=== PATIENT | male | born 1985 | race African-American/Black ===

== ENCOUNTER 2025-02-10 03:06 | Inpatient (IN) | payer MEDICAID, OTHER ==
[~2025-02-10] VITALS: Ht 180.3 cm; Wt 75.6 kg
[2025-02-10] VITALS (7 sets, daily range): BP systolic 142–156; BP diastolic 78–104; PULSE 111–129; RESP 16–30; TEMP 97.9–98.4; O2SAT 91–98
--- NOTE | 2025-02-10 03:36 | ED.PDOC ---
History of Present Illness HPI Comments 39-year-old male came to ER for shortness of breath. Patient states he has been feeling short of breath for the past week, which progressively worsened tonight. Denies any cough, fever, chest pains, nausea or vomiting. Denies smoking or use of any prohibited drugs, Upon arrival, patient tachycardic at 130's. Chief Complaint: Shortness of Breath Time Seen by MD: 03:35 Reviewed Notes: Nurses Notes Allergies: Coded Allergies: NO KNOWN ALLERGIES (Unverified , 02/10/25) Information Source: Patient Mode of Arrival: Ambulatory Severity: Moderate Timing: Days Duration: Since onset Past Medical History PAST MEDICAL HISTORY: HTN Surgical History: Denies all surgeries Family History Family History: Reviewed,noncontributory to illness Social History Smoker: Non-Smoker Alcohol: Denies ETOH Use Drugs: Denies Drug Use Lives In: Home Constitutional: denies: chills, diaphoresis, fatigue, fever, malaise, sweats, weakness, others EENTM: denies: blurred vision, double vision, ear bleeding, ear discharge, ear drainage, ear pain, ear ringing, eye pain, eye redness, hearing loss, mouth pain, mouth swelling, nasal discharge, nose bleeding, nose congestion, nose pain, photophobia, tearing, throat pain, throat swelling, voice changes, others Respiratory: reports: SOB at rest, shortness of breath; denies: cough, hemoptysis, orthopnea, SOB with excertion, stridor, wheezing, others Cardiovascular: denies: chest pain, dizzy spells, diaphoresis, Dyspnea on exertion, edema, irregular heart beat, left arm pain, lightheadedness, palpitations, PND, syncope, others Gastrointestinal: denies: abdomen distended, abdominal pain, blood streaked bowels, constipated, diarrhea, dysphagia, difficulty swallowing, hematemesis, melena, nausea, poor appetite, poor fluid intake, rectal bleeding, rectal pain, vomiting, others Genitourinary: denies: burning, dysuria, flank pain, frequency, hematuria, incontinence, penile discharge, penile sore, pain, testicle pain, testicle swelling, urgency, others Neurological: denies: dizziness, fainting, headache, left sided numbness, left sided weakness, numbness, paresthesia, pre-existing deficit, right sided numbness, right sided weakness, seizure, speech problems, tingling, tremors, weakness, others Musculoskeletal: denies: back pain, gout, joint pain, joint swelling, muscle pain, muscle stiffness, neck pain, others Integumetry: denies: bruises, change in color, change in hair/nails, dryness, laceration, lesions, lumps, rash, wounds, others Allergic/Immunocompromised: denies: Difficulty Healing, Frequent Infections, Hives, Itching, others Hematologic/Lymphatic: denies: anemia, blood clots, easy bleeding, easy bruising, swollen glands, others Endocrine: denies: excessive hunger, excessive sweating, excessive thirst, excessive urination, flushing, intolerance to cold, intolerance to heat, unexplained weight gain, unexplained weight loss, others Psychiatric: denies: anxiety, bipolar disorder, depression, hopeless, panic disorder, schizophrenia, sleepless, suicidal, others Physical Exam General Appearance: No Apparent Distress, Normal HEENT: Normal ENT Inspection, Pharynx Normal, TMs Normal Neck: Full Range of Motion, Non-Tender, Normal, Normal Inspection Respiratory: Chest Non-Tender, Lungs Clear, No Accessory Muscle Use, No Respiratory Distress, Normal Breath Sounds Cardiovascular: No Edema, No JVD, No Murmur, No Gallop, Normal Peripheral Pulses, Regular Rate/Rhythm Breast Exam: Deferred Gastrointestinal: No Organomegaly, Non Tender, No Pulsatile Mass, Normal Bowel Sounds, Soft Genitalia: Deferred Pelvic: Deferred Rectal: Deferred Extremities: No calf tenderness, Normal capillary refill, Normal inspection, Normal range of motion, Non-tender, No pedal edema Musculoskeletal : Apperance: Normal Neurologic: Alert, outside cutter II-XII nml as Tested, No Motor Deficits, Normal Affect, Normal Mood, No Sensory Deficits Cerebellar Function: Normal Reflexes: Normal Skin: Dry, Normal Color, Warm Lymphatic: No Adenopathy Was a procedure done? Was a procedure done?: No EKG EKG : Pulse Rate (adult): 132 Cardiac Rhythm: ST Differential Dx Considerations may include: Anemia, electrolyte imbalance, shortness of breath, tachycardic X-Ray, Labs, Meds, VS Vital Signs Date Time Temp Pulse Resp B/P (MAP) Pulse Ox O2 Delivery O2 Flow Rate FiO2 02/10/25 04:00 128 30 98 Room Air* 0 21 02/10/25 03:50 98.9 128 30 150/111 (124) 98 98.9 02/10/25 03:36 132 02/10/25 03:15 132 02/10/25 03:15 98.1 138 18 171/96 (121) 99 98.1 Lab Test 02/10/25 05:30 02/10/25 04:56 02/10/25 03:50 Range/Units Urine Color Pending Urine Clarity Pending Urine pH Pending Urine Specific [place] Pending Urine Protein Pending Urine Ketones Pending Urine Blood Pending Urine Nitrite Pending Urine Bilirubin Pending Urine Urobilinogen Pending Urine Leukocyte Esterase Pending Urine RBC Pending Urine Microscopic WBC Pending Urine Squamous Epithelial Cells Pending Urine Bacteria Pending Urine Glucose Pending Troponin I High Sensitivity 5 5 </=54 ng/L White Blood Count 10.7 4.4-10.8 10^3/uL Red Blood Count 4.84 4.5-5.90 10^6/uL Hemoglobin 13.2 L 13.5-17.5 g/dL Hematocrit 37.7 L 41.0-53.0 % Mean Corpuscular Volume 78.0 L 80.0-100.0 fL Mean Corpuscular Hemoglobin 27.2 L 28.0-32.0 pg Mean Corpuscular Hemoglobin Concent 34.9 32.0-36.0 g/dL Red Cell Distribution Width 12.3 11.8-14.3 % Platelet Count 306 140-450 10^3/uL Mean Platelet Volume 9.2 6.9-10.8 fL Neutrophils (%) (Auto) 65.0 37.0-80.0 % Lymphocytes (%) (Auto) 22.1 10.0-50.0 % Monocytes (%) (Auto) 9.2 0.0-12.0 % Eosinophils (%) (Auto) 3.0 0.0-7.0 % Basophils (%) (Auto) 0.7 0.0-2.0 % Neutrophils # (Auto) 7.0 1.6-8.6 10 ^3/uL Lymphocytes # (Auto) 2.4 0.4-5.4 10 ^3/uL Monocytes # (Auto) 1.0 0-1.3 10 ^3/uL Eosinophils # (Auto) 0.3 0-0.8 10 ^3/uL Basophils # (Auto) 0.1 0-0.2 10 ^3/uL Nucleated Red Blood Cells 0.1 % Prothrombin Time 11.7 9.3-11.8 sec Prothrombin Time INR 1.12 0.9-1.15 Activated Partial Thromboplast Time 28.6 24.5-34.5 SEC D-Dimer, Quantitative 4.13 H 0.0-0.49 mg/L FEU Sodium Level 134 L 136-145 mmol/L Potassium Level 5.0 3.5-5.1 mmol/L Chloride Level 101 98-107 mmol/L Carbon Dioxide Level 24 20-31 mmol/L Anion Gap 9 5-15 Blood Urea Nitrogen 14 9-23 mg/dL Creatinine 1.36 H 0.700-1.30 mg/dL Glomerular Filtration Rate Calc 69 >90 mL/min BUN/Creatinine Ratio 10.3 10.0-20.0 Serum Glucose 112 H 74-106 mg/dL Calcium Level 9.7 8.7-10.4 mg/dL Total Bilirubin 0.6 0.2-1.0 mg/dL Aspartate Amino Transferase (AST) 13 13-40 U/L Alanine Aminotransferase (ALT) 10 7-40 U/L Alkaline Phosphatase 67 46-116 U/L B-Type Natriuretic Peptide 28.19 0-100 pg/mL Total Protein 7.3 5.7-8.2 g/dL Albumin 4.2 3.2-4.8 g/dL Current Medications Medications (Trade) Dose Ordered Sig/Moises Route Start Time Stop Time Status Last Admin Acetaminophen/ Hydrocodone Bitart ([place] 10/325MG Tab) 1 tab ONCE ONCE PO 02/10/25 05:00 02/10/25 05:01 DC 02/10/25 05:02 Sodium Chloride 1,000 ml @ 1,000 mls/hr Q1H ONCE IV 02/10/25 05:15 02/10/25 06:14 02/10/25 05:39 Time of 1ST Reevaluation: 03:24 Reevaluation 1ST: Unchanged Time of 2ND Reevaluation: 05:47 Reevaluation 2ND: Unchanged Patient Education/Counseling: Diagnosis, Treatment Family Education/Counseling: No Family Present Sepsis focused exam: focus exam completed (In the initial resuscitation at least 30 mL/kg of IV crystalloid fluid was NOT given within the first 3 hr due to concerns of fluid overload), time: (0500) Sepsis Sepsis Reasesment Focused Exam Sepsis focused exam: focus exam completed, time: (0500) Departure 1 Departure Time of Disposition: 05:48 Impression: Primary Impression: Pleural effusion, left Additional Impressions: Pneumonia involving left lung Acute renal injury Disposition: ADMITTED INPATIENT Condition: Guarded Discharged With: Self, Spouse Comments Shortness of Breath with Left Pleural Effusion/Pneumonia Chief Complaint: Shortness of breath History of Present Illness: 39-year-old male with a history of hypertension presents to the emergency department with a one-day history of shortness of breath. The patient was noted to be tachycardic on presentation. Initial workup revealed borderline elevated inflammatory markers and renal insufficiency, with an elevated D-dimer prompting further imaging evaluation. Review of Systems: Respiratory: Positive for shortness of breath Constitutional: Tachycardia noted Otherwise limited by acute presentation Vital Signs: Tachycardia noted, specific vital signs not provided in hose sprayer Lab Results: WBC: 10.7 (borderline elevated) Hemoglobin: 13 Hematocrit: 38 Platelets: 306 BUN: 14 Creatinine: 1.36 (elevated) Troponin: 5 BNP: 28 D-dimer: 4.13 (elevated) Other chemistries: unremarkable Imaging and Other Relevant Results: Chest X-ray: Large left pleural effusion versus infiltrate CT Chest: Confirms large left pleural effusion versus infiltrate, negative for pulmonary embolism Medical Decision Making: Summary Statement: 39-year-old male with hypertension presenting with acute onset shortness of breath, found to have left-sided pleural effusion/infiltrate and respiratory failure with hypoxia. Problem List: 1. Respiratory failure with hypoxia 2. Left pleural effusion vs. pneumonia 3. Acute kidney injury Differential Diagnosis: Community-acquired pneumonia, parapneumonic effusion, pulmonary embolism (ruled out), heart failure (less likely given normal BNP) ED Course: Patient received IV antibiotics (Rocephin and azithromycin) and 1L IV fluid bolus. Admission planned for further management. Assessment and Plan: 1. Respiratory Failure with Hypoxia: - Admit to hospital for close monitoring and respiratory support - Continue oxygen supplementation as needed 2. Left Pleural Effusion vs. Pneumonia: - Continue IV antibiotics (Ceftriaxone and Azithromycin) - May require thoracentesis if primarily effusion - Daily chest x-rays to monitor progression 3. Acute Kidney Injury: - Continue IV hydration - Monitor renal function - Avoid nephrotoxic medications Billing Information: ICD-10: J18.9 - Pneumonia, unspecified organism ICD-10: J90 - Pleural effusion, not elsewhere classified ICD-10: J96.01 - Acute respiratory failure with hypoxia ICD-10: N17.9 - Acute kidney injury, unspecified Critical Care Note Critical Care Time?: Yes (35 min-critical care time only) Critical care comment: Total critical care time: Approximately 36 minutes Due to a high probability of clinically significant, life threatening deterioration, the patient required my highest level of preparedness to intervene emergently and I personally spent this critical care time directly and personally managing the patient. This critical care time included obtaining a history; examining the patient; pulse oximetry; ordering and review of studies; arranging urgent treatment with development of a management plan; evaluation of patient's response to treatment; frequent reassessment; and, discussions with other providers. This critical care time was performed to assess and manage the high probability of imminent, life-threatening deterioration that could result in multi-organ failure. It was exclusive of separately billable procedures and treating other patients. Stability Stability form required: No Heart Score Heart Score: Heart Score Response (Comments) Value History N/A 0 EKG N/A 0 Age N/A 0 Risk Factors N/A 0 Troponin N/A 0 Total 0 I personally scribed for ZORAIDA HENNING MD ([email or web address]) on 02/10/25 at 03:36. Electronically submitted by Devan Santiago ([facility] [place]). ZORAIDA HENNING MD Feb 10, 2025 03:36
[2025-02-10 04:32] LABS: Basophils # (auto) 0.1 10 ^3/uL (0-0.2); Basophils % (auto) 0.7 % (0.0-2.0); Eosinophils # (auto) 0.3 10 ^3/uL (0-0.8); Hematocrit 37.7 % (41.0-53.0); Hemoglobin 13.2 g/dL (13.5-17.5); Lymphocytes # (auto) 2.4 10 ^3/uL (0.4-5.4); Lymphocytes % (auto) 22.1 % (10.0-50.0); Mean Corpuscular Hemoglobin 27.2 pg (28.0-32.0); Mean Corpuscular Hgb Conc. 34.9 g/dL (32.0-36.0); Monocytes % (auto) 9.2 % (0.0-12.0); Nucleated Red Blood Cells % 0.1 %; Platelet Count (auto) 306 10^3/uL (140-450); Red Blood Cells 4.84 10^6/uL (4.5-5.90); Red Cell Distribution Width 12.3 % (11.8-14.3); White Blood Cell 10.7 10^3/uL (4.4-10.8)
[2025-02-10 04:41] LABS: Alanine Aminotransferase 10 U/L (7-40); Albumin 4.2 g/dL (3.2-4.8); Alkaline Phosphatase 67 U/L (46-116); Anion Gap 9 (5-15); BUN/Creatinine Ratio 10.3 (10.0-20.0); Blood Urea Nitrogen 14 mg/dL (9-23); Calcium 9.7 mg/dL (8.7-10.4); Carbon Dioxide 24 mmol/L (20-31); Chloride 101 mmol/L (98-107); Total Protein 7.3 g/dL (5.7-8.2)
[2025-02-10 04:42] LABS: Bilirubin, Total 0.6 mg/dL (0.2-1.0); INR 1.12 (0.9-1.15); Partial Thromboplastin Time 28.6 SEC (24.5-34.5); Prothrombin Time 11.7 sec (9.3-11.8)
[2025-02-10 04:46] LABS: Aspartate Aminotransferase 13 U/L (13-40); Glucose 112 mg/dL (74-106); Sodium 134 mmol/L (136-145)
[2025-02-10] MEDS: HYDROcodone-ACET 10/325MG TAB PO ONE (05:02)
[2025-02-10] MEDS: IOHEXOL 350 MG/ML 100ML IJ ONE (05:24)
[2025-02-10] MEDS: SODIUM CHLORIDE 0.9% 1,000 ML IV ONE ×2 (05:39→15:15)
--- NOTE | 2025-02-10 05:47 | DVH ---
EXAM: XR Chest, 1 View CLINICAL INDICATION: chest pain TECHNIQUE: Frontal view of the chest. COMPARISON: None FINDINGS: LUNGS AND PLEURAL SPACES: Pulmonary venous congestion. Large left pleural effusion. No consolidat ion. No pneumothorax. HEART: Unremarkable. No cardiomegaly. MEDIASTINUM: Unremarkable. Normal mediastinal contour. BONES/JOINTS: Unremarkable. No acute fracture. OTHER FINDINGS: . . IMPRESSION: 1. Pulmonary venous congestion. 2. Large left pleural effusion.
--- NOTE | 2025-02-10 06:02 | DVH ---
EXAM: CT Angiography Chest With Intravenous Contrast CLINICAL INDICATION: SOB, tachy, elevated d-dimer r/o PE TECHNIQUE: Axial computed tomographic angiography images of the chest with intravenous contrast. Th is CT exam was performed using one or more of the following dose reduction techniques: automated exp osure control, adjustment of the mA and/or kV according to patient size, and/or use of iterative zuri nstruction technique. MIP reconstructed images were created and reviewed. CONTRAST: COMPARISON: None FINDINGS: LIMITATIONS: Suboptimal opacification of the pulmonary arteries. PULMONARY ARTERIES: No pulmonary embolism is identified. Some of the distal pulmonary arteries can not be evaluated due to suboptimal opacification. AORTA: No acute findings. No thoracic aortic aneurysm. LUNGS AND PLEURAL SPACES: Large left pleural effusion with compressive atelectasis and mass effect the mediastinum shift to the right. No pneumothorax. HEART: Unremarkable. No cardiomegaly. No significant pericardial effusion. No evidence of RV dys function. BONES/JOINTS: No acute fracture. No dislocation. SOFT TISSUES: Unremarkable. LYMPH NODES: Unremarkable. No enlarged lymph nodes. INTRAPERITONEAL SPACE: Partially visualized heterogeneous lesion in the right upper abdomen measuri ng up to 7.8 cm. This could be further evaluated with CT abdomen and pelvis with and without contrast after 24 hours. However, patient just received contrast. OTHER FINDINGS: . IMPRESSION: 1. No pulmonary embolism is identified. Some of the distal pulmonary arteries cannot be evaluated d ue to suboptimal opacification. 2. Partially visualized heterogeneous lesion in the right upper abdomen measuring up to 7.8 cm. This could be further evaluated with CT abdomen and pelvis with and without contrast after 24 hours. How ever, patient just received contrast.
[2025-02-10] MEDS: cefTRIAXone 1GM/50ML D5W 50 ML IV ONE (06:10)
[2025-02-10 06:13] LABS: Urine Bacteria FEW /hpf (None Seen); Urine Blood 3+ /uL (Negative); Urine Clarity Clear (Clear); Urine Color Light-Orange (Yellow); Urine Mucus FEW (None Seen); Urine Protein, UAD 1+ (Negative); Urine Specific Gravity 1.034 (1.001-1.035); Urine Squamous Epithelial Cell None Seen /hpf (<5); Urine Urobilinogen Normal (Negative); Urine WBC 4 /HPF (0-3); Urine pH 5.5 (5.0-9.0)
[2025-02-10] MEDS: AZITHROMYCIN 500MG/ 250ML 250 ML IV ONE (06:39)
[2025-02-10 07:00] LABS: Lactic Acid w/Reflex 2.6 mmol/L (0.4-2.0)
--- NOTE | 2025-02-10 11:18 | DVH ---
EXAM: XY CHEST XRAY 1 VIEW Indication: SOB Technique: Single frontal view of the chest was obtained Comparison: XY CHEST PORTABLE on DOS: 02/10/25 FINDINGS: Lines and Tubes: None Lungs: Complete opacification of the left hemithorax. No pneumothorax. Cardiomediastinal contours: Obscured. Bones: No acute osseous abnormality. IMPRESSION: Complete opacification of the left hemithorax again visualized.
[2025-02-10] MEDS: LORazepam 2MG/ML-1ML VIAL IV ONE (15:00)
--- NOTE | 2025-02-10 15:10 | DVHHP2 ---
Assessment/Plan Assessment/Plan H&P 39 yo M with hypertension presented to ED with 1 week of worsening SOB. Denies weight loss, night sweats, recent travels. 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 Denies other symptoms. Not taking any medication. Denies smoking, alcohol, marijuana, drugs. In ED found to have L side whiteout o n CXR, CT chest with L PLEF, incidentally found RUQ mass. Thoracenthesis done bedside, drained 1.9L serosanguineous fluid. EKG reviewed, sinus tach. Physical exam Alert oriented x3 Speaking in full sentences Not in resp distress No breath sounds on L side S1 S2 tachycardic Abdomen soft nontender No LE edema No significant lymphadenopathy Labs EKG imaging reviewed Assessment and plan R PLEF, parapneumonic vs malignancy Cannot r/o PNA RUQ mass Hypertension Admit to telemetry Thoracentesis send cytology MRI w/ con Diet regular DVT ppx ambulatory Code status full code Plan discussed with: Patient My Orders Orders - NICOLAS MATHEWS MD Procedure Category Date Status Time Admit ADMIT 02/10/25 Transmitted 11:42 Notify Of Changes SNEHAL 02/10/25 In Process From Base 11:42 Vinyl Top Installer For SNEHAL 02/10/25 In Process 24 Hours 11:42 Emergency Dysrhythmia SNEHAL 02/10/25 In Process Protocol 11:42 Rhythm Strips Once SNEHAL 02/10/25 In Process Every Shift 11:42 Ceftriaxone 1gm/50ml PHA 02/11/25 In Process D5w (Rocephin) 09:00 Azithromycin 500mg/ PHA 02/11/25 In Process 250ml (Zithromax 50 10:00 Mrsa Screen MARU 02/10/25 Logged 11:42 Regular Diet DIET 02/10/25 Transmitted Dinner Chest Xray 1 View XY 02/10/25 Logged 14:52 Mri Abd & Plevis W/Wo MRI 02/10/25 Logged Cont 14:56 Comprehensive LAB 02/11/25 Verified Metabolic Panel 04:00 Lactate Dehydrogenase LAB 02/11/25 Verified 04:00 Complete Blood Count LAB 02/11/25 Verified 04:00 Lorazepam 2mg/Ml Inj PHA 02/10/25 Logged (Ativan Inj) 15:00 Date of Service: Feb 10, 2025 Billing Provider: NICOLAS MATHEWS MD Common Visit Codes: [id number] INP/OBS CARE (HIGH) NICOLAS MATHEWS MD Feb 10, 2025 15:10
--- NOTE | 2025-02-10 15:16 | DVH ---
EXAM: XY CHEST XRAY 1 VIEW HISTORY: post thoracentesis COMPARISON: XY CHEST XRAY 1 VIEW on DOS: 02/10/25, XY CHEST PORTABLE on DOS: 02/10/25 TECHNIQUE: Portable upright AP view of the chest was performed. FINDINGS/IMPRESSION: 1. Status post left thoracentesis with decreased pleural effusion as there is now some aerated left u pper lobe. No visible pneumothorax. The majority of the left hemithorax remains opacified. 2. Mild peribronchial thickening identified about the right hilum. The right lung is otherwise clear.
[2025-02-10 16:30] LABS: Body Fluid Red Blood Cells 148907 CUMM (0-2000); Body Fluid White Blood Cells 995 CUMM (0-200)
[2025-02-10] MEDS: ACETAMINOPHEN 325 MG TAB PO PRN (21:26)
--- NOTE | 2025-02-10 21:49 | DVHNC2 ---
AARON SIMMONS [birth year]: Procedure - Ultrasound-guided LEFT thoracentesis procedure note: Physician: Dr Yovany Mathews Asst: Dr Shahab Motta Time out time: 1420 pm Patient medications and allergies reviewed. The risks and benefits of the procedure and the sedation options and risk were discussed with the patient. All questions were answered and informed consent was obtained. Patient identification and proposed procedure were verified prior to the procedure by the physician, and a nurse in the patient's room. The heart rate, respiratory rate, oxygen saturations, blood pressure, adequacy of pulmonary ventilation, and response to care were monitored throughout the procedure. The physical status of the patient was reassessed after the procedure. Date: 02/10/2025 Consent: Consent was obtained from the patient. Indication, risks, and benefits were explained at length. Procedure summary: A time-out was performed and a chest x-ray was reviewed prior to procedure. The appropriate site was confirmed and marked. My hands were washed immediately prior to the procedure, I wore a surgical cap, mask with protective eyewear, sterile gown and sterile gloves throughout the procedure. The patient was prepped and draped in a sterile manner using chlorhexidine scrub after the appropriate level was percussed and confirmed by ultrasound. 1% lidocaine was used to anesthetize the skin, subcutaneous tissue, superior aspect of the rib periosteum and parietal pleura. A finder needle was then introduced over the superior aspect of the rib to locate the pleural fluid. Red serosanguineous fluid was aspirated. Thoracentesis needle was then introduced through the skin incision into the pleural space using negative aspiration pressure. The thoracentesis catheter was then threaded without difficulty. 2050 mL's of Red serosanguineous fluid were removed without difficulty. The catheter was then removed. No immediate complications were noted during the procedure. A postprocedure chest x-ray is pending at the time of this note. No pleural fluid was sent for cultures and cytology. Estimated blood loss is less than 5 mL's. NICOLAS MATHEWS MD 02/11/25 0902: Date of Service: Feb 10, 2025 Billing Provider: NICOLAS MATHEWS MD Common Visit Codes: PROCEDURE ONLY Procedure Codes: [id number] W/PUNCT AARON SIMMONS RESIDENT Feb 10, 2025 21:49 NICOLAS MATHEWS MD Feb 11, 2025 09:02
[2025-02-11] VITALS (8 sets, daily range): BP systolic 132–159; BP diastolic 80–106; PULSE 102–130; RESP 16–18; TEMP 97.6–98.8; O2SAT 90–97
[2025-02-11 06:41] LABS: Eosinophils # (auto) 0.6 10 ^3/uL (0-0.8); Lymphocytes # (auto) 1.2 10 ^3/uL (0.4-5.4)
[2025-02-11 06:44] LABS: Basophils # (auto) 0 10 ^3/uL (0-0.2); Basophils % (auto) 0.6 % (0.0-2.0); Eosinophils % (auto) 6.5 % (0.0-7.0); Hematocrit 40.1 % (41.0-53.0); Hemoglobin 13.1 g/dL (13.5-17.5); Lymphocytes % (auto) 13.4 % (10.0-50.0); Mean Corpuscular Hemoglobin 25.4 pg (28.0-32.0); Mean Corpuscular Hgb Conc. 32.7 g/dL (32.0-36.0); Mean Corpuscular Volume 77.8 fL (80.0-100.0); Monocytes % (auto) 11.7 % (0.0-12.0); Neutrophils % (auto) 67.8 % (37.0-80.0); Nucleated Red Blood Cells % 0.1 %; Platelet Count (auto) 258 10^3/uL (140-450); Red Blood Cells 5.15 10^6/uL (4.5-5.90); Red Cell Distribution Width 12.4 % (11.8-14.3); White Blood Cell 8.8 10^3/uL (4.4-10.8)
[2025-02-11 06:50] LABS: Alanine Aminotransferase 13 U/L (7-40); Albumin 3.7 g/dL (3.2-4.8); Alkaline Phosphatase 64 U/L (46-116); Anion Gap 9 (5-15); Aspartate Aminotransferase 19 U/L (13-40); BUN/Creatinine Ratio 11.8 (10.0-20.0); Blood Urea Nitrogen 14 mg/dL (9-23); Calcium 9.1 mg/dL (8.7-10.4); Carbon Dioxide 26 mmol/L (20-31); Chloride 101 mmol/L (98-107); Glucose 99 mg/dL (74-106); Potassium 4.2 mmol/L (3.5-5.1); Sodium 136 mmol/L (136-145); Total Protein 6.3 g/dL (5.7-8.2)
[2025-02-11 06:51] LABS: Bilirubin, Total 0.5 mg/dL (0.2-1.0)
--- NOTE | 2025-02-11 08:57 | DVHPN2 ---
Assessment/Plan Assessment/Plan Progress note 39 yo M with hypertension presented to ED with 1 week of worsening SOB. Denies weight loss, night sweats, recent travels. 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 Denies other symptoms. Not taking any medication. Denies smoking, alcohol, marijuana, drugs. In ED found to have L side whiteout on CXR, CT chest with L PLEF, incidentally found RUQ mass. Thoracenthesis done bedside, drained 1.9L serosanguineous fluid. EKG reviewed, sinus tach. seen by me today during rounds, repeat xray with still significant plef. high susp of malignancy. patient received iv contrast yesterday however risk and benefit discussed, plan for ct abd contrast today. Physical exam Alert oriented x3 Speaking in full sentences Not in resp distress No breath sounds on L side S1 S2 tachycardic Abdomen soft nontender No LE edema No significant lymphadenopathy Labs EKG imaging reviewed Assessment and plan R PLEF, high susp of malignancy Cannot r/o PNA and parapneumonic PLEF RUQ mass Hypertension Admit to telemetry Thoracentesis done pulm consult for pigtail send cytology ct with cont today Diet regular DVT ppx ambulatory Code status full code Plan discussed with: Patient My Orders Orders - NICOLAS MATHEWS MD Procedure Category Date Status Time Admit ADMIT 02/10/25 Transmitted 11:42 Notify Of Changes SNEHAL 02/10/25 In Process From Base 11:42 Knowledge Management Advisor For SNEHAL 02/10/25 In Process 24 Hours 11:42 Emergency Dysrhythmia SNEHAL 02/10/25 In Process Protocol 11:42 Rhythm Strips Once SNEHAL 02/10/25 In Process Every Shift 11:42 Ceftriaxone 1gm/50ml PHA 02/11/25 In Process D5w (Rocephin) 09:00 Azithromycin 500mg/ PHA 02/11/25 In Process 250ml (Zithromax 50 10:00 Mrsa Screen MARU 02/10/25 In Process 11:42 Regular Diet DIET 02/10/25 Transmitted Dinner Chest Xray 1 View XY 02/10/25 Resulted 14:52 Mri Abd & Plevis W/Wo MRI 02/12/25 Logged Cont 14:56 Echo 2d Mode Cardiac US 02/11/25 Transmitted DOP 08:51 Basic Metabolic Panel LAB 02/12/25 Verified 04:00 Complete Blood Count LAB 02/12/25 Verified 04:00 Magnesium LAB 02/12/25 Verified 04:00 Phosphorus LAB 02/12/25 Verified 04:00 Lactic Acid W/ Reflex LAB 02/12/25 Verified Order 04:00 Iron Panel LAB 02/11/25 Transmitted 08:51 Ferritin LAB 02/11/25 Transmitted 08:[address] 02/11/25 Transmitted 08:51 Date of Service: Feb 11, 2025 Billing Provider: NICOLAS MATHEWS MD Common Visit Codes: [id number] INP/OBS CARE(HIGH) NICOLAS MATHEWS MD Feb 11, 2025 08:57
[2025-02-11] MEDS: IOHEXOL 300 MG/ML 100ML BOTTLE IJ ONE (09:16)
[2025-02-11] MEDS: clonazePAM 0.5 MG TAB PO SCH (10:00)
[2025-02-11] MEDS: cefTRIAXone 1GM/50ML D5W 50 ML IV SCH (10:02)
--- NOTE | 2025-02-11 10:03 | DVH ---
Exam: CT CT AB PEL WITH IV CON ONLY History: ABDMINAL MASS/ OKAY TO GIVE CONTRAST TECHNIQUE: Multiple contiguous axial CT images of the abdomen and pelvis were obtained with intraveno us contrast. The images were reformatted to generate coronal and sagittal reconstructions. 100 cc of Omnipaque 300 contrast was injected intravenously. All CT scans at this medical facility are performed using dose modulation techniques as appropriate t o a performed exam including the following:Automated exposure control was utilized; adjustment of the MA and/or KV according to patient size; and use of iterative reconstruction technique. Radiation Dose Information: CT Dose: CTDI volume is 6 mGy. Dose-length product is 54 mGy*cm Comparison: None FINDINGS: There is an 8.3 x 7.5 cm irregular heterogeneous enhancing mass in the upper pole of the right kidney suspicious for primary renal malignancy. There is no evidence of left renal lesion. There is no evid ence of nephrolithiasis or hydronephrosis. The liver, gallbladder, pancreas, adrenal glands, and spleen appear within normal limits. There is no evidence of retroperitoneal lymphadenopathy. There is no free fluid or free air. The stomach grossly appears unremarkable. The small and large bowel loops demonstrate normal caliber and distribution. The appendix is not seen in the right lower quadrant abdomen. There are no seconda ry signs of acute appendicitis. The abdominal aorta and IVC appear within normal limits. The bladder appears within normal limits the degree of distention. Pelvic organs is unremarkable. The re is no evidence of a pelvic mass or lymphadenopathy. There is no free fluid collection. There is a large left pleural effusion with atelectasis in the visualized left lower lung. The righ t lung base is clear. There is no suspicious appearing osseous lesion. IMPRESSION: 1. 8.3 x 7.5 cm irregular heterogeneous enhancing mass in the upper pole of the right kidney suspicio us for primary renal malignancy. Urology consultation is recommended. 2. Large left pleural effusion with atelectasis in the visualized left lower lung. HS:Y
[2025-02-11 10:52] LABS: % Iron Saturation 9.8 % (20-55)
--- NOTE | 2025-02-11 10:52 | ECG ---
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
[2025-02-11] MEDS: AZITHROMYCIN 500MG/ 250ML 250 ML IV SCH (11:52)
[2025-02-11] MEDS: SODIUM CHLORIDE 0.9% 1,000 ML IV ONE (11:52)
--- NOTE | 2025-02-11 16:25 | DVHINCON2 ---
Date of service: Feb 12, [address] Castaneda Reason for Consultation renal mass History of Present Illness History Source: RN Notes, MD Notes Exam Limitations: No limitations HPI 39 yo male with dyspnea found to have incidental large renal mass. Patient off unit at time of rounds for chest tube placement. Past Medical History Patient Family History: Hypertension G8 MOTHER Review of Systems Pulmonary/Respiratory: Dyspnea H&P Exam Vital Signs Vital Signs Date Time Temp Pulse Resp B/P (MAP) Pulse Ox O2 Delivery O2 Flow Rate FiO2 02/11/25 13:30 97.9 112 16 141/99 (113) 90 97.9 02/11/25 08:00 Room Air* 0 21 Labs/Xrays [place] [address] Ph: [phone] DIAGNOSTIC IMAGING Diagnostic Imaging Report : [id number] Signed PATIENT: DAYAMI BARNES ACCT: [id number] UNIT: [id number] : 1985 LOC: [facility] ROOM / BED: [facility] / AGE / SEX: 39 / M ADM STATUS: ADM IN SERVICE 0914 ORDERING PHYSICIAN: NICOLAS MATHEWS MD PROCEDURE(s): ABPLIV - CT AB PEL WITH IV CON ONLY REASON: ABDMINAL MASS/ OKAY TO GIVE CONTRAST ORDER NUMBER(s): [id number], ACCESSION NUMBER(s): [id number] Exam: CT CT AB PEL WITH IV CON ONLY History: ABDMINAL MASS/ OKAY TO GIVE CONTRAST TECHNIQUE: Multiple contiguous axial CT images of the abdomen and pelvis were obtained with intravenous contrast. The images were reformatted to generate coronal and sagittal reconstructions. 100 cc of Omnipaque 300 contrast was injected intravenously. All CT scans at this medical facility are performed using dose modulation techniques as appropriate to a performed exam including the following:Automated exposure control was utilized; adjustment of the MA and/or KV according to patient size; and use of iterative reconstruction technique. Radiation Dose Information: CT Dose: CTDI volume is 6 mGy. Dose-length product is 54 mGy*cm Comparison: None FINDINGS: There is an 8.3 x 7.5 cm irregular heterogeneous enhancing mass in the upper pole of the right kidney suspicious for primary renal malignancy. There is no evidence of left renal lesion. There is no evidence of nephrolithiasis or hydronephrosis. The liver, gallbladder, pancreas, adrenal glands, and spleen appear within normal limits. There is no evidence of retroperitoneal lymphadenopathy. There is no free fluid or free air. The stomach grossly appears unremarkable. The small and large bowel loops demonstrate normal caliber and distribution. The appendix is not seen in the right lower quadrant abdomen. There are no secondary signs of acute appendicitis . The abdominal aorta and IVC appear within normal limits. The bladder appears within normal limits the degree of distention. Pelvic organs is unremarkable. There is no evidence of a pelvic mass or lymphadenopathy. There is no free fluid collection. There is a large left pleural effusion with atelectasis in the visualized left lower lung. The right lung base is clear. There is no suspicious appearing osseous lesion. IMPRESSION: 1. 8.3 x 7.5 cm irregular heterogeneous enhancing mass in the upper pole of the right kidney suspicious for primary renal malignancy. Urology consultation is recommended. 2. Large left pleural effusion with atelectasis in the visualized left lower lung. HS:Y ATED BY: CUCO RODRIGUES MD DICTATED DATE/TIME: 02/11/25 1001 SIGNED BY: CUCO RODRIGUES MD SIGNED DATE/TIME: 02/11/25 1001 CC: Labs Test 02/11/25 05:42 02/10/25 15:01 02/10/25 08:21 02/10/25 05:30 Range/Units White Blood Count 8.8 4.4-10.8 10^3/uL Red Blood Count 5.15 4.5-5.90 10^6/uL Hemoglobin 13.1 L 13.5-17.5 g/dL Hematocrit 40.1 L 41.0-53.0 % Mean Corpuscular Volume 77.8 L 80.0-100.0 fL Mean Corpuscular Hemoglobin 25.4 L 28.0-32.0 pg Mean Corpuscular Hemoglobin Concent 32.7 32.0-36.0 g/dL Red Cell Distribution Width 12.4 11.8-14.3 % Platelet Count 258 140-450 10^3/uL Mean Platelet Volume 9.0 6.9-10.8 fL Neutrophils (%) (Auto) 67.8 37.0-80.0 % Lymphocytes (%) (Auto) 13.4 10.0-50.0 % Monocytes (%) (Auto) 11.7 0.0-12.0 % Eosinophils (%) (Auto) 6.5 0.0-7.0 % Basophils (%) (Auto) 0.6 0.0-2.0 % Neutrophils # (Auto) 6.0 1.6-8.6 10 ^3/uL Lymphocytes # (Auto) 1.2 0.4-5.4 10 ^3/uL Monocytes # (Auto) 1.0 0-1.3 10 ^3/uL Eosinophils # (Auto) 0.6 0-0.8 10 ^3/uL Basophils # (Auto) 0 0-0.2 10 ^3/uL Nucleated Red Blood Cells 0.1 % Sodium Level 136 136-145 mmol/L Potassium Level 4.2 3.5-5.1 mmol/L Chloride Level 101 98-107 mmol/L Carbon Dioxide Level 26 20-31 mmol/L Anion Gap 9 5-15 Blood Urea Nitrogen 14 9-23 mg/dL Creatinine 1.19 0.700-1.30 mg/dL Glomerular Filtration Rate Calc 81 >90 mL/min BUN/Creatinine Ratio 11.8 10.0-20.0 Serum Glucose 99 74-106 mg/dL Calcium Level 9.1 8.7-10.4 mg/dL Iron Level 21 L 65-175 ug/dL Total Iron Binding Capacity 215 L 250-425 ug/dL Percent Iron Saturation 9.8 L 20-55 % Ferritin 407.4 H 22-322 ng/mL Total Bilirubin 0.5 0.2-1.0 mg/dL Aspartate Amino Transferase (AST) 19 13-40 U/L Alanine Aminotransferase (ALT) 13 7-40 U/L Alkaline Phosphatase 64 46-116 U/L Lactate Dehydrogenase 357 H 120-246 U/L Total Protein 6.3 5.7-8.2 g/dL Albumin 3.7 3.2-4.8 g/dL Body Fluid Source Pleural fluid Body Fluid pH 8.0 Body Fluid WBC (Manual) 995 H 0-200 CUMM Body Fluid RBC (Manual) 820434 H 0-2000 CUMM Body Fluid Mononuclear Cells 70 % Body Fluid Polymorphonuclear Cells 30 H 0-25 % Body Fluid Glucose 78 . mg/dL Body Fluid Total Protein 5.0 . g/dL Body Fluid Lactate Dehydrogenase 563 . IU/L Lactic Acid Level 2.0 0.4-2.0 mmol/L Urine Color Light-orange Yellow Urine Clarity Clear Clear Urine pH 5.5 5.0-9.0 Urine Specific [place] 1.034 1.001-1.035 Urine Protein 1+ H Negative Urine Ketones 2+ H Negative Urine Blood 3+ H Negative /uL Urine Nitrite Negative Negative Urine Bilirubin Negative Negative Urine Urobilinogen Normal Negative mg/dL Urine Leukocyte Esterase Negative Negative /uL Urine RBC 437 0 - 3 /hpf Urine Microscopic WBC 4 H 0-3 /HPF Urine Squamous Epithelial Cells None seen <5 /hpf Urine Bacteria Few H None Seen /hpf Urine Mucus Few None Seen Urine Glucose Normal Normal mg/dL Test 02/10/25 04:56 02/10/25 03:50 Range/Units Troponin I High Sensitivity 5 </=54 ng/L Prothrombin Time 11.7 9.3-11.8 sec Prothrombin Time INR 1.12 0.9-1.15 Activated Partial Thromboplast Time 28.6 24.5-34.5 SEC D-Dimer, Quantitative 4.13 H 0.0-0.49 mg/L FEU B-Type Natriuretic Peptide 28.19 0-100 pg/mL Microbiology Date/Time Source Procedure Growth Status 02/10/25 12:35 Nose MRSA Screen - Final Complete 02/10/25 06:08 Blood Blood Culture - Preliminary NO GROWTH AFTER 24 HOURS OF INCUBATION. Resulted Assessment/Plan Problem List: (1) Renal malignant neoplasm (2) Hematuria (3) Pleural effusion, left (4) Acute renal injury (5) Pneumonia involving left lung Plan pt will ultimately need right radical nephrectomy on outpt basis this case was reviewed and discussed at length with supervising urology surgeon Dr. Zuhair Nicole and Dr. James Khan. medical management of other conditions Plan discussed with: Patient, Other SEVEN KATE NP Feb 11, 2025 16:25
--- NOTE | 2025-02-11 23:08 | DVHINCON2 ---
Date of service: Feb 11, 2025 Referring Physician Thomas Mathews MD Reason for Consultation Left pleural effusion, parapneumonic vs malignancy - cannot rule out pneumonia History of Present Illness A 39-year-old man with past medical history of hypertension who presented to ED on 02/10/25 with 1 week of worsening shortness of breath. He denied weight loss, night sweats, recent travels. 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 Denied other symptoms. Not taking any medication. Denies smoking, alcohol, marijuana, drugs. On ED workup, found to have left side whiteout on CXR; CT chest with left pleural effusion and incidentally found RUQ mass. Thoracentesis was done at bedside, drained 1.9 L serosanguineous fluid. EKG reviewed, sinus tach. Patient was admitted for further care and pulmonary consultation is requested for evaluation and management due to these findings. Review of Systems: 14-point review of systems negative unless otherwise noted above. Past Medical History: Hypertension Past Surgical History: None Medications: Reviewed. Allergies: No known drug allergies. Family History: Hypertension Social History: Nonsmoker. No alcohol or illicit drug use. Family History: Hypertension G8 MOTHER Allergies: Coded Allergies: NO KNOWN ALLERGIES (Unverified , 02/10/25) Home Meds Active Scripts Clonazepam (Clonazepam) 0.5 Mg Tab, 0.5 MG PO BIDPRN PRN for 5 Days, #10 TAB Prov:THOMAS MATHEWS MD 02/17/25 Ibuprofen Micronized (Ibuprofen) 600 Mg Tab, 600 MG PO TID PRN for 10 Days, #30 TAB Prov:THOMAS MATHEWS MD 02/17/25 Current Medications Current Medications Medications (Trade) Dose Ordered Sig/Moises Route PRN Reason Start Time Stop Time Status Last Admin Ceftriaxone Sodium 50 ml @ 100 mls/hr DAILY@09 IV 02/11/25 09:00 02/11/25 10:02 Azithromycin 250 ml @ 125 mls/hr DAILY IV 02/11/25 10:00 02/11/25 11:52 Clonazepam (KlonoPIN TABLET) 0.5 mg BID PO 02/11/25 10:00 02/11/25 21:02 Vital Signs Vital Signs Date Time Temp Pulse Resp B/P (MAP) Pulse Ox O2 Delivery O2 Flow Rate FiO2 02/11/25 20:50 98.8 125 17 132/80 (97) 96 98.8 02/11/25 20:00 Room Air* 0 21 Physical Exam Gen.: Patient lying in bed in no apparent distress. On supplemental oxygen. Head: Normocephalic, atraumatic. Eyes: EOMI/PERRLA. Ears: Normal hearing. Normal anatomy. Neck/trachea: Trachea midline, supple. Nose: Normal external anatomy. Mouth: Moist mucous membranes. Chest: Decreased air entry bilaterally. No wheezing or rhonchi. Cardiovascular: Positive S1, positive S2. Regular rate and rhythm. Abdomen: Positive bowel sounds in all 4 quadrants. Soft, non-tender, non- distended. : Deferred. Rectal: Deferred. Skin: Warm, dry. Intact. Extremities: 2+ radial pulses bilaterally. No lower extremity edema. Neuro: Awake, alert, oriented x3. No gross motor or sensory deficits. Cranial nerves II through XII intact. Gait not assessed. Labs/Diagnostic Data Labs Test 02/11/25 05:42 02/10/25 15:01 02/10/25 08:21 02/10/25 05:30 Range/Units White Blood Count 8.8 4.4-10.8 10^3/uL Red Blood Count 5.15 4.5-5.90 10^6/uL Hemoglobin 13.1 L 13.5-17.5 g/dL Hematocrit 40.1 L 41.0-53.0 % Mean Corpuscular Volume 77.8 L 80.0-100.0 fL Mean Corpuscular Hemoglobin 25.4 L 28.0-32.0 pg Mean Corpuscular Hemoglobin Concent 32.7 32.0-36.0 g/dL Red Cell Distribution Width 12.4 11.8-14.3 % Platelet Count 258 140-450 10^3/uL Mean Platelet Volume 9.0 6.9-10.8 fL Neutrophils (%) (Auto) 67.8 37.0-80.0 % Lymphocytes (%) (Auto) 13.4 10.0-50.0 % Monocytes (%) (Auto) 11.7 0.0-12.0 % Eosinophils (%) (Auto) 6.5 0.0-7.0 % Basophils (%) (Auto) 0.6 0.0-2.0 % Neutrophils # (Auto) 6.0 1.6-8.6 10 ^3/uL Lymphocytes # (Auto) 1.2 0.4-5.4 10 ^3/uL Monocytes # (Auto) 1.0 0-1.3 10 ^3/uL Eosinophils # (Auto) 0.6 0-0.8 10 ^3/uL Basophils # (Auto) 0 0-0.2 10 ^3/uL Nucleated Red Blood Cells 0.1 % Sodium Level 136 136-145 mmol/L Potassium Level 4.2 3.5-5.1 mmol/L Chloride Level 101 98-107 mmol/L Carbon Dioxide Level 26 20-31 mmol/L Anion Gap 9 5-15 Blood Urea Nitrogen 14 9-23 mg/dL Creatinine 1.19 0.700-1.30 mg/dL Glomerular Filtration Rate Calc 81 >90 mL/min BUN/Creatinine Ratio 11.8 10.0-20.0 Serum Glucose 99 74-106 mg/dL Calcium Level 9.1 8.7-10.4 mg/dL Iron Level 21 L 65-175 ug/dL Total Iron Binding Capacity 215 L 250-425 ug/dL Percent Iron Saturation 9.8 L 20-55 % Ferritin 407.4 H 22-322 ng/mL Total Bilirubin 0.5 0.2-1.0 mg/dL Aspartate Amino Transferase (AST) 19 13-40 U/L Alanine Aminotransferase (ALT) 13 7-40 U/L Alkaline Phosphatase 64 46-116 U/L Lactate Dehydrogenase 357 H 120-246 U/L Total Protein 6.3 5.7-8.2 g/dL Albumin 3.7 3.2-4.8 g/dL Body Fluid Source Pleural fluid Body Fluid pH 8.0 Body Fluid WBC (Manual) 995 H 0-200 CUMM Body Fluid RBC (Manual) 095196 H 0-2000 CUMM Body Fluid Mononuclear Cells 70 % Body Fluid Polymorphonuclear Cells 30 H 0-25 % Body Fluid Glucose 78 . mg/dL Body Fluid Total Protein 5.0 . g/dL Body Fluid Lactate Dehydrogenase 563 . IU/L Lactic Acid Level 2.0 0.4-2.0 mmol/L Urine Color Light-orange Yellow Urine Clarity Clear Clear Urine pH 5.5 5.0-9.0 Urine Specific [place] 1.034 1.001-1.035 Urine Protein 1+ H Negative Urine Ketones 2+ H Negative Urine Blood 3+ H Negative /uL Urine Nitrite Negative Negative Urine Bilirubin Negative Negative Urine Urobilinogen Normal Negative mg/dL Urine Leukocyte Esterase Negative Negative /uL Urine RBC 437 0 - 3 /hpf Urine Microscopic WBC 4 H 0-3 /HPF Urine Squamous Epithelial Cells None seen <5 /hpf Urine Bacteria Few H None Seen /hpf Urine Mucus Few None Seen Urine Glucose Normal Normal mg/dL Test 02/10/25 04:56 02/10/25 03:50 Range/Units Troponin I High Sensitivity 5 </=54 ng/L Prothrombin Time 11.7 9.3-11.8 sec Prothrombin Time INR 1.12 0.9-1.15 Activated Partial Thromboplast Time 28.6 24.5-34.5 SEC D-Dimer, Quantitative 4.13 H 0.0-0.49 mg/L FEU B-Type Natriuretic Peptide 28.19 0-100 pg/mL Microbiology Date/Time Source Procedure Growth Status 02/10/25 12:35 Nose MRSA Screen - Final Complete 02/10/25 06:08 Blood Blood Culture - Preliminary NO GROWTH AFTER 24 HOURS OF INCUBATION. Resulted Assessment Impression: Left pleural effusion, parapneumonic vs malignancy Atelectasis Rule out pneumonia Dependence on supplemental oxygen Right upper quadrant mass Hypertension Plan: Supplemental oxygen 2 LPM NC Titrate to keep O2 sats above 92%. Taper O2 as tolerated. S/p left thoracentesis - drained 1.9 L serosanguineous fluid from left pleural space. Patient deferred Kashif chest tube Consult IR for small-bore chest tube Place to -20 cmH2O Continue antibiotics Incentive spirometry Monitor renal function. Monitor electrolytes. Supplement as necessary. Monitor ins and outs. DVT prophylaxis. Prognosis: Poor given patient's multiple co-morbidities. Rest of plan per hospitalist and other consultants. Thank you, Dr. Mathews, for allowing me to participate in this patient's care. Further recommendations will depend on the patient's clinical course. Please do not hesitate to contact me if you have any questions or concerns. This medical document was created using an electronic medical record system with [employer] system. Although these documentations are being carefully reviewed, there may still be some phonetic and typographical changes. The errors are purely typographical, due to imperfection on the software program, and do not reflect any compromise in the patient's medical care. Plan discussed with: Patient, Other (DARBY Nguyen/Dr. Mathews) CHANEL CHOW MD Feb 11, 2025 23:08
[2025-02-12] VITALS (8 sets, daily range): BP systolic 126–146; BP diastolic 77–95; PULSE 111–121; RESP 14–19; TEMP 98.2–98.7; O2SAT 94–97
[2025-02-12 06:29] LABS: Basophils # (auto) 0 10 ^3/uL (0-0.2); Eosinophils # (auto) 0.5 10 ^3/uL (0-0.8); Hemoglobin 13.2 g/dL (13.5-17.5); Lymphocytes # (auto) 1.3 10 ^3/uL (0.4-5.4); Monocytes % (auto) 11.1 % (0.0-12.0)
[2025-02-12 06:31] LABS: Basophils % (auto) 0.4 % (0.0-2.0); Eosinophils % (auto) 6.8 % (0.0-7.0); Lymphocytes % (auto) 16.3 % (10.0-50.0); Mean Corpuscular Hemoglobin 25.5 pg (28.0-32.0); Mean Corpuscular Volume 77.4 fL (80.0-100.0); Monocytes # (auto) 0.9 10 ^3/uL (0-1.3); Neutrophils # (auto) 5.1 10 ^3/uL (1.6-8.6); Neutrophils % (auto) 65.4 % (37.0-80.0); Platelet Count (auto) 260 10^3/uL (140-450); Red Blood Cells 5.17 10^6/uL (4.5-5.90); Red Cell Distribution Width 12.2 % (11.8-14.3); White Blood Cell 7.9 10^3/uL (4.4-10.8)
[2025-02-12 06:33] LABS: Anion Gap 8 (5-15); Carbon Dioxide 28 mmol/L (20-31); Chloride 101 mmol/L (98-107); Potassium 3.9 mmol/L (3.5-5.1); Sodium 137 mmol/L (136-145)
[2025-02-12 06:34] LABS: Calcium 8.9 mg/dL (8.7-10.4)
[2025-02-12 06:39] LABS: BUN/Creatinine Ratio 8.7 (10.0-20.0); Blood Urea Nitrogen 11 mg/dL (9-23)
[2025-02-12 06:40] LABS: Glucose 107 mg/dL (74-106); Magnesium 2.3 mg/dL (1.6-2.6)
[2025-02-12 06:41] LABS: Phosphorus 3.5 mg/dL (2.4-5.1)
--- NOTE | 2025-02-12 08:16 | DVH ---
US CHEST ULTRASOUND, HISTORY: FLUID CHECK FOR POSSIBLE THORACENTESIS COMPARISON(S): None TECHNICAL DATA: Transverse and longitudinal images are obtained of the chest. FINDING: IMPRESSION(S): There is a moderate to large left pleural effusion. A right kidney mass is seen.
--- NOTE | 2025-02-12 14:04 | DVH ---
US US GUIDANCE FOR NEEDLE PLACEME, HISTORY: PLEURAL EFFUSION COMPARISON: None PROCEDURE: Informed consent was obtained. The patient was placed supine on the CT scanner. IV sedatio n was administered. The fluid collection was localized under US and CT scan and the overlying skin pr epped with chlorhexidine which was allowed to dry and draped in the usual sterile fashion and infiltr ated with Xylocaine. Time out was performed. A tool specialist CT scan was performed. With US guidance, an 8 F r pigtail catheter was advanced into the left pleural effusion using trocar technique. Placement was confirmed with CT scan. 1 L of pleural effusion was obtained for fluid analysis. The chest tube was t hen connected to a Pleur Evac cannister for wall suction. The drain was sutured at the skin surface. No immediate complication was noted. Post procedure CT imaging through the drain site was obtained. DLP = 990 mGy-cm. SEDATION: Dr. Kapil Tomlin was personally responsible for the administration of moderate sedation during the procedure performed, including the use of an independent trained observer who had no other duties during the procedure. The drugs utilized were IV fentanyl and versed (see nursing log for details). The total time of supervision by the attending physician was approximately 30 minutes. FINDINGS: Limited CT scan of through the chest demonstrates a large sized pleural effusion. . Post pr ocedure scan shows pigtail drain within the pleural effusion. No immediate complication was identifie d. IMPRESSION: US/ CT guided placement of 8 [place] pigtail drain into a left pleural effusion. PLAN: Low wall suction for the chest tube.
--- NOTE | 2025-02-12 14:04 | DVH ---
US US GUIDANCE FOR NEEDLE PLACEME, HISTORY: PLEURAL EFFUSION COMPARISON: None PROCEDURE: Informed consent was obtained. The patient was placed supine on the CT scanner. IV sedatio n was administered. The fluid collection was localized under US and CT scan and the overlying skin pr epped with chlorhexidine which was allowed to dry and draped in the usual sterile fashion and infiltr ated with Xylocaine. Time out was performed. A digital solutions architect CT scan was performed. With US guidance, an 8 F r pigtail catheter was advanced into the left pleural effusion using trocar technique. Placement was confirmed with CT scan. 1 L of pleural effusion was obtained for fluid analysis. The chest tube was t hen connected to a Pleur Evac cannister for wall suction. The drain was sutured at the skin surface. No immediate complication was noted. Post procedure CT imaging through the drain site was obtained. DLP = 990 mGy-cm. SEDATION: Dr. Kapil Tomlin was personally responsible for the administration of moderate sedation during the procedure performed, including the use of an independent trained observer who had no other duties during the procedure. The drugs utilized were IV fentanyl and versed (see nursing log for details). The total time of supervision by the attending physician was approximately 30 minutes. FINDINGS: Limited CT scan of through the chest demonstrates a large sized pleural effusion. . Post pr ocedure scan shows pigtail drain within the pleural effusion. No immediate complication was identifie d. IMPRESSION: US/ CT guided placement of 8 [place] pigtail drain into a left pleural effusion. PLAN: Low wall suction for the chest tube.
--- NOTE | 2025-02-12 18:02 | DVHPN2 ---
Assessment/Plan Assessment/Plan Progress note 39 yo M with hypertension presented to ED with 1 week of worsening SOB. Denies weight loss, night sweats, recent travels. 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 Denies other symptoms. Not taking any medication. Denies smoking, alcohol, marijuana, drugs. In ED found to have L side whiteout on CXR, CT chest with L PLEF, incidentally found RUQ mass. Thoracenthesis done bedside, drained 1.9L serosanguineous fluid. EKG reviewed, sinus tach. chest tube placed. CTAP with R renal mass susp for malignancy. seen by urology for outpatient radical nephrectomy seen by me today during rounds, chest tube drained 1500cc Physical exam Alert oriented x3 Speaking in full sentences Not in resp distress No breath sounds on L side S1 S2 tachycardic Abdomen soft nontender No LE edema No significant lymphadenopathy Labs EKG imaging reviewed Assessment and plan R PLEF, high susp of malignancy Cannot r/o PNA and parapneumonic PLEF R renal mass Hypertension Admit to telemetry Thoracentesis done pulm consult for chest tube mgmt send cytology chest tube in place incentive spirometry pain mgmt uro consult appreciated Diet regular DVT ppx ambulatory Code status full code Plan discussed with: Patient My Orders Orders - NICOLAS MATHEWS MD Procedure Category Date Status Time Chest Without Contrast CT 02/12/25 Resulted 08:[address] 02/12/25 Resulted Needle Placeme 08:36 Date of Service: Feb 12, 2025 Billing Provider: NICOLAS MATHEWS MD Common Visit Codes: [id number] INP/OBS CARE(HIGH) NICOLAS MATHEWS MD Feb 12, 2025 18:02
[2025-02-13] VITALS (8 sets, daily range): BP systolic 115–144; BP diastolic 50–99; PULSE 52–138; RESP 16–20; TEMP 98.3–101.2; O2SAT 96–100
[2025-02-13 05:57] LABS: Basophils # (auto) 0 10 ^3/uL (0-0.2); Basophils % (auto) 0.5 % (0.0-2.0); Eosinophils # (auto) 0.5 10 ^3/uL (0-0.8); Eosinophils % (auto) 6.7 % (0.0-7.0); Hematocrit 39.5 % (41.0-53.0); Hemoglobin 12.9 g/dL (13.5-17.5); Mean Corpuscular Hemoglobin 25.4 pg (28.0-32.0); Mean Corpuscular Hgb Conc. 32.6 g/dL (32.0-36.0); Monocytes # (auto) 0.8 10 ^3/uL (0-1.3); Monocytes % (auto) 9.5 % (0.0-12.0); Neutrophils # (auto) 5.6 10 ^3/uL (1.6-8.6); Neutrophils % (auto) 70.3 % (37.0-80.0); Platelet Count (auto) 242 10^3/uL (140-450); Red Blood Cells 5.07 10^6/uL (4.5-5.90); Red Cell Distribution Width 12.3 % (11.8-14.3)
[2025-02-13 06:01] LABS: Anion Gap 6 (5-15); Carbon Dioxide 26 mmol/L (20-31); Chloride 104 mmol/L (98-107); Potassium 3.6 mmol/L (3.5-5.1); Sodium 136 mmol/L (136-145)
[2025-02-13 06:07] LABS: BUN/Creatinine Ratio 8.6 (10.0-20.0); Blood Urea Nitrogen 10 mg/dL (9-23)
[2025-02-13 06:10] LABS: Calcium 8.6 mg/dL (8.7-10.4); Glucose 132 mg/dL (74-106)
[2025-02-13] MEDS: fentaNYL CITRATE 100 MCG/2 ML VL IV ONE (07:54)
[2025-02-13] MEDS: MIDAZOLAM HCL 2MG/2ML 2ml VIAL (1mg/ml) IV ONE (07:54)
[2025-02-13] MEDS: LIDOCAINE 2% (LOCAL ANESTH.) PF 5ml SDV ONE (07:54)
--- NOTE | 2025-02-13 09:14 | DVHPN2 ---
Progress Note - Dictate Date Seen: Feb 12, 2025 Medical Necessity Reason Pt with a Central, PICC or Fol: No Subjective Patient seen and examined at bedside. Breathing comfortably on room air. Overnight events reviewed. vital signs Vital Sign Date Time Temp Pulse Resp B/P (MAP) Pulse Ox O2 Delivery O2 Flow Rate FiO2 02/13/25 08:55 98.4 112 20 135/84 (101) 96 98.4 02/12/25 20:00 Room Air* 0 21 Total Intake and Output 02/12/25 02/12/25 02/13/25 14:59 22:59 06:59 Intake Total 1000 ml 900 ml Output Total 1520 ml 90 ml Balance -520 ml 810 ml medications Current Medications Medications Dose Ordered Sig/Moises Route Start Time Stop Time Status Last Admin Dose Admin Ceftriaxone Sodium 50 ml @ 100 mls/hr DAILY@09 IV 02/11/25 09:00 02/13/25 08:24 100 MLS/HR Azithromycin 250 ml @ 125 mls/hr DAILY IV 02/11/25 10:00 02/12/25 10:52 125 MLS/HR Acetaminophen 650 mg Q8HP PRN PO 02/10/25 20:45 02/13/25 08:17 650 MG Clonazepam 0.5 mg BID PO 02/11/25 10:00 02/13/25 08:17 0.5 MG objective Gen.: Patient lying in bed in no apparent distress. Breathing on room air. Head: Normocephalic, atraumatic. Eyes: EOMI/PERRLA. Ears: Normal hearing. Normal anatomy. Neck/trachea: Trachea midline, supple. Nose: Normal external anatomy. Mouth: Moist mucous membranes. Chest: Decreased air entry bilaterally. No wheezing or rhonchi. Cardiovascular: Positive S1, positive S2. Regular rate and rhythm. Abdomen: Positive bowel sounds in all 4 quadrants. Soft, non-tender, non- distended. : Deferred. Rectal: Deferred. Skin: Warm, dry. Intact. Extremities: 2+ radial pulses bilaterally. No lower extremity edema. Neuro: Awake, alert, oriented x3. No gross motor or sensory deficits. Cranial nerves II through XII intact. Gait not assessed. laboratory and microbiology Laboratory Tests 02/13/25 04:43 Test 02/13/25 04:43 Range/Units Serum Glucose 132 H 74-106 mg/dL Assessment/Plan Impression: Left pleural effusion, parapneumonic vs malignancy Atelectasis Rule out pneumonia Dependence on supplemental oxygen Right upper quadrant mass Hypertension Events: Breathing on room air Supplemental oxygen PRN Denies pain or discomfort. Left chest tube in place -20 cmH2O 1600 ml serosanguineous fluid drained. Chest tube clean and dry, no air leak CXR shows improvement in left pleural effusion Continue antibiotics Incentive spirometry Labs and imaging reviewed. Rest of plan as noted below. Plan: Supplemental oxygen PRN Titrate to keep O2 sats above 92%. S/p left thoracentesis on 02/11/25 - drained 1.9 L serosanguineous fluid from left pleural space. S/p chest tube Placed to -20 cmH2O Continue antibiotics Incentive spirometry Monitor renal function. Monitor electrolytes. Supplement as necessary. Monitor ins and outs. DVT prophylaxis. Prognosis: Poor given patient's multiple co-morbidities. Rest of plan per hospitalist and other consultants. Thank you, Dr. Rubin, for allowing me to participate in this patient's care. Further recommendations will depend on the patient's clinical course. Please do not hesitate to contact me if you have any questions or concerns. This medical document was created using an electronic medical record system with [employer] dictation system. Although these documentations are being carefully reviewed, there may still be some phonetic and typographical changes. The errors are purely typographical, due to imperfection on the software program, and do not reflect any compromise in the patient's medical care. Plan discussed with: Patient, Other (RN) CHANEL CHOW MD Feb 13, 2025 09:14
--- NOTE | 2025-02-13 10:39 | DVH ---
XY CHEST PORTABLE, HISTORY: plef interval COMPARISON: XY CHEST XRAY 1 VIEW on DOS: 02/10/25, XY CHEST XRAY 1 VIEW on DOS: 02/10/25, XY CHEST PORTAB LE on DOS: 02/10/25 XY CHEST XRAY 1 VIEW on DOS: 02/10/25, XY CHEST XRAY 1 VIEW on DOS: 02/10/25, XY CHEST PORTABLE on DOS: TECHNICAL DATA: 1 view of the chest was obtained. FINDINGS: Lines and tubes: Pigtail left chest tube is seen. Cardiomediastinal silhouette: normal Pulmonary vasculature: normal Lung expansion: normal Lung airspace: Patchy left opacities. Lung interstitium: normal Pleura: Decrease in the left pleural effusion. Pneumothorax: no Bones: Unremarkable Other: no IMPRESSION: Decrease in the left pleural effusion. Improvement of the prior tracheal deviation.
--- NOTE | 2025-02-13 14:27 | DVHSR ---
APPROVED REPORT EXAM: Two-dimensional and M-mode echocardiogram with Doppler and color Doppler. Blood Pressure: 159/81 mmHg INDICATION R/O structural heart disease RISK FACTORS Height: , Weight: 174 DIMENSIONS LVDd4.7 (3.8-5.7cm)LA (2D)3.5 (1.9-4.0cm)Aortic Root (2.0-3.7cm) LVDs3.3 (2.5-4.0cm)LA (MM) (1.9-4.0cm)Aortic Cusp Exc (1.5-2.0cm) EF (%) 57.0 (55-70%)Rt. Atrium3.5 (1.9-4.0cm)Asc. Aorta cm Mitral Valve MitralMitral Stenosis E wave0.93m/sMV Mean GR.mmHg A wave1.08m/sMV Peak GR.mmHg E/A ratio0.92D MVAcm2 DECEL [id number] 1/2 Timems Aortic Valve Aortic ValveAortic Stenosis V11.22m/Radha Mean GR.6mmHg V21.66m/Radha Peak GR.11mmHg Other Information Technically limited study due to body habitus. Conclusion Technically difficult study. Limited study. Off axis views. Undetermined rhythm. Underlying tachy cardia. There appears to be moderate mitral annular calcification views obtained. The aortic valve is not cl early visualized. The tricuspid appears to be structurally normal. There appears to be a small RV. There appears to be mild left atrial enlargement. Left ventricular function appears to be preserved. EF is about 50% with normal RV function. There appears to be [id number] pericardial effusion mostly noted towards the lateral wall of l eft ventricle. There appears to be dense thrombin surrounding the LV. Possibly a hemorrhagic perica rdial effusion. There appears to be some impingement upon the RV however can not delineate if there is impingement upon the right atrium and/or filling of the right atrium or ventricle. The subcostal view does not appear to delineate a clear window for pericardiocentesis. The left ventricle does not appear to be collapsing. Clinical correlation recommended.
--- NOTE | 2025-02-13 15:01 | DVHPN2 ---
Assessment/Plan Assessment/Plan Progress note 39 yo M with hypertension presented to ED with 1 week of worsening SOB. Denies weight loss, night sweats, recent travels. 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 Denies other symptoms. Not taking any medication. Denies smoking, alcohol, marijuana, drugs. In ED found to have L side whiteout on CXR, CT chest with L PLEF, incidentally found RUQ mass. Thoracenthesis done bedside, drained 1.9L serosanguineous fluid. EKG reviewed, sinus tach. chest tube placed. CTAP with R renal mass susp for malignancy. seen by urology for outpatient radical nephrectomy seen by me today during rounds, chest tube drained 1600cc, seen by pulm Physical exam Alert oriented x3 Speaking in full sentences Not in resp distress No breath sounds on L side S1 S2 tachycardic Abdomen soft nontender No LE edema No significant lymphadenopathy Labs EKG imaging reviewed Assessment and plan R PLEF, high susp of malignancy Cannot r/o PNA and parapneumonic PLEF R renal mass Hypertension Admit to telemetry Thoracentesis done fluid exudative pulm consult for chest tube mgmt send cytology chest tube in place incentive spirometry pain mgmt uro consult appreciated Diet regular DVT ppx ambulatory Code status full code Plan discussed with: Patient My Orders Orders - NICOLAS MATHEWS MD Procedure Category Date Status Time Incentive Spirometry ORDERS 02/12/25 Transmitted 17:59 Communication Order ORDERS 02/12/25 Transmitted 17:59 Chest Portable XY 02/13/25 Resulted 04:00 Date of Service: Feb 13, 2025 Billing Provider: NICOLAS MATHEWS MD Common Visit Codes: [id number] INP/OBS CARE(HIGH) NICOLAS MATEHWS MD Feb 13, 2025 15:00
[2025-02-13] MEDS: POLYETHYLENE GLYCOL 17 GM PWDR PO ONE (17:04)
--- NOTE | 2025-02-13 19:23 | DVHPN2 ---
Progress Note - Dictate Date Seen: Feb 13, 2025 Medical Necessity Reason Pt with a Central, PICC or Fol: No Subjective Patient seen and examined at bedside. Breathing comfortably on room air. Overnight events reviewed. vital signs Vital Sign Date Time Temp Pulse Resp B/P (MAP) Pulse Ox O2 Delivery O2 Flow Rate FiO2 02/13/25 17:05 99.8 131 20 144/99 (114) 99 99.8 02/13/25 08:00 Room Air* 0 21 Total Intake and Output 02/12/25 02/12/25 02/13/25 15:00 23:00 07:00 Intake Total 1000 ml 900 ml Output Total 1520 ml 90 ml Balance -520 ml 810 ml medications Current Medications Medications Dose Ordered Sig/Moises Route Start Time Stop Time Status Last Admin Dose Admin Ceftriaxone Sodium 50 ml @ 100 mls/hr DAILY@09 IV 02/11/25 09:00 02/13/25 08:24 100 MLS/HR Azithromycin 250 ml @ 125 mls/hr DAILY IV 02/11/25 10:00 02/13/25 09:24 125 MLS/HR Acetaminophen 650 mg Q8HP PRN PO 02/10/25 20:45 02/13/25 08:17 650 MG Clonazepam 0.5 mg BID PO 02/11/25 10:00 02/13/25 08:17 0.5 MG objective Gen.: Patient lying in bed in no apparent distress. Breathing on room air. Head: Normocephalic, atraumatic. Eyes: EOMI/PERRLA. Ears: Normal hearing. Normal anatomy. Neck/trachea: Trachea midline, supple. Nose: Normal external anatomy. Mouth: Moist mucous membranes. Chest: Decreased air entry bilaterally. No wheezing or rhonchi. Cardiovascular: Positive S1, positive S2. Regular rate and rhythm. Abdomen: Positive bowel sounds in all 4 quadrants. Soft, non-tender, non- distended. : Deferred. Rectal: Deferred. Skin: Warm, dry. Intact. Extremities: 2+ radial pulses bilaterally. No lower extremity edema. Neuro: Awake, alert, oriented x3. No gross motor or sensory deficits. Cranial nerves II through XII intact. Gait not assessed. laboratory and microbiology Laboratory Tests 02/13/25 04:43 Test 02/13/25 04:43 Range/Units Serum Glucose 132 H 74-106 mg/dL Assessment/Plan Impression: Left pleural effusion, parapneumonic vs malignancy Atelectasis Rule out pneumonia Dependence on supplemental oxygen Right upper quadrant mass Hypertension Events: Breathing on room air Supplemental oxygen PRN Denies pain or discomfort. Left chest tube in place -20 cmH2O 400 ml drained overnight, none for today. Chest tube clean and dry, no air leak CXR shows decrease in left pleural effusion and improvement of the prior tracheal deviation. Continue antibiotics Incentive spirometry Labs and imaging reviewed. Rest of plan as noted below. Plan: Supplemental oxygen PRN Titrate to keep O2 sats above 92%. S/p left thoracentesis on 02/11/25 - drained 1.9 L serosanguineous fluid from left pleural space. S/p chest tube Placed to -20 cmH2O Continue antibiotics Incentive spirometry Monitor renal function. Monitor electrolytes. Supplement as necessary. Monitor ins and outs. DVT prophylaxis. Prognosis: Poor given patient's multiple co-morbidities. Rest of plan per hospitalist and other consultants. Thank you, Dr. Rubin, for allowing me to participate in this patient's care. Further recommendations will depend on the patient's clinical course. Please do not hesitate to contact me if you have any questions or concerns. This medical document was created using an electronic medical record system with [employer] computerized dictation system. Although these documentations are being carefully reviewed, there may still be some phonetic and typographical changes. The errors are purely typographical, due to imperfection on the software program, and do not reflect any compromise in the patient's medical care. Dietary Evaluation Review Comments: 1) Add 2g Na restriction to diet d/t HTN 2) Encourage optimal PO intale 3) Follow-up with urology, oncology, and pulmonology 4) Continue to monitor I&O, labs, and skin integrity Expected Outcomes/Goals: 1) appetite and labs to improve 2) diet to advance 2) f/u in 2-3 days Plan discussed with: Patient, Other (RN Ty) CHANEL CHOW MD Feb 13, 2025 19:23
[2025-02-14] VITALS (7 sets, daily range): BP systolic 129–143; BP diastolic 81–93; PULSE 117–134; RESP 16–20; TEMP 97.8–100; O2SAT 95–98
[2025-02-14 06:51] LABS: Basophils # (auto) 0.1 10 ^3/uL (0-0.2); Eosinophils # (auto) 0.3 10 ^3/uL (0-0.8); Hemoglobin 14.1 g/dL (13.5-17.5); Lymphocytes # (auto) 1.2 10 ^3/uL (0.4-5.4); Monocytes # (auto) 0.9 10 ^3/uL (0-1.3); Neutrophils # (auto) 7.1 10 ^3/uL (1.6-8.6); Nucleated Red Blood Cells % 0.1 %
[2025-02-14 06:54] LABS: Basophils % (auto) 0.6 % (0.0-2.0); Eosinophils % (auto) 2.9 % (0.0-7.0); Hematocrit 42.8 % (41.0-53.0); Lymphocytes % (auto) 12.9 % (10.0-50.0); Mean Corpuscular Hemoglobin 25.7 pg (28.0-32.0); Mean Corpuscular Hgb Conc. 32.8 g/dL (32.0-36.0); Mean Corpuscular Volume 78.1 fL (80.0-100.0); Monocytes % (auto) 9.5 % (0.0-12.0); Neutrophils % (auto) 74.1 % (37.0-80.0); Platelet Count (auto) 251 10^3/uL (140-450); Red Blood Cells 5.48 10^6/uL (4.5-5.90); Red Cell Distribution Width 12.6 % (11.8-14.3); White Blood Cell 9.6 10^3/uL (4.4-10.8)
[2025-02-14 07:04] LABS: Anion Gap 7 (5-15); Carbon Dioxide 27 mmol/L (20-31); Chloride 101 mmol/L (98-107); Potassium 4.4 mmol/L (3.5-5.1)
[2025-02-14 07:06] LABS: Calcium 8.9 mg/dL (8.7-10.4); Sodium 135 mmol/L (136-145)
[2025-02-14 07:10] LABS: BUN/Creatinine Ratio 9.4 (10.0-20.0); Blood Urea Nitrogen 11 mg/dL (9-23); Glucose 99 mg/dL (74-106)
[2025-02-14] MEDS ORDERED: VANCOMYCIN PER PHARMACY 0 MG IV SCH (10:00)
--- NOTE | 2025-02-14 10:49 | DVH ---
XY CHEST PORTABLE, HISTORY: interval changes COMPARISON: XY CHEST PORTABLE on DOS: 02/13/25, XY CHEST XRAY 1 VIEW on DOS: 02/10/25, XY CHEST XRAY 1 EW on DOS: 02/10/25 XY CHEST PORTABLE on DOS: 02/13/25, XY CHEST XRAY 1 VIEW on DOS: 02/10/25, XY CHEST XRAY 1 VIEW on DOS: TECHNICAL DATA: 1 view of the chest was obtained. FINDINGS: Lines and tubes: Pigtail left chest tube is seen. Cardiomediastinal silhouette: normal Pulmonary vasculature: normal Lung expansion: normal Lung airspace: Patchy Left opacities. Lung interstitium: normal Pleura: left pleural effusion. Pneumothorax: no Bones: Unremarkable Other: no IMPRESSION: Increase in the left pleural effusion. Increase of the prior tracheal deviation.
[2025-02-14] MEDS: VANCOMYCIN 1GM/200ML PM 250 ML IV SCH (11:21)
--- NOTE | 2025-02-14 12:55 | DVH ---
CT CHEST WITHOUT CONTRAST INDICATION: chest tube EXAM DATE: 02/14/2025 12:27 PM COMPARISON: CT CHEST WITHOUT CONTRAST on DOS: 02/12/25, US CHEST ULTRASOUND on DOS: 02/12/25 RADIATION DOSE: CTDIvol: 11.39 mGy, DLP: 400.28 mGy*cm PROCEDURE: Helical CT images were obtained of the chest without intravenous contrast. Sagittal and c oronal reconstructions are provided. ADDITIONAL IMAGES / REFORMATS: None All CT scans at this medical facility are performed using dose modulation techniques as appropriate t o a performed exam including the following: Automated exposure control was utilized; adjustment of th e MA and/or KV according to patient size; and use of iterative reconstruction technique. FINDINGS: Bones: Scattered degenerative changes are noted. Visualized Abdomen: Similar right renal mass Chest Wall: Normal. Soft tissues: Normal. Mediastinum: Normal. Heart: Coronary artery calcifications are noted. Vessels: Normal. Lymph Nodes: Normal. Pleura: Moderate left effusion with left chest tube Airways: Normal. Lung: Left compressive atelecatsis. Other: None IMPRESSION: Interval improved aeration of the left lung with decreased pleural effusion and a pigtail chest tube in place. If additional fluid drainage is needed and the chest tube output is low, then may need to f lush/aspirate the tube or upsize for larger chest tube size.
[2025-02-14] MEDS: CEFEPIME 2GM/50ML NS 50 ML IV SCH (14:28)
--- NOTE | 2025-02-14 16:40 | DVHINCON2 ---
Date Seen: Feb 14, 2025 Referring Physician Scottie Reason for Consultation Pericardial Effusion History of Present Illness 39-year-old with PMH for hypertension presents to the hospital with shortness of breath worsening for the last week. Denies any chest pain, palpitations, diaphoresis. Patient states that he has not been compliant with his blood pressure medications and blood pressure seem to be elevated. Upon evaluation in the ER patient's initial blood pressure noted to be 171/96. CXR showed left- sided white out, follow up CT chest showed left pleural effusion with right upper quadrant mass. Patient ended up having thoracentesis in the ER was-1.9 L removed. Patient had a follow up CT abdomen showing 8.3 x 7.5 cm irregular heterogeneous enhancing mass in the right upper pole of the right kidney suspicious for renal malignancy. Patient ended up having a chest tube placed for recurrent pleural effusion. Patient echocardiogram done showing low normal LVEF 50% with small to moderate pericardial effusion towards the lateral wall of left ventricle no evidence of tamponade. Cardiology consulted. Past Medical History HTN Past Surgical History Denies previous cardiac surgeries Family History: Hypertension G8 MOTHER Social History Denies alcohol, tobacco, illicit drug use Allergies: Coded Allergies: NO KNOWN ALLERGIES (Unverified , 02/10/25) Home Meds No Active Prescriptions or Reported Meds Current Medications Current Medications Medications (Trade) Dose Ordered Sig/Moises Route PRN Reason Start Time Stop Time Status Last Admin Vancomycin HCl 0 ml @ 0 mls/hr UD IV 02/14/25 10:00 Cefepime HCl 50 ml @ 12.5 mls/hr Q8HR IV 02/14/25 14:00 02/14/25 14:28 Vancomycin HCl 250 ml @ 200 mls/hr Q12H IV 02/14/25 12:00 02/14/25 11:21 Acetaminophen (Tylenol Tablet) 650 mg Q8HP PRN PO PAIN SCALE 1-3 OR TEMP>100.4 02/14/25 15:45 Review of Systems Constitutional: No: Fever, Chills, Sweats, Weakness, Malaise, Other Eyes: No: Pain, Vision change, Conjunctivae inflammation, Eyelid inflammation, Other, Redness ENT: No: Ear pain, Ear discharge, Nose pain, Nose discharge, Nose congestion, Mouth pain, Mouth swelling, Throat pain, Throat swelling, Other Respiratory: No: Cough, Dry, , SOB with exertion, Wheezing, Hemoptysis, Pleuritic Pain, Sputum, Wheezing, Other positive : Shortness of breath Cardiovascular: ; No: Chest Pain Palpitations, Orthopnea, Paroxysmal Noc. Dyspnea, Edema, Lt Headedness, Other Gastrointestinal: No: Nausea, Vomiting, Abdominal Pain, Diarrhea, Constipation, Melena, Hematochezia, Other Genitourinary: No Dysuria, No Frequency, No Incontinence, No Hematuria, No Retention, No Other Musculoskeletal: neck pain; No: other, shoulder pain, arm pain, back pain, hand pain, leg pain, foot pain Skin: No: Rash, Lesions, Jaundice, Bruising, Other Neurological: Other (Dizziness, headache.); No: Weakness, Numbness, Incoordination, Change in speech, Confusion, Seizures Vital Signs Vital Signs Date Time Temp Pulse Resp B/P (MAP) Pulse Ox O2 Delivery O2 Flow Rate FiO2 02/14/25 13:04 97.8 117 17 129/81 (97) 97 97.8 02/14/25 08:00 Room Air* 0 21 Physical Exam Constitutional: No: Fever, Chills, Sweats, Weakness, Malaise, Other Eyes: No: Pain, Vision change, Conjunctivae inflammation, Eyelid inflammation, Other, Redness ENT: No: Ear pain, Ear discharge, Nose pain, Nose discharge, Nose congestion, Mouth pain, Mouth swelling, Throat pain, Throat swelling, Other Respiratory: No: Cough, Dry, Shortness of breath, SOB with exertion, Wheezing, Hemoptysis, Pleuritic Pain, Sputum, Wheezing, Other, left chest tube in place. Cardiovascular: ; No: Chest Pain Palpitations, Orthopnea, Paroxysmal Noc. Dyspnea, Edema, Lt Headedness, Other Gastrointestinal: No: Nausea, Vomiting, Abdominal Pain, Diarrhea, Constipation, Melena, Hematochezia, Other Genitourinary: No Dysuria, No Frequency, No Incontinence, No Hematuria, No Retention, No Other Musculoskeletal: neck pain; No: other, shoulder pain, arm pain, back pain, hand pain, leg pain, foot pain Skin: No: Rash, Lesions, Jaundice, Bruising, Other Neurological: Other (Dizziness, headache.); No: Weakness, Numbness, Incoordination, Change in speech, Confusion, Seizures Labs/Diagnostic Data Labs Test 02/14/25 06:03 02/12/25 04:38 02/11/25 05:42 02/10/25 15:01 Range/Units White Blood Count 9.6 4.4-10.8 10^3/uL Red Blood Count 5.48 4.5-5.90 10^6/uL Hemoglobin 14.1 13.5-17.5 g/dL Hematocrit 42.8 41.0-53.0 % Mean Corpuscular Volume 78.1 L 80.0-100.0 fL Mean Corpuscular Hemoglobin 25.7 L 28.0-32.0 pg Mean Corpuscular Hemoglobin Concent 32.8 32.0-36.0 g/dL Red Cell Distribution Width 12.6 11.8-14.3 % Platelet Count 251 140-450 10^3/uL Mean Platelet Volume 9.1 6.9-10.8 fL Neutrophils (%) (Auto) 74.1 37.0-80.0 % Lymphocytes (%) (Auto) 12.9 10.0-50.0 % Monocytes (%) (Auto) 9.5 0.0-12.0 % Eosinophils (%) (Auto) 2.9 0.0-7.0 % Basophils (%) (Auto) 0.6 0.0-2.0 % Neutrophils # (Auto) 7.1 1.6-8.6 10 ^3/uL Lymphocytes # (Auto) 1.2 0.4-5.4 10 ^3/uL Monocytes # (Auto) 0.9 0-1.3 10 ^3/uL Eosinophils # (Auto) 0.3 0-0.8 10 ^3/uL Basophils # (Auto) 0.1 0-0.2 10 ^3/uL Nucleated Red Blood Cells 0.1 % Sodium Level 135 L 136-145 mmol/L Potassium Level 4.4 3.5-5.1 mmol/L Chloride Level 101 98-107 mmol/L Carbon Dioxide Level 27 20-31 mmol/L Anion Gap 7 5-15 Blood Urea Nitrogen 11 9-23 mg/dL Creatinine 1.17 0.700-1.30 mg/dL Glomerular Filtration Rate Calc 82 >90 mL/min BUN/Creatinine Ratio 9.4 L 10.0-20.0 Serum Glucose 99 74-106 mg/dL Calcium Level 8.9 8.7-10.4 mg/dL Lactic Acid Level 1.2 0.4-2.0 mmol/L Phosphorus Level 3.5 2.4-5.1 mg/dL Magnesium Level 2.3 1.6-2.6 mg/dL Iron Level 21 L 65-175 ug/dL Total Iron Binding Capacity 215 L 250-425 ug/dL Percent Iron Saturation 9.8 L 20-55 % Ferritin 407.4 H 22-322 ng/mL Total Bilirubin 0.5 0.2-1.0 mg/dL Aspartate Amino Transferase (AST) 19 13-40 U/L Alanine Aminotransferase (ALT) 13 7-40 U/L Alkaline Phosphatase 64 46-116 U/L Lactate Dehydrogenase 357 H 120-246 U/L Total Protein 6.3 5.7-8.2 g/dL Albumin 3.7 3.2-4.8 g/dL Body Fluid Source Pleural fluid Body Fluid pH 8.0 Body Fluid WBC (Manual) 995 H 0-200 CUMM Body Fluid RBC (Manual) 728517 H 0-2000 CUMM Body Fluid Mononuclear Cells 70 % Body Fluid Polymorphonuclear Cells 30 H 0-25 % Body Fluid Glucose 78 . mg/dL Body Fluid Total Protein 5.0 . g/dL Body Fluid Lactate Dehydrogenase 563 . IU/L Test 02/10/25 05:30 02/10/25 04:56 02/10/25 03:50 Range/Units Urine Color Light-orange Yellow Urine Clarity Clear Clear Urine pH 5.5 5.0-9.0 Urine Specific Bradford 1.034 1.001-1.035 Urine Protein 1+ H Negative Urine Ketones 2+ H Negative Urine Blood 3+ H Negative /uL Urine Nitrite Negative Negative Urine Bilirubin Negative Negative Urine Urobilinogen Normal Negative mg/dL Urine Leukocyte Esterase Negative Negative /uL Urine RBC 437 0 - 3 /hpf Urine Microscopic WBC 4 H 0-3 /HPF Urine Squamous Epithelial Cells None seen <5 /hpf Urine Bacteria Few H None Seen /hpf Urine Mucus Few None Seen Urine Glucose Normal Normal mg/dL Troponin I High Sensitivity 5 </=54 ng/L Prothrombin Time 11.7 9.3-11.8 sec Prothrombin Time INR 1.12 0.9-1.15 Activated Partial Thromboplast Time 28.6 24.5-34.5 SEC D-Dimer, Quantitative 4.13 H 0.0-0.49 mg/L FEU B-Type Natriuretic Peptide 28.19 0-100 pg/mL Microbiology Date/Time Source Procedure Growth Status 02/10/25 12:35 Nose MRSA Screen - Final Complete 02/10/25 06:08 Blood Blood Culture - Preliminary NO GROWTH AFTER 72 HOURS OF INCUBATION. Resulted Assessment * Pericardial effusion - [id number] on echo. No evidence of tamponade. Recommend repeat echo 3-4 weeks. * Recurrent left pleural effusion , pneumonia?- chest tube in place. Pulmonology following. On IV antibiotics. * RUQ/Renal mass suspicious for malignancy- urology on board. Continue management per primary team. * Uncontrolled HTN - BP better controlled, continue on IV Antihypertensives as needed Case Discussed with Dr Gold. Echo with preserved LV and RV function. No significant valvular structural abnormalities. Small to moderate pericardial effusion with no evidence of tamponade. Recommend repeat echo 3-4 weeks. Troponin negative. There is no further cardiac work-up indicated at this time. Thank you for allowing us to participate in this patient's care. Will sign off. Critical care, time spent: 40 minutes This medical document was created using an electronic medical record system with voice recognition software and computerized dictation system. Although this document has been carefully reviewed, there might still be some phonetic and typographical errors. Occasional wrong-word or ``sound-alike substitutions may have occurred due to the inherent limitations of voice recognition software. These areas are purely typographical due to imperfections of the software programs and do not reflect any compromise in the patient's medical care. Plea se read the chart carefully and recognize, using context, where these substitutions have occurred. Thank you for allowing me to participate in the management of this patient. The treatment plan was discussed with and agreed upon by patient/family andrewi derik requesting consultants and ordering of imaging/procedures. Plan discussed with: Patient NYHA Physical activity limitations: Class2(Slight)fatigue,sob Date of Service: Feb 14, 2025 Billing Provider: NETO BENSON Cardiology Common Codes: [id number] INP/OBS CARE (High), [id number] CARE 30-74 MIN NETO BENSON Feb 14, 2025 16:40
--- NOTE | 2025-02-14 18:43 | DVHPN2 ---
Assessment/Plan Assessment/Plan Progress note 39 yo M with hypertension presented to ED with 1 week of worsening SOB. Denies weight loss, night sweats, recent travels. 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 Denies other symptoms. Not taking any medication. Denies smoking, alcohol, marijuana, drugs. In ED found to have L side whiteout on CXR, CT chest with L PLEF, incidentally found RUQ mass. Thoracenthesis done bedside, drained 1.9L serosanguineous fluid. EKG reviewed, sinus tach. chest tube placed. CTAP with R renal mass susp for malignancy. seen by urology for outpatient radical nephrectomy seen by me today during rounds, chest tub slowing down however xray worsens. likely loculated, discussed with pulm, possible TPA vs larger bore chest tube. pericardial eff noted on echo w/o tamponade, cardio consulted, no further eval for now. patient is in sinus tach, will not treat at this point. will eval once fluid removed. Physical exam Alert oriented x3 Speaking in full sentences Not in resp distress No breath sounds on L side S1 S2 tachycardic Abdomen soft nontender No LE edema No significant lymphadenopathy Labs EKG imaging reviewed Assessment and plan R PLEF, high susp of malignancy Cannot r/o PNA and parapneumonic PLEF pericardial effusion, no tamponade physiology R renal mass Hypertension sinus tach Admit to telemetry Thoracentesis done fluid exudative pulm consult for chest tube mgmt send cytology chest tube in place incentive spirometry pain mgmt uro consult appreciated cardio for pericardial ef no tamponade Diet regular DVT ppx ambulatory Code status full code Plan discussed with: Patient My Orders Orders - NICOLAS MATHEWS MD Procedure Category Date Status Time Body Fluid Culture W/ MARU 02/14/25 Logged GS 09:46 * Cardiology Consult CONS 02/14/25 Transmitted 09:47 Vancomycin Per PHA 02/14/25 In Process Pharmacy 10:00 Cefepime 2gm/50ml Ns PHA 02/14/25 In Process (Maxipime 2gm/50ml) 14:00 Vancomycin 1gm/250ml PHA 02/14/25 In Process Kit 12:00 Complete Blood Count LAB 02/15/25 Verified 04:00 Creatinine LAB 02/15/25 Verified 04:00 Vancomycin,Trough LAB 02/15/25 Verified 23:00 Vancomycin Per SNEHAL 02/14/25 In Process Pharmacy Protoc 10:32 Acetaminophen Tablet PHA 02/14/25 In Process (Tylenol Tablet) 15:45 Electrocardigram EKG 02/14/25 Logged 18:29 Date of Service: Feb 14, 2025 Billing Provider: NICOLAS MATHEWS MD Common Visit Codes: [id number] SAME DATE (HIGH) NICOLAS MATHEWS MD Feb 14, 2025 18:43
--- NOTE | 2025-02-14 18:59 | DVHPN2 ---
Progress Note - Dictate Date Seen: Feb 14, 2025 Medical Necessity Reason Pt with a Central, PICC or Fol: No Subjective Patient seen and examined at bedside. Breathing comfortably on room air. Overnight events reviewed. vital signs Vital Sign Date Time Temp Pulse Resp B/P (MAP) Pulse Ox O2 Delivery O2 Flow Rate FiO2 02/14/25 16:56 98.6 117 16 129/89 (102) 98 98.6 02/14/25 08:00 Room Air* 0 21 Total Intake and Output 02/13/25 02/13/25 02/14/25 15:00 23:00 07:00 Intake Total 300 ml 2200 ml 1000 ml Output Total 700 ml Balance 300 ml 2200 ml 300 ml medications Current Medications Medications Dose Ordered Sig/Moises Route Start Time Stop Time Status Last Admin Dose Admin Clonazepam 0.5 mg BID PO 02/11/25 10:00 02/14/25 08:29 0.5 MG Vancomycin HCl 0 ml @ 0 mls/hr UD IV 02/14/25 10:00 Cefepime HCl 50 ml @ 12.5 mls/hr Q8HR IV 02/14/25 14:00 02/14/25 14:28 12.5 MLS/HR Vancomycin HCl 250 ml @ 200 mls/hr Q12H IV 02/14/25 12:00 02/14/25 11:21 200 MLS/HR Acetaminophen 650 mg Q8HP PRN PO 02/14/25 15:45 objective Gen.: Patient lying in bed in no apparent distress. Breathing on room air. Head: Normocephalic, atraumatic. Eyes: EOMI/PERRLA. Ears: Normal hearing. Normal anatomy. Neck/trachea: Trachea midline, supple. Nose: Normal external anatomy. Mouth: Moist mucous membranes. Chest: Decreased air entry bilaterally. No wheezing or rhonchi. Cardiovascular: Positive S1, positive S2. Regular rate and rhythm. Abdomen: Positive bowel sounds in all 4 quadrants. Soft, non-tender, non- distended. : Deferred. Rectal: Deferred. Skin: Warm, dry. Intact. Extremities: 2+ radial pulses bilaterally. No lower extremity edema. Neuro: Awake, alert, oriented x3. No gross motor or sensory deficits. Cranial nerves II through XII intact. Gait not assessed. laboratory and microbiology Laboratory Tests 02/14/25 06:03 Test 02/14/25 06:03 Range/Units Serum Glucose 99 74-106 mg/dL Assessment/Plan Impression: Left pleural effusion, parapneumonic vs malignancy Atelectasis Rule out pneumonia Dependence on supplemental oxygen Right upper quadrant mass Hypertension Events: Breathing on room air Supplemental oxygen PRN Denies pain or discomfort. Left chest tube in place -20 cmH2O No output noted in the last 24 hours Chest tube clean and dry, no air leak CXR reviewed, demonstrates increase in left pleural effusion and increase of the prior tracheal deviation. Chest tube in place. CT chest was ordered for further evaluation. Pericardial effusion - Cardiology following. Continue antibiotics Incentive spirometry Labs and imaging reviewed. Rest of plan as noted below. Plan: Supplemental oxygen PRN Titrate to keep O2 sats above 92%. S/p left thoracentesis on 02/11/25 - drained 1.9 L serosanguineous fluid from left pleural space. S/p left chest tube Placed to -20 cmH2O Continue antibiotics Incentive spirometry Monitor renal function. Monitor electrolytes. Supplement as necessary. Monitor ins and outs. DVT prophylaxis. Prognosis: Poor given patient's multiple co-morbidities. Rest of plan per hospitalist and other consultants. Thank you, Dr. Rubin, for allowing me to participate in this patient's care. Further recommendations will depend on the patient's clinical course. Please do not hesitate to contact me if you have any questions or concerns. This medical document was created using an electronic medical record system with [employer] dictation system. Although these documentations are being carefully reviewed, there may still be some phonetic and typographical changes. The errors are purely typographical, due to imperfection on the software program, and do not reflect any compromise in the patient's medical care. Dietary Evaluation Review Comments: 1) Add 2g Na restriction to diet d/t HTN 2) Encourage optimal PO intale 3) Follow-up with urology, oncology, and pulmonology 4) Continue to monitor I&O, labs, and skin integrity Expected Outcomes/Goals: 1) appetite and labs to improve 2) diet to advance 2) f/u in 2-3 days Plan discussed with: Patient, Other (DARBY Leo) CHANEL CHOW MD Feb 14, 2025 18:59
[2025-02-14] MEDS: ACETAMINOPHEN 325 MG TAB PO PRN (20:48)
[2025-02-15] VITALS (7 sets, daily range): BP systolic 119–147; BP diastolic 80–92; PULSE 116–133; RESP 16–23; TEMP 97.9–98.7; O2SAT 96–97
[2025-02-15 06:31] LABS: Basophils % (auto) 0.5 % (0.0-2.0); Neutrophils % (auto) 70.7 % (37.0-80.0); White Blood Cell 9.8 10^3/uL (4.4-10.8)
[2025-02-15 06:39] LABS: Basophils # (auto) 0.1 10 ^3/uL (0-0.2); Eosinophils # (auto) 0.6 10 ^3/uL (0-0.8); Eosinophils % (auto) 6.3 % (0.0-7.0); Hematocrit 39.8 % (41.0-53.0); Hemoglobin 13.4 g/dL (13.5-17.5); Lymphocytes # (auto) 1.2 10 ^3/uL (0.4-5.4); Lymphocytes % (auto) 12.1 % (10.0-50.0); Mean Corpuscular Hemoglobin 26.1 pg (28.0-32.0); Mean Corpuscular Hgb Conc. 33.6 g/dL (32.0-36.0); Mean Corpuscular Volume 77.8 fL (80.0-100.0); Monocytes % (auto) 10.4 % (0.0-12.0); Nucleated Red Blood Cells % 0.1 %; Platelet Count (auto) 255 10^3/uL (140-450); Red Blood Cells 5.11 10^6/uL (4.5-5.90); Red Cell Distribution Width 12.5 % (11.8-14.3)
--- NOTE | 2025-02-15 12:30 | ECG ---
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
--- NOTE | 2025-02-15 13:42 | DVHPN2 ---
Assessment/Plan Assessment/Plan Progress note 39 yo M with hypertension presented to ED with 1 week of worsening SOB. Denies weight loss, night sweats, recent travels. 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 Denies other symptoms. Not taking any medication. Denies smoking, alcohol, marijuana, drugs. In ED found to have L side whiteout on CXR, CT chest with L PLEF, incidentally found RUQ mass. Thoracenthesis done bedside, drained 1.9L serosanguineous fluid. EKG reviewed, sinus tach. chest tube placed. CTAP with R renal mass susp for malignancy. seen by urology for outpatient radical nephrectomy seen by me today during rounds, plan for TPA in chest tube Physical exam Alert oriented x3 Speaking in full sentences Not in resp distress No breath sounds on L side S1 S2 tachycardic Abdomen soft nontender No LE edema No significant lymphadenopathy Labs EKG imaging reviewed Assessment and plan R PLEF, high susp of malignancy Cannot r/o PNA and parapneumonic PLEF pericardial effusion, no tamponade physiology R renal mass Hypertension sinus tach Admit to telemetry Thoracentesis done fluid exudative pulm consult for chest tube mgmt send cytology chest tube in place incentive spirometry pain mgmt uro consult appreciated cardio for pericardial ef no tamponade Diet regular DVT ppx ambulatory Code status full code Plan discussed with: Patient My Orders Orders - NICOLAS MATHEWS MD Procedure Category Date Status Time Acetaminophen Tablet PHA 02/14/25 In Process (Tylenol Tablet) 15:45 Date of Service: Feb 15, 2025 Billing Provider: NICOLAS MATHEWS MD Common Visit Codes: [id number] INP/OBS CARE(HIGH) NICOLAS MATHEWS MD Feb 15, 2025 13:42
--- NOTE | 2025-02-15 23:37 | DVHPN2 ---
Progress Note - Dictate Date Seen: Feb 15, 2025 Medical Necessity Reason Pt with a Central, PICC or Fol: No Subjective Patient seen and examined at bedside. Breathing comfortably on room air. Overnight events reviewed. vital signs Vital Sign Date Time Temp Pulse Resp B/P (MAP) Pulse Ox O2 Delivery O2 Flow Rate FiO2 02/15/25 21:00 98.0 122 16 131/86 (101) 96 98.0 02/15/25 08:00 Room Air* 0 21 Total Intake and Output 02/14/25 02/14/25 02/15/25 14:59 22:59 06:59 Intake Total 300 ml 1900 ml 1100 ml Output Total 20 ml 680 ml Balance 300 ml 1880 ml 420 ml medications Current Medications Medications Dose Ordered Sig/Moises Route Start Time Stop Time Status Last Admin Dose Admin Clonazepam 0.5 mg BID PO 02/11/25 10:00 02/15/25 21:49 0.5 MG Vancomycin HCl 0 ml @ 0 mls/hr UD IV 02/14/25 10:00 Cefepime HCl 50 ml @ 12.5 mls/hr Q8HR IV 02/14/25 14:00 02/15/25 21:49 12.5 MLS/HR Vancomycin HCl 250 ml @ 200 mls/hr Q12H IV 02/14/25 12:00 02/15/25 12:18 200 MLS/HR Acetaminophen 650 mg Q8HP PRN PO 02/14/25 15:45 02/15/25 21:49 650 MG objective Gen.: Patient lying in bed in no apparent distress. Breathing on room air. Head: Normocephalic, atraumatic. Eyes: EOMI/PERRLA. Ears: Normal hearing. Normal anatomy. Neck/trachea: Trachea midline, supple. Nose: Normal external anatomy. Mouth: Moist mucous membranes. Chest: Decreased air entry bilaterally. No wheezing or rhonchi. Cardiovascular: Positive S1, positive S2. Regular rate and rhythm. Abdomen: Positive bowel sounds in all 4 quadrants. Soft, non-tender, non- distended. : Deferred. Rectal: Deferred. Skin: Warm, dry. Intact. Extremities: 2+ radial pulses bilaterally. No lower extremity edema. Neuro: Awake, alert, oriented x3. No gross motor or sensory deficits. Cranial nerves II through XII intact. Gait not assessed. laboratory and microbiology Laboratory Tests 02/15/25 05:11 02/14/25 06:03 Test 02/14/25 06:03 Range/Units Serum Glucose 99 74-106 mg/dL Assessment/Plan Impression: Left pleural effusion, parapneumonic vs malignancy Atelectasis Rule out pneumonia Dependence on supplemental oxygen Right upper quadrant mass Hypertension Events: Breathing on room air Supplemental oxygen PRN Denies pain or discomfort. Left chest tube in place -20 cmH2O TPA course Monitor chest tube output Chest tube clean and dry, no air leak CXR on 02/14 demonstrated increase in left pleural effusion and increase of the prior tracheal deviation. Chest tube in place. CT chest showed interval improved aeration of the left lung with decreased pleural effusion and a pigtail chest tube in place. Pericardial effusion - Cardiology following. Continue antibiotics Incentive spirometry Pain control Avoid oversedation Labs and imaging reviewed. Rest of plan as noted below. Plan: Supplemental oxygen PRN Titrate to keep O2 sats above 92%. S/p left thoracentesis on 02/11/25 - drained 1.9 L serosanguineous fluid from left pleural space. S/p left chest tube Placed to -20 cmH2O Continue antibiotics Incentive spirometry Monitor renal function. Monitor electrolytes. Supplement as necessary. Monitor ins and outs. DVT prophylaxis. Prognosis: Poor given patient's multiple co-morbidities. Rest of plan per hospitalist and other consultants. Thank you, Dr. Rubin, for allowing me to participate in this patient's care. Further recommendations will depend on the patient's clinical course. Please do not hesitate to contact me if you have any questions or concerns. This medical document was created using an electronic medical record system with [employer] dictation system. Although these documentations are being carefully reviewed, there may still be some phonetic and typographical changes. The errors are purely typographical, due to imperfection on the software program, and do not reflect any compromise in the patient's medical care. Dietary Evaluation Review Comments: 1) Add 2g Na restriction to diet d/t HTN 2) Encourage optimal PO intale 3) Follow-up with urology, oncology, and pulmonology 4) Continue to monitor I&O, labs, and skin integrity Expected Outcomes/Goals: 1) appetite and labs to improve 2) diet to advance 2) f/u in 2-3 days Plan discussed with: Patient, Other (DARBY Leo) CHANEL CHOW MD Feb 15, 2025 23:37
[2025-02-16] VITALS (8 sets, daily range): BP systolic 113–140; BP diastolic 74–96; PULSE 68–119; RESP 16–97; TEMP 97.3–98; O2SAT 97–100
[2025-02-16 07:33] LABS: Basophils # (auto) 0.1 10 ^3/uL (0-0.2); Eosinophils # (auto) 0.7 10 ^3/uL (0-0.8); Mean Corpuscular Volume 77.6 fL (80.0-100.0); Nucleated Red Blood Cells % 0.1 %; Red Cell Distribution Width 12.5 % (11.8-14.3)
[2025-02-16 07:36] LABS: Basophils % (auto) 0.9 % (0.0-2.0); Eosinophils % (auto) 7.8 % (0.0-7.0); Hematocrit 39.2 % (41.0-53.0); Hemoglobin 13.2 g/dL (13.5-17.5); Lymphocytes # (auto) 1.4 10 ^3/uL (0.4-5.4); Lymphocytes % (auto) 14.9 % (10.0-50.0); Mean Corpuscular Hemoglobin 26.1 pg (28.0-32.0); Mean Corpuscular Hgb Conc. 33.6 g/dL (32.0-36.0); Monocytes % (auto) 10.5 % (0.0-12.0); Neutrophils # (auto) 6.1 10 ^3/uL (1.6-8.6); Neutrophils % (auto) 65.9 % (37.0-80.0); Platelet Count (auto) 296 10^3/uL (140-450); Red Blood Cells 5.05 10^6/uL (4.5-5.90); White Blood Cell 9.2 10^3/uL (4.4-10.8)
[2025-02-16] MEDS: VANCOMYCIN 1GM/200ML PM 200 ML IV SCH (11:43)
[2025-02-16] MEDS: KETOROLAC TROMETH 30 MG/ML 1ML VIAL IV ONE (15:34)
--- NOTE | 2025-02-16 21:07 | DVHPN2 ---
Progress Note - Dictate Date Seen: Feb 16, 2025 Medical Necessity Reason Pt with a Central, PICC or Fol: No Subjective Patient seen and examined at bedside. Breathing comfortably on room air. Overnight events reviewed. vital signs Vital Sign Date Time Temp Pulse Resp B/P (MAP) Pulse Ox O2 Delivery O2 Flow Rate FiO2 02/16/25 17:00 97.3 115 20 130/87 (101) 100 97.3 02/16/25 08:00 Room Air* 0 21 Total Intake and Output 02/15/25 02/15/25 02/16/25 15:00 23:00 07:00 Intake Total 250 ml 1430 ml 700 ml Output Total 700 ml 700 ml Balance 250 ml 730 ml 0 ml medications Current Medications Medications Dose Ordered Sig/Moises Route Start Time Stop Time Status Last Admin Dose Admin Clonazepam 0.5 mg BID PO 02/11/25 10:00 02/16/25 10:24 0.5 MG Vancomycin HCl 0 ml @ 0 mls/hr UD IV 02/14/25 10:00 Cefepime HCl 50 ml @ 12.5 mls/hr Q8HR IV 02/14/25 14:00 02/16/25 14:39 12.5 MLS/HR Acetaminophen 650 mg Q8HP PRN PO 02/14/25 15:45 02/16/25 10:25 650 MG Vancomycin HCl 200 ml @ 200 mls/hr Q10H IV 02/16/25 12:00 02/16/25 11:43 200 MLS/HR objective Gen.: Patient lying in bed in no apparent distress. Breathing on room air. Head: Normocephalic, atraumatic. Eyes: EOMI/PERRLA. Ears: Normal hearing. Normal anatomy. Neck/trachea: Trachea midline, supple. Nose: Normal external anatomy. Mouth: Moist mucous membranes. Chest: Decreased air entry bilaterally. No wheezing or rhonchi. Cardiovascular: Positive S1, positive S2. Regular rate and rhythm. Abdomen: Positive bowel sounds in all 4 quadrants. Soft, non-tender, non- distended. : Deferred. Rectal: Deferred. Skin: Warm, dry. Intact. Extremities: 2+ radial pulses bilaterally. No lower extremity edema. Neuro: Awake, alert, oriented x3. No gross motor or sensory deficits. Cranial nerves II through XII intact. Gait not assessed. laboratory and microbiology Laboratory Tests 02/16/25 05:41 02/14/25 06:03 Test 02/14/25 06:03 Range/Units Serum Glucose 99 74-106 mg/dL Assessment/Plan Impression: Left pleural effusion, parapneumonic vs malignancy Atelectasis Rule out pneumonia Dependence on supplemental oxygen Right upper quadrant mass Hypertension Events: Breathing on room air Supplemental oxygen PRN Denies pain or discomfort. Left chest tube in place -20 cmH2O Received TPA course x2 Monitor chest tube output Chest tube clean and dry, no air leak Obtain CXR in the AM for interval changes Recommend to repeat CT chest once TPA course is complete. Pericardial effusion - Cardiology following. Continue antibiotics Incentive spirometry Pain control Avoid oversedation Labs and imaging reviewed. Rest of plan as noted below. Plan: Supplemental oxygen PRN Titrate to keep O2 sats above 92%. S/p left thoracentesis on 02/11/25 - drained 1.9 L serosanguineous fluid from left pleural space. S/p left chest tube Placed to -20 cmH2O Continue antibiotics Incentive spirometry Monitor renal function. Monitor electrolytes. Supplement as necessary. Monitor ins and outs. DVT prophylaxis. Prognosis: Poor given patient's multiple co-morbidities. Rest of plan per hospitalist and other consultants. Thank you, Dr. Rubin, for allowing me to participate in this patient's care. Further recommendations will depend on the patient's clinical course. Please do not hesitate to contact me if you have any questions or concerns. This medical document was created using an electronic medical record system with [employer] dictation system. Although these documentations are being carefully reviewed, there may still be some phonetic and typographical changes. The errors are purely typographical, due to imperfection on the software program, and do not reflect any compromise in the patient's medical care. Dietary Evaluation Review Comments: 1) Add 2g Na restriction to diet d/t HTN 2) Encourage optimal PO intale 3) Follow-up with urology, oncology, and pulmonology 4) Continue to monitor I&O, labs, and skin integrity Expected Outcomes/Goals: 1) appetite and labs to improve 2) diet to advance 2) f/u in 2-3 days Plan discussed with: Patient, Other (DARBY Hoang) CHANEL CHOW MD Feb 16, 2025 21:07
[2025-02-16] MEDS ORDERED: KETOROLAC TROMETH 30 MG/ML 1ML VIAL IV PRN (23:00)
--- NOTE | 2025-02-16 23:02 | DVHPN2 ---
Assessment/Plan Assessment/Plan Progress note 39 yo M with hypertension presented to ED with 1 week of worsening SOB. Denies weight loss, night sweats, recent travels. 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 Denies other symptoms. Not taking any medication. Denies smoking, alcohol, marijuana, drugs. In ED found to have L side whiteout on CXR, CT chest with L PLEF, incidentally found RUQ mass. Thoracenthesis done bedside, drained 1.9L serosanguineous fluid. EKG reviewed, sinus tach. chest tube placed. CTAP with R renal mass susp for malignancy. seen by urology for outpatient radical nephrectomy seen by me today during rounds, s/p TPA, improved flow. clots found in line prior to TPA. repeat imaging Physical exam Alert oriented x3 Speaking in full sentences Not in resp distress No breath sounds on L side S1 S2 tachycardic Abdomen soft nontender No LE edema No significant lymphadenopathy Labs EKG imaging reviewed Assessment and plan R PLEF, high susp of malignancy Cannot r/o PNA and parapneumonic PLEF pericardial effusion, no tamponade physiology R renal mass Hypertension sinus tach Admit to telemetry Thoracentesis done fluid exudative pulm consult for chest tube mgmt send cytology chest tube in place incentive spirometry pain mgmt uro consult appreciated cardio for pericardial ef no tamponade Diet regular DVT ppx ambulatory Code status full code Plan discussed with: Patient My Orders Orders - NICOLAS MATHEWS MD Procedure Category Date Status Time Vancomycin 1gm/200ml PHA 02/16/25 In Process Pm 12:00 Vancomycin Per SNEHAL 02/17/25 In Process Pharmacy Protoc 08:00 Vancomycin,Trough LAB 02/17/25 Verified 07:00 Creatinine LAB 02/17/25 Verified 07:00 Ketorolac Injection PHA 02/16/25 Verified (Toradol Injection) 23:00 Complete Blood Count LAB 02/17/25 Verified 04:00 Basic Metabolic Panel LAB 02/17/25 Verified 04:00 Chest Two Views XY 02/16/25 Verified Routine 22:59 Date of Service: Feb 16, 2025 Billing Provider: NICOLAS MATHEWS MD Common Visit Codes: [id number] INP/OBS CARE(HIGH) NICOLAS MATHEWS MD Feb 16, 2025 23:02
[2025-02-17] VITALS (7 sets, daily range): BP systolic 120–136; BP diastolic 84–93; PULSE 103–130; RESP 16–18; TEMP 97.3–98.2; O2SAT 97–100
[2025-02-17 07:42] LABS: Anion Gap 9 (5-15); Carbon Dioxide 25 mmol/L (20-31); Chloride 100 mmol/L (98-107); Potassium 4.2 mmol/L (3.5-5.1)
[2025-02-17 07:43] LABS: Calcium 9.2 mg/dL (8.7-10.4)
[2025-02-17 07:44] LABS: Sodium 134 mmol/L (136-145)
[2025-02-17 07:48] LABS: BUN/Creatinine Ratio 12.2 (10.0-20.0); Blood Urea Nitrogen 14 mg/dL (9-23); Glucose 135 mg/dL (74-106)
[2025-02-17 07:53] LABS: Basophils # (auto) 0.1 10 ^3/uL (0-0.2); Basophils % (auto) 0.8 % (0.0-2.0); Eosinophils # (auto) 0.5 10 ^3/uL (0-0.8); Eosinophils % (auto) 6.7 % (0.0-7.0); Hematocrit 37.3 % (41.0-53.0); Hemoglobin 12.4 g/dL (13.5-17.5); Lymphocytes # (auto) 1.4 10 ^3/uL (0.4-5.4); Lymphocytes % (auto) 16.8 % (10.0-50.0); Mean Corpuscular Hemoglobin 25.6 pg (28.0-32.0); Mean Corpuscular Hgb Conc. 33.3 g/dL (32.0-36.0); Monocytes # (auto) 0.8 10 ^3/uL (0-1.3); Monocytes % (auto) 9.8 % (0.0-12.0); Neutrophils # (auto) 5.4 10 ^3/uL (1.6-8.6); Neutrophils % (auto) 65.9 % (37.0-80.0); Nucleated Red Blood Cells % 0.1 %; Platelet Count (auto) 294 10^3/uL (140-450); Red Blood Cells 4.84 10^6/uL (4.5-5.90); Red Cell Distribution Width 12.7 % (11.8-14.3); White Blood Cell 8.2 10^3/uL (4.4-10.8)
[2025-02-17] MEDS: CATHFLO ACTIVASE (ALTEPLASE) 2 MG VIAL IV ONE (08:00)
[2025-02-17] MEDS: CATHFLO ACTIVASE (ALTEPLASE) 2 MG VIAL XX ONE (08:01)
--- NOTE | 2025-02-17 08:47 | DVH ---
XY CHEST TWO VIEWS ROUTINE CLINICAL HISTORY: interval chest tube COMPARISON: XY CHEST PORTABLE on DOS: 02/14/25 TECHNIQUE: Frontal and lateral view of the chest was obtained FINDINGS: Lines and tubes: Pigtail left chest tube is seen. Cardiomediastinal silhouette: normal Pulmonary vasculature: normal Lung expansion: normal Lung airspace: Patchy Left opacities. Lung interstitium: normal Pleura: left pleural effusion. Pneumothorax: no Bones: Unremarkable Other: no IMPRESSION: Increase in the left pleural effusion. Increase of the prior tracheal deviation. IMPRESSION: Interval improved aeration of the left lung with decreased pleural effusion and a pigtail chest tube in place.
--- NOTE | 2025-02-17 15:22 | DVHDS2 ---
Discharge Summary Date of Admission Feb 10, 2025 at 11:42 Date of Discharge: Feb 17, 2025 Labs/Diagnostic Data: Laboratory Results Test 02/17/25 06:58 02/12/25 04:38 02/11/25 05:42 02/10/25 15:01 White Blood Count 8.2 10^3/uL (4.4-10.8) Red Blood Count 4.84 10^6/uL (4.5-5.90) Hemoglobin 12.4 g/dL (13.5-17.5) Hematocrit 37.3 % (41.0-53.0) Mean Corpuscular Volume 77.0 fL (80.0-100.0) Mean Corpuscular Hemoglobin 25.6 pg (28.0-32.0) Mean Corpuscular Hemoglobin Concent 33.3 g/dL (32.0-36.0) Red Cell Distribution Width 12.7 % (11.8-14.3) Platelet Count 294 10^3/uL (140-450) Mean Platelet Volume 8.8 fL (6.9-10.8) Neutrophils (%) (Auto) 65.9 % (37.0-80.0) Lymphocytes (%) (Auto) 16.8 % (10.0-50.0) Monocytes (%) (Auto) 9.8 % (0.0-12.0) Eosinophils (%) (Auto) 6.7 % (0.0-7.0) Basophils (%) (Auto) 0.8 % (0.0-2.0) Neutrophils # (Auto) 5.4 10 ^3/uL (1.6-8.6) Lymphocytes # (Auto) 1.4 10 ^3/uL (0.4-5.4) Monocytes # (Auto) 0.8 10 ^3/uL (0-1.3) Eosinophils # (Auto) 0.5 10 ^3/uL (0-0.8) Basophils # (Auto) 0.1 10 ^3/uL (0-0.2) Nucleated Red Blood Cells 0.1 % Sodium Level 134 mmol/L (136-145) Potassium Level 4.2 mmol/L (3.5-5.1) Chloride Level 100 mmol/L (98-107) Carbon Dioxide Level 25 mmol/L (20-31) Anion Gap 9 (5-15) Blood Urea Nitrogen 14 mg/dL (9-23) Creatinine 1.15 mg/dL (0.700-1.30) Glomerular Filtration Rate Calc 84 mL/min (>90) BUN/Creatinine Ratio 12.2 (10.0-20.0) Serum Glucose 135 mg/dL (74-106) Calcium Level 9.2 mg/dL (8.7-10.4) Vancomycin Level Trough 13.4 ug/mL (5-10) Lactic Acid Level 1.2 mmol/L (0.4-2.0) Phosphorus Level 3.5 mg/dL (2.4-5.1) Magnesium Level 2.3 mg/dL (1.6-2.6) Iron Level 21 ug/dL (65-175) Total Iron Binding Capacity 215 ug/dL (250-425) Percent Iron Saturation 9.8 % (20-55) Ferritin 407.4 ng/mL (22-322) Total Bilirubin 0.5 mg/dL (0.2-1.0) Aspartate Amino Transferase (AST) 19 U/L (13-40) Alanine Aminotransferase (ALT) 13 U/L (7-40) Alkaline Phosphatase 64 U/L (46-116) Lactate Dehydrogenase 357 U/L (120-246) Total Protein 6.3 g/dL (5.7-8.2) Albumin 3.7 g/dL (3.2-4.8) Body Fluid Source Pleural fluid Body Fluid pH 8.0 Body Fluid WBC (Manual) 995 CUMM (0-200) Body Fluid RBC (Manual) 494279 CUMM (0-2000) Body Fluid Mononuclear Cells 70 % Body Fluid Polymorphonuclear Cells 30 % (0-25) Body Fluid Glucose 78 mg/dL (.) Body Fluid Total Protein 5.0 g/dL (.) Body Fluid Lactate Dehydrogenase 563 IU/L (.) Test 02/10/25 05:30 02/10/25 04:56 02/10/25 03:50 Urine Color Light-orange (Yellow) Urine Clarity Clear (Clear) Urine pH 5.5 (5.0-9.0) Urine Specific Leslie 1.034 (1.001-1.035) Urine Protein 1+ (Negative) Urine Ketones 2+ (Negative) Urine Blood 3+ /uL (Negative) Urine Nitrite Negative (Negative) Urine Bilirubin Negative (Negative) Urine Urobilinogen Normal mg/dL (Negative) Urine Leukocyte Esterase Negative /uL (Negative) Urine RBC 437 /hpf (0 - 3) Urine Microscopic WBC 4 /HPF (0-3) Urine Squamous Epithelial Cells None seen /hpf (<5) Urine Bacteria Few /hpf (None Seen) Urine Mucus Few (None Seen) Urine Glucose Normal mg/dL (Normal) Troponin I High Sensitivity 5 ng/L (</=54) Prothrombin Time 11.7 sec (9.3-11.8) Prothrombin Time INR 1.12 (0.9-1.15) Activated Partial Thromboplast Time 28.6 SEC (24.5-34.5) D-Dimer, Quantitative 4.13 mg/L FEU (0.0-0.49) B-Type Natriuretic Peptide 28.19 pg/mL (0-100) Other Laboratory Tests 02/17/25 06:58 Brief Hx & Hospital Course: 39 yo M with hypertension presented to ED with 1 week of worsening SOB. Denies weight loss, night sweats, recent travels. 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 Denies other symptoms. Not taking any medication. Denies smoking, alcohol, marijuana, drugs. In ED found to have L side whiteout on CXR, CT chest with L PLEF, incidentally found RUQ mass. Thoracenthesis done bedside, drained 1.9L serosanguineous fluid. EKG reviewed, sinus tach. chest tube placed. CTAP with R renal mass susp for malignancy. seen by urology for outpatient radical nephrectomy.chetst tube placed, continous to drain, after flow decreased, repeat CT with still a lot of effusion, pushed TPA. today repeat improved, chest tube removed. stable to dc home with dc clinic follow up in 1 week for referral to urology Condition at Discharge: Fair Final Diagnosis/Problems List R PLEF, high susp of malignancy Cannot r/o PNA and parapneumonic PLEF pericardial effusion, no tamponade physiology R renal mass Hypertension sinus tach Discharge Disposition: Home 45 Discharge Statement: "Patient was advised to return to the ER or call 911 if any headaches, dizziness, shortness of breath, chest pain, abdominal pain, bleeding, fevers, or worsening of medical condition. Patient was counseled about treatment plan, medications, possible side effects, patientverbalized understanding. All questions were answered to the best of my ability. This discharge took greater then 30 minutes in planning, reviewing documentation, counseling the patient, and discussing with other team members." ASSESSMENT ASSESSMENT Assessment Date of Service: Feb 17, 2025 Billing Provider: NICOLAS MATHEWS MD Common Visit Codes: 01124-GER/OBS DISCH DAY >30min NICOLAS MATHEWS MD Feb 17, 2025 15:22
[2025-02-17] MEDS ORDERED: CLON0.5T4 PO (15:30)
[2025-02-17] MEDS ORDERED: IBUP1TAB5 PO (15:30)
[2025-02-17] MEDS: VANCOMYCIN 1GM/200ML PM 200 ML IV SCH (16:15)
--- NOTE | 2025-02-17 19:01 | DVHPN2 ---
Progress Note - Dictate Date Seen: Feb 17, 2025 Medical Necessity Reason Pt with a Central, PICC or Fol: No Subjective Patient seen and examined at bedside. Breathing comfortably on room air. Overnight events reviewed. vital signs Vital Sign Date Time Temp Pulse Resp B/P (MAP) Pulse Ox O2 Delivery O2 Flow Rate FiO2 02/17/25 16:46 97.3 125 17 136/92 (107) 100 97.3 02/17/25 08:00 Room Air* 0 21 Total Intake and Output 02/16/25 02/16/25 02/17/25 15:00 23:00 07:00 Intake Total 200 ml 1968 ml 350 ml Output Total 950 ml 2300 ml 1400 ml Balance -750 ml -332 ml -1050 ml objective Gen.: Patient lying in bed in no apparent distress. Breathing on room air. Head: Normocephalic, atraumatic. Eyes: EOMI/PERRLA. Ears: Normal hearing. Normal anatomy. Neck/trachea: Trachea midline, supple. Nose: Normal external anatomy. Mouth: Moist mucous membranes. Chest: Decreased air entry bilaterally. No wheezing or rhonchi. Cardiovascular: Positive S1, positive S2. Regular rate and rhythm. Abdomen: Positive bowel sounds in all 4 quadrants. Soft, non-tender, non- distended. : Deferred. Rectal: Deferred. Skin: Warm, dry. Intact. Extremities: 2+ radial pulses bilaterally. No lower extremity edema. Neuro: Awake, alert, oriented x3. No gross motor or sensory deficits. Cranial nerves II through XII intact. Gait not assessed. laboratory and microbiology Laboratory Tests 02/17/25 06:58 Test 02/17/25 06:58 Range/Units Serum Glucose 135 H 74-106 mg/dL Assessment/Plan Impression: Left pleural effusion, parapneumonic vs malignancy Atelectasis Rule out pneumonia Dependence on supplemental oxygen Right upper quadrant mass Hypertension Events: Breathing on room air Supplemental oxygen PRN Denies pain or discomfort. S/p left chest tube removal. Patient responded to TPA course Recommend to repeat CT chest once TPA course is complete. Pericardial effusion - Cardiology following. Continue antibiotics Incentive spirometry Patient is stable for discharge from the pulmonary standpoint. Labs and imaging reviewed. Rest of plan as noted below. Plan: Supplemental oxygen PRN Titrate to keep O2 sats above 92%. S/p left thoracentesis on 02/11/25 - drained 1.9 L serosanguineous fluid from left pleural space. Received TPA course, s/p removal of left chest tube Continue antibiotics Incentive spirometry Monitor renal function. Monitor electrolytes. Supplement as necessary. Monitor ins and outs. DVT prophylaxis. Prognosis: Poor given patient's multiple co-morbidities. Rest of plan per hospitalist and other consultants. Thank you, Dr. Rubin, for allowing me to participate in this patient's care. Further recommendations will depend on the patient's clinical course. Please do not hesitate to contact me if you have any questions or concerns. This medical document was created using an electronic medical record system with [employer] dictation system. Although these documentations are being carefully reviewed, there may still be some phonetic and typographical changes. The errors are purely typographical, due to imperfection on the software program, and do not reflect any compromise in the patient's medical care. Dietary Evaluation Review Comments: 1) Add 2g Na restriction to diet d/t HTN 2) Encourage optimal PO intale 3) Follow-up with urology, oncology, and pulmonology 4) Continue to monitor I&O, labs, and skin integrity Expected Outcomes/Goals: 1) appetite and labs to improve 2) diet to advance 2) f/u in 2-3 days Plan discussed with: Patient, Other (RN Ty) CHANEL CHOW MD Feb 17, 2025 19:01
== END 2025-02-17 18:30 | disposition home or self-care (01) | DRG 137 ==
LOC: ER 03:06 → OVERFLOW 11:42 → TELE-WESTW 15:27
PROVIDERS: ADMIT Student in an Organized Health Care Education/Training Program; ATTEND Student in an Organized Health Care Education/Training Program
PROC: 0W9B3ZZ Drainage of Left Pleural Cavity, Percutaneous Approach (ICD-10-PCS; principal; 2025-02-10)
PROC: 0W9B30Z Drainage of Left Pleural Cavity with Drainage Device, Percutaneous Approach (ICD-10-PCS; 2025-02-12)
DX: J15.69 Pneumonia due to other Gram-negative bacteria (principal); N17.0 Acute kidney failure with tubular necrosis; I31.39 Other pericardial effusion (noninflammatory); C64.1 Malignant neoplasm of right kidney, except renal pelvis; J90 Pleural effusion, not elsewhere classified; J15.9 Unspecified bacterial pneumonia; I10 Essential (primary) hypertension; Z82.49 Family history of ischemic heart disease and other diseases of the circulatory system; Z99.81 Dependence on supplemental oxygen; Z91.199 Patient's noncompliance with other medical treatment and regimen due to unspecified reason; Z79.899 Other long term (current) drug therapy
CPT/HCPCS: 10005; 32555; 36415; 71045; 71046; 71250; 71275; 74177; 76604; 76942; 77012; 80048; 80053; 80202; 81001; 82565; 82728; 83540; 83550; 83605; 83615; 83735; 83880; 83986; 84100; 84484; 85025; 85379; 85610; 85730; 87040; 87081; 89051; 93005; 93306; 99291; G0378; J0692; J1885; J2003; J2250

== ENCOUNTER 2025-04-11 00:29 | Inpatient (IN) | payer MEDICAID ==
[~2025-04-11] VITALS: Ht 180.3 cm; Wt 63.4 kg
[2025-04-11] VITALS (7 sets, daily range): BP systolic 128–138; BP diastolic 80–93; PULSE 121–130; RESP 18–52; TEMP 98; O2SAT 96–100
[~2025-04-11 00:29] MED LIST: CLON0.5T4 PO; IBUP1TAB5 PO
--- NOTE | 2025-04-11 01:22 | ED.PDOC ---
SOB-HPI HPI Comments 39 year old male came to ER via EMS with shortness a breath. Patient was discharged here last February 17, 2025, and was diagnosed with Left PLEF, high susp of malignancy Cannot r/o PNA and parapneumonic PLEF, 2. pericardial effusion, no tamponade physiology, 3. R renal mass, 4. Hypertension, 5.sinus tachycardia. Patient states few hours ago, started experiencing a left-sided chest pains, associated with shortness a breath, and right flank pains. Patient was given fentanyl by paramedics while EN route to the ER. Patient is saturating 96% on room air, tachycardic at the 140s Chief Complaint: Shortness of Breath Time Seen by MD: 01:21 Reviewed notes: Photographic Intelligence Officer Notes Information Source: Patient, Emergency Med Personnel Mode of Arrival: EMS Severity: Moderate Timing: Hours Duration: Since onset Context: At Rest, With Light Exertion History of: Other (Left pleural effusion) Prehospital treatment: Oxygen Associated Signs and Symptoms: Chest Pain Past Medical History PAST MEDICAL HISTORY: HTN Past Medical History (Other): Left PLEF, high susp of malignancy Cannot r/o PNA and parapneumonic PLEF pericardial effusion, no tamponade physiology R renal mass Hypertension sinus tach Surgical History: Denies all surgeries Surgical History (Other): Chest tube Family History Family History: Reviewed,noncontributory to illness Social History Smoker: Non-Smoker Alcohol: Denies ETOH Use Drugs: Denies Drug Use Lives In: Home Constitutional: reports: weakness; denies: chills, diaphoresis, fatigue, fever, malaise, sweats, others EENTM: denies: blurred vision, double vision, ear bleeding, ear discharge, ear drainage, ear pain, ear ringing, eye pain, eye redness, hearing loss, mouth pain, mouth swelling, nasal discharge, nose bleeding, nose congestion, nose pain, photophobia, tearing, throat pain, throat swelling, voice changes, others Respiratory: reports: SOB at rest, shortness of breath; denies: cough, hemoptysis, orthopnea, SOB with excertion, stridor, wheezing, others Cardiovascular: reports: chest pain; denies: dizzy spells, diaphoresis, Dyspnea on exertion, edema, irregular heart beat, left arm pain, lightheadedness, palpitations, PND, syncope, others Gastrointestinal: reports: abdominal pain; denies: abdomen distended, blood streaked bowels, constipated, diarrhea, dysphagia, difficulty swallowing, hematemesis, melena, nausea, poor appetite, poor fluid intake, rectal bleeding, rectal pain, vomiting, others Genitourinary: reports: flank pain; denies: burning, dysuria, frequency, hematuria, incontinence, penile discharge, penile sore, pain, testicle pain, testicle swelling, urgency, others Neurological: denies: dizziness, fainting, headache, left sided numbness, left sided weakness, numbness, paresthesia, pre-existing deficit, right sided numbness, right sided weakness, seizure, speech problems, tingling, tremors, weakness, others Musculoskeletal: denies: back pain, gout, joint pain, joint swelling, muscle pain, muscle stiffness, neck pain, others Integumetry: denies: bruises, change in color, change in hair/nails, dryness, laceration, lesions, lumps, rash, wounds, others Allergic/Immunocompromised: denies: Difficulty Healing, Frequent Infections, Hives, Itching, others Hematologic/Lymphatic: denies: anemia, blood clots, easy bleeding, easy bruising, swollen glands, others Endocrine: denies: excessive hunger, excessive sweating, excessive thirst, excessive urination, flushing, intolerance to cold, intolerance to heat, unexplained weight gain, unexplained weight loss, others Psychiatric: denies: anxiety, bipolar disorder, depression, hopeless, panic disorder, schizophrenia, sleepless, suicidal, others Physical Exam General Appearance: No Apparent Distress, Normal HEENT: Normal ENT Inspection, Pharynx Normal, TMs Normal Neck: Full Range of Motion, Non-Tender, Normal, Normal Inspection Respiratory: Chest Non-Tender, Lungs Clear, No Accessory Muscle Use, No Respira tory Distress, Normal Breath Sounds Cardiovascular: No Edema, No JVD, No Murmur, No Gallop, Normal Peripheral Pulses, Regular Rate/Rhythm Breast Exam: Deferred Gastrointestinal: No Organomegaly, Non Tender, No Pulsatile Mass, Normal Bowel Sounds, Soft Genitalia: Deferred Pelvic: Deferred Rectal: Deferred Extremities: No calf tenderness, Normal capillary refill, Normal inspection, Normal range of motion, Non-tender, No pedal edema Musculoskeletal : Apperance: Normal Neurologic: Alert, drill grinder II-XII nml as Tested, No Motor Deficits, Normal Affect, Normal Mood, No Sensory Deficits Cerebellar Function: Normal Reflexes: Normal Skin: Dry, Normal Color, Warm Lymphatic: No Adenopathy Was a procedure done? Was a procedure done?: Yes Sedation Sedation?: No Chest Tube Indication: Effusion Procedure: Sterile preparation Anesthetic: Lidocaine Site: L 4th intercostal space Drainage: Blood, Fluid Informed consent obtained: Yes Risks/benefits/alt described: Yes Differential Dx Differential Diagnosis: CHF, Myocardial infarction, Pneumonia, Pneumothorax, Respiratory Distress, Other (Pleural effusion) X-Ray, Labs, Meds, VS Vital Signs Date Time Temp Pulse Resp B/P (MAP) Pulse Ox O2 Delivery O2 Flow Rate FiO2 04/11/25 05:00 125 22 128/93 (105) 100 04/11/25 04:00 130 40 130/86 (101) 100 04/11/25 03:04 129 33 130/93 04/11/25 02:14 129 29 100 Nasal Cannula* 3 32 04/11/25 02:06 98.4 129 29 130/92 (105) 100 98.4 04/11/25 01:30 98.4 129 27 130/92 (105) 100 98.4 04/11/25 00:48 140 04/11/25 00:29 98.7 136 38 146/101 (116) 98 98.7 Lab Test 04/11/25 02:16 04/11/25 01:27 Range/Units Troponin I High Sensitivity < 3 L < 3 L </=54 ng/L White Blood Count 16.6 H 4.4-10.8 10^3/uL Red Blood Count 4.27 L 4.5-5.90 10^6/uL Hemoglobin 9.3 L 13.5-17.5 g/dL Hematocrit 30.0 L 41.0-53.0 % Mean Corpuscular Volume 70.2 L 80.0-100.0 fL Mean Corpuscular Hemoglobin 21.8 L 28.0-32.0 pg Mean Corpuscular Hemoglobin Concent 31.0 L 32.0-36.0 g/dL Red Cell Distribution Width 15.4 H 11.8-14.3 % Platelet Count 259 140-450 10^3/uL Mean Platelet Volume 8.5 6.9-10.8 fL Neutrophils (%) (Auto) 37.0-80.0 % Lymphocytes (%) (Auto) 10.0-50.0 % Monocytes (%) (Auto) 0.0-12.0 % Basophils (%) (Auto) 0.0-2.0 % Neutrophils # (Auto) 1.6-8.6 10 ^3/uL Lymphocytes # (Auto) 0.4-5.4 10 ^3/uL Monocytes # (Auto) 0-1.3 10 ^3/uL Differential Total Cells Counted 100.0 100 Neutrophils % (Manual) 73 37.0-80.0 Band Neutrophils % (Manual) 1 Lymphocytes % (Manual) 10 10.0-50.0 Monocytes % (Manual) 13 H 0-12 Eosinophils % (Manual) 3 0-7 Basophils % (Manual) 0 0.0-2.0 Metamyelocytes % (manual) 0 Myelocytes % (Manual) 0 Promyelocytes % (Manual) 0 Blast Cells % (Manual) 0 Reactive Lymphocytes 0 Platelet Estimate Adequate Sodium Level 136 136-145 mmol/L Potassium Level 4.5 3.5-5.1 mmol/L Chloride Level 100 98-107 mmol/L Carbon Dioxide Level 26 20-31 mmol/L Anion Gap 10 5-15 Blood Urea Nitrogen 15 9-23 mg/dL Creatinine 1.06 0.700-1.30 mg/dL Glomerular Filtration Rate Calc 93 >90 mL/min BUN/Creatinine Ratio 14.2 10.0-20.0 Serum Glucose 109 H 74-106 mg/dL Lactic Acid Level 2.0 0.4-2.0 mmol/L Calcium Level 10.8 H 8.7-10.4 mg/dL Current Medications Medications (Trade) Dose Ordered Sig/Moises Route Start Time Stop Time Status Last Admin Cefepime HCl 50 ml @ 12.5 mls/hr ONCE ONCE IV 04/11/25 02:30 04/11/25 06:29 04/11/25 02:48 Vancomycin HCl 200 ml @ 200 mls/hr ONCE ONCE IV 04/11/25 02:30 04/11/25 03:29 DC 04/11/25 02:30 Sodium Chloride 1,000 ml @ 1,000 mls/hr Q1H ONCE IV 04/11/25 02:30 04/11/25 03:29 DC 04/11/25 02:48 Morphine Sulfate 4 mg ONCE ONCE IV 04/11/25 03:15 04/11/25 03:16 DC 04/11/25 03:04 Ondansetron HCl (Zofran) 4 mg ONCE ONCE IV 04/11/25 03:15 04/11/25 03:16 DC 04/11/25 03:03 CHEST RADIOGRAPH Indication: sob Technique: Single frontal view of the chest was obtained COMPARISON: XY CHEST PORTABLE on DOS: 02/17/25 FINDINGS / IMPRESSION: Lines and Tubes: None Lungs / Pleura / Mediastinum: Complete opacification of left hemithorax related to very large left-sided pleural effusion. Rightward midline shift. Right lung is clear. Time of 1ST Reevaluation: 01:17 Reevaluation 1ST: Unchanged Patient Education/Counseling: Diagnosis, Treatment Family Education/Counseling: No Family Present Sepsis Sepsis Reasesment Focused Exam Orders: Laboratory Tests 04/11/25 01:27: Lactic Acid Level 2.0 Departure 1 Departure Time of Disposition: 05:41 (Patient presenting with a worsening shortness of breath. Patient has a large left pleural effusion. Your via placed a small chest tube to a week some of the pressure. Patient's empirically cover with antibiotics. We will admit patient for further workup and expert consultation) Impression: Primary Impression: Shortness of breath Additional Impression: Recurrent left pleural effusion Disposition: ADMITTED INPATIENT Admit to: [facility] Condition: Guarded Critical Care Note Critical Care Time?: Yes (35 min-critical care time only) Critical care comment: Shortness a breath, pleural effusion Stability Stability form required: No Heart Score Heart Score: Heart Score Response (Comments) Value History Moderate Suspicious 1 EKG Repolarization Disturb 1 Age <45 0 Risk Factors 1 or 2 risk factors 1 Troponin Normal limit 0 Total 3 I personally scribed for CELIA CHAN MD ([employer]) on 04/11/25 at 01:22. Electronically submitted by Devan Santiago ([employer]). I personally scribed for CELIA CHAN MD ([employer]) on 04/11/25 at 03:45. Electronically submitted by Devan Santiago ([employer]). CELIA CHAN MD Apr 11, 2025 01:22
[2025-04-11 01:46] LABS: Hemoglobin 9.3 g/dL (13.5-17.5); Mean Corpuscular Hemoglobin 21.8 pg (28.0-32.0); Red Cell Distribution Width 15.4 % (11.8-14.3); White Blood Cell 16.6 10^3/uL (4.4-10.8)
[2025-04-11 01:50] LABS: Mean Corpuscular Volume 70.2 fL (80.0-100.0); Platelet Count (auto) 259 10^3/uL (140-450); Red Blood Cells 4.27 10^6/uL (4.5-5.90)
--- NOTE | 2025-04-11 01:51 | DVH ---
CHEST RADIOGRAPH Indication: sob Technique: Single frontal view of the chest was obtained COMPARISON: XY CHEST PORTABLE on DOS: 02/17/25 FINDINGS / IMPRESSION: Lines and Tubes: None Lungs / Pleura / Mediastinum: Complete opacification of left hemithorax related to very large left-si ded pleural effusion. Rightward midline shift. Right lung is clear.
[2025-04-11 01:52] LABS: Basophils % (manual) 0 (0.0-2.0); Blast Cells 0; Metamyelocytes % 0; Myelocytes % 0; Promyelocytes % 0; Reactive Lymphocytes 0
[2025-04-11 01:56] LABS: Chloride 100 mmol/L (98-107); Potassium 4.5 mmol/L (3.5-5.1)
[2025-04-11 01:57] LABS: Anion Gap 10 (5-15); Carbon Dioxide 26 mmol/L (20-31)
[2025-04-11 02:02] LABS: BUN/Creatinine Ratio 14.2 (10.0-20.0); Blood Urea Nitrogen 15 mg/dL (9-23)
[2025-04-11 02:05] LABS: Calcium 10.8 mg/dL (8.7-10.4); Glucose 109 mg/dL (74-106); Sodium 136 mmol/L (136-145)
[2025-04-11 02:13] LABS: Band Neutrophils % (manual) 1; Eosinophils % (manual) 3 (0-7); Lymphocytes % (manual) 10 (10.0-50.0); Monocytes % (manual) 13 (0-12); Platelet Estimate Adequate
[2025-04-11] MEDS: VANCOMYCIN 1GM/200ML PM 200 ML IV ONE (02:30)
[2025-04-11] MEDS: SODIUM CHLORIDE 0.9% 1,000 ML IV ONE (02:48)
[2025-04-11] MEDS: CEFEPIME 2GM/50ML NS 50 ML IV ONE (02:48)
[2025-04-11] MEDS: ONDANSETRON HCL 4 MG/2 ML VIAL IV ONE (03:03)
[2025-04-11] MEDS: MORPHINE SULFATE 4 MG/ML SYR/VIAL IV ONE (03:04)
[2025-04-11] MEDS: MORPHINE SULFATE 4 MG/ML SYR/VIAL ONE (03:05)
[2025-04-11] MEDS: ONDANSETRON HCL 4 MG/2 ML VIAL ONE (03:05)
--- NOTE | 2025-04-11 04:17 | DVH ---
CHEST RADIOGRAPH Indication: Post chest tube placement Technique: Single frontal view of the chest was obtained COMPARISON: XY CHEST PORTABLE on DOS: 04/11/25, XY CHEST PORTABLE on DOS: 02/14/25, XY CHEST PORTABLE on DOS: 02/13/25, XY CHEST XRAY 1 VIEW on DOS: 02/10/25, XY CHEST XRAY 1 VIEW on DOS: 02/10/25 FINDINGS: Lines and Tubes: Status post interval placement of small bore left chest tube with small amount of luu bcutaneous emphysema within the lateral left chest wall. Lungs: Right lung remains clear. Pleura: Persistent large left pleural effusion resulting in complete left hemithoracic opacification. No pneumothorax. Cardiomediastinal contours: Poorly evaluated secondary to large left pleural effusion. Bones: Unremarkable IMPRESSION: 1. Large left pleural effusion status post interval placement of small bore left thoracostomy with le ft lateral chest wall subcutaneous emphysema.
[2025-04-11] MEDS ORDERED: MORPHINE SULFATE INJ 2 MG/ml SYRG IV PRN ×3 (07:45→11:45)
[2025-04-11] MEDS: ONDANSETRON HCL 4 MG/2 ML VIAL IV PRN (08:43)
[2025-04-11] MEDS: MORPHINE SULFATE 4 MG/ML SYR/VIAL IV PRN (08:44)
[2025-04-11] MEDS ORDERED: NITROGLYCERIN 0.4 MG SL TAB SL PRN (11:45)
[2025-04-11] MEDS ORDERED: ACETAMINOPHEN 325 MG TAB PO PRN (11:45)
[2025-04-11] MEDS ORDERED: ONDANSETRON HCL 4 MG/2 ML VIAL IV PRN (11:45)
[2025-04-11] MEDS ORDERED: MORPHINE SULFATE 4 MG/ML SYR/VIAL IV PRN (12:00)
[2025-04-11] MEDS ORDERED: LORazepam 2MG/ML-1ML VIAL IM PRN (12:00)
[2025-04-11] MEDS: AZITHROMYCIN 500MG/ 250ML 250 ML IV ONE (12:04)
[2025-04-11] MEDS: HYDROcodone-ACET 5/325MG TAB PO PRN (12:20)
[2025-04-11] MEDS: METOPROLOL TARTRATE 25 MG TAB PO SCH (12:21)
--- NOTE | 2025-04-11 22:23 | DVHHP2 ---
History of Present Illness HPI 39 year old male came to ER via EMS with shortness a breath. Patient was discharged here last February 17, 2025, and was diagnosed with Left PLEF, high susp of malignancy Cannot r/o PNA and parapneumonic PLEF, 2. pericardial effusion, no tamponade physiology, 3. R renal mass, 4. Hypertension, 5.sinus tachycardia. Patient states few hours ago, started experiencing a left-sided chest pains, associated with shortness a breath, and right flank pains. Patient was given fentanyl by paramedics while EN route to the ER. Patient is saturating 96% on room air, tachycardic at the 140s Home Meds Active Scripts Clonazepam (Clonazepam) 0.5 Mg Tab, 0.5 MG PO BIDPRN PRN for 5 Days, #10 TAB Prov:NICOLAS AMTHEWS MD 02/17/25 Ibuprofen Micronized (Ibuprofen) 600 Mg Tab, 600 MG PO TID PRN for 10 Days, #30 TAB Prov:NICOLAS MATHEWS MD 02/17/25 Past Medical History Patient Family History: Hypertension G8 MOTHER, Onset:40's - 50 Review of Systems Constitutional: No symptom reported Ears, Nose, & Throat: No symptom reported Eyes: No symptom reported Pulmonary/Respiratory: No symptom reported Cardiovascular: Chest Pain Genitourinary: No symptom reported Musculoskeletal: No symptom reported H&P Exam Vital Signs Vital Signs Date Time Temp Pulse Resp B/P (MAP) Pulse Ox O2 Delivery O2 Flow Rate FiO2 04/11/25 21:47 127 35 144/85 (104) 98 04/11/25 19:42 Nasal Cannula* 2 28 04/11/25 19:42 98.1 98.1 General Appeara: Well developed Neck Exam: Normal inspection Pulmonary/Respiratory: Normal inspection Abdominal Exam: Normal bowel sounds Labs/Xrays Labs Test 04/11/25 02:16 04/11/25 01:27 Range/Units Troponin I High Sensitivity < 3 L </=54 ng/L White Blood Count 16.6 H 4.4-10.8 10^3/uL Red Blood Count 4.27 L 4.5-5.90 10^6/uL Hemoglobin 9.3 L 13.5-17.5 g/dL Hematocrit 30.0 L 41.0-53.0 % Mean Corpuscular Volume 70.2 L 80.0-100.0 fL Mean Corpuscular Hemoglobin 21.8 L 28.0-32.0 pg Mean Corpuscular Hemoglobin Concent 31.0 L 32.0-36.0 g/dL Red Cell Distribution Width 15.4 H 11.8-14.3 % Platelet Count 259 140-450 10^3/uL Mean Platelet Volume 8.5 6.9-10.8 fL Neutrophils (%) (Auto) 37.0-80.0 % Lymphocytes (%) (Auto) 10.0-50.0 % Monocytes (%) (Auto) 0.0-12.0 % Basophils (%) (Auto) 0.0-2.0 % Neutrophils # (Auto) 1.6-8.6 10 ^3/uL Lymphocytes # (Auto) 0.4-5.4 10 ^3/uL Monocytes # (Auto) 0-1.3 10 ^3/uL Differential Total Cells Counted 100.0 100 Neutrophils % (Manual) 73 37.0-80.0 Band Neutrophils % (Manual) 1 Lymphocytes % (Manual) 10 10.0-50.0 Monocytes % (Manual) 13 H 0-12 Eosinophils % (Manual) 3 0-7 Basophils % (Manual) 0 0.0-2.0 Metamyelocytes % (manual) 0 Myelocytes % (Manual) 0 Promyelocytes % (Manual) 0 Blast Cells % (Manual) 0 Reactive Lymphocytes 0 Platelet Estimate Adequate Sodium Level 136 136-145 mmol/L Potassium Level 4.5 3.5-5.1 mmol/L Chloride Level 100 98-107 mmol/L Carbon Dioxide Level 26 20-31 mmol/L Anion Gap 10 5-15 Blood Urea Nitrogen 15 9-23 mg/dL Creatinine 1.06 0.700-1.30 mg/dL Glomerular Filtration Rate Calc 93 >90 mL/min BUN/Creatinine Ratio 14.2 10.0-20.0 Serum Glucose 109 H 74-106 mg/dL Lactic Acid Level 2.0 0.4-2.0 mmol/L Calcium Level 10.8 H 8.7-10.4 mg/dL Assessment/Plan Primary Diagnosis chest pain acute hypoxic resp failure pleural effusion with chest tube placement underweight suspected pna leukocytosis admitted to tele floor started on empirical iv abx pain control consult to pulm chest tube care discussed with ptt at bedside blood culture vte prophylaxis Plan discussed with: Patient TOD DWYER DO Apr 11, 2025 22:22
[2025-04-12] VITALS (8 sets, daily range): BP systolic 127–136; BP diastolic 81–96; PULSE 108–128; RESP 16–20; TEMP 97.1–98.7; O2SAT 95–100
[2025-04-12 06:24] LABS: Hematocrit 28.6 % (41.0-53.0); Hemoglobin 8.7 g/dL (13.5-17.5); Mean Corpuscular Hemoglobin 21.4 pg (28.0-32.0); Mean Corpuscular Hgb Conc. 30.4 g/dL (32.0-36.0); Mean Corpuscular Volume 70.6 fL (80.0-100.0); Platelet Count (auto) 246 10^3/uL (140-450); Red Blood Cells 4.06 10^6/uL (4.5-5.90); Red Cell Distribution Width 15.4 % (11.8-14.3); White Blood Cell 19.7 10^3/uL (4.4-10.8)
[2025-04-12 06:29] LABS: Basophils % (manual) 0 (0.0-2.0); Myelocytes % 0; Promyelocytes % 0; Reactive Lymphocytes 0
[2025-04-12 06:40] LABS: Albumin 3.2 g/dL (3.2-4.8); Anion Gap 5 (5-15); Aspartate Aminotransferase 14 U/L (13-40); BUN/Creatinine Ratio 13.6 (10.0-20.0); Blood Urea Nitrogen 15 mg/dL (9-23); Calcium 10.4 mg/dL (8.7-10.4); Carbon Dioxide 29 mmol/L (20-31); Chloride 101 mmol/L (98-107); Glucose 102 mg/dL (74-106); Total Protein 6.5 g/dL (5.7-8.2)
[2025-04-12 06:41] LABS: Bilirubin, Total 0.3 mg/dL (0.2-1.0)
[2025-04-12 06:45] LABS: Potassium 5.4 mmol/L (3.5-5.1); Sodium 135 mmol/L (136-145)
[2025-04-12 06:46] LABS: Alanine Aminotransferase < 9 U/L (7-40); Alkaline Phosphatase 162 U/L (46-116)
[2025-04-12 06:54] LABS: Urine Bacteria None Seen /hpf (None Seen)
[2025-04-12 06:57] LABS: Band Neutrophils % (manual) 6; Blast Cells 2; Eosinophils % (manual) 5 (0-7); Lymphocytes % (manual) 14 (10.0-50.0); Metamyelocytes % 1; Monocytes % (manual) 9 (0-12); Smudge Cells 1 /100 WBC
[2025-04-12 06:58] LABS: Platelet Estimate Adequate
[2025-04-12 07:03] LABS: Urine Blood 1+ /uL (Negative); Urine Clarity Clear (Clear); Urine Color Yellow (Yellow); Urine Protein, UAD TRACE (Negative); Urine Specific Gravity 1.025 (1.001-1.035); Urine Squamous Epithelial Cell None Seen /hpf (<5); Urine Urobilinogen 2 mg/dL (Negative); Urine WBC 2 /HPF (0-3)
[2025-04-12] MEDS ORDERED: ENOXAPARIN SOD 40 MG/0.4 ML SYRINGE SC SCH (08:00)
[2025-04-12] MEDS: ENOXAPARIN SOD 40 MG/0.4 ML SYRINGE SC SCH (09:40)
[2025-04-12] MEDS: cefTRIAXone 1GM/50ML D5W 50 ML IV SCH (09:42)
[2025-04-12] MEDS: IOHEXOL 300 MG/ML 100ML BOTTLE IJ ONE (11:55)
--- NOTE | 2025-04-12 12:00 | DVHPN2 ---
Subjective Patient seen and examined at bedside, patient is on 2-3 L nasal cannula family at bedside. Patient has a left pigtail catheter chest tube in place. Unsure the cause of the pleural effusion. We will get a CT with IV contrast. Consulted surgery for possible thoracotomy on Saturday. Changes from previous H/P or p: No Changes Objective Vitals Vital Signs Date Time Temp Pulse Resp B/P (MAP) Pulse Ox O2 Delivery O2 Flow Rate FiO2 04/12/25 09:40 128 128/84 04/12/25 09:06 98.7 20 99 98.7 04/12/25 08:00 Nasal Cannula* 3 32 Intake/Output Intake and Output 04/12/25 07:00 Intake Total 1420 ml Output Total 1350 ml Balance 70 ml Intake Oral 1120 ml Tube Feeding 300 ml Blood Product 0 ml Output Urine Total 1200 ml Chest Tube Drainage Total 150 ml Exam Gen: in bed NAD Cvs: Tachycardic Resp: Diminished, Left Pigtail Catheter Abd: Soft Delivery Agent: AAO x 4 Medications Current Medications Medications Dose Ordered Sig/Moises Route Start Time Stop Time Status Last Admin Dose Admin Ondansetron HCl 4 mg Q4HPRN PRN IV 04/11/25 07:45 04/11/25 17:00 4 MG Morphine Sulfate 2 mg Q4HPRN PRN IV 04/11/25 08:30 04/12/25 06:57 2 MG Acetaminophen/ Hydrocodone Bitart 1 tab Q4HP PRN PO 04/11/25 11:45 04/12/25 09:36 1 TAB Ondansetron HCl 4 mg Q4HP PRN IV 04/11/25 11:45 Cancel Acetaminophen 650 mg Q6HP PRN PO 04/11/25 11:45 Morphine Sulfate 2 mg Q4HPRN PRN IV 04/11/25 11:45 UNV Nitroglycerin 0.4 mg Q5MINP PRN SL 04/11/25 11:45 Morphine Sulfate 2 mg Q30M PRN IV 04/11/25 11:45 UNV Morphine Sulfate 2 mg Q4HPRN PRN IV 04/11/25 12:00 Morphine Sulfate 2 mg Q30M PRN IV 04/11/25 12:00 Lorazepam 1 mg Q6HP PRN IM 04/11/25 12:00 Metoprolol Tartrate 12.5 mg BID PO 04/11/25 12:04 04/12/25 09:40 12.5 MG Piperacillin Sod/ Tazobactam Sod 100 ml @ 25 mls/hr Q6HR IV 04/12/25 12:00 UNV Doxycycline Monohydrate 100 mg Q12HR PO 04/12/25 22:00 UNV Laboratory Results Laboratory Tests 04/12/25 05:43 Chemistry Test 04/12/25 05:43 Albumin 3.2 g/dL (3.2-4.8) Calcium Level 10.4 mg/dL (8.7-10.4) Total Protein 6.5 g/dL (5.7-8.2) LFT Test 04/12/25 05:43 Alanine Aminotransferase (ALT) < 9 U/L (7-40) Alkaline Phosphatase 162 U/L (46-116) H Aspartate Amino Transferase (AST) 14 U/L (13-40) Total Bilirubin 0.3 mg/dL (0.2-1.0) Urinalysis Test 04/12/25 05:35 Urine Color Yellow (Yellow) Urine Clarity Clear (Clear) Urine pH 5.0 (5.0-9.0) Urine Specific [place] 1.025 (1.001-1.035) Urine Protein Trace (Negative) H Urine Ketones Negative (Negative) Urine Blood 1+ /uL (Negative) H Urine Nitrite Negative (Negative) Urine Bilirubin Negative (Negative) Urine Urobilinogen 2 mg/dL (Negative) H Urine Leukocyte Esterase Negative /uL (Negative) Urine RBC 5 /hpf (0 - 3) Urine Microscopic WBC 2 /HPF (0-3) Urine Squamous Epithelial Cells None seen /hpf (<5) Urine Calcium Oxalate Crystals Few (None Seen) Urine Bacteria None seen /hpf (None Seen) Urine Glucose Normal mg/dL (Normal) Microbiology Microbiology Date/Time Source Procedure Growth Status 04/11/25 01:31 Blood Blood Culture - Preliminary NO GROWTH AFTER 24 HOURS OF INCUBATION. Resulted Assessment/Plan Assessment/Plan # Acute Hypoxic Resp Failure due to pleural effusion - CT - Needs Thorocotomy on Saturday by Dr. Monge # Possible Paraneumonic Effusion - Abx # Pericardial Effusion - Repeat ECHO needed # Right Renal Mass?? - CT needed critical care time 38 mins Plan discussed with: Patient, Spouse My Orders Orders - HAFSA REVELES MD Procedure Category Date Status Time Piperacillin-Tazob PHA 04/12/25 Logged 3.375gm (Zosyn 3.375g 12:00 Doxycycline Tablet PHA 04/12/25 Logged (Vibramycin Tablet) 22:00 Doxycycline Tablet PHA 04/12/25 Logged (Vibramycin Tablet) 11:45 * Surgical Consult CONS 04/12/[address] Chest/Ab/Pl W Con- CT 04/12/25 Logged Iv Only 11:36 Basic Metabolic Panel LAB 04/13/25 Verified 04:00 Complete Blood Count LAB 04/13/25 Verified 04:00 Respiratory Culture MARU 04/12/25 Logged W/ Gs 11:36 Date of Service: Apr 12, 2025 Billing Provider: HAFSA REVELES MD Common Visit Codes: [id number] CARE 30-74 MIN HAFSA REVELES MD Apr 12, 2025 12:00
--- NOTE | 2025-04-12 12:02 | ECG ---
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
--- NOTE | 2025-04-12 13:02 | DVH ---
Indication: Malignancy Technique: CT axial images of the chest, abdomen and pelvis are obtained with intravenous contrast. Coronal and sagittal reformats were obtained. Comparison: CT CT AB PEL WITH IV CON ONLY on DOS: 02/11/25 FINDINGS: Trachea is patent. There are multiple right pulmonary nodules including right upper lobe nodules chaka uring 10 mm, 8 mm, 5 mm, 6 mm, right lower lobe nodules measuring 7 mm, 4 mm. There is extensive left lung pulmonary airspace consolidation. There is left chest pigtail drainage c atheter within the mid to left upper pleural cavity. Multiloculated left pleural effusion with extens perla peripheral enhancement/ nodularity, septated appearance consistent with a malignant effusion Ther e is extensive heterogeneous appearance of the left upper and lower lobes with possible left upper lo be necrotic mass measuring 6.7 x 5.4 cm. Mediastinal shift to the right. Subcarinal lymph node measuring 2.3 cm. Left hilar/ suprahilar lymph node measuring 2.3 cm. There is debris within the left lower lobe bronchus. Adrenal glands unremarkable. Spleen and pancreas unremarkable. Large right renal mid to upper pole mass with heterogeneous enhancement measuring 8.2 x 8.8 x 7.1 cm which extends into the right renal pelvis and proximal right ureter. No enhancing hepatic lesion. No CT evidence for cholelithiasis. Left kidney demonstrates no hydronephrosis. Stomach moderately distended. Small bowel loops are normal in caliber. Large volume stool throughout the colon. No secondary signs for appendicitis. Abdominal aorta normal in caliber. Bladder partially distended. Small amount of free pelvic fluid. N o inguinal lymphadenopathy. [id number] bilateral sacroiliac degenerative joint disease. T8 vertebral body destructive metastatic lesion measuring 2.8 x 2.2 cm with pathological fracture, 20 % loss height. There is associated extension posteriorly with compression upon the thecal sac and jomar ral foramina, [id number]-right. T9 metastatic lesion measuring 1.8 cm extending through the po sterior cortex. There is compression upon the thecal sac. Soft tissue edema / anasarca. IMPRESSION: 1. Large right renal mass extending into the right renal pelvis and proximal ureter measuring 8.8 cm consistent with patient's known history of renal malignancy 2. Large complex left pleural effusion with necrotic components and pleural enhancement/ nodularity c onsistent with metastatic disease. 3. Extensive left lung Airspace disease / consolidation with heterogeneous appearance including likel y left upper lobe pulmonary metastatic lesion /necrotic neoplasm measuring 6.7 cm. There is also hete rogeneous enhancement of the left lower lobe which could represent tumoral infiltration. PET scan can be obtained to further evaluate. 4. Multiple right pulmonary nodules consistent with metastatic disease. 5. Destructive lesions at T8 and T9 as described above which encroachment upon thecal sac resulting i n spinal canal and also likely neural foraminal stenosis. Recommend MRI thoracic spine with and with out contrast. There is also pathological fracture of the T8 vertebral body with 20% loss height. 6. Metastatic mediastinal/ hilar lymphadenopathy. 7. Large volume stool within the colon. 8. Small amount of free pelvic fluid.
[2025-04-12] MEDS: DOXYCYCLINE 100 MG TAB/CAP PO ONE (13:11)
[2025-04-12] MEDS: PIPERACILLIN-TAZOB 3.375GM 100 ML IV SCH (13:11)
[2025-04-12 13:53] LABS: INR 1.15 (0.9-1.15); Partial Thromboplastin Time 30.2 SEC (24.5-34.5)
[2025-04-12] MEDS: LACTULOSE 20Gm/30ML SOLN PO ONE (14:58)
--- NOTE | 2025-04-12 16:14 | DVHSR ---
APPROVED REPORT EXAM: LIMITED Two-dimensional and M-mode echocardiogram. Blood Pressure: 128/84 mmHg INDICATION Pericardial Effusion RISK FACTORS Height: 5'11", Weight: 144 Mitral Valve MitralMitral Stenosis E/A ratio0.02D MVAcm2 Other Information Quality : Technically LimitedRhythm : Technically limited study due to body habitus and having left sided chest tube Conclusion limited study lvef 70% LVH noted normal RV function trivial pericardail effusin noted near LV, small pocket near LV< no HD compromise
[2025-04-12] MEDS: DOXYCYCLINE 100 MG TAB/CAP PO SCH (20:54)
[2025-04-13] VITALS (9 sets, daily range): BP systolic 122–128; BP diastolic 80–92; PULSE 74–127; RESP 16–20; TEMP 97.6–98.6; O2SAT 99–100
[2025-04-13 06:55] LABS: Basophils # (auto) 0.1 10 ^3/uL (0-0.2); Basophils % (auto) 0.4 % (0.0-2.0); Hemoglobin 8.2 g/dL (13.5-17.5); Lymphocytes # (auto) 2.2 10 ^3/uL (0.4-5.4); Lymphocytes % (auto) 11.4 % (10.0-50.0)
[2025-04-13 06:59] LABS: Eosinophils # (auto) 1.7 10 ^3/uL (0-0.8); Eosinophils % (auto) 8.9 % (0.0-7.0); Hematocrit 27.2 % (41.0-53.0); Mean Corpuscular Hemoglobin 21.4 pg (28.0-32.0); Mean Corpuscular Hgb Conc. 30.3 g/dL (32.0-36.0); Mean Corpuscular Volume 70.8 fL (80.0-100.0); Monocytes # (auto) 2.1 10 ^3/uL (0-1.3); Monocytes % (auto) 10.8 % (0.0-12.0); Neutrophils # (auto) 13.1 10 ^3/uL (1.6-8.6); Neutrophils % (auto) 68.5 % (37.0-80.0); Platelet Count (auto) 223 10^3/uL (140-450); Red Blood Cells 3.84 10^6/uL (4.5-5.90); Red Cell Distribution Width 15.5 % (11.8-14.3); White Blood Cell 19.2 10^3/uL (4.4-10.8)
[2025-04-13 07:02] LABS: Anion Gap 6 (5-15); Carbon Dioxide 31 mmol/L (20-31); Potassium 5.1 mmol/L (3.5-5.1)
[2025-04-13 07:08] LABS: BUN/Creatinine Ratio 12.7 (10.0-20.0); Blood Urea Nitrogen 14 mg/dL (9-23); Glucose 92 mg/dL (74-106)
[2025-04-13 07:14] LABS: Calcium 10.6 mg/dL (8.7-10.4); Chloride 98 mmol/L (98-107); Sodium 135 mmol/L (136-145)
--- NOTE | 2025-04-13 09:43 | DVHPN2 ---
Progress Note Date Seen: Apr 13, 2025 Medical Necessity Reason Pt with a Central, PICC or Fol: No Objective vital signs Vital Sign Date Time Temp Pulse Resp B/P (MAP) Pulse Ox O2 Delivery O2 Flow Rate FiO2 04/13/25 08:44 60 113/67 04/13/25 08:12 20 100 Nasal Cannula* 2 28 04/13/25 05:00 98.1 98.1 Total Intake and Output 04/12/25 04/12/25 04/13/25 15:00 23:00 07:00 Intake Total 50 ml 1200 ml 600 ml Output Total 300 ml 520 ml Balance 50 ml 900 ml 80 ml medications Current Medications Medications Dose Ordered Sig/Moises Route Start Time Stop Time Status Last Admin Dose Admin Ondansetron HCl 4 mg Q4HPRN PRN IV 04/11/25 07:45 04/11/25 17:00 4 MG Morphine Sulfate 2 mg Q4HPRN PRN IV 04/11/25 08:30 04/12/25 20:55 2 MG Acetaminophen/ Hydrocodone Bitart 1 tab Q4HP PRN PO 04/11/25 11:45 04/13/25 08:43 1 TAB Ondansetron HCl 4 mg Q4HP PRN IV 04/11/25 11:45 Cancel Acetaminophen 650 mg Q6HP PRN PO 04/11/25 11:45 Morphine Sulfate 2 mg Q4HPRN PRN IV 04/11/25 11:45 UNV Nitroglycerin 0.4 mg Q5MINP PRN SL 04/11/25 11:45 Morphine Sulfate 2 mg Q30M PRN IV 04/11/25 11:45 UNV Morphine Sulfate 2 mg Q4HPRN PRN IV 04/11/25 12:00 Morphine Sulfate 2 mg Q30M PRN IV 04/11/25 12:00 Lorazepam 1 mg Q6HP PRN IM 04/11/25 12:00 Metoprolol Tartrate 12.5 mg BID PO 04/11/25 12:04 04/13/25 08:44 12.5 MG Piperacillin Sod/ Tazobactam Sod 100 ml @ 25 mls/hr Q6HR IV 04/12/25 12:00 04/13/25 05:48 25 MLS/HR Doxycycline Monohydrate 100 mg Q12HR PO 04/12/25 22:00 04/13/25 09:15 100 MG laboratory and microbiology Laboratory Tests 04/13/25 05:07 Test 04/13/25 05:07 Range/Units Serum Glucose 92 74-106 mg/dL Problem List/Assessment/Plan Problem List/Assessment/Plan 04/13/25 I have discussed the fact that he most likley has a cancer that originated in the left kidney and has spread to his chest, he stated that he was told that he had a mass but no one told him it was a tumor.will proceed with thoracoscopy tomorrow, needs to remain npo due to increased risk of aspiration Plan discussed with: Patient HIEU MORELAND MD Apr 13, 2025 09:43
--- NOTE | 2025-04-13 12:43 | DVHPN2 ---
Subjective Patient seen and examined at bedside, patient is on 2-3 L nasal cannula. For Thorocotamy tomorrow. Patient was given diagnosis of RCC in February and was told to followup as outpatient. Patient attempted to make Urology appointment but was having difficulty. Explained diagnosis in detail to the patient. Changes from previous H/P or p: No Changes Objective Vitals Vital Signs Date Time Temp Pulse Resp B/P (MAP) Pulse Ox O2 Delivery O2 Flow Rate FiO2 04/13/25 11:22 108 16 127/75 04/13/25 09:00 97.7 100 97.7 04/13/25 08:12 Nasal Cannula* 2 28 Intake/Output Intake and Output 04/13/25 07:00 Intake Total 1850 ml Output Total 820 ml Balance 1030 ml Intake Oral 1500 ml IV Total 350 ml Output Urine Total 820 ml Exam Gen: in bed NAD Cvs: Tachycardic Resp: Diminished, Left Pigtail Catheter Abd: Soft Turbine Subassembler: AAO x 4 Medications Current Medications Medications Dose Ordered Sig/Moises Route Start Time Stop Time Status Last Admin Dose Admin Ondansetron HCl 4 mg Q4HPRN PRN IV 04/11/25 07:45 04/11/25 17:00 4 MG Morphine Sulfate 2 mg Q4HPRN PRN IV 04/11/25 08:30 04/13/25 11:22 2 MG Acetaminophen/ Hydrocodone Bitart 1 tab Q4HP PRN PO 04/11/25 11:45 04/13/25 08:43 1 TAB Ondansetron HCl 4 mg Q4HP PRN IV 04/11/25 11:45 Cancel Acetaminophen 650 mg Q6HP PRN PO 04/11/25 11:45 Morphine Sulfate 2 mg Q4HPRN PRN IV 04/11/25 11:45 UNV Nitroglycerin 0.4 mg Q5MINP PRN SL 04/11/25 11:45 Morphine Sulfate 2 mg Q30M PRN IV 04/11/25 11:45 UNV Morphine Sulfate 2 mg Q4HPRN PRN IV 04/11/25 12:00 Morphine Sulfate 2 mg Q30M PRN IV 04/11/25 12:00 Lorazepam 1 mg Q6HP PRN IM 04/11/25 12:00 Metoprolol Tartrate 12.5 mg BID PO 04/11/25 12:04 04/13/25 08:44 12.5 MG Piperacillin Sod/ Tazobactam Sod 100 ml @ 25 mls/hr Q6HR IV 04/12/25 12:00 04/13/25 05:48 25 MLS/HR Doxycycline Monohydrate 100 mg Q12HR PO 04/12/25 22:00 04/13/25 09:15 100 MG Laboratory Results Laboratory Tests 04/13/25 05:07 Chemistry Test 04/13/25 05:07 Calcium Level 10.6 mg/dL (8.7-10.4) H Coagulation Test 04/12/25 13:16 Prothrombin Time 12.0 sec (9.3-11.8) H Prothrombin Time INR 1.15 (0.9-1.15) Activated Partial Thromboplast Time 30.2 SEC (24.5-34.5) HgA1c, TSH Test 04/12/25 13:16 Thyroid Stimulating Hormone (TSH) 1.73 uIU/mL (0.55-4.78) Urinalysis Test 04/12/25 05:35 Urine Color Yellow (Yellow) Urine Clarity Clear (Clear) Urine pH 5.0 (5.0-9.0) Urine Specific [place] 1.025 (1.001-1.035) Urine Protein Trace (Negative) H Urine Ketones Negative (Negative) Urine Blood 1+ /uL (Negative) H Urine Nitrite Negative (Negative) Urine Bilirubin Negative (Negative) Urine Urobilinogen 2 mg/dL (Negative) H Urine Leukocyte Esterase Negative /uL (Negative) Urine RBC 5 /hpf (0 - 3) Urine Microscopic WBC 2 /HPF (0-3) Urine Squamous Epithelial Cells None seen /hpf (<5) Urine Calcium Oxalate Crystals Few (None Seen) Urine Bacteria None seen /hpf (None Seen) Urine Glucose Normal mg/dL (Normal) Microbiology Microbiology Date/Time Source Procedure Growth Status 04/11/25 01:31 Blood Blood Culture - Preliminary NO GROWTH AFTER 48 HOURS OF INCUBATION. Resulted Assessment/Plan Assessment/Plan # Acute Hypoxic Resp Failure due to pleural effusion - CT - Needs Thorocotomy on Saturday by Dr. 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 critical care time 36 mins Plan discussed with: Patient My Orders Orders - HAFSA REVELES MD Procedure Category Date Status Time * Skinning Machine Feeder CONS 04/13/25 Transmitted Consult Basic Metabolic Panel LAB 04/14/25 Verified 04:00 Complete Blood Count LAB 04/14/25 Verified 04:00 Date of Service: Apr 13, 2025 Billing Provider: HAFSA REVELES MD Common Visit Codes: [id number] CARE 30-74 MIN HAFSA REVELES MD Apr 13, 2025 12:43
[2025-04-13] MEDS: MORPHINE SULFATE 4 MG/ML SYR/VIAL IV PRN (18:13)
[2025-04-14] VITALS (9 sets, daily range): BP systolic 111–166; BP diastolic 72–82; PULSE 99–133; RESP 17–22; TEMP 97.3–98.8; O2SAT 99–100
[2025-04-14 05:55] LABS: Basophils # (auto) 0.1 10 ^3/uL (0-0.2); Basophils % (auto) 0.5 % (0.0-2.0); Eosinophils # (auto) 1.5 10 ^3/uL (0-0.8); Eosinophils % (auto) 7.9 % (0.0-7.0); Lymphocytes # (auto) 1.8 10 ^3/uL (0.4-5.4)
[2025-04-14 05:58] LABS: Hematocrit 26.5 % (41.0-53.0); Hemoglobin 8.1 g/dL (13.5-17.5); Lymphocytes % (auto) 9.7 % (10.0-50.0); Mean Corpuscular Hemoglobin 21.4 pg (28.0-32.0); Mean Corpuscular Hgb Conc. 30.4 g/dL (32.0-36.0); Mean Corpuscular Volume 70.2 fL (80.0-100.0); Monocytes # (auto) 1.7 10 ^3/uL (0-1.3); Monocytes % (auto) 9.2 % (0.0-12.0); Neutrophils # (auto) 13.5 10 ^3/uL (1.6-8.6); Neutrophils % (auto) 72.7 % (37.0-80.0); Platelet Count (auto) 225 10^3/uL (140-450); Red Blood Cells 3.77 10^6/uL (4.5-5.90); Red Cell Distribution Width 15.4 % (11.8-14.3); White Blood Cell 18.6 10^3/uL (4.4-10.8)
[2025-04-14 06:07] LABS: Anion Gap 8 (5-15); Carbon Dioxide 29 mmol/L (20-31); Chloride 98 mmol/L (98-107); Potassium 4.7 mmol/L (3.5-5.1)
[2025-04-14 06:10] LABS: Calcium 10.7 mg/dL (8.7-10.4); Sodium 135 mmol/L (136-145)
[2025-04-14 06:13] LABS: Glucose 90 mg/dL (74-106)
[2025-04-14 06:14] LABS: BUN/Creatinine Ratio 12.4 (10.0-20.0); Blood Urea Nitrogen 13 mg/dL (9-23)
[2025-04-14] MEDS ORDERED: PROPOFOL 10 MG/ML 20 ML IV ONE (07:09)
[2025-04-14] MEDS ORDERED: DexAMETHasone SOD PHOS 10MG/1ML VIAL INJ ONE (07:09)
[2025-04-14] MEDS ORDERED: GLYCOPYRROLATE 0.2 MG/ML 1ML VIAL ONE (07:09)
[2025-04-14] MEDS ORDERED: ONDANSETRON HCL 4 MG/2 ML VIAL ONE (07:09)
[2025-04-14] MEDS ORDERED: KETOROLAC TROMETH 30 MG/ML 1ML VIAL ONE (07:09)
[2025-04-14] MEDS ORDERED: ROCURONIUM 10MG/ML 10ML VIAL IV ONE (07:09)
[2025-04-14] MEDS ORDERED: LIDOCAINE 2% (LOCAL ANESTH.) PF 5ml SDV ONE (07:09)
[2025-04-14] MEDS ORDERED: SUGAMMADEX 200mg/2ml Vial (100MG/ML) IV ONE (07:09)
[2025-04-14] MEDS ORDERED: KETAMINE 50mg/ML 1ml syringe ONE (07:10)
[2025-04-14] MEDS ORDERED: fentaNYL CITRATE 100 MCG/2 ML VL ONE (07:10)
[2025-04-14] MEDS: GABAPENTIN 300 MG CAP PO ONE (07:11)
[2025-04-14] MEDS: ACETAMINOPHEN IV 1000 MG/100ML (10MG/ML) IV ONE (07:11)
[2025-04-14] MEDS: CELECOXIB 100 MG CAP PO ONE (07:11)
[2025-04-14] MEDS ORDERED: LIDOCAINE HCL 2% TOP JELLY 5ML TOP ONE (07:12)
[2025-04-14] MEDS: BUPIVACAINE 0.5% P/F INJ 10 ML VIAL ONE (07:58)
--- NOTE | 2025-04-14 09:34 | DVH ---
INDICATION: s/p left thoracoscopy/thoracotomy TECHNIQUE: Single frontal view of the chest was obtained COMPARISON: XY CHEST PORTABLE on DOS: 04/11/25, XY CHEST PORTABLE on DOS: 04/11/25, XY CHEST PORTABLE on DOS: 02/14/25, XY CHEST PORTABLE on DOS: 02/13/25, XY CHEST XRAY 1 VIEW on DOS: 02/10/25, XY CHEST PORTABLE on DOS: 04/11/25 FINDINGS: Lines and Tubes: Status post interval placement of small bore left chest tube with small amount of luu bcutaneous emphysema within the lateral left chest wall. Lungs: Right lung remains clear. Pleura: Persistent large left pleural effusion resulting in complete left hemithoracic opacification. No pneumothorax. Cardiomediastinal contours: Poorly evaluated secondary to large left pleural effusion. Bones: Unremarkable IMPRESSION: No interval change.
--- NOTE | 2025-04-14 09:42 | DVHOP ---
DATE OF SURGERY: 04/14/2025 PREOPERATIVE DIAGNOSES: * Left pleural effusion. * Left pleural mass. POSTOPERATIVE DIAGNOSES: * Left pleural effusion. * Left pleural mass. SURGEON: Hao Monge MD NURSE MONITORING: Salas Nolan NP ANESTHESIA: General endotracheal. ANESTHESIOLOGIST: Quentin Hamm. PROCEDURES: * Left thoracoscopy. * Limited left thoracotomy. DESCRIPTION OF PROCEDURE: Under general anesthesia with the patient's body in the lateral decubitus with the left chest facing upward with the down axilla protected with an axillary roll and the knees , the body secured with a van bag. The left chest was prepped and draped, and a small incision made between the fourth and fifth rib in the mid axillary line. This incision was then slightly enlarged in order to allow finger dissection. The patient's left chest was digitally explored. Thoracoscopy was performed; however, it was limited due to the patient's tumor and bloody effusion. Approximately 1 liter of bloody effusion was aspirated from his chest. Samples were submitted for cytology. The chest mass was then biopsied. Multiple biopsies were obtained and sent for permanent section histopathologic examination. With some difficulty, the left chest was digitally explored to a point where a size 40 chest tube could be inserted without kinking due to the mass in the left chest. Following placement of the chest tube, small amount of bloody effusion was continuing to be collected. The wound was then closed using Monocryl sutures. The chest tube was secured with a #1 Tevdek suture. The 0.25% Marcaine was infiltrated underneath the fourth and the fifth rib accomplishing a partial rib block anesthesia for postoperative comfort. The patient remained in unchanged clinical condition at the termination of the procedure and left the operating room following an accurate needle and sponge counts. His , Anabela, was thoroughly informed at [phone]. Hao Monge MD PF/GREYSON/AMI TID: [id number] RECEIPT: [id number]
--- NOTE | 2025-04-14 18:30 | DVHPN2 ---
Subjective in bed resting Reviewed: H&P, Labs Changes from previous H/P or p: No Changes Objective Vitals Vital Signs Date Time Temp Pulse Resp B/P (MAP) Pulse Ox O2 Delivery O2 Flow Rate FiO2 04/14/25 17:00 98.8 99 17 111/76 (88) 100 98.8 04/14/25 08:45 Mask 5.0 04/14/25 08:45 100 Intake/Output Intake and Output 04/14/25 07:00 Intake Total 1365 ml Output Total 1475 ml Balance -110 ml Intake Oral 950 ml IV Total 415 ml Output Urine Total 1460 ml Chest Tube Drainage Total 15 ml General Appearance: Alert Lungs: Clear to auscultation Cardiovascular: Regular rate, Normal S1, Normal S2 Medications Current Medications Medications Dose Ordered Sig/Moises Route Start Time Stop Time Status Last Admin Dose Admin Ondansetron HCl 4 mg Q4HPRN PRN IV 04/11/25 07:45 04/11/25 17:00 4 MG Acetaminophen/ Hydrocodone Bitart 1 tab Q4HP PRN PO 04/11/25 11:45 04/13/25 23:26 1 TAB Ondansetron HCl 4 mg Q4HP PRN IV 04/11/25 11:45 Cancel Acetaminophen 650 mg Q6HP PRN PO 04/11/25 11:45 Morphine Sulfate 2 mg Q4HPRN PRN IV 04/11/25 11:45 UNV Nitroglycerin 0.4 mg Q5MINP PRN SL 04/11/25 11:45 Morphine Sulfate 2 mg Q30M PRN IV 04/11/25 11:45 UNV Morphine Sulfate 2 mg Q4HPRN PRN IV 04/11/25 12:00 04/14/25 15:00 2 MG Morphine Sulfate 2 mg Q30M PRN IV 04/11/25 12:00 Lorazepam 1 mg Q6HP PRN IM 04/11/25 12:00 Metoprolol Tartrate 12.5 mg BID PO 04/11/25 12:04 04/14/25 11:28 12.5 MG Piperacillin Sod/ Tazobactam Sod 100 ml @ 25 mls/hr Q6HR IV 04/12/25 12:00 04/14/25 17:33 25 MLS/HR Doxycycline Monohydrate 100 mg Q12HR PO 04/12/25 22:00 04/14/25 11:27 100 MG Laboratory Results Laboratory Tests 04/14/25 05:19 Chemistry Test 04/14/25 05:19 Calcium Level 10.7 mg/dL (8.7-10.4) H Urinalysis Test 04/12/25 05:35 Urine Color Yellow (Yellow) Urine Clarity Clear (Clear) Urine pH 5.0 (5.0-9.0) Urine Specific [place] 1.025 (1.001-1.035) Urine Protein Trace (Negative) H Urine Ketones Negative (Negative) Urine Blood 1+ /uL (Negative) H Urine Nitrite Negative (Negative) Urine Bilirubin Negative (Negative) Urine Urobilinogen 2 mg/dL (Negative) H Urine Leukocyte Esterase Negative /uL (Negative) Urine RBC 5 /hpf (0 - 3) Urine Microscopic WBC 2 /HPF (0-3) Urine Squamous Epithelial Cells None seen /hpf (<5) Urine Calcium Oxalate Crystals Few (None Seen) Urine Bacteria None seen /hpf (None Seen) Urine Glucose Normal mg/dL (Normal) Microbiology Microbiology Date/Time Source Procedure Growth Status 04/12/25 11:36 Sputum Gram Stain - Final Resulted 04/12/25 11:36 Sputum Respiratory Culture - Preliminary Resulted 04/11/25 01:31 Blood Blood Culture - Preliminary NO GROWTH AFTER 72 HOURS OF INCUBATION. 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 Plan discussed with: Patient Date of Service: Apr 14, 2025 Billing Provider: MARIE LYON MD Common Visit Codes: [id number] INP/OBS CARE(HIGH) MARIE LYON MD Apr 14, 2025 18:30
[2025-04-15] VITALS (8 sets, daily range): BP systolic 107–123; BP diastolic 68–80; PULSE 97–134; RESP 16–20; TEMP 96.9–98.6; O2SAT 95–100
--- NOTE | 2025-04-15 16:00 | DVHPN2 ---
Subjective in bed resting Reviewed: H&P, Labs Changes from previous H/P or p: No Changes Objective Vitals Vital Signs Date Time Temp Pulse Resp B/P (MAP) Pulse Ox O2 Delivery O2 Flow Rate FiO2 04/15/25 14:43 62 18 119/78 04/15/25 13:00 98.4 100 98.4 04/15/25 08:00 Nasal Cannula* 2 28 Intake/Output Intake and Output 04/15/25 07:00 Intake Total 1408 ml Output Total 960 ml Balance 448 ml Intake Oral 1308 ml IV Total 100 ml Output Urine Total 700 ml Chest Tube Drainage Total 260 ml # Voids 2 General Appearance: Alert Lungs: Clear to auscultation Cardiovascular: Regular rate, Normal S1, Normal S2 Medications Current Medications Medications Dose Ordered Sig/Moises Route Start Time Stop Time Status Last Admin Dose Admin Ondansetron HCl 4 mg Q4HPRN PRN IV 04/11/25 07:45 04/11/25 17:00 4 MG Acetaminophen/ Hydrocodone Bitart 1 tab Q4HP PRN PO 04/11/25 11:45 04/15/25 11:31 1 TAB Ondansetron HCl 4 mg Q4HP PRN IV 04/11/25 11:45 Cancel Acetaminophen 650 mg Q6HP PRN PO 04/11/25 11:45 Morphine Sulfate 2 mg Q4HPRN PRN IV 04/11/25 11:45 UNV Nitroglycerin 0.4 mg Q5MINP PRN SL 04/11/25 11:45 Morphine Sulfate 2 mg Q30M PRN IV 04/11/25 11:45 UNV Morphine Sulfate 2 mg Q4HPRN PRN IV 04/11/25 12:00 04/15/25 14:13 2 MG Morphine Sulfate 2 mg Q30M PRN IV 04/11/25 12:00 Lorazepam 1 mg Q6HP PRN IM 04/11/25 12:00 Metoprolol Tartrate 12.5 mg BID PO 04/11/25 12:04 04/15/25 09:30 12.5 MG Piperacillin Sod/ Tazobactam Sod 100 ml @ 25 mls/hr Q6HR IV 04/12/25 12:00 04/15/25 11:32 25 MLS/HR Doxycycline Monohydrate 100 mg Q12HR PO 04/12/25 22:00 04/15/25 09:29 100 MG Laboratory Results Laboratory Tests 04/14/25 05:19 Urinalysis Test 04/12/25 05:35 Urine Color Yellow (Yellow) Urine Clarity Clear (Clear) Urine pH 5.0 (5.0-9.0) Urine Specific [place] 1.025 (1.001-1.035) Urine Protein Trace (Negative) H Urine Ketones Negative (Negative) Urine Blood 1+ /uL (Negative) H Urine Nitrite Negative (Negative) Urine Bilirubin Negative (Negative) Urine Urobilinogen 2 mg/dL (Negative) H Urine Leukocyte Esterase Negative /uL (Negative) Urine RBC 5 /hpf (0 - 3) Urine Microscopic WBC 2 /HPF (0-3) Urine Squamous Epithelial Cells None seen /hpf (<5) Urine Calcium Oxalate Crystals Few (None Seen) Urine Bacteria None seen /hpf (None Seen) Urine Glucose Normal mg/dL (Normal) Microbiology Microbiology Date/Time Source Procedure Growth Status 04/12/25 11:36 Sputum Gram Stain - Final Resulted 04/12/25 11:36 Sputum Respiratory Culture - Preliminary Resulted 04/11/25 01:31 Blood Blood Culture - Preliminary NO GROWTH AFTER 72 HOURS OF INCUBATION. 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 - Trying to get him transferred to OSH for chemo Plan discussed with: Patient My Orders Orders - MARIE LYON MD Procedure Category Date Status Time * Medical Technologist Hematology CONS 04/15/25 Transmitted Consult Date of Service: Apr 15, 2025 Billing Provider: MARIE LYON MD Common Visit Codes: [id number] INP/OBS CARE(HIGH) MARIE LYON MD Apr 15, 2025 16:00
--- NOTE | 2025-04-15 16:59 | DVHPN2 ---
Progress Note Date Seen: Apr 15, 2025 Medical Necessity Reason Pt with a Central, PICC or Fol: No Objective vital signs Vital Sign Date Time Temp Pulse Resp B/P (MAP) Pulse Ox O2 Delivery O2 Flow Rate FiO2 04/15/25 14:43 62 18 119/78 04/15/25 13:00 98.4 100 98.4 04/15/25 08:00 Nasal Cannula* 2 28 Total Intake and Output 04/14/25 04/14/25 04/15/25 15:00 23:00 07:00 Intake Total 100 ml 588 ml 720 ml Output Total 130 ml 830 ml Balance 100 ml 458 ml -110 ml medications Current Medications Medications Dose Ordered Sig/Moises Route Start Time Stop Time Status Last Admin Dose Admin Ondansetron HCl 4 mg Q4HPRN PRN IV 04/11/25 07:45 04/11/25 17:00 4 MG Acetaminophen/ Hydrocodone Bitart 1 tab Q4HP PRN PO 04/11/25 11:45 04/15/25 11:31 1 TAB Ondansetron HCl 4 mg Q4HP PRN IV 04/11/25 11:45 Cancel Acetaminophen 650 mg Q6HP PRN PO 04/11/25 11:45 Morphine Sulfate 2 mg Q4HPRN PRN IV 04/11/25 11:45 UNV Nitroglycerin 0.4 mg Q5MINP PRN SL 04/11/25 11:45 Morphine Sulfate 2 mg Q30M PRN IV 04/11/25 11:45 UNV Morphine Sulfate 2 mg Q4HPRN PRN IV 04/11/25 12:00 04/15/25 14:13 2 MG Morphine Sulfate 2 mg Q30M PRN IV 04/11/25 12:00 Lorazepam 1 mg Q6HP PRN IM 04/11/25 12:00 Metoprolol Tartrate 12.5 mg BID PO 04/11/25 12:04 04/15/25 09:30 12.5 MG Piperacillin Sod/ Tazobactam Sod 100 ml @ 25 mls/hr Q6HR IV 04/12/25 12:00 04/15/25 11:32 25 MLS/HR Doxycycline Monohydrate 100 mg Q12HR PO 04/12/25 22:00 04/15/25 09:29 100 MG laboratory and microbiology Laboratory Tests 04/14/25 05:19 Test 04/14/25 05:19 Range/Units Serum Glucose 90 74-106 mg/dL Problem List/Assessment/Plan Problem List/Assessment/Plan 04/13/25 I have discussed the fact that 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 WILL ADVANCE DIET, MUST AMBULATE. Plan discussed with: Patient Dietary Evaluation Review Comments: 1. If Clear liquid diet supplement with Ensure Clear BID 2. If diet adanced, supplement with Ensure high protein BID Expected Outcomes/Goals: Gradual wt gain, HIEU MORELAND MD Apr 15, 2025 16:58
[2025-04-16] VITALS (8 sets, daily range): BP systolic 107–131; BP diastolic 68–83; PULSE 105–127; RESP 16–22; TEMP 97.2–99.1; O2SAT 98–100
--- NOTE | 2025-04-16 08:57 | DVHPN2 ---
Subjective Date Seen: Apr 16, 2025 Post op day Post op day: 2 Patient reports: No new complaints Nursing reports: No new complaints General: Normal HNT: Normal Cardiovascular: Normal Respiratory: Normal Gastrointestinal: Normal Genitourinary: Normal Musculoskeletal: Normal Neurological: Normal Objective Vitals Vital Sign Date Time Temp Pulse Resp B/P (MAP) Pulse Ox O2 Delivery O2 Flow Rate FiO2 04/16/25 07:37 110 19 123/75 04/16/25 05:00 98.1 100 98.1 04/15/25 20:00 Nasal Cannula* 2 28 Total Intake and Output 04/15/25 04/15/25 04/16/25 15:00 23:00 07:00 Intake Total 100 ml 625 ml 600 ml Output Total 625 ml Balance 100 ml 0 ml 600 ml Medications Current Medications Medications Dose Ordered Sig/Moises Route Start Time Stop Time Status Last Admin Dose Admin Ondansetron HCl 4 mg Q4HPRN PRN IV 04/11/25 07:45 04/11/25 17:00 4 MG Acetaminophen/ Hydrocodone Bitart 1 tab Q4HP PRN PO 04/11/25 11:45 04/15/25 23:52 1 TAB Ondansetron HCl 4 mg Q4HP PRN IV 04/11/25 11:45 Cancel Acetaminophen 650 mg Q6HP PRN PO 04/11/25 11:45 Morphine Sulfate 2 mg Q4HPRN PRN IV 04/11/25 11:45 UNV Nitroglycerin 0.4 mg Q5MINP PRN SL 04/11/25 11:45 Morphine Sulfate 2 mg Q30M PRN IV 04/11/25 11:45 UNV Morphine Sulfate 2 mg Q4HPRN PRN IV 04/11/25 12:00 04/16/25 07:37 2 MG Morphine Sulfate 2 mg Q30M PRN IV 04/11/25 12:00 Lorazepam 1 mg Q6HP PRN IM 04/11/25 12:00 Metoprolol Tartrate 12.5 mg BID PO 04/11/25 12:04 04/15/25 21:14 12.5 MG Piperacillin Sod/ Tazobactam Sod 100 ml @ 25 mls/hr Q6HR IV 04/12/25 12:00 04/16/25 05:42 25 MLS/HR Doxycycline Monohydrate 100 mg Q12HR PO 04/12/25 22:00 04/15/25 21:14 100 MG General: Normal, Well developed, Thin Head/Eyes: Normal ENT: Normal Neck: Normal Lungs: Other (chest tube ) Cardiovascular: Normal Abdominal: Normal, Soft Labs and Microbiology Laboratory Tests 04/14/25 05:19 Test 04/14/25 05:19 Range/Units Serum Glucose 90 74-106 mg/dL Ass/Plan Problem List 04/13/25 I have discussed the fact that 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 WILL ADVANCE DIET, MUST AMBULATE. Problems(with codes): (1) Pleural effusion, left Assessment/Plan s/p thoracoscopy, chest tube placement Plan: patient to ambulate Physical therapy chest tube on suction oncology consult Plan discussed with patient, Dr. Monge Visit Coding Surgery Date of Service if different f: Apr 16, 2025 Billing Provider: HIEU MONGE MD Surgery Visit Codes: [id number] INP/OBS CARE(HIGH) TEHA HOSKINS [employer] Apr 16, 2025 08:57
[2025-04-16] MEDS: ENOXAPARIN SOD 40 MG/0.4 ML SYRINGE SC ONE (11:59)
--- NOTE | 2025-04-16 13:35 | DVH ---
CHEST RADIOGRAPH Indication: EVALUATE CHEST TUBE PLACEMENT Technique: Single frontal view of the chest was obtained Comparison: XY CHEST PORTABLE on DOS: 04/14/25, XY CHEST PORTABLE on DOS: 04/11/25, XY CHEST PORTABLE on DOS: 04/11/25 FINDINGS: Lines and Tubes: There is redemonstration of a small left-sided bulge chest tube terminating over the medial left mid lung zone. Lungs: Complete opacification of the left hemithorax. Slight rightward deviation of the trachea. No pneumothorax. Cardiomediastinal contours: Limited evaluation of the Heart size due to opacification of the left he mithorax. Bones: Bony and soft tissue structures unchanged from prior imaging with subcutaneous emphysema of th e left lateral chest wall associated with the chest tube placement. IMPRESSION: Redemonstration of left sided chest tube terminating over the medial left mid lung zone. Unchanged complete opacification of the left hemithorax.
--- NOTE | 2025-04-16 17:59 | DVHPN2 ---
Subjective in bed resting Reviewed: H&P, Labs Changes from previous H/P or p: No Changes Objective Vitals Vital Signs Date Time Temp Pulse Resp B/P (MAP) Pulse Ox O2 Delivery O2 Flow Rate FiO2 04/16/25 17:34 119 18 118/76 04/16/25 17:00 99.0 100 99.0 04/16/25 08:00 Nasal Cannula* 2 28 Intake/Output Intake and Output 04/16/25 06:59 Intake Total 1325 ml Output Total 625 ml Balance 700 ml Intake Oral 1225 ml IV Total 100 ml Output Urine Total 625 ml # Voids 8 General Appearance: Alert Lungs: Clear to auscultation Cardiovascular: Regular rate, Normal S1, Normal S2 Medications Current Medications Medications Dose Ordered Sig/Moises Route Start Time Stop Time Status Last Admin Dose Admin Ondansetron HCl 4 mg Q4HPRN PRN IV 04/11/25 07:45 04/11/25 17:00 4 MG Acetaminophen/ Hydrocodone Bitart 1 tab Q4HP PRN PO 04/11/25 11:45 04/16/25 15:03 1 TAB Ondansetron HCl 4 mg Q4HP PRN IV 04/11/25 11:45 Cancel Acetaminophen 650 mg Q6HP PRN PO 04/11/25 11:45 Morphine Sulfate 2 mg Q4HPRN PRN IV 04/11/25 11:45 UNV Nitroglycerin 0.4 mg Q5MINP PRN SL 04/11/25 11:45 Morphine Sulfate 2 mg Q30M PRN IV 04/11/25 11:45 UNV Morphine Sulfate 2 mg Q4HPRN PRN IV 04/11/25 12:00 04/16/25 17:34 2 MG Morphine Sulfate 2 mg Q30M PRN IV 04/11/25 12:00 Lorazepam 1 mg Q6HP PRN IM 04/11/25 12:00 Metoprolol Tartrate 12.5 mg BID PO 04/11/25 12:04 04/16/25 09:39 12.5 MG Piperacillin Sod/ Tazobactam Sod 100 ml @ 25 mls/hr Q6HR IV 04/12/25 12:00 04/16/25 17:55 25 MLS/HR Doxycycline Monohydrate 100 mg Q12HR PO 04/12/25 22:00 04/16/25 09:38 100 MG Enoxaparin Sodium 40 mg DAILY SC 04/17/25 10:00 Laboratory Results Laboratory Tests 04/14/25 05:19 Urinalysis Test 04/12/25 05:35 Urine Color Yellow (Yellow) Urine Clarity Clear (Clear) Urine pH 5.0 (5.0-9.0) Urine Specific [place] 1.025 (1.001-1.035) Urine Protein Trace (Negative) H Urine Ketones Negative (Negative) Urine Blood 1+ /uL (Negative) H Urine Nitrite Negative (Negative) Urine Bilirubin Negative (Negative) Urine Urobilinogen 2 mg/dL (Negative) H Urine Leukocyte Esterase Negative /uL (Negative) Urine RBC 5 /hpf (0 - 3) Urine Microscopic WBC 2 /HPF (0-3) Urine Squamous Epithelial Cells None seen /hpf (<5) Urine Calcium Oxalate Crystals Few (None Seen) Urine Bacteria None seen /hpf (None Seen) Urine Glucose Normal mg/dL (Normal) Microbiology Microbiology Date/Time Source Procedure Growth Status 04/12/25 11:36 Sputum Gram Stain - Final Complete 04/12/25 11:36 Sputum Respiratory Culture - Final Complete 04/11/25 01:31 Blood Blood Culture - Final NO GROWTH AFTER 5 DAYS OF INCUBATION. 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 - Trying to get him transferred to OSH for chemo>denied at [facility] Plan discussed with: Patient My Orders Orders - MARIE LYON MD Procedure Category Date Status Time Enoxaparin Sodium PHA 04/17/25 In Process (Lovenox) 10:00 Chest Portable XY 04/16/25 Resulted 12:50 Date of Service: Apr 16, 2025 Billing Provider: MARIE LYON MD Common Visit Codes: [id number] INP/OBS CARE(HIGH) MARIE LYON MD Apr 16, 2025 17:59
[2025-04-17] VITALS (7 sets, daily range): BP systolic 114–131; BP diastolic 77–85; PULSE 101–128; RESP 18–22; TEMP 97.7–99.3; O2SAT 98–100
[2025-04-17 06:17] LABS: Basophils # (auto) 0.1 10 ^3/uL (0-0.2); Basophils % (auto) 0.4 % (0.0-2.0); Eosinophils # (auto) 1.6 10 ^3/uL (0-0.8); Eosinophils % (auto) 7.9 % (0.0-7.0); Hematocrit 24.7 % (41.0-53.0); Hemoglobin 7.6 g/dL (13.5-17.5); Lymphocytes # (auto) 1.8 10 ^3/uL (0.4-5.4); Lymphocytes % (auto) 8.9 % (10.0-50.0); Mean Corpuscular Hemoglobin 21.5 pg (28.0-32.0); Mean Corpuscular Hgb Conc. 30.7 g/dL (32.0-36.0); Mean Corpuscular Volume 70.1 fL (80.0-100.0); Monocytes # (auto) 1.7 10 ^3/uL (0-1.3); Monocytes % (auto) 8.1 % (0.0-12.0); Neutrophils # (auto) 15.3 10 ^3/uL (1.6-8.6); Neutrophils % (auto) 74.7 % (37.0-80.0); Platelet Count (auto) 249 10^3/uL (140-450); Red Blood Cells 3.52 10^6/uL (4.5-5.90); Red Cell Distribution Width 15.5 % (11.8-14.3); White Blood Cell 20.5 10^3/uL (4.4-10.8)
[2025-04-17 06:31] LABS: Anion Gap 6 (5-15); Carbon Dioxide 30 mmol/L (20-31); Chloride 99 mmol/L (98-107); Potassium 4.3 mmol/L (3.5-5.1)
[2025-04-17 06:32] LABS: Calcium 10.2 mg/dL (8.7-10.4)
[2025-04-17 06:33] LABS: Sodium 135 mmol/L (136-145)
[2025-04-17 06:37] LABS: BUN/Creatinine Ratio 13.5 (10.0-20.0); Blood Urea Nitrogen 12 mg/dL (9-23); Glucose 96 mg/dL (74-106)
[2025-04-17] MEDS: ENOXAPARIN SOD 40 MG/0.4 ML SYRINGE SC SCH (09:22)
--- NOTE | 2025-04-17 09:50 | DVHPN2 ---
Subjective Date Seen: Apr 17, 2025 Post op day Post op day: 3 Patient reports: No new complaints Nursing reports: No new complaints General: Normal HNT: Normal Cardiovascular: Normal Respiratory: Normal Gastrointestinal: Normal Genitourinary: Normal Musculoskeletal: Normal Neurological: Normal Objective Vitals Vital Sign Date Time Temp Pulse Resp B/P (MAP) Pulse Ox O2 Delivery O2 Flow Rate FiO2 04/17/25 09:23 125 134/80 04/17/25 09:16 16 04/17/25 05:00 98.6 100 98.6 04/16/25 20:00 Nasal Cannula* 2 28 Total Intake and Output 04/16/25 04/16/25 04/17/25 15:00 23:00 07:00 Intake Total 200 ml 520 ml 330 ml Output Total 550 ml 230 ml Balance 200 ml -30 ml 100 ml Medications Current Medications Medications Dose Ordered Sig/Moises Route Start Time Stop Time Status Last Admin Dose Admin Ondansetron HCl 4 mg Q4HPRN PRN IV 04/11/25 07:45 04/11/25 17:00 4 MG Acetaminophen/ Hydrocodone Bitart 1 tab Q4HP PRN PO 04/11/25 11:45 04/16/25 20:10 1 TAB Ondansetron HCl 4 mg Q4HP PRN IV 04/11/25 11:45 Cancel Acetaminophen 650 mg Q6HP PRN PO 04/11/25 11:45 Morphine Sulfate 2 mg Q4HPRN PRN IV 04/11/25 11:45 UNV Nitroglycerin 0.4 mg Q5MINP PRN SL 04/11/25 11:45 Morphine Sulfate 2 mg Q30M PRN IV 04/11/25 11:45 UNV Morphine Sulfate 2 mg Q4HPRN PRN IV 04/11/25 12:00 04/17/25 09:16 2 MG Morphine Sulfate 2 mg Q30M PRN IV 04/11/25 12:00 Lorazepam 1 mg Q6HP PRN IM 04/11/25 12:00 Metoprolol Tartrate 12.5 mg BID PO 04/11/25 12:04 04/17/25 09:23 12.5 MG Piperacillin Sod/ Tazobactam Sod 100 ml @ 25 mls/hr Q6HR IV 04/12/25 12:00 04/17/25 06:10 25 MLS/HR Doxycycline Monohydrate 100 mg Q12HR PO 04/12/25 22:00 04/17/25 09:22 100 MG Enoxaparin Sodium 40 mg DAILY SC 04/17/25 10:00 04/17/25 09:22 40 MG General: Normal, Well developed, Thin Head/Eyes: Normal ENT: Normal Neck: Normal Lungs: Other (chest tube ) Cardiovascular: Normal Abdominal: Normal, Soft Labs and Microbiology Laboratory Tests 04/17/25 05:09 Test 04/17/25 05:09 Range/Units Serum Glucose 96 74-106 mg/dL Ass/Plan Problem List 04/13/25 I have discussed the fact that 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 WILL ADVANCE DIET, MUST AMBULATE. Assessment/Plan s/p thoracoscopy, chest tube placement Plan: patient to ambulate Physical therapy chest tube on suction oncology consult 04/17/2025 s/p thoracoscopy, chest tube placement POD#3 Plan: patient to ambulate, (patient can walk with pleura vac off suction please reconnect when in room) physical therapy chest tube on suction Prognosis: Good Plan discussed with patient, Dr. Monge Visit Coding Surgery Date of Service if different f: Apr 17, 2025 Billing Provider: HIEU MONGE MD Surgery Visit Codes: [id number] INP/OBS CARE(HIGH) THEA HOSKINS NP Apr 17, 2025 09:50
--- NOTE | 2025-04-17 16:59 | DVHPN2 ---
Subjective in bed resting Reviewed: H&P, Labs Changes from previous H/P or p: No Changes Objective Vitals Vital Signs Date Time Temp Pulse Resp B/P (MAP) Pulse Ox O2 Delivery O2 Flow Rate FiO2 04/17/25 13:53 113 20 119/79 04/17/25 09:00 98.6 99 98.6 04/17/25 08:30 Nasal Cannula* 2 28 Intake/Output Intake and Output 04/17/25 07:00 Intake Total 1050 ml Output Total 780 ml Balance 270 ml Intake Oral 650 ml IV Total 400 ml Output Urine Total 780 ml # Bowel Movements 1 General Appearance: Alert Lungs: Clear to auscultation Cardiovascular: Regular rate, Normal S1, Normal S2 Medications Current Medications Medications Dose Ordered Sig/Moises Route Start Time Stop Time Status Last Admin Dose Admin Ondansetron HCl 4 mg Q4HPRN PRN IV 04/11/25 07:45 04/11/25 17:00 4 MG Acetaminophen/ Hydrocodone Bitart 1 tab Q4HP PRN PO 04/11/25 11:45 04/17/25 15:34 1 TAB Ondansetron HCl 4 mg Q4HP PRN IV 04/11/25 11:45 Cancel Acetaminophen 650 mg Q6HP PRN PO 04/11/25 11:45 Morphine Sulfate 2 mg Q4HPRN PRN IV 04/11/25 11:45 UNV Nitroglycerin 0.4 mg Q5MINP PRN SL 04/11/25 11:45 Morphine Sulfate 2 mg Q30M PRN IV 04/11/25 11:45 UNV Morphine Sulfate 2 mg Q4HPRN PRN IV 04/11/25 12:00 04/17/25 13:23 2 MG Morphine Sulfate 2 mg Q30M PRN IV 04/11/25 12:00 Lorazepam 1 mg Q6HP PRN IM 04/11/25 12:00 Metoprolol Tartrate 12.5 mg BID PO 04/11/25 12:04 04/17/25 09:23 12.5 MG Piperacillin Sod/ Tazobactam Sod 100 ml @ 25 mls/hr Q6HR IV 04/12/25 12:00 04/17/25 11:04 25 MLS/HR Doxycycline Monohydrate 100 mg Q12HR PO 04/12/25 22:00 04/17/25 09:22 100 MG Enoxaparin Sodium 40 mg DAILY SC 04/17/25 10:00 04/17/25 09:22 40 MG Laboratory Results Laboratory Tests 04/17/25 05:09 Chemistry Test 04/17/25 05:09 Calcium Level 10.2 mg/dL (8.7-10.4) Urinalysis Test 04/12/25 05:35 Urine Color Yellow (Yellow) Urine Clarity Clear (Clear) Urine pH 5.0 (5.0-9.0) Urine Specific [place] 1.025 (1.001-1.035) Urine Protein Trace (Negative) H Urine Ketones Negative (Negative) Urine Blood 1+ /uL (Negative) H Urine Nitrite Negative (Negative) Urine Bilirubin Negative (Negative) Urine Urobilinogen 2 mg/dL (Negative) H Urine Leukocyte Esterase Negative /uL (Negative) Urine RBC 5 /hpf (0 - 3) Urine Microscopic WBC 2 /HPF (0-3) Urine Squamous Epithelial Cells None seen /hpf (<5) Urine Calcium Oxalate Crystals Few (None Seen) Urine Bacteria None seen /hpf (None Seen) Urine Glucose Normal mg/dL (Normal) Microbiology Microbiology Date/Time Source Procedure Growth Status 04/12/25 11:36 Sputum Gram Stain - Final Complete 04/12/25 11:36 Sputum Respiratory Culture - Final Complete 04/11/25 01:31 Blood Blood Culture - Final NO GROWTH AFTER 5 DAYS OF INCUBATION. 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 - Trying to get him transferred to OSH for chemo>denied at [facility] Plan discussed with: Patient Date of Service: Apr 17, 2025 Billing Provider: MARIE LYON MD Common Visit Codes: [id number] INP/OBS CARE(HIGH) MARIE LYON MD Apr 17, 2025 16:59
[2025-04-18] VITALS (8 sets, daily range): BP systolic 119–134; BP diastolic 76–93; PULSE 101–121; RESP 16–20; TEMP 97.4–98.1; O2SAT 92–100
[2025-04-18] MEDS: Ensure Enlive Vanilla 8oz Bottle PO SCH (08:00)
--- NOTE | 2025-04-18 09:04 | MEDREC ---
[facility] Intervention Section I [facility] Intervention: Review courses of therapy (SPUTUM CULTURE POSITIVE FOR YEAST - PLEASE CONSIDER ADDING ANTIFUNGAL IF CLINICALLY RELEVANT ) ROSEANN BARRETT PHARMACIST Apr 18, 2025 09:04
--- NOTE | 2025-04-18 11:26 | DVHPN2 ---
Progress Note - Surgical Date Seen: Apr 18, 2025 Post op day Post op day: 4 Subjective Review of Systems: HEENT:Normal, CVS:Normal, RESPIRATORY:Abnormal, GI:Normal, :Normal, MSK:Normal, MSK:Abnormal Objective Vital signs Vital Sign Date Time Temp Pulse Resp B/P (MAP) Pulse Ox O2 Delivery O2 Flow Rate FiO2 04/18/25 10:42 121 18 134/93 04/18/25 09:00 97.4 100 97.4 04/17/25 20:00 Nasal Cannula* 2 28 Total Intake and Output 04/17/25 04/17/25 04/18/25 15:00 23:00 07:00 Intake Total 650 ml 1100 ml Output Total 60 ml 150 ml 865 ml Balance -60 ml 500 ml 235 ml Medications Current Medications Medications Dose Ordered Sig/Moises Route Start Time Stop Time Status Last Admin Dose Admin Ondansetron HCl 4 mg Q4HPRN PRN IV 04/11/25 07:45 04/11/25 17:00 4 MG Acetaminophen/ Hydrocodone Bitart 1 tab Q4HP PRN PO 04/11/25 11:45 04/18/25 03:13 1 TAB Ondansetron HCl 4 mg Q4HP PRN IV 04/11/25 11:45 Cancel Acetaminophen 650 mg Q6HP PRN PO 04/11/25 11:45 Morphine Sulfate 2 mg Q4HPRN PRN IV 04/11/25 11:45 UNV Nitroglycerin 0.4 mg Q5MINP PRN SL 04/11/25 11:45 Morphine Sulfate 2 mg Q30M PRN IV 04/11/25 11:45 UNV Morphine Sulfate 2 mg Q4HPRN PRN IV 04/11/25 12:00 04/18/25 10:42 2 MG Morphine Sulfate 2 mg Q30M PRN IV 04/11/25 12:00 Lorazepam 1 mg Q6HP PRN IM 04/11/25 12:00 Metoprolol Tartrate 12.5 mg BID PO 04/11/25 12:04 04/17/25 22:18 12.5 MG Piperacillin Sod/ Tazobactam Sod 100 ml @ 25 mls/hr Q6HR IV 04/12/25 12:00 04/18/25 05:57 25 MLS/HR Doxycycline Monohydrate 100 mg Q12HR PO 04/12/25 22:00 04/18/25 10:35 100 MG Enoxaparin Sodium 40 mg DAILY SC 04/17/25 10:00 04/18/25 10:35 40 MG Enteral Nutritional Formula 240 ml BIDBL PO 04/18/25 08:00 04/18/25 08:00 240 ML Laboratory Laboratory Tests 04/17/25 05:09 Test 04/17/25 05:09 Range/Units Serum Glucose 96 74-106 mg/dL Microbiology Date/Time Source Procedure Growth Status 04/12/25 11:36 Sputum Gram Stain - Final Complete 04/12/25 11:36 Sputum Respiratory Culture - Final Complete 04/11/25 01:31 Blood Blood Culture - Final NO GROWTH AFTER 5 DAYS OF INCUBATION. Complete Examination: GENERAL:Abnormal, NECK:Normal, LUNGS:Abnormal, CVS:Normal, ABDOMEN:Normal, MSK:Normal, SKIN:Normal, NEURO:Normal, :Normal Problem List/Assessment/Plan Assessment and Plan still has not ambulated, explained in great detail the importance of walking, chest tube continue with voluminous bloody effusion, no air leak, will place a Heimlich valve tomorrow so he can consider going home with then chest tube in plac abdomen soft , non distended, appropriately tender wound clean dry and intact RAMON drain serous sanguinous fluid denies nausea , vomiting Plan: Patient to ambulate NG to [facility] continue current treatment Plan discussed with Plan discussed with: Patient Visit Coding Surgery Date of Service if different f: Apr 18, 2025 Billing Provider: HIEU MORELAND MD Surgery Visit Codes: [id number] INP/OBS CARE(HIGH) HIEU MORELAND MD Apr 18, 2025 11:26
--- NOTE | 2025-04-18 19:00 | DVHPN2 ---
Subjective in bed resting Reviewed: H&P, Labs Changes from previous H/P or p: No Changes Objective Vitals Vital Signs Date Time Temp Pulse Resp B/P (MAP) Pulse Ox O2 Delivery O2 Flow Rate FiO2 04/18/25 16:54 98.0 119 20 133/83 (100) 92 98.0 04/18/25 08:00 Nasal Cannula* 2 28 Intake/Output Intake and Output 04/18/25 07:00 Intake Total 1750 ml Output Total 1075 ml Balance 675 ml Intake Oral 1450 ml IV Total 300 ml Output Urine Total 925 ml Chest Tube Drainage Total 150 ml General Appearance: Alert Lungs: Clear to auscultation Cardiovascular: Regular rate, Normal S1, Normal S2 Medications Current Medications Medications Dose Ordered Sig/Moises Route Start Time Stop Time Status Last Admin Dose Admin Ondansetron HCl 4 mg Q4HPRN PRN IV 04/11/25 07:45 04/11/25 17:00 4 MG Acetaminophen/ Hydrocodone Bitart 1 tab Q4HP PRN PO 04/11/25 11:45 04/18/25 13:57 1 TAB Ondansetron HCl 4 mg Q4HP PRN IV 04/11/25 11:45 Cancel Acetaminophen 650 mg Q6HP PRN PO 04/11/25 11:45 Morphine Sulfate 2 mg Q4HPRN PRN IV 04/11/25 11:45 UNV Nitroglycerin 0.4 mg Q5MINP PRN SL 04/11/25 11:45 Morphine Sulfate 2 mg Q30M PRN IV 04/11/25 11:45 UNV Morphine Sulfate 2 mg Q4HPRN PRN IV 04/11/25 12:00 04/18/25 15:25 2 MG Morphine Sulfate 2 mg Q30M PRN IV 04/11/25 12:00 Lorazepam 1 mg Q6HP PRN IM 04/11/25 12:00 Metoprolol Tartrate 12.5 mg BID PO 04/11/25 12:04 04/17/25 22:18 12.5 MG Piperacillin Sod/ Tazobactam Sod 100 ml @ 25 mls/hr Q6HR IV 04/12/25 12:00 04/18/25 13:56 25 MLS/HR Doxycycline Monohydrate 100 mg Q12HR PO 04/12/25 22:00 04/18/25 10:35 100 MG Enoxaparin Sodium 40 mg DAILY SC 04/17/25 10:00 04/18/25 10:35 40 MG Enteral Nutritional Formula 240 ml BIDBL PO 04/18/25 08:00 04/18/25 12:00 240 ML Laboratory Results Laboratory Tests 04/17/25 05:09 Urinalysis Test 04/12/25 05:35 Urine Color Yellow (Yellow) Urine Clarity Clear (Clear) Urine pH 5.0 (5.0-9.0) Urine Specific [place] 1.025 (1.001-1.035) Urine Protein Trace (Negative) H Urine Ketones Negative (Negative) Urine Blood 1+ /uL (Negative) H Urine Nitrite Negative (Negative) Urine Bilirubin Negative (Negative) Urine Urobilinogen 2 mg/dL (Negative) H Urine Leukocyte Esterase Negative /uL (Negative) Urine RBC 5 /hpf (0 - 3) Urine Microscopic WBC 2 /HPF (0-3) Urine Squamous Epithelial Cells None seen /hpf (<5) Urine Calcium Oxalate Crystals Few (None Seen) Urine Bacteria None seen /hpf (None Seen) Urine Glucose Normal mg/dL (Normal) Microbiology Microbiology Date/Time Source Procedure Growth Status 04/12/25 11:36 Sputum Gram Stain - Final Complete 04/12/25 11:36 Sputum Respiratory Culture - Final Complete 04/11/25 01:31 Blood Blood Culture - Final NO GROWTH AFTER 5 DAYS OF INCUBATION. 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 - Trying to get him transferred to OSH for chemo>denied at [facility] Plan discussed with: Patient Date of Service: Apr 18, 2025 Billing Provider: MARIE LYON MD Common Visit Codes: [id number] INP/OBS CARE(HIGH) MARIE LYON MD Apr 18, 2025 19:00
[2025-04-19] VITALS (8 sets, daily range): BP systolic 112–129; BP diastolic 63–85; PULSE 99–126; RESP 15–20; TEMP 97–98.7; O2SAT 98–100
[2025-04-19 07:47] LABS: Basophils # (auto) 0.1 10 ^3/uL (0-0.2); Basophils % (auto) 0.3 % (0.0-2.0); Eosinophils # (auto) 1.4 10 ^3/uL (0-0.8); Eosinophils % (auto) 6.6 % (0.0-7.0); Hematocrit 30.7 % (41.0-53.0); Hemoglobin 9.5 g/dL (13.5-17.5); Lymphocytes # (auto) 2.6 10 ^3/uL (0.4-5.4); Lymphocytes % (auto) 12.1 % (10.0-50.0); Mean Corpuscular Hemoglobin 21.6 pg (28.0-32.0); Mean Corpuscular Hgb Conc. 30.9 g/dL (32.0-36.0); Monocytes # (auto) 1.8 10 ^3/uL (0-1.3); Monocytes % (auto) 8.7 % (0.0-12.0); Neutrophils # (auto) 15.4 10 ^3/uL (1.6-8.6); Neutrophils % (auto) 72.3 % (37.0-80.0); Platelet Count (auto) 402 10^3/uL (140-450); Red Blood Cells 4.38 10^6/uL (4.5-5.90); Red Cell Distribution Width 16.6 % (11.8-14.3); White Blood Cell 21.3 10^3/uL (4.4-10.8)
[2025-04-19 08:01] LABS: Anion Gap 8 (5-15); Carbon Dioxide 30 mmol/L (20-31); Potassium 4.6 mmol/L (3.5-5.1)
[2025-04-19 08:03] LABS: Calcium 10.6 mg/dL (8.7-10.4); Chloride 94 mmol/L (98-107); Sodium 132 mmol/L (136-145)
[2025-04-19 08:07] LABS: BUN/Creatinine Ratio 12.6 (10.0-20.0); Blood Urea Nitrogen 12 mg/dL (9-23); Glucose 86 mg/dL (74-106)
--- NOTE | 2025-04-19 13:27 | DVHPN2 ---
Progress Note Date Seen: Apr 19, 2025 Medical Necessity Reason Pt with a Central, PICC or Fol: No Objective vital signs Vital Sign Date Time Temp Pulse Resp B/P (MAP) Pulse Ox O2 Delivery O2 Flow Rate FiO2 04/19/25 13:00 97.0 106 16 119/63 (81) 98 97.0 04/19/25 08:00 Nasal Cannula* 2 28 Total Intake and Output 04/18/25 04/18/25 04/19/25 15:00 23:00 07:00 Intake Total 615 ml 545 ml Output Total 300 ml 350 ml Balance 315 ml 195 ml medications Current Medications Medications Dose Ordered Sig/Moises Route Start Time Stop Time Status Last Admin Dose Admin Ondansetron HCl 4 mg Q4HPRN PRN IV 04/11/25 07:45 04/11/25 17:00 4 MG Acetaminophen/ Hydrocodone Bitart 1 tab Q4HP PRN PO 04/11/25 11:45 04/19/25 09:49 1 TAB Ondansetron HCl 4 mg Q4HP PRN IV 04/11/25 11:45 Cancel Acetaminophen 650 mg Q6HP PRN PO 04/11/25 11:45 Morphine Sulfate 2 mg Q4HPRN PRN IV 04/11/25 11:45 UNV Nitroglycerin 0.4 mg Q5MINP PRN SL 04/11/25 11:45 Morphine Sulfate 2 mg Q30M PRN IV 04/11/25 11:45 UNV Morphine Sulfate 2 mg Q4HPRN PRN IV 04/11/25 12:00 04/19/25 11:47 2 MG Morphine Sulfate 2 mg Q30M PRN IV 04/11/25 12:00 Lorazepam 1 mg Q6HP PRN IM 04/11/25 12:00 Metoprolol Tartrate 12.5 mg BID PO 04/11/25 12:04 04/19/25 09:37 12.5 MG Piperacillin Sod/ Tazobactam Sod 100 ml @ 25 mls/hr Q6HR IV 04/12/25 12:00 04/19/25 12:52 25 MLS/HR Doxycycline Monohydrate 100 mg Q12HR PO 04/12/25 22:00 04/19/25 09:37 100 MG Enoxaparin Sodium 40 mg DAILY SC 04/17/25 10:00 04/19/25 09:42 40 MG Enteral Nutritional Formula 240 ml BIDBL PO 04/18/25 08:00 04/19/25 12:07 240 ML Acetaminophen/ Hydrocodone Bitart 1 tab Q4HP PRN PO 04/21/25 14:56 laboratory and microbiology Laboratory Tests 04/19/25 05:13 Test 04/19/25 05:13 Range/Units Serum Glucose 86 74-106 mg/dL Problem List/Assessment/Plan Problem List/Assessment/Plan 04/13/25 I have discussed the fact that 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 WILL ADVANCE DIET, MUST AMBULATE. 04/19/25 NO NEW COMPLAINTS, CHESY NON TENDER, CHEST TUBE CONTINUES TO DRAIN BLOODY FRLUID, CONNECTED CHEST TUBE TO A HEIMLICH VALVE TO FACILITATE TRANSFER AND AMBULATION., EXPLAINED TO PATIENT. Plan discussed with: Patient Dietary Evaluation Review Comments: 1. If Clear liquid diet supplement with Ensure Clear BID 2. If diet adanced, supplement with Ensure high protein BID Expected Outcomes/Goals: Gradual wt gain, HIEU MORELAND MD Apr 19, 2025 13:27
[2025-04-19] MEDS: HYDROcodone-ACET 10/325MG TAB PO PRN (15:51)
--- NOTE | 2025-04-19 17:34 | DVHPN2 ---
Subjective in bed resting Reviewed: H&P, Labs Changes from previous H/P or p: No Changes Objective Vitals Vital Signs Date Time Temp Pulse Resp B/P (MAP) Pulse Ox O2 Delivery O2 Flow Rate FiO2 04/19/25 13:00 97.0 106 16 119/63 (81) 98 97.0 04/19/25 08:00 Nasal Cannula* 2 28 Intake/Output Intake and Output 04/19/25 07:00 Intake Total 1160 ml Output Total 650 ml Balance 510 ml Intake Oral 960 ml IV Total 200 ml Output Urine Total 600 ml Chest Tube Drainage Total 50 ml # Bowel Movements 1 General Appearance: Alert Lungs: Clear to auscultation Cardiovascular: Regular rate, Normal S1, Normal S2 Medications Current Medications Medications Dose Ordered Sig/Moises Route Start Time Stop Time Status Last Admin Dose Admin Ondansetron HCl 4 mg Q4HPRN PRN IV 04/11/25 07:45 04/11/25 17:00 4 MG Ondansetron HCl 4 mg Q4HP PRN IV 04/11/25 11:45 Cancel Acetaminophen 650 mg Q6HP PRN PO 04/11/25 11:45 Morphine Sulfate 2 mg Q4HPRN PRN IV 04/11/25 11:45 UNV Nitroglycerin 0.4 mg Q5MINP PRN SL 04/11/25 11:45 Morphine Sulfate 2 mg Q30M PRN IV 04/11/25 11:45 UNV Morphine Sulfate 2 mg Q4HPRN PRN IV 04/11/25 12:00 04/19/25 11:47 2 MG Morphine Sulfate 2 mg Q30M PRN IV 04/11/25 12:00 Lorazepam 1 mg Q6HP PRN IM 04/11/25 12:00 Metoprolol Tartrate 12.5 mg BID PO 04/11/25 12:04 04/19/25 09:37 12.5 MG Piperacillin Sod/ Tazobactam Sod 100 ml @ 25 mls/hr Q6HR IV 04/12/25 12:00 04/19/25 12:52 25 MLS/HR Doxycycline Monohydrate 100 mg Q12HR PO 04/12/25 22:00 04/19/25 09:37 100 MG Enoxaparin Sodium 40 mg DAILY SC 04/17/25 10:00 04/19/25 09:42 40 MG Enteral Nutritional Formula 240 ml BIDBL PO 04/18/25 08:00 04/19/25 12:07 240 ML Acetaminophen/ Hydrocodone Bitart 1 tab Q4HP PRN PO 04/19/25 15:45 04/19/25 15:51 1 TAB Laboratory Results Laboratory Tests 04/19/25 05:13 Chemistry Test 04/19/25 05:13 Calcium Level 10.6 mg/dL (8.7-10.4) H Urinalysis Test 04/12/25 05:35 Urine Color Yellow (Yellow) Urine Clarity Clear (Clear) Urine pH 5.0 (5.0-9.0) Urine Specific [place] 1.025 (1.001-1.035) Urine Protein Trace (Negative) H Urine Ketones Negative (Negative) Urine Blood 1+ /uL (Negative) H Urine Nitrite Negative (Negative) Urine Bilirubin Negative (Negative) Urine Urobilinogen 2 mg/dL (Negative) H Urine Leukocyte Esterase Negative /uL (Negative) Urine RBC 5 /hpf (0 - 3) Urine Microscopic WBC 2 /HPF (0-3) Urine Squamous Epithelial Cells None seen /hpf (<5) Urine Calcium Oxalate Crystals Few (None Seen) Urine Bacteria None seen /hpf (None Seen) Urine Glucose Normal mg/dL (Normal) Microbiology Microbiology Date/Time Source Procedure Growth Status 04/12/25 11:36 Sputum Gram Stain - Final Complete 04/12/25 11:36 Sputum Respiratory Culture - Final Complete 04/11/25 01:31 Blood Blood Culture - Final NO GROWTH AFTER 5 DAYS OF INCUBATION. 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 - Trying to get him transferred to OSH for chemo>denied at [facility] and [facility] Plan discussed with: Patient My Orders Orders - MARIE LYON MD Procedure Category Date Status Time Complete Blood Count LAB 04/20/25 Verified 05:00 Complete Blood Count LAB 04/21/25 Verified 05:00 Complete Blood Count LAB 04/22/25 Verified 05:00 Complete Blood Count LAB 04/23/25 Verified 05:00 Complete Blood Count LAB 04/24/25 Verified 05:00 Complete Blood Count LAB 04/25/25 Verified 05:00 Basic Metabolic Panel LAB 04/20/25 Verified 05:00 Basic Metabolic Panel LAB 04/21/25 Verified 05:00 Basic Metabolic Panel LAB 04/22/25 Verified 05:00 Basic Metabolic Panel LAB 04/23/25 Verified 05:00 Basic Metabolic Panel LAB 04/24/25 Verified 05:00 Basic Metabolic Panel LAB 04/25/25 Verified 05:00 Hydrocodone-Acet PHA 04/19/25 In Process 10/325mg Tab ([place] 15:45 Date of Service: Apr 19, 2025 Billing Provider: MARIE LYON MD Common Visit Codes: [id number] INP/OBS CARE(HIGH) MARIE LYON MD Apr 19, 2025 17:34
[2025-04-20] VITALS (11 sets, daily range): BP systolic 105–131; BP diastolic 69–93; PULSE 98–127; RESP 14–19; TEMP 97.1–99.3; O2SAT 98–100
[2025-04-20 07:19] LABS: Hemoglobin 7.3 g/dL (13.5-17.5)
[2025-04-20 07:22] LABS: Hematocrit 23.9 % (41.0-53.0); Mean Corpuscular Hemoglobin 21.4 pg (28.0-32.0); Mean Corpuscular Hgb Conc. 30.7 g/dL (32.0-36.0); Mean Corpuscular Volume 69.8 fL (80.0-100.0); Platelet Count (auto) 344 10^3/uL (140-450); Red Blood Cells 3.43 10^6/uL (4.5-5.90); Red Cell Distribution Width 16.6 % (11.8-14.3); White Blood Cell 18.5 10^3/uL (4.4-10.8)
[2025-04-20 07:34] LABS: Potassium 4.1 mmol/L (3.5-5.1)
[2025-04-20 07:35] LABS: Anion Gap 8 (5-15); Calcium 10.2 mg/dL (8.7-10.4); Carbon Dioxide 30 mmol/L (20-31)
[2025-04-20 07:37] LABS: Band Neutrophils % (manual) 0; Basophils % (manual) 0 (0.0-2.0); Blast Cells 0; Chloride 98 mmol/L (98-107); Metamyelocytes % 0; Myelocytes % 0; Promyelocytes % 0; Reactive Lymphocytes 0; Sodium 136 mmol/L (136-145)
[2025-04-20 07:40] LABS: BUN/Creatinine Ratio 13.6 (10.0-20.0); Blood Urea Nitrogen 11 mg/dL (9-23); Glucose 99 mg/dL (74-106)
[2025-04-20 08:45] LABS: Eosinophils % (manual) 17 (0-7); Lymphocytes % (manual) 8 (10.0-50.0); Monocytes % (manual) 11 (0-12)
[2025-04-20 08:46] LABS: Hypochromia Moderate; Platelet Estimate Adequate
--- NOTE | 2025-04-20 11:26 | DVHPN2 ---
Progress Note Date Seen: Apr 20, 2025 Medical Necessity Reason Pt with a Central, PICC or Fol: No Objective vital signs Vital Sign Date Time Temp Pulse Resp B/P (MAP) Pulse Ox O2 Delivery O2 Flow Rate FiO2 04/20/25 10:59 110 14 115/78 04/20/25 08:30 98.0 100 98.0 04/20/25 08:00 Nasal Cannula* 2 28 Total Intake and Output 04/19/25 04/19/25 04/20/25 15:00 23:00 07:00 Intake Total 100 ml 250 ml 300 ml Output Total 700 ml Balance 100 ml -450 ml 300 ml medications Current Medications Medications Dose Ordered Sig/Moises Route Start Time Stop Time Status Last Admin Dose Admin Ondansetron HCl 4 mg Q4HPRN PRN IV 04/11/25 07:45 04/11/25 17:00 4 MG Ondansetron HCl 4 mg Q4HP PRN IV 04/11/25 11:45 Cancel Acetaminophen 650 mg Q6HP PRN PO 04/11/25 11:45 Morphine Sulfate 2 mg Q4HPRN PRN IV 04/11/25 11:45 UNV Nitroglycerin 0.4 mg Q5MINP PRN SL 04/11/25 11:45 Morphine Sulfate 2 mg Q30M PRN IV 04/11/25 11:45 UNV Morphine Sulfate 2 mg Q4HPRN PRN IV 04/11/25 12:00 04/20/25 10:59 2 MG Morphine Sulfate 2 mg Q30M PRN IV 04/11/25 12:00 Lorazepam 1 mg Q6HP PRN IM 04/11/25 12:00 Metoprolol Tartrate 12.5 mg BID PO 04/11/25 12:04 04/20/25 10:28 12.5 MG Piperacillin Sod/ Tazobactam Sod 100 ml @ 25 mls/hr Q6HR IV 04/12/25 12:00 04/20/25 05:39 25 MLS/HR Doxycycline Monohydrate 100 mg Q12HR PO 04/12/25 22:00 04/20/25 10:29 100 MG Enoxaparin Sodium 40 mg DAILY SC 04/17/25 10:00 04/20/25 10:28 40 MG Enteral Nutritional Formula 240 ml BIDBL PO 04/18/25 08:00 04/20/25 08:00 240 ML Acetaminophen/ Hydrocodone Bitart 1 tab Q4HP PRN PO 04/19/25 15:45 04/20/25 08:49 1 TAB laboratory and microbiology Laboratory Tests 04/20/25 06:18 Test 04/20/25 06:18 Range/Units Serum Glucose 99 74-106 mg/dL Problem List/Assessment/Plan Problem List/Assessment/Plan 04/13/25 I have discussed the fact that 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 WILL ADVANCE DIET, MUST AMBULATE. 04/19/25 NO NEW COMPLAINTS, CHESY NON TENDER, CHEST TUBE CONTINUES TO DRAIN BLOODY FRLUID, CONNECTED CHEST TUBE TO A HEIMLICH VALVE TO FACILITATE TRANSFER AND AMBULATION., EXPLAINED TO PATIENT. 04/20/25 path report received pleural tumor consistent with metastatic renal cell cancer. patient needs oncology consultation and treatment, from surgical point of view he is stable for transfer, with chest tube in place Plan discussed with: Patient, Other Dietary Evaluation Review Comments: 1. If Clear liquid diet supplement with Ensure Clear BID 2. If diet adanced, supplement with Ensure high protein BID Expected Outcomes/Goals: Gradual wt gain, HIEU MORELAND MD Apr 20, 2025 11:26
[2025-04-20 13:43] LABS: Base Excess 3.5 mmol/L (-2.0-3.0)
--- NOTE | 2025-04-20 16:38 | DVHPN2 ---
Subjective in bed resting Reviewed: H&P, Labs Changes from previous H/P or p: No Changes Objective Vitals Vital Signs Date Time Temp Pulse Resp B/P (MAP) Pulse Ox O2 Delivery O2 Flow Rate FiO2 04/20/25 11:29 102 16 121/71 04/20/25 08:30 98.0 100 98.0 04/20/25 08:00 Nasal Cannula* 2 28 Intake/Output Intake and Output 04/20/25 07:00 Intake Total 650 ml Output Total 700 ml Balance -50 ml Intake Oral 450 ml IV Total 200 ml Output Urine Total 700 ml # Voids 2 General Appearance: Alert Lungs: Clear to auscultation Cardiovascular: Regular rate, Normal S1, Normal S2 Medications Current Medications Medications Dose Ordered Sig/Moises Route Start Time Stop Time Status Last Admin Dose Admin Ondansetron HCl 4 mg Q4HPRN PRN IV 04/11/25 07:45 04/11/25 17:00 4 MG Ondansetron HCl 4 mg Q4HP PRN IV 04/11/25 11:45 Cancel Acetaminophen 650 mg Q6HP PRN PO 04/11/25 11:45 Morphine Sulfate 2 mg Q4HPRN PRN IV 04/11/25 11:45 UNV Nitroglycerin 0.4 mg Q5MINP PRN SL 04/11/25 11:45 Morphine Sulfate 2 mg Q30M PRN IV 04/11/25 11:45 UNV Morphine Sulfate 2 mg Q4HPRN PRN IV 04/11/25 12:00 04/20/25 10:59 2 MG Morphine Sulfate 2 mg Q30M PRN IV 04/11/25 12:00 Lorazepam 1 mg Q6HP PRN IM 04/11/25 12:00 Metoprolol Tartrate 12.5 mg BID PO 04/11/25 12:04 04/20/25 10:28 12.5 MG Piperacillin Sod/ Tazobactam Sod 100 ml @ 25 mls/hr Q6HR IV 04/12/25 12:00 04/20/25 12:44 25 MLS/HR Doxycycline Monohydrate 100 mg Q12HR PO 04/12/25 22:00 04/20/25 10:29 100 MG Enoxaparin Sodium 40 mg DAILY SC 04/17/25 10:00 04/20/25 10:28 40 MG Enteral Nutritional Formula 240 ml BIDBL PO 04/18/25 08:00 04/20/25 12:00 240 ML Acetaminophen/ Hydrocodone Bitart 1 tab Q4HP PRN PO 04/19/25 15:45 04/20/25 12:54 1 TAB Laboratory Results Laboratory Tests 04/20/25 06:18 Chemistry Test 04/20/25 06:18 Calcium Level 10.2 mg/dL (8.7-10.4) Urinalysis Test 04/12/25 05:35 Urine Color Yellow (Yellow) Urine Clarity Clear (Clear) Urine pH 5.0 (5.0-9.0) Urine Specific [place] 1.025 (1.001-1.035) Urine Protein Trace (Negative) H Urine Ketones Negative (Negative) Urine Blood 1+ /uL (Negative) H Urine Nitrite Negative (Negative) Urine Bilirubin Negative (Negative) Urine Urobilinogen 2 mg/dL (Negative) H Urine Leukocyte Esterase Negative /uL (Negative) Urine RBC 5 /hpf (0 - 3) Urine Microscopic WBC 2 /HPF (0-3) Urine Squamous Epithelial Cells None seen /hpf (<5) Urine Calcium Oxalate Crystals Few (None Seen) Urine Bacteria None seen /hpf (None Seen) Urine Glucose Normal mg/dL (Normal) Blood Gas Results Test 04/20/25 13:37 Arterial Blood pH 7.479 (7.350-7.450) FiO2 % 28.0 Microbiology Microbiology Date/Time Source Procedure Growth Status 04/12/25 11:36 Sputum Gram Stain - Final Complete 04/12/25 11:36 Sputum Respiratory Culture - Final Complete 04/11/25 01:31 Blood Blood Culture - Final NO GROWTH AFTER 5 DAYS OF INCUBATION. 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 - Dispo: Plan to dc tomorrow with oxygen and home health, had long discussion with social scientist and patient at bedside Plan discussed with: Patient My Orders Orders - MARIE LYON MD Procedure Category Date Status Time Abg W/ Co-Ox RT 04/20/25 Logged 13:28 Obtain Consent For: ORDERS 04/20/25 Transmitted 13:29 Packedcell-Noactive BBK 04/20/25 Logged Bleeding 13:29 Type And Screen BBK 04/20/25 In Process 13:29 Obtain Consent For SNEHAL 04/20/25 In Process Anesthesia 13:29 * Commercial Lease Administrator CONS 04/20/25 Transmitted Consult 13:38 Date of Service: Apr 20, 2025 Billing Provider: MARIE LYON MD Common Visit Codes: [id number] INP/OBS CARE(HIGH) MARIE LYON MD Apr 20, 2025 16:38
[2025-04-21] VITALS (12 sets, daily range): BP systolic 109–137; BP diastolic 75–93; PULSE 64–139; RESP 14–21; TEMP 79.5–98.2; O2SAT 93–100
[2025-04-21 08:15] LABS: Hematocrit 31.8 % (41.0-53.0); Hemoglobin 9.9 g/dL (13.5-17.5); Mean Corpuscular Hemoglobin 22.9 pg (28.0-32.0); Mean Corpuscular Hgb Conc. 31.1 g/dL (32.0-36.0); Mean Corpuscular Volume 73.6 fL (80.0-100.0); Platelet Count (auto) 377 10^3/uL (140-450); Red Blood Cells 4.32 10^6/uL (4.5-5.90); Red Cell Distribution Width 18.9 % (11.8-14.3); White Blood Cell 23.8 10^3/uL (4.4-10.8)
[2025-04-21 08:16] LABS: Band Neutrophils % (manual) 0; Basophils % (manual) 0 (0.0-2.0); Blast Cells 0; Metamyelocytes % 0; Myelocytes % 0; Promyelocytes % 0; Reactive Lymphocytes 0
[2025-04-21 08:26] LABS: Anion Gap 6 (5-15); Carbon Dioxide 30 mmol/L (20-31); Chloride 100 mmol/L (98-107); Potassium 4.5 mmol/L (3.5-5.1)
[2025-04-21 08:27] LABS: Sodium 136 mmol/L (136-145)
[2025-04-21 08:32] LABS: BUN/Creatinine Ratio 14.5 (10.0-20.0); Blood Urea Nitrogen 12 mg/dL (9-23); Glucose 100 mg/dL (74-106)
[2025-04-21 11:55] LABS: Eosinophils % (manual) 13 (0-7); Lymphocytes % (manual) 8 (10.0-50.0); Monocytes % (manual) 10 (0-12)
[2025-04-21 11:56] LABS: Hypochromia Moderate; Platelet Estimate Adequate
--- NOTE | 2025-04-21 12:38 | DVHDS2 ---
Discharge Summary Date of Admission Apr 11, 2025 at 11:43 Date of Discharge: Apr 21, 2025 Labs/Diagnostic Data: Laboratory Results Test 04/21/25 08:00 04/20/25 13:37 04/19/25 05:13 04/12/25 13:16 White Blood Count 23.8 10^3/uL (4.4-10.8) Red Blood Count 4.32 10^6/uL (4.5-5.90) Hemoglobin 9.9 g/dL (13.5-17.5) Hematocrit 31.8 % (41.0-53.0) Mean Corpuscular Volume 73.6 fL (80.0-100.0) Mean Corpuscular Hemoglobin 22.9 pg (28.0-32.0) Mean Corpuscular Hemoglobin Concent 31.1 g/dL (32.0-36.0) Red Cell Distribution Width 18.9 % (11.8-14.3) Platelet Count 377 10^3/uL (140-450) Mean Platelet Volume 8.3 fL (6.9-10.8) Neutrophils (%) (Auto) % (37.0-80.0) Lymphocytes (%) (Auto) % (10.0-50.0) Monocytes (%) (Auto) % (0.0-12.0) Basophils (%) (Auto) % (0.0-2.0) Neutrophils # (Auto) 10 ^3/uL (1.6-8.6) Lymphocytes # (Auto) 10 ^3/uL (0.4-5.4) Monocytes # (Auto) 10 ^3/uL (0-1.3) Differential Total Cells Counted 100.0 (100) Neutrophils % (Manual) 69 (37.0-80.0) Band Neutrophils % (Manual) 0 Lymphocytes % (Manual) 8 (10.0-50.0) Monocytes % (Manual) 10 (0-12) Eosinophils % (Manual) 13 (0-7) Basophils % (Manual) 0 (0.0-2.0) Metamyelocytes % (manual) 0 Myelocytes % (Manual) 0 Promyelocytes % (Manual) 0 Blast Cells % (Manual) 0 Reactive Lymphocytes 0 Platelet Estimate Adequate Hypochromasia (manual) Moderate Microcytosis Moderate Sodium Level 136 mmol/L (136-145) Potassium Level 4.5 mmol/L (3.5-5.1) Chloride Level 100 mmol/L (98-107) Carbon Dioxide Level 30 mmol/L (20-31) Anion Gap 6 (5-15) Blood Urea Nitrogen 12 mg/dL (9-23) Creatinine 0.83 mg/dL (0.700-1.30) Glomerular Filtration Rate Calc 116 mL/min (>90) BUN/Creatinine Ratio 14.5 (10.0-20.0) Serum Glucose 100 mg/dL (74-106) Calcium Level 10.0 mg/dL (8.7-10.4) Blood Gas Specimen Type Arterial Blood Gas Sample Site Right radial Blood Gas Patient Temperature 37.0 Arterial Blood Date Drawn [id number] Arterial Blood pH 7.479 (7.350-7.450) Arterial Blood Partial Pressure CO2 37.5 mmHg (35.0-48.0) Arterial Blood Partial Pressure O2 90.4 mmHg (83.0-108.0) Arterial Blood HCO3 27.2 mmol/L (21.0-28.0) Arterial Blood Oxygen Saturation 96.4 % (94.0-98.0) Arterial Blood Base Excess 3.5 mmol/L (-2.0-3.0) Arterial Blood Oxyhemoglobin 95.1 % (94.0-98.0) Arterial Blood Carboxyhemoglobin 0.7 % (0.5-1.5) Arterial Blood Methemoglobin 0.6 % (0.0-1.5) Bill Test Yes Blood Gas Total Hemoglobin 8.40 g/dL (13.5-17.5) Blood Gas Modality Nasal cannula FiO2 % 28.0 Eosinophils (%) (Auto) 6.6 % (0.0-7.0) Eosinophils # (Auto) 1.4 10 ^3/uL (0-0.8) Basophils # (Auto) 0.1 10 ^3/uL (0-0.2) Nucleated Red Blood Cells 0.0 % Prothrombin Time 12.0 sec (9.3-11.8) Prothrombin Time INR 1.15 (0.9-1.15) Activated Partial Thromboplast Time 30.2 SEC (24.5-34.5) Thyroid Stimulating Hormone (TSH) 1.73 uIU/mL (0.55-4.78) Free Thyroxine (T4) Calculated 1.25 ng/dL (0.89-1.76) Test 04/12/25 05:43 04/12/25 05:35 04/11/25 02:16 04/11/25 01:27 Smudge Cells 1 /100 WBC Total Bilirubin 0.3 mg/dL (0.2-1.0) Aspartate Amino Transferase (AST) 14 U/L (13-40) Alanine Aminotransferase (ALT) < 9 U/L (7-40) Alkaline Phosphatase 162 U/L (46-116) Total Protein 6.5 g/dL (5.7-8.2) Albumin 3.2 g/dL (3.2-4.8) Urine Color Yellow (Yellow) Urine Clarity Clear (Clear) Urine pH 5.0 (5.0-9.0) Urine Specific [place] 1.025 (1.001-1.035) Urine Protein Trace (Negative) Urine Ketones Negative (Negative) Urine Blood 1+ /uL (Negative) Urine Nitrite Negative (Negative) Urine Bilirubin Negative (Negative) Urine Urobilinogen 2 mg/dL (Negative) Urine Leukocyte Esterase Negative /uL (Negative) Urine RBC 5 /hpf (0 - 3) Urine Microscopic WBC 2 /HPF (0-3) Urine Squamous Epithelial Cells None seen /hpf (<5) Urine Calcium Oxalate Crystals Few (None Seen) Urine Bacteria None seen /hpf (None Seen) Urine Glucose Normal mg/dL (Normal) Troponin I High Sensitivity < 3 ng/L (</=54) Lactic Acid Level 2.0 mmol/L (0.4-2.0) Other Laboratory Tests 04/21/25 08:00 Brief Hx & Hospital Course: 39 year old male came to ER via EMS with shortness a breath. Patient was discharged here last February 17, 2025, and was diagnosed with Left PLEF, high susp of malignancy Cannot r/o PNA and parapneumonic PLEF, 2. pericardial effusion, no tamponade physiology, 3. R renal mass, 4. Hypertension, 5.sinus tachycardia. Patient states few hours ago, started experiencing a left-sided chest pains, associated with shortness a breath, and right flank pains. Patient was given fentanyl by paramedics while EN route to the ER. Patient is saturating 96% on room air, tachycardic. During hospital stay required left chest tube placement, new diagnosis of renal cell cancer with metastasis to T spine, he also got anemic and required 2 U PRBC. Initially trying to transfer to [facility] and [facility] for oncology but was not accepted. He was discharged home with home health and will need to follow with oncology and surgery as outpatient. 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 Patient was counseled about treatment plan, medications, possible side effects, patientverbalized understanding. All questions were answered to the best of my ability. This discharge took greater then 30 minutes in planning, reviewing documentation, counseling the patient, and discussing with other team members." ASSESSMENT ASSESSMENT Assessment Date of Service: Apr 21, 2025 Billing Provider: MARIE LYON MD Common Visit Codes: [id number] DISCH DAY >30min MARIE LYON MD Apr 21, 2025 12:38
[2025-04-21] MEDS ORDERED: HYDR-4798 PO (12:39)
[2025-04-21] MEDS ORDERED: DOX100T PO (12:39)
--- NOTE | 2025-04-21 12:51 | DVHPN2 ---
Progress Note Date Seen: Apr 21, 2025 Medical Necessity Reason Pt with a Central, PICC or Fol: No Objective vital signs Vital Sign Date Time Temp Pulse Resp B/P (MAP) Pulse Ox O2 Delivery O2 Flow Rate FiO2 04/21/25 11:22 102 120/83 04/21/25 11:01 19 04/21/25 09:00 97.9 100 97.9 04/21/25 08:22 Nasal Cannula* 2 28 Total Intake and Output 04/20/25 04/20/25 04/21/25 15:00 23:00 07:00 Intake Total 100 ml 1180 ml 800 ml Output Total 400 ml 775 ml Balance 100 ml 780 ml 25 ml medications Current Medications Medications Dose Ordered Sig/Moises Route Start Time Stop Time Status Last Admin Dose Admin Ondansetron HCl 4 mg Q4HPRN PRN IV 04/11/25 07:45 04/11/25 17:00 4 MG Ondansetron HCl 4 mg Q4HP PRN IV 04/11/25 11:45 Cancel Acetaminophen 650 mg Q6HP PRN PO 04/11/25 11:45 Morphine Sulfate 2 mg Q4HPRN PRN IV 04/11/25 11:45 UNV Nitroglycerin 0.4 mg Q5MINP PRN SL 04/11/25 11:45 Morphine Sulfate 2 mg Q30M PRN IV 04/11/25 11:45 UNV Morphine Sulfate 2 mg Q4HPRN PRN IV 04/11/25 12:00 04/21/25 10:31 2 MG Morphine Sulfate 2 mg Q30M PRN IV 04/11/25 12:00 Lorazepam 1 mg Q6HP PRN IM 04/11/25 12:00 Metoprolol Tartrate 12.5 mg BID PO 04/11/25 12:04 04/21/25 10:22 12.5 MG Piperacillin Sod/ Tazobactam Sod 100 ml @ 25 mls/hr Q6HR IV 04/12/25 12:00 04/21/25 12:26 25 MLS/HR Doxycycline Monohydrate 100 mg Q12HR PO 04/12/25 22:00 04/21/25 10:21 100 MG Enoxaparin Sodium 40 mg DAILY SC 04/17/25 10:00 04/21/25 10:28 40 MG Enteral Nutritional Formula 240 ml BIDBL PO 04/18/25 08:00 04/21/25 12:27 240 ML Acetaminophen/ Hydrocodone Bitart 1 tab Q4HP PRN PO 04/19/25 15:45 04/21/25 12:26 1 TAB laboratory and microbiology Laboratory Tests 04/21/25 08:00 Test 04/21/25 08:00 Range/Units Serum Glucose 100 74-106 mg/dL Problem List/Assessment/Plan Problem List/Assessment/Plan 04/13/25 I have discussed the fact that 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 WILL ADVANCE DIET, MUST AMBULATE. 04/19/25 NO NEW COMPLAINTS, CHESY NON TENDER, CHEST TUBE CONTINUES TO DRAIN BLOODY FRLUID, CONNECTED CHEST TUBE TO A HEIMLICH VALVE TO FACILITATE TRANSFER AND AMBULATION., EXPLAINED TO PATIENT. 04/20/25 path report received pleural tumor consistent with metastatic renal cell cancer. patient needs oncology consultation and treatment, from surgical point of view he is stable for transfer, with chest tube in place 04/21/25 i HAVE DISCUSSED WITH PATIENT THAT HE HAS CANCER IN THE LEFT CHEST CAVITY WHICH ORIGINATED IN THE RIGHT KIDNEY AND THAT HIS CANCER IS NOT SURGICALLY CURABLE AND THAT HE WILL NEED CHEMO AND RADIATION THERAPY. Plan discussed with: Patient Dietary Evaluation Review Comments: 1. If Clear liquid diet supplement with Ensure Clear BID 2. If diet adanced, supplement with Ensure high protein BID Expected Outcomes/Goals: Gradual wt gain, HIEU MORELAND MD Apr 21, 2025 12:51
[2025-04-21] MEDS ORDERED: HYDROcodone-ACET 10/325MG TAB PO PRN (14:56)
--- NOTE | 2025-04-21 16:55 | DVHPN2 ---
Subjective in bed resting He was getting discharged and found to have hematuria Reviewed: H&P, Labs Changes from previous H/P or p: No Changes Objective Vitals Vital Signs Date Time Temp Pulse Resp B/P (MAP) Pulse Ox O2 Delivery O2 Flow Rate FiO2 04/21/25 16:39 98.0 116 21 112/78 (89) 94 98.0 04/21/25 08:22 Nasal Cannula* 2 28 Intake/Output Intake and Output 04/21/25 07:00 Intake Total 2080 ml Output Total 1175 ml Balance 905 ml Intake Oral 1180 ml IV Total 300 ml Blood Product 300 ml Other 300 ml Output Urine Total 1175 ml Stool Total 0 ml General Appearance: Alert Lungs: Clear to auscultation Cardiovascular: Regular rate, Normal S1, Normal S2 Medications Current Medications Medications Dose Ordered Sig/Moises Route Start Time Stop Time Status Last Admin Dose Admin Ondansetron HCl 4 mg Q4HPRN PRN IV 04/11/25 07:45 04/11/25 17:00 4 MG Ondansetron HCl 4 mg Q4HP PRN IV 04/11/25 11:45 Cancel Acetaminophen 650 mg Q6HP PRN PO 04/11/25 11:45 Morphine Sulfate 2 mg Q4HPRN PRN IV 04/11/25 11:45 UNV Nitroglycerin 0.4 mg Q5MINP PRN SL 04/11/25 11:45 Morphine Sulfate 2 mg Q30M PRN IV 04/11/25 11:45 UNV Lorazepam 1 mg Q6HP PRN IM 04/11/25 12:00 Metoprolol Tartrate 12.5 mg BID PO 04/11/25 12:04 04/21/25 10:22 12.5 MG Piperacillin Sod/ Tazobactam Sod 100 ml @ 25 mls/hr Q6HR IV 04/12/25 12:00 04/21/25 12:26 25 MLS/HR Doxycycline Monohydrate 100 mg Q12HR PO 04/12/25 22:00 04/21/25 10:21 100 MG Enoxaparin Sodium 40 mg DAILY SC 04/17/25 10:00 04/21/25 10:28 40 MG Enteral Nutritional Formula 240 ml BIDBL PO 04/18/25 08:00 04/21/25 12:27 240 ML Acetaminophen/ Hydrocodone Bitart 1 tab Q4HP PRN PO 04/19/25 15:45 04/21/25 12:26 1 TAB Laboratory Results Laboratory Tests 04/21/25 08:00 Chemistry Test 04/21/25 08:00 Calcium Level 10.0 mg/dL (8.7-10.4) Urinalysis Test 04/12/25 05:35 Urine Color Yellow (Yellow) Urine Clarity Clear (Clear) Urine pH 5.0 (5.0-9.0) Urine Specific [place] 1.025 (1.001-1.035) Urine Protein Trace (Negative) H Urine Ketones Negative (Negative) Urine Blood 1+ /uL (Negative) H Urine Nitrite Negative (Negative) Urine Bilirubin Negative (Negative) Urine Urobilinogen 2 mg/dL (Negative) H Urine Leukocyte Esterase Negative /uL (Negative) Urine RBC 5 /hpf (0 - 3) Urine Microscopic WBC 2 /HPF (0-3) Urine Squamous Epithelial Cells None seen /hpf (<5) Urine Calcium Oxalate Crystals Few (None Seen) Urine Bacteria None seen /hpf (None Seen) Urine Glucose Normal mg/dL (Normal) Microbiology Microbiology Date/Time Source Procedure Growth Status 04/12/25 11:36 Sputum Gram Stain - Final Complete 04/12/25 11:36 Sputum Respiratory Culture - Final Complete 04/11/25 01:31 Blood Blood Culture - Final NO GROWTH AFTER 5 DAYS OF INCUBATION. Complete Assessment/Plan Assessment/Plan # Acute Hypoxic Resp Failure due to pleural effusion - CT s/p thoracotomy and CT placement 04/[address] to suction [place] lock in place and CT now off suction per surgery discussion wiill go home with it and needs to follow with them as outpatient #Acute blood loss anemia Hb stable # Possible Paraneumonic Effusion - Abx # Pericardial Effusion - Minimal # Right Renal Cell Carcinoma with extensive Mets - Explained diagnosis to the patient, needs outpatient Oncology. #Hematuria Consult urology - Dispo:He was being discharged today and developed hematuria while he was being discharged Plan discussed with: Patient My Orders Orders - MARIE LYON MD Procedure Category Date Status Time Communication Order ORDERS 04/21/25 Transmitted 11:34 * Hardware Trainer CONS 04/21/25 Transmitted Consult Discharge DISCHARGE 04/21/25 Transmitted 12:40 Urinalysis LAB 04/21/25 Logged 16:39 Urine Bacterial MARU 04/21/25 Uncollected Culture 16:39 Date of Service: Apr 21, 2025 Billing Provider: MARIE LYON MD Common Visit Codes: [id number] INP/OBS CARE(HIGH) MARIE LYON MD Apr 21, 2025 16:55
[2025-04-21] MEDS ORDERED: MORPHINE SULFATE INJ 2 MG/ml SYRG IV PRN (17:00)
[2025-04-21 17:27] LABS: Urine Bacteria None Seen /hpf (None Seen); Urine Blood 3+ /uL (Negative); Urine Clarity Ex.Turbid (Clear); Urine Color Light-Red (Yellow); Urine Protein, UAD 1+ (Negative); Urine Specific Gravity 1.018 (1.001-1.035); Urine Squamous Epithelial Cell None Seen /hpf (<5); Urine Urobilinogen Normal (Negative); Urine WBC 533 /HPF (0-3); Urine WBC Clumps PRESENT /hpf (None Seen)
[2025-04-21] MEDS: MORPHINE SULFATE 4 MG/ML SYR/VIAL IV PRN (18:11)
[2025-04-22] VITALS (8 sets, daily range): BP systolic 117–127; BP diastolic 81–88; PULSE 95–127; RESP 16–20; TEMP 97.5–99.3; O2SAT 95–98
[2025-04-22 06:32] LABS: Basophils # (auto) 0.1 10 ^3/uL (0-0.2); Basophils % (auto) 0.5 % (0.0-2.0); Eosinophils # (auto) 1.3 10 ^3/uL (0-0.8); Neutrophils # (auto) 18.8 10 ^3/uL (1.6-8.6); Platelet Count (auto) 408 10^3/uL (140-450)
[2025-04-22 06:36] LABS: Eosinophils % (auto) 5.4 % (0.0-7.0); Hematocrit 32.8 % (41.0-53.0); Hemoglobin 10.5 g/dL (13.5-17.5); Lymphocytes # (auto) 2.4 10 ^3/uL (0.4-5.4); Lymphocytes % (auto) 9.7 % (10.0-50.0); Mean Corpuscular Hemoglobin 23.4 pg (28.0-32.0); Mean Corpuscular Hgb Conc. 31.9 g/dL (32.0-36.0); Mean Corpuscular Volume 73.3 fL (80.0-100.0); Monocytes # (auto) 1.9 10 ^3/uL (0-1.3); Monocytes % (auto) 7.8 % (0.0-12.0); Neutrophils % (auto) 76.6 % (37.0-80.0); Nucleated Red Blood Cells % 0.1 %; Red Blood Cells 4.47 10^6/uL (4.5-5.90); Red Cell Distribution Width 19.3 % (11.8-14.3); White Blood Cell 24.5 10^3/uL (4.4-10.8)
[2025-04-22 06:49] LABS: Anion Gap 9 (5-15); Calcium 9.8 mg/dL (8.7-10.4); Carbon Dioxide 27 mmol/L (20-31); Potassium 4.5 mmol/L (3.5-5.1)
[2025-04-22 06:53] LABS: Chloride 98 mmol/L (98-107); Sodium 134 mmol/L (136-145)
[2025-04-22 06:54] LABS: Glucose 96 mg/dL (74-106)
[2025-04-22 06:55] LABS: BUN/Creatinine Ratio 14.9 (10.0-20.0); Blood Urea Nitrogen 13 mg/dL (9-23)
--- NOTE | 2025-04-22 16:48 | DVHINCON2 ---
Date of service: Apr 22, 2025 Referring Physician hospitalist Reason for Consultation left renal mass History of Present Illness History Source: Patient, RN Notes, MD Notes, Old Records Exam Limitations: No limitations HPI 39 yo male admitted for chest pain. was seen here February for same. Was found to have left renal mass with mets. Was told he would need nephrectomy. He had not followed up outpt with any urology group. He will be going to [facility] for further care. He is status post chest tube and biopsy. Urology consulted for hematuria which has resolved. He is comfortable and in good spirits. Home Meds Active Scripts Hydrocodone-Acetaminophen (Hydrocodone Bitartrate/AC 10-325 mg) 1 Tab Tab, 1 TAB PO Q4HP PRN for 7 Days, #35 TAB Prov:MARIE LYON MD 04/21/25 Doxycycline Monohydrate (Doxycycline Monohydrate) 100 Mg Tab, 100 MG PO Q12HR for 7 Days, #14 TAB Prov:MARIE LYON MD 04/21/25 Clonazepam (Clonazepam) 0.5 Mg Tab, 0.5 MG PO BIDPRN PRN for 5 Days, #10 TAB Prov:NICOLAS MATHEWS MD 02/17/25 Ibuprofen Micronized (Ibuprofen) 600 Mg Tab, 600 MG PO TID PRN for 10 Days, #30 TAB Prov:NICOLAS MATHEWS MD 02/17/25 Past Medical History Hemotology/Oncology: Cancer Patient Family History: Hypertension G8 MOTHER, Onset:40's - 50 Review of Systems Constitutional: No symptom reported Ears, Nose, & Throat: No symptom reported Eyes: No symptom reported Pulmonary/Respiratory: No symptom reported Cardiovascular: No symptom reported Gastrointestinal: No symptom reported Genitourinary: No symptom reported Musculoskeletal: No symptom reported Skin: No symptom reported Psychiatric: No symptom reported Endocrine: No symptom reported Hemotologic/Lymphatic: No symptom reported H&P Exam Vital Signs Vital Signs Date Time Temp Pulse Resp B/P (MAP) Pulse Ox O2 Delivery O2 Flow Rate FiO2 04/22/25 16:20 120 19 122/83 04/22/25 09:00 98.8 97 98.8 04/22/25 08:00 Room Air* 0 21 General Appeara: Well developed, Well nourished, Normal Appearance, Thin Neuro/Mental St: Alert, Oriented Appearance: Appropriate appearance, Appropriate insight Eye contact/ Speech: Cooperative, Good eye contact, Normal speech Skin Exam: Normal inspection, Normal color, Warm/dry Labs/Xrays [address] [address] Ph: [phone] DIAGNOSTIC IMAGING Diagnostic Imaging Report : [id number] Signed PATIENT: DAYAMI BARNES ACCT: [id number] UNIT: [id number] : 1985 LOC: TELE-CENTR ROOM / BED: [facility] / B AGE / SEX: 39 / M ADM STATUS: ADM IN SERVICE 1136 ORDERING PHYSICIAN: HAFSA REVELES MD PROCEDURE(s): CAPIV - CT CHEST/AB/PL W CON- IV ONLY REASON: Malignancy ORDER NUMBER(s): [id number], ACCESSION NUMBER(s): [id number] Indication: Malignancy Technique: CT axial images of the chest, abdomen and pelvis are obtained with intravenous contrast. Coronal and sagittal reformats were obtained. Comparison: CT CT AB PEL WITH IV CON ONLY on DOS: 02/11/25 FINDINGS: Trachea is patent. There are multiple right pulmonary nodules including right upper lobe nodules measuring 10 mm, 8 mm, 5 mm, 6 mm, right lower lobe nodules measuring 7 mm, 4 mm. There is extensive left lung pulmonary airspace consolidation. There is left chest pigtail drainage catheter within the mid to left upper pleural cavity. Multiloculated left pleural effusion with extensive peripheral enhancement/ nodularity, septated appearance consistent with a malignant effusion There is extensive heterogeneous appearance of the left upper and lower lobes with possible left upper lobe necrotic mass measuring 6.7 x 5.4 cm. Mediastinal shift to the right. Subcarinal lymph node measuring 2.3 cm. Left hilar/ suprahilar lymph node measuring 2.3 cm. There is debris within the left lower lobe bronchus. Adrenal glands unremarkable. Spleen and pancreas unremarkable. Large right renal mid to upper pole mass with heterogeneous enhancement measuring 8.2 x 8.8 x 7.1 cm which extends into the right renal pelvis and proximal right ureter. No enhancing hepatic lesion. No CT evidence for cholelithiasis. Left kidney demonstrates no hydronephrosis. Stomach moderately distended. Small bowel loops are normal in caliber. Large volume stool throughout the colon. No secondary signs for appendicitis. Abdominal aorta normal in caliber. Bladder partially distended. Small amount of free pelvic fluid. No inguinal lymphadenopathy. Gynm-al-culnrosj bilateral sacroiliac degenerative joint disease. T8 vertebral body destructive metastatic lesion measuring 2.8 x 2.2 cm with pathological fracture, 20% loss height. There is associated extension posteriorly with compression upon the thecal sac and neural foramina, [id number]-right. T9 metastatic lesion measuring 1.8 cm extending through the posterior cortex. There is compression upon the thecal sac. Soft tissue edema / anasarca. IMPRESSION: 1. Large right renal mass extending into the right renal pelvis and proximal ureter measuring 8.8 cm consistent with patient's known history of renal malignancy 2. Large complex left pleural effusion with necrotic components and pleural enhancement/ nodularity consistent with metastatic disease. 3. Extensive left lung Airspace disease / consolidation with heterogeneous appearance including likely left upper lobe pulmonary metastatic lesion /necrotic neoplasm measuring 6.7 cm. There is also heterogeneous enhancement of the left lower lobe which could represent tumoral infiltration. PET scan can be obtained to further evaluate. 4. Multiple right pulmonary nodules consistent with metastatic disease. 5. Destructive lesions at T8 and T9 as described above which encroachment upon thecal sac resulting in spinal canal and also likely neural foraminal stenosis. Recommend MRI thoracic spine with and without contrast. There is also pathological fracture of the T8 vertebral body with 20% loss height. 6. Metastatic mediastinal/ hilar lymphadenopathy. 7. Large volume stool within the colon. 8. Small amount of free pelvic fluid. ATED BY: JESSICA FERNANDEZ MD DICTATED DATE/TIME: 04/12/25 1300 SIGNED BY: JESSICA FERNANDEZ MD SIGNED DATE/TIME: 04/12/25 1300 CC: Labs Test 04/22/25 05:21 04/21/25 17:11 04/21/25 08:00 04/20/25 13:37 Range/Units White Blood Count 24.5 H 4.4-10.8 10^3/uL Red Blood Count 4.47 L 4.5-5.90 10^6/uL Hemoglobin 10.5 L 13.5-17.5 g/dL Hematocrit 32.8 L 41.0-53.0 % Mean Corpuscular Volume 73.3 L 80.0-100.0 fL Mean Corpuscular Hemoglobin 23.4 L 28.0-32.0 pg Mean Corpuscular Hemoglobin Concent 31.9 L 32.0-36.0 g/dL Red Cell Distribution Width 19.3 H 11.8-14.3 % Platelet Count 408 140-450 10^3/uL Mean Platelet Volume 8.7 6.9-10.8 fL Neutrophils (%) (Auto) 76.6 37.0-80.0 % Lymphocytes (%) (Auto) 9.7 L 10.0-50.0 % Monocytes (%) (Auto) 7.8 0.0-12.0 % Eosinophils (%) (Auto) 5.4 0.0-7.0 % Basophils (%) (Auto) 0.5 0.0-2.0 % Neutrophils # (Auto) 18.8 H 1.6-8.6 10 ^3/uL Lymphocytes # (Auto) 2.4 0.4-5.4 10 ^3/uL Monocytes # (Auto) 1.9 H 0-1.3 10 ^3/uL Eosinophils # (Auto) 1.3 H 0-0.8 10 ^3/uL Basophils # (Auto) 0.1 0-0.2 10 ^3/uL Nucleated Red Blood Cells 0.1 % Sodium Level 134 L 136-145 mmol/L Potassium Level 4.5 3.5-5.1 mmol/L Chloride Level 98 98-107 mmol/L Carbon Dioxide Level 27 20-31 mmol/L Anion Gap 9 5-15 Blood Urea Nitrogen 13 9-23 mg/dL Creatinine 0.87 0.700-1.30 mg/dL Glomerular Filtration Rate Calc 114 >90 mL/min BUN/Creatinine Ratio 14.9 10.0-20.0 Serum Glucose 96 74-106 mg/dL Calcium Level 9.8 8.7-10.4 mg/dL Urine Color Light-red Yellow Urine Clarity Ex.turbid Clear Urine pH 6.0 5.0-9.0 Urine Specific [place] 1.018 1.001-1.035 Urine Protein 1+ H Negative Urine Ketones Negative Negative Urine Blood 3+ H Negative /uL Urine Nitrite Negative Negative Urine Bilirubin Negative Negative Urine Urobilinogen Normal Negative mg/dL Urine Leukocyte Esterase 1+ Negative /uL Urine RBC 5534 0 - 3 /hpf Urine WBC Clumps Present None Seen /hpf Urine Microscopic WBC 533 H 0-3 /HPF Urine Squamous Epithelial Cells None seen <5 /hpf Urine Bacteria None seen None Seen /hpf Urine Glucose Normal Normal mg/dL Differential Total Cells Counted 100.0 100 Neutrophils % (Manual) 69 37.0-80.0 Band Neutrophils % (Manual) 0 Lymphocytes % (Manual) 8 L 10.0-50.0 Monocytes % (Manual) 10 0-12 Eosinophils % (Manual) 13 H 0-7 Basophils % (Manual) 0 0.0-2.0 Metamyelocytes % (manual) 0 Myelocytes % (Manual) 0 Promyelocytes % (Manual) 0 Blast Cells % (Manual) 0 Reactive Lymphocytes 0 Platelet Estimate Adequate Hypochromasia (manual) Moderate Microcytosis Moderate Blood Gas Specimen Type Arterial Blood Gas Sample Site Right radial Blood Gas Patient Temperature 37.0 Arterial Blood Date Drawn [id number] Arterial Blood pH 7.479 H 7.350-7.450 Arterial Blood Partial Pressure CO2 37.5 35.0-48.0 mmHg Arterial Blood Partial Pressure O2 90.4 83.0-108.0 mmHg Arterial Blood HCO3 27.2 21.0-28.0 mmol/L Arterial Blood Oxygen Saturation 96.4 94.0-98.0 % Arterial Blood Base Excess 3.5 H -2.0-3.0 mmol/L Arterial Blood Oxyhemoglobin 95.1 94.0-98.0 % Arterial Blood Carboxyhemoglobin 0.7 0.5-1.5 % Arterial Blood Methemoglobin 0.6 0.0-1.5 % Bill Test Yes Blood Gas Total Hemoglobin 8.40 L 13.5-17.5 g/dL Blood Gas Modality Nasal cannula FiO2 % 28.0 Test 04/12/25 13:16 04/12/25 05:43 04/12/25 05:35 04/11/25 02:16 Range/Units Prothrombin Time 12.0 H 9.3-11.8 sec Prothrombin Time INR 1.15 0.9-1.15 Activated Partial Thromboplast Time 30.2 24.5-34.5 SEC Thyroid Stimulating Hormone (TSH) 1.73 0.55-4.78 uIU/mL Free Thyroxine (T4) Calculated 1.25 0.89-1.76 ng/dL Smudge Cells 1 /100 WBC Total Bilirubin 0.3 0.2-1.0 mg/dL Aspartate Amino Transferase (AST) 14 13-40 U/L Alanine Aminotransferase (ALT) < 9 7-40 U/L Alkaline Phosphatase 162 H 46-116 U/L Total Protein 6.5 5.7-8.2 g/dL Albumin 3.2 3.2-4.8 g/dL Urine Calcium Oxalate Crystals Few None Seen Troponin I High Sensitivity < 3 L </=54 ng/L Test 04/11/25 01:27 Range/Units Lactic Acid Level 2.0 0.4-2.0 mmol/L Microbiology Date/Time Source Procedure Growth Status 04/21/25 17:45 Voided Urine Urine Culture - Preliminary Resulted 04/12/25 11:36 Sputum Gram Stain - Final Complete 04/12/25 11:36 Sputum Respiratory Culture - Final Complete 04/11/25 01:31 Blood Blood Culture - Final NO GROWTH AFTER 5 DAYS OF INCUBATION. Complete Assessment/Plan Problem List: (1) Hematuria (2) Renal malignant neoplasm Plan left nephrectomy - pt will establish care with [facility] signing off Plan discussed with: Patient, Other SEVEN KATE NP Apr 22, 2025 16:48
--- NOTE | 2025-04-22 17:55 | DVHPN2 ---
Subjective having some hematuria still Reviewed: H&P, Labs Changes from previous H/P or p: No Changes Objective Vitals Vital Signs Date Time Temp Pulse Resp B/P (MAP) Pulse Ox O2 Delivery O2 Flow Rate FiO2 04/22/25 16:20 120 19 122/83 04/22/25 13:00 99.0 98 99.0 04/22/25 08:00 Room Air* 0 21 Intake/Output Intake and Output 04/22/25 07:00 Intake Total 1800 ml Output Total 1320 ml Balance 480 ml Intake Oral 1150 ml IV Total 300 ml Blood Product 300 ml Other 50 ml Output Urine Total 1000 ml Chest Tube Drainage Total 320 ml General Appearance: Alert Lungs: Clear to auscultation Cardiovascular: Regular rate, Normal S1, Normal S2 Medications Current Medications Medications Dose Ordered Sig/Moises Route Start Time Stop Time Status Last Admin Dose Admin Ondansetron HCl 4 mg Q4HPRN PRN IV 04/11/25 07:45 04/11/25 17:00 4 MG Ondansetron HCl 4 mg Q4HP PRN IV 04/11/25 11:45 Cancel Acetaminophen 650 mg Q6HP PRN PO 04/11/25 11:45 Morphine Sulfate 2 mg Q4HPRN PRN IV 04/11/25 11:45 UNV Nitroglycerin 0.4 mg Q5MINP PRN SL 04/11/25 11:45 Morphine Sulfate 2 mg Q30M PRN IV 04/11/25 11:45 UNV Lorazepam 1 mg Q6HP PRN IM 04/11/25 12:00 Metoprolol Tartrate 12.5 mg BID PO 04/11/25 12:04 04/22/25 09:30 12.5 MG Piperacillin Sod/ Tazobactam Sod 100 ml @ 25 mls/hr Q6HR IV 04/12/25 12:00 04/22/25 11:08 25 MLS/HR Doxycycline Monohydrate 100 mg Q12HR PO 04/12/25 22:00 04/22/25 09:30 100 MG Enteral Nutritional Formula 240 ml BIDBL PO 04/18/25 08:00 04/22/25 12:00 240 ML Acetaminophen/ Hydrocodone Bitart 1 tab Q4HP PRN PO 04/19/25 15:45 04/22/25 03:12 1 TAB Morphine Sulfate 2 mg Q4HPRN PRN IV 04/21/25 18:00 04/22/25 15:49 2 MG Laboratory Results Laboratory Tests 04/22/25 05:21 Chemistry Test 04/22/25 05:21 Calcium Level 9.8 mg/dL (8.7-10.4) Urinalysis Test 04/12/25 05:35 04/21/25 17:11 Urine Calcium Oxalate Crystals Few (None Seen) Urine Color Light-red (Yellow) Urine Clarity Ex.turbid (Clear) Urine pH 6.0 (5.0-9.0) Urine Specific [place] 1.018 (1.001-1.035) Urine Protein 1+ (Negative) H Urine Ketones Negative (Negative) Urine Blood 3+ /uL (Negative) H Urine Nitrite Negative (Negative) Urine Bilirubin Negative (Negative) Urine Urobilinogen Normal mg/dL (Negative) Urine Leukocyte Esterase 1+ /uL (Negative) Urine RBC 5534 /hpf (0 - 3) Urine WBC Clumps Present /hpf (None Seen) Urine Microscopic WBC 533 /HPF (0-3) H Urine Squamous Epithelial Cells None seen /hpf (<5) Urine Bacteria None seen /hpf (None Seen) Urine Glucose Normal mg/dL (Normal) Microbiology Microbiology Date/Time Source Procedure Growth Status 04/21/25 17:45 Voided Urine Urine Culture - Preliminary Resulted 04/12/25 11:36 Sputum Gram Stain - Final Complete 04/12/25 11:36 Sputum Respiratory Culture - Final Complete 04/11/25 01:31 Blood Blood Culture - Final NO GROWTH AFTER 5 DAYS OF INCUBATION. Complete Assessment/Plan Assessment/Plan # Acute Hypoxic Resp Failure due to pleural effusion - CT s/p thoracotomy and CT placement 04/[address] to suction [place] lock in place and CT now off suction per surgery discussion wiill go home with it and needs to follow with them as outpatient #Acute blood loss anemia Hb stable # Possible Paraneumonic Effusion - Abx # Pericardial Effusion - Minimal # Right Renal Cell Carcinoma with extensive Mets - Explained diagnosis to the patient, needs outpatient Oncology. #Hematuria Consult urology UA with some blood pending urine cx - Dispo:pending hematuria workup before discharge Plan discussed with: Patient My Orders Orders - MARIE LYON MD Procedure Category Date Status Time Electrocardigram EKG 04/22/25 Logged 15:14 Date of Service: Apr 22, 2025 Billing Provider: MARIE LYON MD Common Visit Codes: [id number] INP/OBS CARE(HIGH) MARIE LYON MD Apr 22, 2025 17:55
[2025-04-23] VITALS (8 sets, daily range): BP systolic 107–119; BP diastolic 72–86; PULSE 109–139; RESP 17–20; TEMP 96–99.7; O2SAT 94–100
[2025-04-23 05:13] LABS: Basophils # (auto) 0.2 10 ^3/uL (0-0.2); Basophils % (auto) 0.8 % (0.0-2.0); Eosinophils # (auto) 1.7 10 ^3/uL (0-0.8); Eosinophils % (auto) 7.1 % (0.0-7.0); Hematocrit 31.3 % (41.0-53.0); Hemoglobin 9.8 g/dL (13.5-17.5); Lymphocytes # (auto) 2.6 10 ^3/uL (0.4-5.4); Mean Corpuscular Hgb Conc. 31.4 g/dL (32.0-36.0); Mean Corpuscular Volume 73.2 fL (80.0-100.0); Monocytes # (auto) 1.6 10 ^3/uL (0-1.3); Monocytes % (auto) 6.7 % (0.0-12.0); Neutrophils # (auto) 17.9 10 ^3/uL (1.6-8.6); Neutrophils % (auto) 74.4 % (37.0-80.0); Platelet Count (auto) 394 10^3/uL (140-450); Red Blood Cells 4.27 10^6/uL (4.5-5.90); Red Cell Distribution Width 19.7 % (11.8-14.3); White Blood Cell 24.1 10^3/uL (4.4-10.8)
[2025-04-23 05:21] LABS: Anion Gap 10 (5-15); Carbon Dioxide 26 mmol/L (20-31); Chloride 98 mmol/L (98-107); Potassium 4.3 mmol/L (3.5-5.1)
[2025-04-23 05:22] LABS: Calcium 9.7 mg/dL (8.7-10.4)
[2025-04-23 05:23] LABS: Sodium 134 mmol/L (136-145)
[2025-04-23 05:27] LABS: BUN/Creatinine Ratio 13.4 (10.0-20.0); Blood Urea Nitrogen 13 mg/dL (9-23); Glucose 111 mg/dL (74-106)
--- NOTE | 2025-04-23 07:24 | ECG ---
[facility] Test Date: 2025-04-21 Test Time: 21:44:29 Pat Name: DAYAMI BARNES Department: Respiratoy Room: 0214T B Gender: M Rivet Sorter: JOLYNN : 1985 Requested By: MARIE LYON Order Number: [id number] Reading MD: Roberth Gold Measurements Intervals [place] Rate: 130 P: 47 ID: [id number] QRS: 38 QRSD: 83 T: 20 QT: 292 QTc: 430 Interpretive Statements Sinus tachycardia Baseline wander in lead(s) II,V1,V2,V3,V6 Electronically Signed On 04-23-2025 9:32:15 PDT by Roberth Gold Please click the below link to view image of tracing.
--- NOTE | 2025-04-23 19:55 | DVHPN2 ---
Subjective having some hematuria still Reviewed: H&P, Labs Changes from previous H/P or p: No Changes Objective Vitals Vital Signs Date Time Temp Pulse Resp B/P (MAP) Pulse Ox O2 Delivery O2 Flow Rate FiO2 04/23/25 17:52 123 20 105/71 04/23/25 17:04 96.8 100 96.8 04/23/25 08:00 Room Air* 0 21 Intake/Output Intake and Output 04/23/25 07:00 Intake Total 800 ml Output Total 1150 ml Balance -350 ml Intake Oral 500 ml IV Total 300 ml Output Urine Total 1150 ml General Appearance: Alert Lungs: Clear to auscultation Cardiovascular: Regular rate, Normal S1, Normal S2 Medications Current Medications Medications Dose Ordered Sig/Moises Route Start Time Stop Time Status Last Admin Dose Admin Ondansetron HCl 4 mg Q4HPRN PRN IV 04/11/25 07:45 04/11/25 17:00 4 MG Ondansetron HCl 4 mg Q4HP PRN IV 04/11/25 11:45 Cancel Acetaminophen 650 mg Q6HP PRN PO 04/11/25 11:45 Morphine Sulfate 2 mg Q4HPRN PRN IV 04/11/25 11:45 UNV Nitroglycerin 0.4 mg Q5MINP PRN SL 04/11/25 11:45 Morphine Sulfate 2 mg Q30M PRN IV 04/11/25 11:45 UNV Lorazepam 1 mg Q6HP PRN IM 04/11/25 12:00 Metoprolol Tartrate 12.5 mg BID PO 04/11/25 12:04 04/23/25 08:42 12.5 MG Doxycycline Monohydrate 100 mg Q12HR PO 04/12/25 22:00 04/23/25 08:42 100 MG Enteral Nutritional Formula 240 ml BIDBL PO 04/18/25 08:00 04/23/25 11:56 240 ML Acetaminophen/ Hydrocodone Bitart 1 tab Q4HP PRN PO 04/19/25 15:45 04/23/25 19:50 1 TAB Morphine Sulfate 2 mg Q4HPRN PRN IV 04/21/25 18:00 04/23/25 17:22 2 MG Cyclobenzaprine HCl 10 mg TID PO 04/23/25 22:00 Laboratory Results Laboratory Tests 04/23/25 04:22 Chemistry Test 04/23/25 04:22 Calcium Level 9.7 mg/dL (8.7-10.4) Urinalysis Test 04/12/25 05:35 04/21/25 17:11 Urine Calcium Oxalate Crystals Few (None Seen) Urine Color Light-red (Yellow) Urine Clarity Ex.turbid (Clear) Urine pH 6.0 (5.0-9.0) Urine Specific [place] 1.018 (1.001-1.035) Urine Protein 1+ (Negative) H Urine Ketones Negative (Negative) Urine Blood 3+ /uL (Negative) H Urine Nitrite Negative (Negative) Urine Bilirubin Negative (Negative) Urine Urobilinogen Normal mg/dL (Negative) Urine Leukocyte Esterase 1+ /uL (Negative) Urine RBC 5534 /hpf (0 - 3) Urine WBC Clumps Present /hpf (None Seen) Urine Microscopic WBC 533 /HPF (0-3) H Urine Squamous Epithelial Cells None seen /hpf (<5) Urine Bacteria None seen /hpf (None Seen) Urine Glucose Normal mg/dL (Normal) Microbiology Microbiology Date/Time Source Procedure Growth Status 04/21/25 17:45 Voided Urine Urine Culture - Preliminary Resulted 04/12/25 11:36 Sputum Gram Stain - Final Complete 04/12/25 11:36 Sputum Respiratory Culture - Final Complete 04/11/25 01:31 Blood Blood Culture - Final NO GROWTH AFTER 5 DAYS OF INCUBATION. Complete Assessment/Plan Assessment/Plan # Acute Hypoxic Resp Failure due to pleural effusion - CT s/p thoracotomy and CT placement 04/[address] to suction [place] lock in place and CT now off suction per surgery discussion wiill go home with it and needs to follow with them as outpatient #Acute blood loss anemia Hb stable # Possible Paraneumonic Effusion - Abx # Pericardial Effusion - Minimal # Right Renal Cell Carcinoma with extensive Mets - Explained diagnosis to the patient, needs outpatient Oncology. #Hematuria Consult urology UA with some blood pending urine cx - Dispo:pending hematuria workup before discharge Plan discussed with: Patient My Orders Orders - MARIE LYON MD Procedure Category Date Status Time Cyclobenzaprine PHA 04/23/25 In Process Tablet (Flexeril 22:00 Date of Service: Apr 23, 2025 Billing Provider: MARIE LYON MD Common Visit Codes: [id number] INP/OBS CARE(HIGH) MARIE LYON MD Apr 23, 2025 19:55
[2025-04-23] MEDS: CYCLOBENZAPRINE HCL 10 MG TAB PO SCH (21:32)
[2025-04-24] VITALS (8 sets, daily range): BP systolic 119–128; BP diastolic 80–89; PULSE 118–145; RESP 18–20; TEMP 94.9–98; O2SAT 92–98
[2025-04-24 05:45] LABS: Basophils # (auto) 0.1 10 ^3/uL (0-0.2); Basophils % (auto) 0.5 % (0.0-2.0); Eosinophils # (auto) 1.3 10 ^3/uL (0-0.8); Eosinophils % (auto) 5.2 % (0.0-7.0); Hematocrit 31.2 % (41.0-53.0); Hemoglobin 9.9 g/dL (13.5-17.5); Lymphocytes # (auto) 2.5 10 ^3/uL (0.4-5.4); Mean Corpuscular Hemoglobin 23.2 pg (28.0-32.0); Mean Corpuscular Hgb Conc. 31.6 g/dL (32.0-36.0); Mean Corpuscular Volume 73.5 fL (80.0-100.0); Monocytes # (auto) 1.9 10 ^3/uL (0-1.3); Monocytes % (auto) 7.7 % (0.0-12.0); Neutrophils # (auto) 18.8 10 ^3/uL (1.6-8.6); Neutrophils % (auto) 76.6 % (37.0-80.0); Platelet Count (auto) 387 10^3/uL (140-450); Red Blood Cells 4.25 10^6/uL (4.5-5.90); Red Cell Distribution Width 19.8 % (11.8-14.3); White Blood Cell 24.6 10^3/uL (4.4-10.8)
[2025-04-24 05:58] LABS: Chloride 100 mmol/L (98-107); Potassium 4.4 mmol/L (3.5-5.1)
[2025-04-24 05:59] LABS: Anion Gap 9 (5-15); Calcium 10.9 mg/dL (8.7-10.4); Carbon Dioxide 26 mmol/L (20-31); Sodium 135 mmol/L (136-145)
[2025-04-24 06:04] LABS: BUN/Creatinine Ratio 15.5 (10.0-20.0); Blood Urea Nitrogen 15 mg/dL (9-23); Glucose 95 mg/dL (74-106)
--- NOTE | 2025-04-24 15:00 | DVHPN2 ---
Subjective feeling better with no hematuria Reviewed: H&P, Labs Changes from previous H/P or p: No Changes Objective Vitals Vital Signs Date Time Temp Pulse Resp B/P (MAP) Pulse Ox O2 Delivery O2 Flow Rate FiO2 04/24/25 13:07 98.0 127 20 122/84 (97) 94 98.0 04/24/25 08:00 Room Air* 0 21 Intake/Output Intake and Output 04/24/25 07:00 Intake Total 1150 ml Output Total 725 ml Balance 425 ml Intake Oral 950 ml IV Total 200 ml Output Urine Total 500 ml Chest Tube Drainage Total 225 ml General Appearance: Alert Lungs: Clear to auscultation Cardiovascular: Regular rate, Normal S1, Normal S2 Medications Current Medications Medications Dose Ordered Sig/Moises Route Start Time Stop Time Status Last Admin Dose Admin Ondansetron HCl 4 mg Q4HPRN PRN IV 04/11/25 07:45 04/11/25 17:00 4 MG Ondansetron HCl 4 mg Q4HP PRN IV 04/11/25 11:45 Cancel Acetaminophen 650 mg Q6HP PRN PO 04/11/25 11:45 Morphine Sulfate 2 mg Q4HPRN PRN IV 04/11/25 11:45 UNV Nitroglycerin 0.4 mg Q5MINP PRN SL 04/11/25 11:45 Morphine Sulfate 2 mg Q30M PRN IV 04/11/25 11:45 UNV Lorazepam 1 mg Q6HP PRN IM 04/11/25 12:00 Metoprolol Tartrate 12.5 mg BID PO 04/11/25 12:04 04/24/25 10:57 12.5 MG Enteral Nutritional Formula 240 ml BIDBL PO 04/18/25 08:00 04/24/25 12:23 240 ML Acetaminophen/ Hydrocodone Bitart 1 tab Q4HP PRN PO 04/19/25 15:45 04/24/25 13:52 1 TAB Morphine Sulfate 2 mg Q4HPRN PRN IV 04/21/25 18:00 04/24/25 10:58 2 MG Cyclobenzaprine HCl 10 mg TID PO 04/23/25 22:00 04/24/25 13:52 10 MG Laboratory Results Laboratory Tests 04/24/25 04:43 Chemistry Test 04/24/25 04:43 Calcium Level 10.9 mg/dL (8.7-10.4) H Urinalysis Test 04/12/25 05:35 04/21/25 17:11 Urine Calcium Oxalate Crystals Few (None Seen) Urine Color Light-red (Yellow) Urine Clarity Ex.turbid (Clear) Urine pH 6.0 (5.0-9.0) Urine Specific [place] 1.018 (1.001-1.035) Urine Protein 1+ (Negative) H Urine Ketones Negative (Negative) Urine Blood 3+ /uL (Negative) H Urine Nitrite Negative (Negative) Urine Bilirubin Negative (Negative) Urine Urobilinogen Normal mg/dL (Negative) Urine Leukocyte Esterase 1+ /uL (Negative) Urine RBC 5534 /hpf (0 - 3) Urine WBC Clumps Present /hpf (None Seen) Urine Microscopic WBC 533 /HPF (0-3) H Urine Squamous Epithelial Cells None seen /hpf (<5) Urine Bacteria None seen /hpf (None Seen) Urine Glucose Normal mg/dL (Normal) Microbiology Microbiology Date/Time Source Procedure Growth Status 04/21/25 17:45 Voided Urine Urine Culture - Final Presumptive Jocy albicans Complete 04/12/25 11:36 Sputum Gram Stain - Final Complete 04/12/25 11:36 Sputum Respiratory Culture - Final Complete 04/11/25 01:31 Blood Blood Culture - Final NO GROWTH AFTER 5 DAYS OF INCUBATION. 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 #Hematuria Consult urology>will need to follow as outpatient UA with some blood pending urine cx - Dispo:pending hematuria workup before discharge Plan discussed with: Patient My Orders Orders - MARIE LYON MD Procedure Category Date Status Time Cyclobenzaprine PHA 04/23/25 In Process Tablet (Flexeril 22:00 Date of Service: Apr 24, 2025 Billing Provider: MARIE LYON MD Common Visit Codes: [id number] INP/OBS CARE(HIGH) MARIE LYON MD Apr 24, 2025 15:00
[2025-04-25] VITALS (8 sets, daily range): BP systolic 109–128; BP diastolic 72–83; PULSE 118–143; RESP 16–19; TEMP 95.4–98.5; O2SAT 91–98
[2025-04-25 07:36] LABS: Basophils # (auto) 0.1 10 ^3/uL (0-0.2); Red Cell Distribution Width 19.9 % (11.8-14.3)
[2025-04-25 07:38] LABS: Basophils % (auto) 0.6 % (0.0-2.0); Eosinophils # (auto) 2.3 10 ^3/uL (0-0.8); Eosinophils % (auto) 9.1 % (0.0-7.0); Hematocrit 30.3 % (41.0-53.0); Hemoglobin 9.4 g/dL (13.5-17.5); Lymphocytes # (auto) 2.5 10 ^3/uL (0.4-5.4); Lymphocytes % (auto) 10.2 % (10.0-50.0); Mean Corpuscular Hemoglobin 22.8 pg (28.0-32.0); Mean Corpuscular Volume 73.5 fL (80.0-100.0); Monocytes # (auto) 1.8 10 ^3/uL (0-1.3); Monocytes % (auto) 7.1 % (0.0-12.0); Platelet Count (auto) 372 10^3/uL (140-450); Red Blood Cells 4.13 10^6/uL (4.5-5.90); White Blood Cell 24.6 10^3/uL (4.4-10.8)
[2025-04-25 07:47] LABS: Chloride 100 mmol/L (98-107); Potassium 4.2 mmol/L (3.5-5.1); Sodium 136 mmol/L (136-145)
[2025-04-25 07:48] LABS: Anion Gap 11 (5-15); Carbon Dioxide 25 mmol/L (20-31)
[2025-04-25 07:53] LABS: BUN/Creatinine Ratio 25.3 (10.0-20.0); Blood Urea Nitrogen 21 mg/dL (9-23); Glucose 89 mg/dL (74-106)
[2025-04-25 08:33] LABS: Hypochromia Slight; Platelet Estimate Adequate
--- NOTE | 2025-04-25 18:13 | DVHPN2 ---
Subjective feeling better with no hematuria Reviewed: H&P, Labs Changes from previous H/P or p: No Changes Objective Vitals Vital Signs Date Time Temp Pulse Resp B/P (MAP) Pulse Ox O2 Delivery O2 Flow Rate FiO2 04/25/25 16:59 98.1 138 17 120/81 (94) 94 98.1 04/25/25 08:00 Room Air* 0 21 Intake/Output Intake and Output 04/25/25 07:00 Intake Total 1630 ml Output Total 1025 ml Balance 605 ml Intake Oral 1630 ml Output Urine Total 1025 ml General Appearance: Alert Lungs: Clear to auscultation Cardiovascular: Regular rate, Normal S1, Normal S2 Medications Current Medications Medications Dose Ordered Sig/Moises Route Start Time Stop Time Status Last Admin Dose Admin Ondansetron HCl 4 mg Q4HPRN PRN IV 04/11/25 07:45 04/11/25 17:00 4 MG Ondansetron HCl 4 mg Q4HP PRN IV 04/11/25 11:45 Cancel Acetaminophen 650 mg Q6HP PRN PO 04/11/25 11:45 Morphine Sulfate 2 mg Q4HPRN PRN IV 04/11/25 11:45 UNV Nitroglycerin 0.4 mg Q5MINP PRN SL 04/11/25 11:45 Morphine Sulfate 2 mg Q30M PRN IV 04/11/25 11:45 UNV Lorazepam 1 mg Q6HP PRN IM 04/11/25 12:00 Metoprolol Tartrate 12.5 mg BID PO 04/11/25 12:04 04/25/25 09:50 12.5 MG Enteral Nutritional Formula 240 ml BIDBL PO 04/18/25 08:00 04/25/25 11:52 240 ML Acetaminophen/ Hydrocodone Bitart 1 tab Q4HP PRN PO 04/19/25 15:45 04/25/25 16:25 1 TAB Morphine Sulfate 2 mg Q4HPRN PRN IV 04/21/25 18:00 04/25/25 14:31 2 MG Cyclobenzaprine HCl 10 mg TID PO 04/23/25 22:00 04/25/25 14:27 10 MG Laboratory Results Laboratory Tests 04/25/25 05:48 Chemistry Test 04/25/25 05:48 Calcium Level 10.0 mg/dL (8.7-10.4) Urinalysis Test 04/12/25 05:35 04/21/25 17:11 Urine Calcium Oxalate Crystals Few (None Seen) Urine Color Light-red (Yellow) Urine Clarity Ex.turbid (Clear) Urine pH 6.0 (5.0-9.0) Urine Specific [place] 1.018 (1.001-1.035) Urine Protein 1+ (Negative) H Urine Ketones Negative (Negative) Urine Blood 3+ /uL (Negative) H Urine Nitrite Negative (Negative) Urine Bilirubin Negative (Negative) Urine Urobilinogen Normal mg/dL (Negative) Urine Leukocyte Esterase 1+ /uL (Negative) Urine RBC 5534 /hpf (0 - 3) Urine WBC Clumps Present /hpf (None Seen) Urine Microscopic WBC 533 /HPF (0-3) H Urine Squamous Epithelial Cells None seen /hpf (<5) Urine Bacteria None seen /hpf (None Seen) Urine Glucose Normal mg/dL (Normal) Microbiology Microbiology Date/Time Source Procedure Growth Status 04/21/25 17:45 Voided Urine Urine Culture - Final Presumptive Jocy albicans Complete 04/12/25 11:36 Sputum Gram Stain - Final Complete 04/12/25 11:36 Sputum Respiratory Culture - Final Complete 04/11/25 01:31 Blood Blood Culture - Final NO GROWTH AFTER 5 DAYS OF INCUBATION. 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 #Hematuria Consult urology>will need to follow as outpatient UA with some blood pending urine cx - Dispo:DC tomorrow with home health Plan discussed with: Patient Date of Service: Apr 25, 2025 Billing Provider: MARIE LYON MD Common Visit Codes: [id number] INP/OBS CARE(HIGH) MARIE LYON MD Apr 25, 2025 18:13
[2025-04-26] VITALS (8 sets, daily range): BP systolic 108–120; BP diastolic 71–81; PULSE 120–146; RESP 16–20; TEMP 97.4–98.6; O2SAT 93–97
[2025-04-26] MEDS ORDERED: FLUC200T50 PO (13:58)
[2025-04-26] MEDS ORDERED: CYCL-611 PO (13:58)
[2025-04-26] MEDS ORDERED: METOPROLOL TARTRATE 25 MG TAB PO ONE (19:15)
[2025-04-26] MEDS: LABETALOL HCL 20 MG/4 ML VL IV ONE (19:47)
[2025-04-27 01:00] VITALS: BP 106/75; PULSE 120; RESP 19; TEMP 98; O2SAT 93
--- NOTE | 2025-04-27 04:31 | DVHPN2 ---
Subjective feeling better with no hematuria Reviewed: H&P, Labs Changes from previous H/P or p: No Changes Objective Vitals Vital Signs Date Time Temp Pulse Resp B/P (MAP) Pulse Ox O2 Delivery O2 Flow Rate FiO2 04/27/25 01:00 98.0 120 19 106/75 (85) 93 98.0 04/26/25 20:00 Room Air* 0 21 Intake/Output Intake and Output 04/27/25 07:00 Intake Total 850 ml Output Total 600 ml Balance 250 ml Intake Oral 850 ml Output Urine Total 600 ml General Appearance: Alert Lungs: Clear to auscultation Cardiovascular: Regular rate, Normal S1, Normal S2 Medications Current Medications Medications Dose Ordered Sig/Moises Route Start Time Stop Time Status Last Admin Dose Admin Ondansetron HCl 4 mg Q4HPRN PRN IV 04/11/25 07:45 04/11/25 17:00 4 MG Ondansetron HCl 4 mg Q4HP PRN IV 04/11/25 11:45 Cancel Acetaminophen 650 mg Q6HP PRN PO 04/11/25 11:45 Morphine Sulfate 2 mg Q4HPRN PRN IV 04/11/25 11:45 UNV Nitroglycerin 0.4 mg Q5MINP PRN SL 04/11/25 11:45 Morphine Sulfate 2 mg Q30M PRN IV 04/11/25 11:45 UNV Lorazepam 1 mg Q6HP PRN IM 04/11/25 12:00 Metoprolol Tartrate 12.5 mg BID PO 04/11/25 12:04 04/26/25 21:42 12.5 MG Enteral Nutritional Formula 240 ml BIDBL PO 04/18/25 08:00 04/26/25 12:00 240 ML Acetaminophen/ Hydrocodone Bitart 1 tab Q4HP PRN PO 04/19/25 15:45 04/27/25 01:33 1 TAB Morphine Sulfate 2 mg Q4HPRN PRN IV 04/21/25 18:00 04/26/25 17:24 2 MG Cyclobenzaprine HCl 10 mg TID PO 04/23/25 22:00 04/26/25 21:41 10 MG Laboratory Results Laboratory Tests 04/25/25 05:48 Urinalysis Test 04/12/25 05:35 04/21/25 17:11 Urine Calcium Oxalate Crystals Few (None Seen) Urine Color Light-red (Yellow) Urine Clarity Ex.turbid (Clear) Urine pH 6.0 (5.0-9.0) Urine Specific [place] 1.018 (1.001-1.035) Urine Protein 1+ (Negative) H Urine Ketones Negative (Negative) Urine Blood 3+ /uL (Negative) H Urine Nitrite Negative (Negative) Urine Bilirubin Negative (Negative) Urine Urobilinogen Normal mg/dL (Negative) Urine Leukocyte Esterase 1+ /uL (Negative) Urine RBC 5534 /hpf (0 - 3) Urine WBC Clumps Present /hpf (None Seen) Urine Microscopic WBC 533 /HPF (0-3) H Urine Squamous Epithelial Cells None seen /hpf (<5) Urine Bacteria None seen /hpf (None Seen) Urine Glucose Normal mg/dL (Normal) Microbiology Microbiology Date/Time Source Procedure Growth Status 04/21/25 17:45 Voided Urine Urine Culture - Final Presumptive Jocy albicans Complete 04/12/25 11:36 Sputum Gram Stain - Final Complete 04/12/25 11:36 Sputum Respiratory Culture - Final Complete 04/11/25 01:31 Blood Blood Culture - Final NO GROWTH AFTER 5 DAYS OF INCUBATION. 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 #Hematuria Consult urology>will need to follow as outpatient UA with some blood Urine cx grew jocy started fluconazole - Dispo:DC tomorrow with home health Plan discussed with: Patient My Orders Orders - MARIE LYON MD Procedure Category Date Status Time Discharge DISCHARGE 04/26/25 Transmitted 13:58 * [place] CONS 04/26/25 Transmitted Consult Date of Service: Apr 26, 2025 Billing Provider: MARIE LYON MD Common Visit Codes: [id number] INP/OBS CARE(HIGH) MARIE LOYN MD Apr 27, 2025 04:31
[2025-04-27 05:00] VITALS: BP 103/71; PULSE 123; RESP 19; TEMP 97; O2SAT 93
[2025-04-27 08:00] VITALS: PULSE 131
[2025-04-27 09:00] VITALS: BP 104/75; PULSE 130; RESP 17; TEMP 98.4; O2SAT 92
[2025-04-27 13:00] VITALS: BP 102/73; PULSE 122; RESP 17; TEMP 97; O2SAT 94
[2025-04-27 17:00] VITALS: BP 120/73; PULSE 129; RESP 17; TEMP 98.1; O2SAT 94
== END 2025-04-27 19:50 | disposition home health service (06) | DRG 720 ==
LOC: EDBD 00:29 → ER 00:29 → OVERFLOW 11:43 → TELE-CENTR 22:00
PROVIDERS: ADMIT Hospitalist; ATTEND Hospitalist
PROC: 30233N1 Transfusion of Nonautologous Red Blood Cells into Peripheral Vein, Percutaneous Approach (ICD-10-PCS; 2025-04-14)
PROC: 0BBP0ZZ Excision of Left Pleura, Open Approach (ICD-10-PCS; principal; 2025-04-14 07:17)
PROC: 0W9B40Z Drainage of Left Pleural Cavity with Drainage Device, Percutaneous Endoscopic Approach (ICD-10-PCS; 2025-04-14 07:17)
DX: A41.9 Sepsis, unspecified organism (principal); J96.01 Acute respiratory failure with hypoxia; J86.9 Pyothorax without fistula; I31.39 Other pericardial effusion (noninflammatory); J15.69 Pneumonia due to other Gram-negative bacteria; C79.51 Secondary malignant neoplasm of bone; J90 Pleural effusion, not elsewhere classified; M84.48XA Pathological fracture, other site, initial encounter for fracture; D62 Acute posthemorrhagic anemia; C64.1 Malignant neoplasm of right kidney, except renal pelvis; I10 Essential (primary) hypertension; R63.6 Underweight; R31.9 Hematuria, unspecified; Z82.49 Family history of ischemic heart disease and other diseases of the circulatory system; Z68.20 Body mass index [BMI] 20.0-20.9, adult
CPT/HCPCS: 32551; 36415; 36600; 71045; 71260; 74177; 80048; 80053; 81001; 82805; 83605; 84439; 84443; 84484; 85007; 85025; 85027; 85610; 85730; 86850; 86900; 86901; 86920; 87040; 87070; 87086; 87186; 87205; 93005; 93306; 96365; 96375; 97110; 97163; 97530; 99291; G0378; J0131; J0692; J1100; J1885; J2003; J2405; J2543; J2704; J3490

== ENCOUNTER 2025-05-01 15:47 | Inpatient (IN) | payer MEDICAID ==
[~2025-05-01] VITALS: Ht 180.3 cm; Wt 70.0 kg
[2025-05-01] MEDS: SODIUM CHLORIDE 0.9% 500 ML IV ONE (02:11)
[~2025-05-01 15:47] MED LIST changes: +CYCL-611 PO; +FLUC200T50 PO; +HYDR-4798 PO
--- NOTE | 2025-05-01 16:20 | ED.PDOC ---
GI ASSESSMENT HPI Comments This is a 39 year old male JAQUELINE presenting to the ED with chief complaint of constipation. EMS reports that the patient was recently discharged from [facility] for pneumonia with a chest tube in place and renal cancer and has been experiencing constipation for the past 3 days. EMS relays that the patient's family is concerned due to patient being bed bound and also that the patient has been loudly talking in his sleep. Patient denies having any hallucinations as he does not hear or see anything while he is awake that isn't there and he still has his chest tube in place with serosanguineous fluid. Patient denies any chest pain, SOB, dizziness, N/V/D, fever, or chills. Chief Complaint: General Weakness Time Seen by MD: 16:14 Reviewed Notes: Nurses Notes, Environmental Laboratory Technician Notes, Medications, Allergies Allergies: Coded Allergies: NO KNOWN ALLERGIES (Unverified , 02/10/25) Home Meds Active Scripts Fluconazole (Fluconazole) 200 Mg Tab, 1 TAB PO DAILY for 14 Days, #14 TAB Prov:MARIE LYON MD 04/26/25 Cyclobenzaprine HCl (Cyclobenzaprine Hydrochlo) 10 Mg Tab, 10 MG PO TID for 30 Days, #90 TAB Prov:MARIE LYON MD 04/26/25 Hydrocodone-Acetaminophen (Hydrocodone Bitartrate/AC 10-325 mg) 1 Tab Tab, 1 TAB PO Q4HP PRN for 7 Days, #35 TAB Prov:MARIE LYON MD 04/21/25 Clonazepam (Clonazepam) 0.5 Mg Tab, 0.5 MG PO BIDPRN PRN for 5 Days, #10 TAB Prov:NICOLAS MATHEWS MD 02/17/25 Ibuprofen Micronized (Ibuprofen) 600 Mg Tab, 600 MG PO TID PRN for 10 Days, #30 TAB Prov:NICOLAS MATHEWS MD 02/17/25 Information Source: Patient, Emergency Med Personnel Mode of Arrival: EMS Timing: Days Duration: Since onset Prehospital treatment: None Quality: Aching, Cramping Vomitus: None Stool: Impaction Severity: Moderate Recent: None Associated sign and symptoms: Constipation Past Medical History PAST MEDICAL HISTORY: HTN Past Medical History (Other): Renal cancer, 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, pneumonia with pneumothorax Surgical History: Denies all surgeries Family History Family History: Reviewed,noncontributory to illness Social History Smoker: Non-Smoker Alcohol: Denies ETOH Use Drugs: Denies Drug Use Lives In: Home Constitutional: denies: chills, diaphoresis, fatigue, fever, malaise, sweats, weakness, others EENTM: denies: blurred vision, double vision, ear bleeding, ear discharge, ear drainage, ear pain, ear ringing, eye pain, eye redness, hearing loss, mouth pain, mouth swelling, nasal discharge, nose bleeding, nose congestion, nose pain, photophobia, tearing, throat pain, throat swelling, voice changes, others Respiratory: reports: shortness of breath; denies: cough, hemoptysis, orthopnea, SOB at rest, SOB with excertion, stridor, wheezing, others Cardiovascular: denies: chest pain, dizzy spells, diaphoresis, Dyspnea on exertion, edema, irregular heart beat, left arm pain, lightheadedness, palpitations, PND, syncope, others Gastrointestinal: reports: constipated; denies: abdomen distended, abdominal pain, blood streaked bowels, diarrhea, dysphagia, difficulty swallowing, hematemesis, melena, nausea, poor appetite, poor fluid intake, rectal bleeding, rectal pain, vomiting, others Genitourinary: denies: burning, dysuria, flank pain, frequency, hematuria, incontinence, penile discharge, penile sore, pain, testicle pain, testicle swelling, urgency, others Neurological: denies: dizziness, fainting, headache, left sided numbness, left sided weakness, numbness, paresthesia, pre-existing deficit, right sided numbness, right sided weakness, seizure, speech problems, tingling, tremors, weakness, others Musculoskeletal: denies: back pain, gout, joint pain, joint swelling, muscle pain, muscle stiffness, neck pain, others Integumetry: denies: bruises, change in color, change in hair/nails, dryness, laceration, lesions, lumps, rash, wounds, others Allergic/Immunocompromised: denies: Difficulty Healing, Frequent Infections, Hives, Itching, others Hematologic/Lymphatic: denies: anemia, blood clots, easy bleeding, easy bruising, swollen glands, others Endocrine: denies: excessive hunger, excessive sweating, excessive thirst, excessive urination, flushing, intolerance to cold, intolerance to heat, unexplained weight gain, unexplained weight loss, others Psychiatric: denies: anxiety, bipolar disorder, depression, hopeless, panic disorder, schizophrenia, sleepless, suicidal, others All Other Systems: Reviewed and Negative Physical Exam General Appearance: Moderate Distress (Moderate distress due to constipation concerns. Patient has a left-sided chest tube installed. Patient appears to be in poor overall health.), Thin HEENT: Normal ENT Inspection, Pharynx Normal, TMs Normal Neck: Full Range of Motion, Non-Tender, Normal, Normal Inspection Respiratory: Other (Patient has 0 breath sounds throughout the entire left sided lung field. No respiratory distress noted.) Cardiovascular: No Edema, No JVD, No Murmur, No Gallop, Normal Peripheral Pulses, Regular Rate/Rhythm Breast Exam: Deferred Gastrointestinal: Other (Diffuse tenderness to palpation of the throughout bilateral lower abdominal region. No pulsatile masses.) Genitalia: Deferred Pelvic: Deferred Rectal: Deferred Extremities: No calf tenderness, Normal capillary refill, Non-tender Neurologic: Alert Cerebellar Function: NOT DONE Reflexes: NOT DONE Skin: Dry, Normal Color, Warm Lymphatic: No Adenopathy Was a procedure done? Was a procedure done?: No GI differential Dx Differential Diagnosis: Other (Sepsis, electrolyte abnormality, constipation, fecal impaction, pneumonia, pneumothorax) X-Ray, Labs, Meds, VS Vital Signs Date Time Temp Pulse Resp B/P (MAP) Pulse Ox O2 Delivery O2 Flow Rate FiO2 05/01/25 18:00 137 51 153/99 (117) 95 05/01/25 16:00 97.8 145 20 156/107 (123) 96 97.8 Lab Test 05/01/25 17:34 05/01/25 16:17 Range/Units Lactic Acid Level 2.8 *H 2.6 *H 0.4-2.0 mmol/L Troponin I High Sensitivity 10 9 </=54 ng/L White Blood Count 19.8 H 4.4-10.8 10^3/uL Red Blood Count 5.07 4.5-5.90 10^6/uL Hemoglobin 11.5 #L 13.5-17.5 g/dL Hematocrit 36.8 #L 41.0-53.0 % Mean Corpuscular Volume 72.6 L 80.0-100.0 fL Mean Corpuscular Hemoglobin 22.7 L 28.0-32.0 pg Mean Corpuscular Hemoglobin Concent 31.3 L 32.0-36.0 g/dL Red Cell Distribution Width 19.5 H 11.8-14.3 % Platelet Count 292 140-450 10^3/uL Mean Platelet Volume 9.0 6.9-10.8 fL Neutrophils (%) (Auto) 84.4 H 37.0-80.0 % Lymphocytes (%) (Auto) 6.9 L 10.0-50.0 % Monocytes (%) (Auto) 6.1 0.0-12.0 % Eosinophils (%) (Auto) 2.2 0.0-7.0 % Basophils (%) (Auto) 0.4 0.0-2.0 % Neutrophils # (Auto) 16.8 H 1.6-8.6 10 ^3/uL Lymphocytes # (Auto) 1.4 0.4-5.4 10 ^3/uL Monocytes # (Auto) 1.2 0-1.3 10 ^3/uL Eosinophils # (Auto) 0.4 0-0.8 10 ^3/uL Basophils # (Auto) 0.1 0-0.2 10 ^3/uL Nucleated Red Blood Cells 0.1 % Prothrombin Time 11.4 9.3-11.8 sec Prothrombin Time INR 1.08 0.9-1.15 Activated Partial Thromboplast Time 27.1 24.5-34.5 SEC Sodium Level 129 #L 136-145 mmol/L Potassium Level 4.9 3.5-5.1 mmol/L Chloride Level 93 L 98-107 mmol/L Carbon Dioxide Level 20 20-31 mmol/L Anion Gap 16 H 5-15 Blood Urea Nitrogen 40 H 9-23 mg/dL Creatinine 2.40 H 0.700-1.30 mg/dL Glomerular Filtration Rate Calc 35 >90 mL/min BUN/Creatinine Ratio 16.7 10.0-20.0 Serum Glucose 96 74-106 mg/dL Calcium Level 12.1 H 8.7-10.4 mg/dL Total Bilirubin 0.4 0.2-1.0 mg/dL Aspartate Amino Transferase (AST) 9 <34 U/L Alanine Aminotransferase (ALT) < 9 7-40 U/L Alkaline Phosphatase 119 H 46-116 U/L Total Protein 7.3 5.7-8.2 g/dL Albumin 3.5 3.2-4.8 g/dL Lipase 23 12-53 U/L Current Medications Medications (Trade) Dose Ordered Sig/Moises Route Start Time Stop Time Status Last Admin Lactated Ringer's 2,250 ml @ 2,250 mls/hr ONCE ONCE IV 05/01/25 17:00 05/01/25 17:59 DC 05/01/25 17:37 Vancomycin HCl 200 ml @ 200 mls/hr ONCE ONCE IV 05/01/25 17:00 05/01/25 17:59 DC 05/01/25 17:30 X-Ray, Labs, Meds, VS Comment All studies performed the ED were evaluated by me personally. This patient is sick. Laboratories returned a white blood cell count of 19.8 as well as displays of a hyponatremic state, elevated lactic acid and signs of end-stage renal disease that appear to be related to his renal cancer concerns. Septic protocol was initiated due to unstable vitals as well. I reviewed the patient's recent history and saw that he was denied [place] [facility] [place] transfers. This patient will have to be stabilized to our facility and needs to be placed in a [facility] facility with a additional medical assistance. Time of 1ST Reevaluation: 19:23 Reevaluation 1ST: Unchanged Consultation: PCP Patient Education/Counseling: Diagnosis, Treatment Family Education/Counseling: Diagnosis, Treatment, No Family Present SEPSIS Sepsis Screen Date sepsis recognized/suspect: May 01, 2025 Time Sepsis recognized/suspect: 1553 Recent Procedure: Yes On Antibiotic Therapy: No Respiratory Rate >20: Yes Heart Rate >90: Yes Temp<36 C (96.8 F) or >38.3 C: No SBP <90 or MAP <65 mmHG: No New Acute Mental Status Change: No Is the patient on CPAP, BIPAP,: No SEPSIS EXCLUSION NOTE: This patient is a septic due to a complete left-sided pneumothorax, significant leukocytosis and unstable vital signs. Physician Orders Sodium Chloride 0.9% (05/01/25 16:00) Heplock Iv (05/01/25 ) Urinalysis (05/01/25 15:57) Troponin-I Hs (05/01/25 18:57) Electrocardigram (05/01/25 15:57) Continuous Ekg Monitoring 08,12,16,20,00,04 (05/01/25 15:57) Blood Culture (05/01/25 15:57) Chest Portable (05/01/25 15:57) Accucheck (05/01/25 16:54) Cefepime 1gm/ 50ml (Maxipime 1gm/50ml) (05/01/25 22:00) Notify Md If Map <65 Or Bp<90 (05/01/25 16:54) If Map<65 Start Vasopressor (05/01/25 16:54) Head Without Contrast (05/01/25 17:25) Vital Signs Date Time Temp Pulse Resp B/P (MAP) Pulse Ox O2 Delivery O2 Flow Rate FiO2 05/01/25 18:00 137 51 153/99 (117) 95 05/01/25 16:00 97.8 145 20 156/107 (123) 96 97.8 Laboratory Tests Test 05/01/25 16:17 05/01/25 17:34 Lactic Acid Level 2.6 mmol/L (0.4-2.0) *H 2.8 mmol/L (0.4-2.0) *H White Blood Count 19.8 10^3/uL (4.4-10.8) H Medications Medications Dose Ordered Sig/Moises Route Start Time Stop Time Status Last Admin Dose Admin Lactated Ringer's 2,250 ml @ 2,250 mls/hr ONCE ONCE IV 05/01/25 17:00 05/01/25 17:59 DC 05/01/25 17:37 Vancomycin HCl 200 ml @ 200 mls/hr ONCE ONCE IV 05/01/25 17:00 05/01/25 17:59 DC 05/01/25 17:30 Departure 1 Departure Time of Disposition: 19:26 Impression: Primary Impression: Sepsis Additional Impressions: Pneumothorax Leukocytosis Elevated lactic acid level Disposition: ADMITTED INPATIENT Condition: Fair Discharged With: Self Critical Care Note Critical Care Time?: Yes (1 hr-critical care time only) Critical care comment: Due to the high probability of a clinically significant and possibly life- threatening deterioration, this patient required my highest level of preparedness to intervene emergently and therefore, I personally provided 1 hour of critical care time exclusive of time spent on separate billable procedures. This critical care time includes, but isn't limited to, obtaining additional history, re-examination of the patient, re-examination of pulse oximetry, ordering and reviewing of studies as well as arranging of an urgent treatment planned and the development of a management plan, evaluation of the patient's response to treatment with frequent reassessments and discussions with other providers. Stability Stability form required: No Heart Score Heart Score: Heart Score Response (Comments) Value History Slightly Suspicious 0 EKG Repolarization Disturb 1 Age <45 0 Risk Factors 1 or 2 risk factors 1 Troponin Normal limit 0 Total 2 I personally scribed for GLORIA OLIVEIRA PAC ([email or web address]) on 05/01/25 at 16:20. Electronically submitted by Pako Almanza ([email or web address]). GLORIA OLIVEIRA PAC May 01, 2025 16:20
[2025-05-01 16:44] LABS: Basophils # (auto) 0.1 10 ^3/uL (0-0.2); Monocytes # (auto) 1.2 10 ^3/uL (0-1.3); Monocytes % (auto) 6.1 % (0.0-12.0); Nucleated Red Blood Cells % 0.1 %
[2025-05-01 16:45] LABS: Basophils % (auto) 0.4 % (0.0-2.0); Eosinophils # (auto) 0.4 10 ^3/uL (0-0.8); Eosinophils % (auto) 2.2 % (0.0-7.0); Hematocrit 36.8 % (41.0-53.0); Hemoglobin 11.5 g/dL (13.5-17.5); Lymphocytes # (auto) 1.4 10 ^3/uL (0.4-5.4); Lymphocytes % (auto) 6.9 % (10.0-50.0); Mean Corpuscular Hemoglobin 22.7 pg (28.0-32.0); Mean Corpuscular Hgb Conc. 31.3 g/dL (32.0-36.0); Mean Corpuscular Volume 72.6 fL (80.0-100.0); Neutrophils # (auto) 16.8 10 ^3/uL (1.6-8.6); Neutrophils % (auto) 84.4 % (37.0-80.0); Platelet Count (auto) 292 10^3/uL (140-450); Red Blood Cells 5.07 10^6/uL (4.5-5.90); Red Cell Distribution Width 19.5 % (11.8-14.3); White Blood Cell 19.8 10^3/uL (4.4-10.8)
[2025-05-01 16:48] LABS: Albumin 3.5 g/dL (3.2-4.8); Anion Gap 16 (5-15); Aspartate Aminotransferase 9 U/L (<34); BUN/Creatinine Ratio 16.7 (10.0-20.0); Bilirubin, Total 0.4 mg/dL (0.2-1.0); Glucose 96 mg/dL (74-106); Lipase 23 U/L (12-53); Potassium 4.9 mmol/L (3.5-5.1); Total Protein 7.3 g/dL (5.7-8.2)
[2025-05-01 16:50] LABS: Alanine Aminotransferase < 9 U/L (7-40); Alkaline Phosphatase 119 U/L (46-116); Blood Urea Nitrogen 40 mg/dL (9-23); Calcium 12.1 mg/dL (8.7-10.4); Carbon Dioxide 20 mmol/L (20-31); Chloride 93 mmol/L (98-107); Sodium 129 mmol/L (136-145)
--- NOTE | 2025-05-01 16:50 | DVH ---
CHEST RADIOGRAPH Indication: Shortness of breath Technique: Single frontal view of the chest was obtained COMPARISON: XY CHEST PORTABLE on DOS: 04/16/25, XY CHEST PORTABLE on DOS: 04/14/25, XY CHEST PORTABLE on DOS: 04/11/25, XY CHEST PORTABLE on DOS: 04/11/25, XY CHEST PORTABLE on DOS: 02/14/25 FINDINGS: Lines and Tubes: Left sided chest tube seen unchanged in position when compared to the prior study Lungs: Opacification of the left laith thorax Pleura: No effusion. No pneumothorax. Cardiomediastinal contours: Effacement left heart border Bones: Unremarkable IMPRESSION: 1. Stable left-sided chest tube Complete opacification of the left laith thorax Gaseous distention of the stomach Mild shift of the mediastinum from left to right
[2025-05-01 17:02] LABS: Lactic Acid w/Reflex 2.6 mmol/L (0.4-2.0)
[2025-05-01] MEDS: VANCOMYCIN 1GM/200ML PM 200 ML IV ONE (17:30)
[2025-05-01] MEDS: LACTATED RINGER'S 2,250 ML IV ONE (17:37)
[2025-05-01 18:00] VITALS: PULSE 137; RESP 51; O2SAT 94
[2025-05-01 18:21] LABS: INR 1.08 (0.9-1.15); Partial Thromboplastin Time 27.1 SEC (24.5-34.5); Prothrombin Time 11.4 sec (9.3-11.8)
[2025-05-01 18:51] LABS: Lactic Acid w/Reflex 2.8 mmol/L (0.4-2.0)
[2025-05-01 19:30] VITALS: PULSE 139; RESP 41; O2SAT 95
[2025-05-01] MEDS: SODIUM CHLORIDE 0.9% 1,000 ML IV ONE (20:15)
[2025-05-01] MEDS: LACTULOSE 20Gm/30ML SOLN PO ONE (20:15)
[2025-05-01] MEDS ORDERED: VANCOMYCIN PER PHARMACY 0 MG IV SCH (20:30)
[2025-05-01] MEDS: SODIUM CHLORIDE 0.9% 1,000 ML IV SCH (20:30)
[2025-05-01] MEDS ORDERED: ONDANSETRON HCL 4 MG/2 ML VIAL IV PRN (20:30)
[2025-05-01] MEDS: FUROSEMIDE 20 MG/2 ML VIAL IV ONE (20:56)
[2025-05-01] MEDS: HYDROcodone-ACET 5/325MG TAB PO PRN (20:57)
--- NOTE | 2025-05-01 21:30 | DVH ---
Date: 05/01/2025 09:00 PM Examination: XY KUB ABDOMEN SINGLE VIEW History: Constipation Comparison: None TECHNIQUE: Frontal views of the abdomen was obtained. FINDINGS: Bowel gas pattern is unremarkable. Large stool burden rectosigmoid colon. May represent constipation or distal colonic lesion. The lung bases are unremarkable. No acute osseous abnormality identified. IMPRESSION: 1. Gas distended proximal colon can not exclude distal colonic lesion versus constipation. HS:Y
--- NOTE | 2025-05-01 22:36 | DVHHP2 ---
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 Patient was recently discharged from [facility] for pneumonia with a chest tube in place, renal cancer, and has been experiencing constipation for the past 3 days, shortness of breaths, getting worse today that prompted this visit. Patient was seen and evaluated in the ED, laboratory data shows WBC 19.8, hemoglobin 11.5, hematocrit 36.8, platelets 292, sodium 129, potassium 4.9, BUN 40, creatinine 2.40, glucose 96, calcium 12.1, lipase 23, troponin 10, blood pressure 153/99, heart rate 145 trending down to 123, temperature 97.8 F, O2 saturation 96% on room air. Abdomen/pelvis CT revealing gas distended proximal colon can not exclude distal colonic lesion versus constipation. chest tube in place with serosanguineous fluid. Please see medication orders section in the computer. On my assessment, patient denied chest pain, no headache, dizziness, no shortness of breaths, no nausea, no vomiting, no fever, no chills. Patient was admitted for further evaluation and medical management. Past Medical History HTN, Renal cancer, Metastasis to T-spine, Pneumonia with pneumothorax Past Surgical History Denies all surgeries Family History Reviewed, noncontributory to the management of this case. Past Social History The patient lives at home, denies smoking, alcohol or illicit drugs abuse. Review of Systems Constitutional: No: Fever, Chills, Sweats, Weakness, Malaise, Other Eyes: No: Pain, Vision change, Conjunctivae inflammation, Eyelid inflammation, Other, Redness ENT: No: Ear pain, Ear discharge, Nose pain, Nose discharge, Nose congestion, Mouth pain, Mouth swelling, Throat pain, Throat swelling, Other Respiratory: Shortness of breath, Other (Chest tube is in place); No: Cough, Dry, SOB with excertion, Wheezing, Hemoptysis, Pleuritic Pain, Sputum, Wheezing Cardiovascular: No: Chest Pain, Palpitations, Orthopnea, Paroxysmal Noc. Dyspnea, Edema, Lt Headedness, Other Gastrointestinal: Constipation; No: Nausea, Vomiting, Abdominal Pain, Diarrhea, Melena, Hematochezia, Other Genitourinary: No Dysuria, No Frequency, No Incontinence, No Hematuria, No Retention, No Other Musculoskeletal: No: other, neck pain, shoulder pain, arm pain, back pain, hand pain, leg pain, foot pain Skin: No: Rash, Lesions, Jaundice, Bruising, Other Neurological: No: Weakness, Numbness, Incoordination, Change in speech, Confusion, Seizures, Other Allergies: Coded Allergies: NO KNOWN ALLERGIES (Unverified , 02/10/25) Medications Current Medications Medications Dose Ordered Sig/Moises Route Start Time Stop Time Status Last Admin Dose Admin Cefepime HCl 50 ml @ 12.5 mls/hr Q12HR IV 05/01/25 22:00 Metoprolol Tartrate 50 mg BID PO 05/01/25 22:00 Hydralazine HCl 10 mg Q6HP PRN IV 05/01/25 20:30 Sodium Chloride 1,000 ml @ 100 mls/hr Q10H IV 05/01/25 20:30 Vancomycin HCl 0 ml @ 0 mls/hr UD IV 05/01/25 20:30 UNV Acetaminophen/ Hydrocodone Bitart 1 tab Q4HP PRN PO 05/01/25 20:30 05/01/25 20:57 1 TAB Ondansetron HCl 4 mg Q4HP PRN IV 05/01/25 20:30 Docusate Sodium 100 mg BIDPRN PRN PO 05/01/25 20:30 Acetaminophen 650 mg Q6HP PRN PO 05/01/25 20:30 Exam Vital Signs Vital Signs Date Time Temp Pulse Resp B/P (MAP) Pulse Ox O2 Delivery O2 Flow Rate FiO2 05/01/25 20:56 147/98 05/01/25 18:00 137 51 94 Room Air* 0 21 05/01/25 16:00 97.8 97.8 General Appearance: Alert, Oriented X3, Cooperative, No acute distress HEENT: Atraumatic, PERRLA, EOMI, Mucous membr. moist/pink Respiratory: Normal air movement, Other (Chest tube is in place) Cardiovascular: Regular rate, Normal S1, Normal S2, No murmurs Abdominal: Normal bowel sounds, Soft, No tenderness, No hepatospenomegaly, No masses Extremities: No clubbing, No cyanosis, No edema, Normal pulses, No tenderness/swelling Skin: No rashes, No breakdown, No significant lesion Neuro: Normal speech, Normal tone, Sensation intact, Cranial nerves 3-12 NL, Reflexes 2+, Other (Generalized weakness) Psych/Mental Status: Mental status NL, Mood NL Labs/Xrays Labs Test 05/01/25 20:10 05/01/25 19:40 05/01/25 16:17 Range/Units Lactic Acid Level 2.4 *H 0.4-2.0 mmol/L Troponin I High Sensitivity 10 </=54 ng/L White Blood Count 19.8 H 4.4-10.8 10^3/uL Red Blood Count 5.07 4.5-5.90 10^6/uL Hemoglobin 11.5 #L 13.5-17.5 g/dL Hematocrit 36.8 #L 41.0-53.0 % Mean Corpuscular Volume 72.6 L 80.0-100.0 fL Mean Corpuscular Hemoglobin 22.7 L 28.0-32.0 pg Mean Corpuscular Hemoglobin Concent 31.3 L 32.0-36.0 g/dL Red Cell Distribution Width 19.5 H 11.8-14.3 % Platelet Count 292 140-450 10^3/uL Mean Platelet Volume 9.0 6.9-10.8 fL Neutrophils (%) (Auto) 84.4 H 37.0-80.0 % Lymphocytes (%) (Auto) 6.9 L 10.0-50.0 % Monocytes (%) (Auto) 6.1 0.0-12.0 % Eosinophils (%) (Auto) 2.2 0.0-7.0 % Basophils (%) (Auto) 0.4 0.0-2.0 % Neutrophils # (Auto) 16.8 H 1.6-8.6 10 ^3/uL Lymphocytes # (Auto) 1.4 0.4-5.4 10 ^3/uL Monocytes # (Auto) 1.2 0-1.3 10 ^3/uL Eosinophils # (Auto) 0.4 0-0.8 10 ^3/uL Basophils # (Auto) 0.1 0-0.2 10 ^3/uL Nucleated Red Blood Cells 0.1 % Prothrombin Time 11.4 9.3-11.8 sec Prothrombin Time INR 1.08 0.9-1.15 Activated Partial Thromboplast Time 27.1 24.5-34.5 SEC Sodium Level 129 #L 136-145 mmol/L Potassium Level 4.9 3.5-5.1 mmol/L Chloride Level 93 L 98-107 mmol/L Carbon Dioxide Level 20 20-31 mmol/L Anion Gap 16 H 5-15 Blood Urea Nitrogen 40 H 9-23 mg/dL Creatinine 2.40 H 0.700-1.30 mg/dL Glomerular Filtration Rate Calc 35 >90 mL/min BUN/Creatinine Ratio 16.7 10.0-20.0 Serum Glucose 96 74-106 mg/dL Calcium Level 12.1 H 8.7-10.4 mg/dL Total Bilirubin 0.4 0.2-1.0 mg/dL Aspartate Amino Transferase (AST) 9 <34 U/L Alanine Aminotransferase (ALT) < 9 7-40 U/L Alkaline Phosphatase 119 H 46-116 U/L Total Protein 7.3 5.7-8.2 g/dL Albumin 3.5 3.2-4.8 g/dL Lipase 23 12-53 U/L PATIENT: DAYAMI BARNES ACCT: [id number] UNIT: [id number] : 1985 LOC: ER ROOM / BED: / AGE / SEX: 39 / M ADM STATUS: REG ER SERVICE 20 ORDERING PHYSICIAN: GLORIA OLIVEIRA PAC PROCEDURE(s): KUB - KUB ABDOMEN SINGLE VIEW REASON: Constipation ORDER NUMBER(s): [id number], ACCESSION NUMBER(s): [id number] Date: 05/01/2025 09:00 PM Examination: XY KUB ABDOMEN SINGLE VIEW History: Constipation Comparison: None TECHNIQUE: Frontal views of the abdomen was obtained. FINDINGS: Bowel gas pattern is unremarkable. Large stool burden rectosigmoid colon. May represent constipation or distal colonic lesion. The lung bases are unremarkable. No acute osseous abnormality identified. IMPRESSION: 1. Gas distended proximal colon can not exclude distal colonic lesion versus constipation. ORDERING PHYSICIAN: GLORIA OLIVEIRA PAC PROCEDURE(s): CXRP - CHEST PORTABLE REASON: Shortness of breath ORDER NUMBER(s): [id number], ACCESSION NUMBER(s): [id number] CHEST RADIOGRAPH Indication: Shortness of breath Technique: Single frontal view of the chest was obtained COMPARISON: XY CHEST PORTABLE on DOS: 04/16/25, XY CHEST PORTABLE on DOS: 04/14/25, XY CHEST PORTABLE on DOS: 04/11/25, XY CHEST PORTABLE on DOS: 04/11/25, XY CHEST PORTABLE on DOS: 02/14/25 FINDINGS: Lines and Tubes: Left sided chest tube seen unchanged in position when compared to the prior study Lungs: Opacification of the left laith thorax Pleura: No effusion. No pneumothorax. Cardiomediastinal contours: Effacement left heart border Bones: Unremarkable IMPRESSION: 1. Stable left-sided chest tube Complete opacification of the left laith thorax Gaseous distention of the stomach Mild shift of the mediastinum from left to right Assessment/Plan Assessment/Plan Sepsis, unspecified organisms Pneumothorax Constipation Hyponatremia Acute renal failure Hypercalcemia Generalized weakness Plan 1. Admit to telemetry unit 2. Breathing treatment 3. Pain control management 4. IV antibiotic management 5. Management of fluids and electrolytes 6. Consultation for nephrology/hospitalist 7. Diagnostic test abdomen/pelvis CT 8. DVT prophylaxis-on SCDs 9. Repeat labs CBC, CMP in a.m. 10. Home medication reviewed and reconciled 11. Continue with current medical management 12. Treatment plan discussed with patient and RN. Patient verbalized understanding. Plan discussed with: Patient, Other (RN) My Orders Orders - MONICA RUBIO DNP Procedure Category Date Status Time Metoprolol Tartrate PHA 05/01/25 In Process Tablet (Lopressor Ta 22:00 Hydralazine Injection PHA 05/01/25 In Process (Apresoline Inject 20:30 *[facility] CONS 05/01/25 Transmitted -[place] 20:28 Sodium Chloride 0.9% PHA 05/01/25 In Process 20:30 Vancomycin Per PHA 05/01/25 Pending Pharmacy 20:30 Allergies SNEHAL 05/01/25 In Process 20:28 Code Status CODE 05/01/25 Transmitted 20:28 2 Gm Sodium Diet DIET 05/02/25 Transmitted Breakfast Oxygen Per Hour RT 05/01/25 Transmitted 20:28 Hydrocodone-Acet PHA 05/01/25 In Process 5/325mg Tab ([place] 20:30 Ondansetron Hcl PHA 05/01/25 In Process (Zofran) 20:30 Docusate Sodium PHA 05/01/25 In Process Capsule (Colace 20:30 Complete Blood Count LAB 05/02/25 Verified 04:00 Comprehensive LAB 05/02/25 Verified Metabolic Panel 04:00 Condition: Serious SNEHAL 05/01/25 In Process 20:28 Acetaminophen Tablet PHA 05/01/25 In Process (Tylenol Tablet) 20:30 Bedrest With Bathroom SNEHAL 05/01/25 In Process Privileg 20:28 Sequential SNEHAL 05/01/25 In Process Compression Device Problem List: (1) Sepsis, unspecified organism (2) Pneumothorax (3) Constipation (4) Hypercalcemia (5) Hyponatremia (6) Acute renal failure (7) Generalized weakness Date of Service: May 01, 2025 Billing Provider: MONICA RUBIO DNP Common Visit Codes: [id number] INP/OBS CARE (HIGH) MONICA RUBIO DNP May 01, 2025 22:36
[2025-05-01] MEDS ORDERED: MORPHINE SULFATE INJ 2 MG/ml SYRG IV PRN (22:45)
[2025-05-01] MEDS ORDERED: NITROGLYCERIN 0.4 MG SL TAB SL PRN (22:45)
[2025-05-01] MEDS: METOPROLOL TARTRATE 50 MG TAB PO SCH (23:38)
[2025-05-01] MEDS: CEFEPIME 1GM/ 50ML 50 ML IV SCH (23:38)
[2025-05-02] MEDS: hydrALAZINE HCL 20 MG/ML VL IV PRN (01:29)
[2025-05-02] MEDS: amLODIPine BESYLATE 5 MG TAB PO ONE (03:00)
[2025-05-02 04:23] LABS: Mean Corpuscular Hemoglobin 22.6 pg (28.0-32.0); Mean Corpuscular Hgb Conc. 31.3 g/dL (32.0-36.0); Platelet Count (auto) 280 10^3/uL (140-450)
[2025-05-02 04:24] LABS: Hematocrit 31.8 % (41.0-53.0); Mean Corpuscular Volume 72.1 fL (80.0-100.0); Red Blood Cells 4.41 10^6/uL (4.5-5.90); Red Cell Distribution Width 19.7 % (11.8-14.3); White Blood Cell 19.7 10^3/uL (4.4-10.8)
[2025-05-02 04:29] LABS: Albumin 3.2 g/dL (3.2-4.8); Alkaline Phosphatase 108 U/L (46-116); Anion Gap 15 (5-15); BUN/Creatinine Ratio 15.5 (10.0-20.0); Chloride 98 mmol/L (98-107); Total Protein 6.8 g/dL (5.7-8.2)
[2025-05-02 04:30] LABS: Bilirubin, Total 0.3 mg/dL (0.2-1.0)
[2025-05-02 05:01] LABS: Alanine Aminotransferase < 9 U/L (7-40); Aspartate Aminotransferase < 8 U/L (<34); Blood Urea Nitrogen 47 mg/dL (9-23); Calcium 12.2 mg/dL (8.7-10.4); Carbon Dioxide 19 mmol/L (20-31); Glucose 107 mg/dL (74-106); Sodium 132 mmol/L (136-145)
[2025-05-02 05:08] LABS: Basophils % (manual) 0 (0.0-2.0); Blast Cells 0; Metamyelocytes % 0; Myelocytes % 0; Promyelocytes % 0; Reactive Lymphocytes 0
[2025-05-02 05:58] LABS: Anisocytosis Slight; Band Neutrophils % (manual) 22; Eosinophils % (manual) 2 (0-7); Hypochromia Slight; Lymphocytes % (manual) 3 (10.0-50.0); Monocytes % (manual) 1 (0-12); Platelet Estimate Adequate; Polychromasia Slight
[2025-05-02 07:30] VITALS: PULSE 130; RESP 33; O2SAT 98
--- NOTE | 2025-05-02 10:21 | DVHINCON2 ---
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 and left chest tube placement is admitted for abdominal pain and constipation on admission patient found to have elevated BUN creatinine nephrology is consulted for acute kidney injury Past Medical History Hypertension: , Renal cancer, 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, pneumonia with pneumothorax Past Surgical History Surgical History: Denies all surgeries Allergies: Coded Allergies: NO KNOWN ALLERGIES (Unverified , 02/10/25) Home Meds Active Scripts Fluconazole (Fluconazole) 200 Mg Tab, 1 TAB PO DAILY for 14 Days, #14 TAB Prov:MARIE LOYN MD 04/26/25 Cyclobenzaprine HCl (Cyclobenzaprine Hydrochlo) 10 Mg Tab, 10 MG PO TID for 30 D ays, #90 TAB Prov:MARIE LYON MD 04/26/25 Hydrocodone-Acetaminophen (Hydrocodone Bitartrate/AC 10-325 mg) 1 Tab Tab, 1 TAB PO Q4HP PRN for 7 Days, #35 TAB Prov:MARIE LYON MD 04/21/25 Clonazepam (Clonazepam) 0.5 Mg Tab, 0.5 MG PO BIDPRN PRN for 5 Days, #10 TAB Prov:NICOLAS MATHEWS MD 02/17/25 Ibuprofen Micronized (Ibuprofen) 600 Mg Tab, 600 MG PO TID PRN for 10 Days, #30 TAB Prov:NICOLAS MATHEWS MD 02/17/25 Current Medications Current Medications Medications (Trade) Dose Ordered Sig/Moises Route PRN Reason Start Time Stop Time Status Last Admin Cefepime HCl 50 ml @ 12.5 mls/hr Q12HR IV 05/01/25 22:00 05/02/25 10:38 Metoprolol Tartrate (Lopressor Tablet) 50 mg BID PO 05/01/25 22:00 05/02/25 11:05 Hydralazine HCl (Apresoline Injection) 10 mg Q6HP PRN IV SBP>150 05/01/25 20:30 05/02/25 01:29 Sodium Chloride 1,000 ml @ 100 mls/hr Q10H IV 05/01/25 20:30 05/02/25 06:30 Vancomycin HCl 0 ml @ 0 mls/hr UD IV 05/01/25 20:30 Acetaminophen/ Hydrocodone Bitart (Senath 5/325MG Tab) 1 tab Q4HP PRN PO MODERATE PAIN (4-6 PAIN SCALE) 05/01/25 20:30 05/01/25 20:57 Ondansetron HCl (Zofran) 4 mg Q4HP PRN IV NAUSEA / VOMITING 05/01/25 20:30 Docusate Sodium (Colace Capsule) 100 mg BIDPRN PRN PO FOR CONSTIPATION 05/01/25 20:30 Acetaminophen (Tylenol Tablet) 650 mg Q6HP PRN PO PAIN SCALE 1-3 OR TEMP>100.4 05/01/25 20:30 Nitroglycerin (Ntrostat Sublingual) 0.4 mg Q5MINP PRN SL FOR CHEST PAIN 05/01/25 22:45 Morphine Sulfate 2 mg Q30M PRN IV FOR CHEST PAIN 05/01/25 22:45 Family History: Hypertension G8 MOTHER, Onset:40's - 50 Review of Systems All 12 item review of systems reviewed with the patient nonsignificant except what is mentioned in the history of present illness H&P Exam Vital Signs/I&O Vital Sign Date Time Temp Pulse Resp B/P (MAP) Pulse Ox O2 Delivery O2 Flow Rate FiO2 05/02/25 11:05 123 130/90 05/02/25 07:30 33 98 05/02/25 07:30 Nasal Cannula* 4 36 05/02/25 00:43 98.3 98.3 Intake and Output 05/01/25 05/02/25 19:00 07:00 Intake Total 50.0 ml Balance 50.0 ml Intake IV Total 50.0 ml Physical Exam Patient is awake alert moderate abdominal distress Lungs decreased breath sounds on the left side Cardiac exam is tachycardic GI bowel sounds are present distended bladder Extremities no clubbing cyanosis or edema Neuro patient is paraplegic Labs/Diagnostic Data Labs/Diagnostic Data Laboratory Tests Test 05/02/25 11:05 05/02/25 09:39 05/02/25 03:53 05/02/25 03:52 Range/Units Urine Color Light-orange Yellow Urine Clarity Turbid H Clear Urine pH 5.5 5.0-9.0 Urine Specific [place] 1.014 1.001-1.035 Urine Protein Trace H Negative Urine Ketones Negative Negative Urine Blood 3+ H Negative /uL Urine Nitrite Negative Negative Urine Bilirubin Negative Negative Urine Urobilinogen Normal Negative mg/dL Urine Leukocyte Esterase Negative Negative /uL Urine RBC 36 0 - 3 /hpf Urine Microscopic WBC 4 H 0-3 /HPF Urine Squamous Epithelial Cells None seen <5 /hpf Urine Bacteria Few H None Seen /hpf Urine Mucus Few None Seen Urine Creatinine 67.56 30.0-125.0 mg/dL Urine Protein/Creatinine Ratio 1.17 Urine Sodium 22 L 40-220 mmol/L Urine Glucose Normal Normal mg/dL Urine Total Protein 79.1 H 1-14 mg/dL Creatinine 3.39 H 3.04 H 0.700-1.30 mg/dL Glomerular Filtration Rate Calc 23 26 >90 mL/min Random Vancomycin Level 14.8 H 5-10 ug/mL White Blood Count 19.7 H 4.4-10.8 10^3/uL Red Blood Count 4.41 L 4.5-5.90 10^6/uL Hemoglobin 10.0 L 13.5-17.5 g/dL Hematocrit 31.8 #L 41.0-53.0 % Mean Corpuscular Volume 72.1 L 80.0-100.0 fL Mean Corpuscular Hemoglobin 22.6 L 28.0-32.0 pg Mean Corpuscular Hemoglobin Concent 31.3 L 32.0-36.0 g/dL Red Cell Distribution Width 19.7 H 11.8-14.3 % Platelet Count 280 140-450 10^3/uL Mean Platelet Volume 8.8 6.9-10.8 fL Neutrophils (%) (Auto) 37.0-80.0 % Lymphocytes (%) (Auto) 10.0-50.0 % Monocytes (%) (Auto) 0.0-12.0 % Basophils (%) (Auto) 0.0-2.0 % Neutrophils # (Auto) 1.6-8.6 10 ^3/uL Lymphocytes # (Auto) 0.4-5.4 10 ^3/uL Monocytes # (Auto) 0-1.3 10 ^3/uL Differential Total Cells Counted 100.0 100 Neutrophils % (Manual) 72 37.0-80.0 Band Neutrophils % (Manual) 22 Lymphocytes % (Manual) 3 L 10.0-50.0 Monocytes % (Manual) 1 0-12 Eosinophils % (Manual) 2 0-7 Basophils % (Manual) 0 0.0-2.0 Metamyelocytes % (manual) 0 Myelocytes % (Manual) 0 Promyelocytes % (Manual) 0 Blast Cells % (Manual) 0 Reactive Lymphocytes 0 Platelet Estimate Adequate Polychromasia Slight Hypochromasia (manual) Slight Anisocytosis (manual) Slight Microcytosis Slight Sodium Level 132 L 136-145 mmol/L Potassium Level 5.0 3.5-5.1 mmol/L Chloride Level 98 98-107 mmol/L Carbon Dioxide Level 19 L 20-31 mmol/L Anion Gap 15 5-15 Blood Urea Nitrogen 47 H 9-23 mg/dL BUN/Creatinine Ratio 15.5 10.0-20.0 Serum Glucose 107 H 74-106 mg/dL Calcium Level 12.2 H 8.7-10.4 mg/dL Phosphorus Level 7.7 H 2.4-5.1 mg/dL Magnesium Level 2.4 1.6-2.6 mg/dL Total Bilirubin 0.3 0.2-1.0 mg/dL Aspartate Amino Transferase (AST) < 8 <34 U/L Alanine Aminotransferase (ALT) < 9 7-40 U/L Alkaline Phosphatase 108 46-116 U/L Total Protein 6.8 5.7-8.2 g/dL Albumin 3.2 3.2-4.8 g/dL Amylase Level 22 L 30-118 U/L Test 05/01/25 20:10 05/01/25 19:40 05/01/25 17:34 05/01/25 16:17 Range/Units Lactic Acid Level 2.4 *H 2.8 *H 2.6 *H 0.4-2.0 mmol/L Troponin I High Sensitivity 10 10 9 </=54 ng/L White Blood Count 19.8 H 4.4-10.8 10^3/uL Red Blood Count 5.07 4.5-5.90 10^6/uL Hemoglobin 11.5 #L 13.5-17.5 g/dL Hematocrit 36.8 #L 41.0-53.0 % Mean Corpuscular Volume 72.6 L 80.0-100.0 fL Mean Corpuscular Hemoglobin 22.7 L 28.0-32.0 pg Mean Corpuscular Hemoglobin Concent 31.3 L 32.0-36.0 g/dL Red Cell Distribution Width 19.5 H 11.8-14.3 % Platelet Count 292 140-450 10^3/uL Mean Platelet Volume 9.0 6.9-10.8 fL Neutrophils (%) (Auto) 84.4 H 37.0-80.0 % Lymphocytes (%) (Auto) 6.9 L 10.0-50.0 % Monocytes (%) (Auto) 6.1 0.0-12.0 % Eosinophils (%) (Auto) 2.2 0.0-7.0 % Basophils (%) (Auto) 0.4 0.0-2.0 % Neutrophils # (Auto) 16.8 H 1.6-8.6 10 ^3/uL Lymphocytes # (Auto) 1.4 0.4-5.4 10 ^3/uL Monocytes # (Auto) 1.2 0-1.3 10 ^3/uL Eosinophils # (Auto) 0.4 0-0.8 10 ^3/uL Basophils # (Auto) 0.1 0-0.2 10 ^3/uL Nucleated Red Blood Cells 0.1 % Prothrombin Time 11.4 9.3-11.8 sec Prothrombin Time INR 1.08 0.9-1.15 Activated Partial Thromboplast Time 27.1 24.5-34.5 SEC Sodium Level 129 #L 136-145 mmol/L Potassium Level 4.9 3.5-5.1 mmol/L Chloride Level 93 L 98-107 mmol/L Carbon Dioxide Level 20 20-31 mmol/L Anion Gap 16 H 5-15 Blood Urea Nitrogen 40 H 9-23 mg/dL Creatinine 2.40 H 0.700-1.30 mg/dL Glomerular Filtration Rate Calc 35 >90 mL/min BUN/Creatinine Ratio 16.7 10.0-20.0 Serum Glucose 96 74-106 mg/dL Calcium Level 12.1 H 8.7-10.4 mg/dL Total Bilirubin 0.4 0.2-1.0 mg/dL Aspartate Amino Transferase (AST) 9 <34 U/L Alanine Aminotransferase (ALT) < 9 7-40 U/L Alkaline Phosphatase 119 H 46-116 U/L Total Protein 7.3 5.7-8.2 g/dL Albumin 3.5 3.2-4.8 g/dL Lipase 23 12-53 U/L Assessment Acute kidney injury secondary hemodynamic mediated Metastatic renal cell carcinoma to the spine Paraplegia Urinary retention Left pleural effusion Hypertension Pneumonia Sepsis Hypercalcemia Microcytic anemia Recommendations Closely monitor fluid and electrolytes Avoid nephrotoxic medications [place] catheter Strict I&Os Check urinalysis urine lytes and protein excretion Check Kidney ultrasound IV antibiotics IV fluid hydration Blood pressure control Check phosphorus 25 hydroxyvitamin D and PTH Check iron saturation and ferritin level Pulmonary consult We will continue to follow Patient seen and examined by myself. I discussed my plan of care with the patient, his and the primary nurse at the bedside I would like to thank Dion for the consult, will follow up Plan discussed with: Patient SCOTT HUITRON MD May 02, 2025 10:21
[2025-05-02 10:51] LABS: Magnesium 2.4 mg/dL (1.6-2.6)
[2025-05-02 10:53] LABS: Phosphorus 7.7 mg/dL (2.4-5.1)
[2025-05-02 11:19] LABS: Urine Bacteria FEW /hpf (None Seen); Urine Blood 3+ /uL (Negative); Urine Clarity Turbid (Clear); Urine Color Light-Orange (Yellow); Urine Mucus FEW (None Seen); Urine Protein, UAD TRACE (Negative); Urine Specific Gravity 1.014 (1.001-1.035); Urine Squamous Epithelial Cell None Seen /hpf (<5); Urine Urobilinogen Normal (Negative); Urine WBC 4 /HPF (0-3); Urine pH 5.5 (5.0-9.0)
[2025-05-02 11:30] LABS: Protein, Urine 79.1 mg/dL (1-14)
[2025-05-02 11:33] LABS: Creatinine, Urine 67.56 mg/dL (30.0-125.0); Urine Protein/Creatinine Ratio 1.17
--- NOTE | 2025-05-02 11:58 | DVH ---
RENAL ULTRASOUND HISTORY: deirdre COMPARISON: CT abdomen pelvis 04/12/25 TECHNIQUE: Grayscale images of the kidneys and bladder were obtained. FINDINGS: Patient age: 39 RIGHT KIDNEY: Length: 11.2 cm. Soft tissue infiltration throughout the entirety of the right kidney with loss of cortical medullary differentiation. LEFT KIDNEY: Length: 12 cm. Normal parenchymal thickness. No urinary tract dilatation. BLADDER: Severely distended with volume of 844 CC's. There is layering debris within the bladder. IMPRESSION: 1. Severe urinary bladder distension 2. Limited evaluation of the right kidney as there is infiltrative soft tissue with loss of corticome dullary differentiation and loss of renal architecture compatible with patient's known history of ri ght renal mass.
--- NOTE | 2025-05-02 13:58 | DVHPN2 ---
Reviewed: Care Plan, H&P, Labs, Medications, Previous Orders, Radiology Changes from previous H/P or p: No Changes Eyes: No Pain, No Vision change, No Conjunctivae inflammation, No Eyelid inflammation, No Other, No Redness ENT: No Ear pain, No Ear discharge, No Nose pain, No Nose discharge, No Nose congestion, No Mouth pain, No Mouth swelling, No Throat pain, No Throat swelling, No Other Cardiovascular: No Chest Pain, No Palpitations, No Orthopnea, No Paroxysmal Noc. Dyspnea, No Edema, No Lt Headedness, No Other Respiratory: No Cough, No Dry; Shortness of breath; No SOB with excertion, No Wheezing, No Hemoptysis, No Pleuritic Pain, No Sputum; Other (Chest tube is in place) Gastrointestinal: No Nausea, No Vomiting, No Abdominal Pain, No Diarrhea; C onstipation; No Melena, No Hematochezia, No Other Genitourinary: No Dysuria, No Frequency, No Incontinence, No Hematuria, No Retention, No Other Musculoskeletal: No other, No neck pain, No shoulder pain, No arm pain, No back pain, No hand pain, No leg pain, No foot pain Skin: No Rash, No Lesions, No Jaundice, No Bruising, No Other Objective Vitals Vital Signs Date Time Temp Pulse Resp B/P (MAP) Pulse Ox O2 Delivery O2 Flow Rate FiO2 05/02/25 12:05 117 129/87 05/02/25 11:00 40 89 05/02/25 07:30 Nasal Cannula* 4 36 05/02/25 00:43 98.3 98.3 Intake/Output Intake and Output 05/02/25 07:00 Intake Total 50.0 ml Balance 50.0 ml Intake IV Total 50.0 ml Medications Current Medications Medications Dose Ordered Sig/Moises Route Start Time Stop Time Status Last Admin Dose Admin Cefepime HCl 50 ml @ 12.5 mls/hr Q12HR IV 05/01/25 22:00 05/02/25 10:38 12.5 MLS/HR Metoprolol Tartrate 50 mg BID PO 05/01/25 22:00 05/02/25 11:05 50 MG Hydralazine HCl 10 mg Q6HP PRN IV 05/01/25 20:30 05/02/25 01:29 10 MG Sodium Chloride 1,000 ml @ 100 mls/hr Q10H IV 05/01/25 20:30 05/02/25 06:30 100 MLS/HR Vancomycin HCl 0 ml @ 0 mls/hr UD IV 05/01/25 20:30 Acetaminophen/ Hydrocodone Bitart 1 tab Q4HP PRN PO 05/01/25 20:30 05/01/25 20:57 1 TAB Ondansetron HCl 4 mg Q4HP PRN IV 05/01/25 20:30 Docusate Sodium 100 mg BIDPRN PRN PO 05/01/25 20:30 Acetaminophen 650 mg Q6HP PRN PO 05/01/25 20:30 Nitroglycerin 0.4 mg Q5MINP PRN SL 05/01/25 22:45 Morphine Sulfate 2 mg Q30M PRN IV 05/01/25 22:45 Ketorolac Tromethamine 30 mg Q6HPRN PRN IV 05/02/25 13:15 05/07/25 13:14 Laboratory Results Laboratory Tests 05/02/25 03:52 05/02/25 09:39 Chemistry Test 05/01/25 16:17 05/02/25 03:52 Albumin 3.5 g/dL (3.2-4.8) 3.2 g/dL (3.2-4.8) Calcium Level 12.1 mg/dL (8.7-10.4) H 12.2 mg/dL (8.7-10.4) H Total Protein 7.3 g/dL (5.7-8.2) 6.8 g/dL (5.7-8.2) Magnesium Level 2.4 mg/dL (1.6-2.6) Phosphorus Level 7.7 mg/dL (2.4-5.1) H Coagulation Test 05/01/25 16:17 Prothrombin Time 11.4 sec (9.3-11.8) Prothrombin Time INR 1.08 (0.9-1.15) Activated Partial Thromboplast Time 27.1 SEC (24.5-34.5) Lipid panel Test 05/01/25 16:17 Lipase 23 U/L (12-53) LFT Test 05/01/25 16:17 05/02/25 03:52 Alanine Aminotransferase (ALT) < 9 U/L (7-40) < 9 U/L (7-40) Alkaline Phosphatase 119 U/L (46-116) H 108 U/L (46-116) Aspartate Amino Transferase (AST) 9 U/L (<34) < 8 U/L (<34) Total Bilirubin 0.4 mg/dL (0.2-1.0) 0.3 mg/dL (0.2-1.0) Urinalysis Test 05/02/25 11:05 Urine Color Light-orange (Yellow) Urine Clarity Turbid (Clear) H Urine pH 5.5 (5.0-9.0) Urine Specific [place] 1.014 (1.001-1.035) Urine Protein Trace (Negative) H Urine Ketones Negative (Negative) Urine Blood 3+ /uL (Negative) H Urine Nitrite Negative (Negative) Urine Bilirubin Negative (Negative) Urine Urobilinogen Normal mg/dL (Negative) Urine Leukocyte Esterase Negative /uL (Negative) Urine RBC 36 /hpf (0 - 3) Urine Microscopic WBC 4 /HPF (0-3) H Urine Squamous Epithelial Cells None seen /hpf (<5) Urine Bacteria Few /hpf (None Seen) H Urine Mucus Few (None Seen) Urine Osmolality 371 mOsm/kg Urine Creatinine 67.56 mg/dL (30.0-125.0) Urine Protein/Creatinine Ratio 1.17 Urine Sodium 22 mmol/L (40-220) L Urine Glucose Normal mg/dL (Normal) Urine Total Protein 79.1 mg/dL (1-14) H Labs and/or images reviewed: Labs reviewed by me, Image(s) reviewed by me Assessment/Plan Assessment/Plan Secondary to possible community-acquired pneumonia: Cefepime vancomycin Mild UTI Acute on chronic hypoxic respiratory failure Left pleural effusion status post chest tube placement Right renal carcinoma with the extensive Mets to the spine Acute kidney injury: Consult by Dr. Lowry appreciated Time spent 45 minutes Advanced care planning time 20 minutes Condition guarded Plan discussed with: Patient My Orders Orders - NISHA HE MD Procedure Category Date Status Time Ketorolac Injection PHA 05/02/25 In Process (Toradol Injection) 13:15 Date of Service: May 02, 2025 Billing Provider: NISHA HE MD Common Visit Codes: [id number] INP/OBS CARE(HIGH) Secondary Visit Codes: [id number] CARE PLAN 30 MINUTES NISHA HE MD May 02, 2025 13:58
[2025-05-02] MEDS: VANCOMYCIN 500mg/100mL 100 ML IV ONE (17:31)
[2025-05-02] MEDS: KETOROLAC TROMETH 30 MG/ML 1ML VIAL IV PRN (18:49)
[2025-05-02 19:30] VITALS: RESP 27; O2SAT 98
[2025-05-02] MEDS ORDERED: MORPHINE SULFATE 4 MG/ML SYR/VIAL IV PRN (22:45)
[2025-05-02] MEDS: MORPHINE SULFATE INJ 2 MG/ml SYRG IV ONE (22:53)
[2025-05-02] MEDS: DOCUSATE SOD 100 MG CAP PO PRN (22:53)
[2025-05-03] VITALS (8 sets, daily range): BP systolic 108–129; BP diastolic 70–87; PULSE 74–140; RESP 18–34; TEMP 97.5–98.2; O2SAT 92–99
[2025-05-03] MEDS ORDERED: IBUP200C3 PO (06:08)
[2025-05-03 10:26] LABS: Hepatitis B Surface Antigen Negative (Negative); Hepatitis C Antibody Negative (Negative)
[2025-05-03] MEDS: VANCOMYCIN 1GM/200ML PM 200 ML IV ONE (10:32)
--- NOTE | 2025-05-03 11:09 | DVHPN2 ---
Progress Note Date Seen: May 03, 2025 Medical Necessity Reason Pt with a Central, PICC or Fol: No Subjective Review of Systems: GI:Abnormal Other Systems: Patient seen and examined by myself today in follow-up Objective vital signs Vital Sign Date Time Temp Pulse Resp B/P (MAP) Pulse Ox O2 Delivery O2 Flow Rate FiO2 05/03/25 10:34 74 144/53 05/03/25 05:00 97.5 34 99 97.5 05/03/25 03:50 Nasal Cannula* 2 28 Total Intake and Output 05/02/25 05/02/25 05/03/25 15:00 23:00 07:00 Intake Total 850.0 ml 400 ml 50 ml Output Total 1530 ml 500 ml Balance 850.0 ml -1130 ml -450 ml medications Current Medications Medications Dose Ordered Sig/Moises Route Start Time Stop Time Status Last Admin Dose Admin Cefepime HCl 50 ml @ 12.5 mls/hr Q12HR IV 05/01/25 22:00 05/02/25 22:54 12.5 MLS/HR Metoprolol Tartrate 50 mg BID PO 05/01/25 22:00 05/03/25 10:34 50 MG Hydralazine HCl 10 mg Q6HP PRN IV 05/01/25 20:30 05/02/25 01:29 10 MG Sodium Chloride 1,000 ml @ 100 mls/hr Q10H IV 05/01/25 20:30 05/03/25 10:31 100 MLS/HR Vancomycin HCl 0 ml @ 0 mls/hr UD IV 05/01/25 20:30 Acetaminophen/ Hydrocodone Bitart 1 tab Q4HP PRN PO 05/01/25 20:30 05/01/25 20:57 1 TAB Ondansetron HCl 4 mg Q4HP PRN IV 05/01/25 20:30 Docusate Sodium 100 mg BIDPRN PRN PO 05/01/25 20:30 05/02/25 22:53 100 MG Acetaminophen 650 mg Q6HP PRN PO 05/01/25 20:30 Nitroglycerin 0.4 mg Q5MINP PRN SL 05/01/25 22:45 Ketorolac Tromethamine 30 mg Q6HPRN PRN IV 05/02/25 13:15 05/07/25 13:14 05/02/25 18:49 30 MG Morphine Sulfate 2 mg Q30M PRN IV 05/02/25 22:45 Examination: LUNGS:Normal, CVS:Normal, MSK:Normal laboratory and microbiology Laboratory Tests 05/03/25 08:34 05/02/25 03:52 Test 05/02/25 03:52 Range/Units Serum Glucose 107 H 74-106 mg/dL Microbiology Date/Time Source Procedure Growth Status 05/01/25 16:21 Blood Blood Culture - Preliminary NO GROWTH AFTER 24 HOURS OF INCUBATION. 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
--- NOTE | 2025-05-03 13:32 | DVHPN2 ---
Reviewed: Care Plan, H&P, Labs, Medications, Previous Orders, Radiology Changes from previous H/P or p: No Changes Eyes: No Pain, No Vision change, No Conjunctivae inflammation, No Eyelid inflammation, No Other, No Redness ENT: No Ear pain, No Ear discharge, No Nose pain, No Nose discharge, No Nose congestion, No Mouth pain, No Mouth swelling, No Throat pain, No Throat swelling, No Other Cardiovascular: No Chest Pain, No Palpitations, No Orthopnea, No Paroxysmal Noc. Dyspnea, No Edema, No Lt Headedness, No Other Respiratory: No Cough, No Dry; Shortness of breath; No SOB with excertion, No Wheezing, No Hemoptysis, No Pleuritic Pain, No Sputum; Other (Chest tube is in place) Gastrointestinal: No Nausea, No Vomiting, No Abdominal Pain, No Diarrhea; C onstipation; No Melena, No Hematochezia, No Other Genitourinary: No Dysuria, No Frequency, No Incontinence, No Hematuria, No Retention, No Other Musculoskeletal: No other, No neck pain, No shoulder pain, No arm pain, No back pain, No hand pain, No leg pain, No foot pain Skin: No Rash, No Lesions, No Jaundice, No Bruising, No Other Objective Vitals Vital Signs Date Time Temp Pulse Resp B/P (MAP) Pulse Ox O2 Delivery O2 Flow Rate FiO2 05/03/25 10:34 74 144/53 05/03/25 08:00 22 98 Nasal Cannula* 2 28 05/03/25 05:00 97.5 97.5 Intake/Output Intake and Output 05/03/25 07:00 Intake Total 1300.0 ml Output Total 2030 ml Balance -730.0 ml Intake Oral 0 ml IV Total 1300.0 ml Tube Feeding 0 ml Blood Product 0 ml Other 0 ml Output Urine Total 2000 ml Stool Total 0 ml Urine/Stool Mix 0 ml Emesis 0 ml Chest Tube Drainage Total 30 ml Medications Current Medications Medications Dose Ordered Sig/Moises Route Start Time Stop Time Status Last Admin Dose Admin Cefepime HCl 50 ml @ 12.5 mls/hr Q12HR IV 05/01/25 22:00 05/03/25 12:12 12.5 MLS/HR Metoprolol Tartrate 50 mg BID PO 05/01/25 22:00 05/03/25 10:34 50 MG Hydralazine HCl 10 mg Q6HP PRN IV 05/01/25 20:30 05/02/25 01:29 10 MG Sodium Chloride 1,000 ml @ 100 mls/hr Q10H IV 05/01/25 20:30 05/03/25 10:31 100 MLS/HR Vancomycin HCl 0 ml @ 0 mls/hr UD IV 05/01/25 20:30 Acetaminophen/ Hydrocodone Bitart 1 tab Q4HP PRN PO 05/01/25 20:30 05/01/25 20:57 1 TAB Ondansetron HCl 4 mg Q4HP PRN IV 05/01/25 20:30 Docusate Sodium 100 mg BIDPRN PRN PO 05/01/25 20:30 05/02/25 22:53 100 MG Acetaminophen 650 mg Q6HP PRN PO 05/01/25 20:30 Nitroglycerin 0.4 mg Q5MINP PRN SL 05/01/25 22:45 Ketorolac Tromethamine 30 mg Q6HPRN PRN IV 05/02/25 13:15 05/07/25 13:14 05/02/25 18:49 30 MG Morphine Sulfate 2 mg Q30M PRN IV 05/02/25 22:45 Laboratory Results Laboratory Tests 05/02/25 03:52 05/03/25 08:34 Urinalysis Test 05/02/25 11:05 Urine Color Light-orange (Yellow) Urine Clarity Turbid (Clear) H Urine pH 5.5 (5.0-9.0) Urine Specific [place] 1.014 (1.001-1.035) Urine Protein Trace (Negative) H Urine Ketones Negative (Negative) Urine Blood 3+ /uL (Negative) H Urine Nitrite Negative (Negative) Urine Bilirubin Negative (Negative) Urine Urobilinogen Normal mg/dL (Negative) Urine Leukocyte Esterase Negative /uL (Negative) Urine RBC 36 /hpf (0 - 3) Urine Microscopic WBC 4 /HPF (0-3) H Urine Squamous Epithelial Cells None seen /hpf (<5) Urine Bacteria Few /hpf (None Seen) H Urine Mucus Few (None Seen) Urine Osmolality 371 mOsm/kg Urine Creatinine 67.56 mg/dL (30.0-125.0) Urine Protein/Creatinine Ratio 1.17 Urine Sodium 22 mmol/L (40-220) L Urine Glucose Normal mg/dL (Normal) Urine Total Protein 79.1 mg/dL (1-14) H Microbiology Microbiology Date/Time Source Procedure Growth Status 05/01/25 16:21 Blood Blood Culture - Preliminary NO GROWTH AFTER 24 HOURS OF INCUBATION. Resulted Labs and/or images reviewed: Labs reviewed by me, Image(s) reviewed by me Assessment/Plan Assessment/Plan Sepsis Secondary to possible community-acquired pneumonia: Cefepime vancomycin consult for Dr. 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 Lowry appreciated Time spent 45 minutes Advanced care planning time 20 minutes Condition guarded Plan discussed with: Patient Date of Service: May 03, 2025 Billing Provider: NISHA HE MD Common Visit Codes: [id number] INP/OBS CARE(HIGH) NISHA HE MD May 03, 2025 13:32
[2025-05-03] MEDS: SODIUM CHLORIDE 0.9% 1,000 ML IV SCH (13:45)
--- NOTE | 2025-05-03 19:40 | DVHINCON2 ---
Date of service: May 03, [address] Elizabeth Arcos Reason for Consultation Acute respiratory failure History of Present Illness History Source: Patient Exam Limitations: No limitations HPI Patient is a 39-year old gentleman with a history of renal cancer with metastatic spread who presented with shortness of breath. Patient was admitted to this facility earlier this month when he was found to have large left pleural effusions requiring chest tube placement for draining. He was eventually discharged home with home health to assist in managing the chest tube. However, patient returned back with recurrence of symptoms and chest x-ray obtained in the ER demonstrated completely opacified left hemithorax. Pulmonology was consulted to assist in management. Home Meds Active Scripts Fluconazole (Fluconazole) 200 Mg Tab, 1 TAB PO DAILY for 14 Days, #14 TAB Prov:MARIE LYON MD 04/26/25 Reported Medications Ibuprofen (Ibuprofen) 200 Mg Cap, 200 MG PO, MG 05/03/25 Past Medical History Cardiac: No pertinent Hx Pulmonary: No pertinent Hx Central Nervous System: No pertinent Hx GI: No pertinent Hx Hemotology/Oncology: Cancer (renal cancer with mets ) Hepatobiliary: No pertinent Hx Psychiatric: No pertinent Hx Musculoskeletal: No pertinent Hx Rheumotologic: No pertinent Hx Infectious Disease: No peritnent Hx ENT: No pertinent Hx Renal/: No pertinent Hx Endocrine: No pertinent Hx Dermatology: No pertinent Hx Past Surgical History: No pertinent Hx Family History: Hypertension Patient Family History: Hypertension G8 MOTHER, Onset:40's - 50 Smoker: No Hx (Negative) Alocohol: None Drugs: None Lives with: With family Domestic Violence: Neg Review of Systems Constitutional: No symptom reported Ears, Nose, & Throat: No symptom reported Eyes: No symptom reported Pulmonary/Respiratory: Dyspnea Cardiovascular: No symptom reported Gastrointestinal: No symptom reported Genitourinary: No symptom reported Musculoskeletal: No symptom reported Skin: No symptom reported Psychiatric: No symptom reported Endocrine: No symptom reported Hemotologic/Lymphatic: No symptom reported H&P Exam Vital Signs Vital Signs Date Time Temp Pulse Resp B/P (MAP) Pulse Ox O2 Delivery O2 Flow Rate FiO2 05/03/25 16:26 98.0 127 19 114/73 (87) 97 98.0 05/03/25 08:00 Nasal Cannula* 2 28 General Appeara: Well developed, Well nourished, Normal Appearance Head Exam: Normal inspection Neck Exam: Normal inspection, Non-tender, Normal alignment Eye Exam: bilateral eye Normal inspection, bilateral eye PERRL, bilateral eye EOMI Ear Exam: bilateral ear Auricle normal, bilateral ear Canal normal, bilateral ear TM normal Nasal Exam: Normal inspection Mouth: Normal Inspection Pulmonary/Respiratory: Decreased breath sounds Cardiovascular/Chest: Normal inspection Peripheral Pulses: 4+ Radial (R), 4+ Radial (L), 4+ Brachial (R), 4+ Brachial (L) Abdominal Exam: Normal bowel sounds Labs/Xrays Labs Test 05/03/25 08:34 05/02/25 11:05 05/02/25 09:39 05/02/25 03:53 Range/Units Creatinine 1.90 H 0.700-1.30 mg/dL Glomerular Filtration Rate Calc 46 >90 mL/min Random Vancomycin Level 13.2 H 5-10 ug/mL Hepatitis B Surface Antigen Negative Negative Hepatitis C Antibody Negative Negative Urine Color Light-orange Yellow Urine Clarity Turbid H Clear Urine pH 5.5 5.0-9.0 Urine Specific [place] 1.014 1.001-1.035 Urine Protein Trace H Negative Urine Ketones Negative Negative Urine Blood 3+ H Negative /uL Urine Nitrite Negative Negative Urine Bilirubin Negative Negative Urine Urobilinogen Normal Negative mg/dL Urine Leukocyte Esterase Negative Negative /uL Urine RBC 36 0 - 3 /hpf Urine Microscopic WBC 4 H 0-3 /HPF Urine Squamous Epithelial Cells None seen <5 /hpf Urine Bacteria Few H None Seen /hpf Urine Mucus Few None Seen Urine Osmolality 371 mOsm/kg Urine Creatinine 67.56 30.0-125.0 mg/dL Urine Protein/Creatinine Ratio 1.17 Urine Sodium 22 L 40-220 mmol/L Urine Glucose Normal Normal mg/dL Urine Total Protein 79.1 H 1-14 mg/dL Vitamin D 25-Hydroxy 5.4 L 30.0-100 ng/mL Parathyroid Hormone (Intact) 4.0 L 18.4-80.1 pg/mL Test 05/02/25 03:52 05/01/25 20:10 05/01/25 19:40 05/01/25 16:17 Range/Units White Blood Count 19.7 H 4.4-10.8 10^3/uL Red Blood Count 4.41 L 4.5-5.90 10^6/uL Hemoglobin 10.0 L 13.5-17.5 g/dL Hematocrit 31.8 #L 41.0-53.0 % Mean Corpuscular Volume 72.1 L 80.0-100.0 fL Mean Corpuscular Hemoglobin 22.6 L 28.0-32.0 pg Mean Corpuscular Hemoglobin Concent 31.3 L 32.0-36.0 g/dL Red Cell Distribution Width 19.7 H 11.8-14.3 % Platelet Count 280 140-450 10^3/uL Mean Platelet Volume 8.8 6.9-10.8 fL Neutrophils (%) (Auto) 37.0-80.0 % Lymphocytes (%) (Auto) 10.0-50.0 % Monocytes (%) (Auto) 0.0-12.0 % Basophils (%) (Auto) 0.0-2.0 % Neutrophils # (Auto) 1.6-8.6 10 ^3/uL Lymphocytes # (Auto) 0.4-5.4 10 ^3/uL Monocytes # (Auto) 0-1.3 10 ^3/uL Differential Total Cells Counted 100.0 100 Neutrophils % (Manual) 72 37.0-80.0 Band Neutrophils % (Manual) 22 Lymphocytes % (Manual) 3 L 10.0-50.0 Monocytes % (Manual) 1 0-12 Eosinophils % (Manual) 2 0-7 Basophils % (Manual) 0 0.0-2.0 Metamyelocytes % (manual) 0 Myelocytes % (Manual) 0 Promyelocytes % (Manual) 0 Blast Cells % (Manual) 0 Reactive Lymphocytes 0 Platelet Estimate Adequate Polychromasia Slight Hypochromasia (manual) Slight Anisocytosis (manual) Slight Microcytosis Slight Sodium Level 132 L 136-145 mmol/L Potassium Level 5.0 3.5-5.1 mmol/L Chloride Level 98 98-107 mmol/L Carbon Dioxide Level 19 L 20-31 mmol/L Anion Gap 15 5-15 Blood Urea Nitrogen 47 H 9-23 mg/dL BUN/Creatinine Ratio 15.5 10.0-20.0 Serum Glucose 107 H 74-106 mg/dL Calcium Level 12.2 H 8.7-10.4 mg/dL Phosphorus Level 7.7 H 2.4-5.1 mg/dL Magnesium Level 2.4 1.6-2.6 mg/dL Total Bilirubin 0.3 0.2-1.0 mg/dL Aspartate Amino Transferase (AST) < 8 <34 U/L Alanine Aminotransferase (ALT) < 9 7-40 U/L Alkaline Phosphatase 108 46-116 U/L Total Protein 6.8 5.7-8.2 g/dL Albumin 3.2 3.2-4.8 g/dL Amylase Level 22 L 30-118 U/L Lactic Acid Level 2.4 *H 0.4-2.0 mmol/L Troponin I High Sensitivity 10 </=54 ng/L Eosinophils (%) (Auto) 2.2 0.0-7.0 % Eosinophils # (Auto) 0.4 0-0.8 10 ^3/uL Basophils # (Auto) 0.1 0-0.2 10 ^3/uL Nucleated Red Blood Cells 0.1 % Prothrombin Time 11.4 9.3-11.8 sec Prothrombin Time INR 1.08 0.9-1.15 Activated Partial Thromboplast Time 27.1 24.5-34.5 SEC Lipase 23 12-53 U/L Microbiology Date/Time Source Procedure Growth Status 05/01/25 16:21 Blood Blood Culture - Preliminary NO GROWTH AFTER 48 HOURS OF INCUBATION. Resulted Assessment/Plan Plan Impression Acute hypoxemic respiratory failure Left pleural effusions Renal cancer with metastasis Atelectasis Patient seen and examined Events Low oxygen requirements On 2 liters nasal cannula Vital signs stable Labs and imaging reviewed Chest x-ray shows stable left-sided chest tube and complete opacification of the left hemithorax Management Supplemental oxygen Titrate to maintain sats 90% or above Incentive spirometry Bronchodilators Monitor renal function Monitor electrolytes Supplement as needed Pain control Avoid oversedation Patient may benefit from pleurX Obtain CT of the chest to better characterize lung parenchyma DVT prophylaxis Plan discussed with: Patient NICHELLE ROGERS MD May 03, 2025 19:40
[2025-05-03] MEDS: MORPHINE SULFATE 4 MG/ML SYR/VIAL IV PRN (20:57)
--- NOTE | 2025-05-03 21:15 | DVH ---
Procedure: CT CHEST WITHOUT CONTRAST Study Date and Requested Time: 05/03 08:20 PM History: pleural effusions Comparison: CT chest abdomen and pelvis 04/12/2025 CT CHEST WITHOUT CONTRAST on DOS: 02/14/25, CT CHEST WITHOUT CONTRAST on DOS: 02/12/25, US CHEST ULTRASOUND on DOS: 02/12/25 Dose: CTDI: 10.38 mGy DLP: 367.67 mGycm Technique: Multiplanar images obtained through the chest without contrast Findings: The thyroid gland is unremarkable. There is a large bore left-sided chest tube terminating over the left lower lobe. There is multiloculated complex large left-sided pleural effusion with heterogeneous appearance of th e remainder of the left lung tissue . Infiltration by mass can not be excluded. Foci of air within t he left-sided pleural effusion which may be iatrogenic from the chest tube placement. There is slight mediastinal shift to the right. Mild cardiomegaly. Dilatation of the pulmonary trunk up to 32 mm. Correlate for pulmonary arterial hypertension. There are right lung solid nodules, increased in size from prior imaging for example the right apical nodule measures up to 2 cm, previously measuring up to 1.1 cm. Trace right-sided pleural effusion. N o pneumothorax. Partially imaged Hypodense mass of the right upper abdomen which may represent The known right renal mass. Limited evaluation of the upper abdomen due to noncontrast imaging. Mild mesenteric edema of the upper abdomen. Mild body wall edema. Lytic changes of T9 and T10 vertebrae with mild loss of vertebral body height o f T9 prior imaging. Minimal lytic changes of the inner cortex of the left posterior 4th rib. Impression: Limited noncontrast imaging. Redemonstration of large left-sided complex pleural effusion with Heterogeneous appearance of the rem aining lung tissue. Underlying left lung mass can not be excluded. Interval increase in size of the right lung metastatic nodules. Trace right-sided pleural effusion. Partially imaged large right renal mass. Interval worsening of the Lytic changes of T9 and T10 Additional findings as above.
[2025-05-04] VITALS (9 sets, daily range): BP systolic 108–146; BP diastolic 52–88; PULSE 86–146; RESP 15–22; TEMP 96.9–98.7; O2SAT 88–100
--- NOTE | 2025-05-04 12:02 | DVHPN2 ---
Progress Note Date Seen: May 04, 2025 Medical Necessity Reason Pt with a Central, PICC or Fol: No Subjective Patient reports: No new complaints Review of Systems: :Abnormal Other Systems: Patient seen and examined by myself today in follow-up Objective vital signs Vital Sign Date Time Temp Pulse Resp B/P (MAP) Pulse Ox O2 Delivery O2 Flow Rate FiO2 05/04/25 09:20 133 120/77 05/04/25 08:00 19 92 Nasal Cannula* 2 28 05/04/25 05:00 96.9 96.9 Total Intake and Output 05/03/25 05/03/25 05/04/25 15:00 23:00 07:00 Intake Total 700 ml 1175 ml Output Total 1115 ml 500 ml Balance 700 ml 60 ml -500 ml medications Current Medications Medications Dose Ordered Sig/Moises Route Start Time Stop Time Status Last Admin Dose Admin Cefepime HCl 50 ml @ 12.5 mls/hr Q12HR IV 05/01/25 22:00 05/04/25 09:20 12.5 MLS/HR Metoprolol Tartrate 50 mg BID PO 05/01/25 22:00 05/04/25 09:20 50 MG Hydralazine HCl 10 mg Q6HP PRN IV 05/01/25 20:30 05/02/25 01:29 10 MG Vancomycin HCl 0 ml @ 0 mls/hr UD IV 05/01/25 20:30 Acetaminophen/ Hydrocodone Bitart 1 tab Q4HP PRN PO 05/01/25 20:30 05/04/25 01:16 1 TAB Ondansetron HCl 4 mg Q4HP PRN IV 05/01/25 20:30 Docusate Sodium 100 mg BIDPRN PRN PO 05/01/25 20:30 05/02/25 22:53 100 MG Acetaminophen 650 mg Q6HP PRN PO 05/01/25 20:30 Nitroglycerin 0.4 mg Q5MINP PRN SL 05/01/25 22:45 Ketorolac Tromethamine 30 mg Q6HPRN PRN IV 05/02/25 13:15 05/07/25 13:14 Hold 05/02/25 18:49 30 MG Morphine Sulfate 2 mg Q30M PRN IV 05/02/25 22:45 Sodium Chloride 1,000 ml @ 125 mls/hr Q8H IV 05/03/25 13:45 05/04/25 06:05 125 MLS/HR Morphine Sulfate 2 mg Q4HPRN PRN IV 05/03/25 20:15 05/03/25 20:57 2 MG Examination: LUNGS:Normal, CVS:Normal, MSK:Normal laboratory and microbiology Laboratory Tests 05/04/25 06:33 05/02/25 03:52 Test 05/02/25 03:52 Range/Units Serum Glucose 107 H 74-106 mg/dL Microbiology Date/Time Source Procedure Growth Status 05/01/25 16:21 Blood Blood Culture - Preliminary NO GROWTH AFTER 48 HOURS OF INCUBATION. Resulted Problem List/Assessment/Plan Problem List/Assessment/Plan Acute kidney injury secondary hemodynamic mediated Metastatic renal cell carcinoma to the spine Paraplegia Urinary retention Left pleural effusion Hypertension Pneumonia Sepsis Hypercalcemia Microcytic anemia Hyperphosphatemia Vitamin-D deficiency Recommendations Kidney function is improving increased urine output Ochoa catheter Strict I&Os Kidney ultrasound right kidney mass IV antibiotics IV fluid hydration Blood pressure control Urology consult We will continue to follow Plan discussed with: Patient, Spouse Dietary Evaluation Review Comments: 1. Continue liberalizing diet 2. Consider nepro Carb steady if PO intake < 50% 3. Monitor PO intake, wt trend, lab values. Expected Outcomes/Goals: To meet >75% estimated needs Fu 3-5 days SCOTT HUITRON MD May 04, 2025 12:02
--- NOTE | 2025-05-04 12:41 | DVHPN2 ---
Progress Note - Dictate Date Seen: May 04, 2025 Medical Necessity Reason Pt with a Central, PICC or Fol: No vital signs Vital Sign Date Time Temp Pulse Resp B/P (MAP) Pulse Ox O2 Delivery O2 Flow Rate FiO2 05/04/25 09:20 133 120/77 05/04/25 09:00 97.7 19 95 97.7 05/04/25 08:00 Nasal Cannula* 2 28 Total Intake and Output 05/03/25 05/03/25 05/04/25 15:00 23:00 07:00 Intake Total 700 ml 1175 ml Output Total 1115 ml 500 ml Balance 700 ml 60 ml -500 ml medications Current Medications Medications Dose Ordered Sig/Moises Route Start Time Stop Time Status Last Admin Dose Admin Cefepime HCl 50 ml @ 12.5 mls/hr Q12HR IV 05/01/25 22:00 05/04/25 09:20 12.5 MLS/HR Metoprolol Tartrate 50 mg BID PO 05/01/25 22:00 05/04/25 09:20 50 MG Hydralazine HCl 10 mg Q6HP PRN IV 05/01/25 20:30 05/02/25 01:29 10 MG Vancomycin HCl 0 ml @ 0 mls/hr UD IV 05/01/25 20:30 Acetaminophen/ Hydrocodone Bitart 1 tab Q4HP PRN PO 05/01/25 20:30 05/04/25 12:11 1 TAB Ondansetron HCl 4 mg Q4HP PRN IV 05/01/25 20:30 Docusate Sodium 100 mg BIDPRN PRN PO 05/01/25 20:30 05/02/25 22:53 100 MG Acetaminophen 650 mg Q6HP PRN PO 05/01/25 20:30 Nitroglycerin 0.4 mg Q5MINP PRN SL 05/01/25 22:45 Ketorolac Tromethamine 30 mg Q6HPRN PRN IV 05/02/25 13:15 05/07/25 13:14 Hold 05/02/25 18:49 30 MG Morphine Sulfate 2 mg Q30M PRN IV 05/02/25 22:45 Sodium Chloride 1,000 ml @ 125 mls/hr Q8H IV 05/03/25 13:45 05/04/25 06:05 125 MLS/HR Morphine Sulfate 2 mg Q4HPRN PRN IV 05/03/25 20:15 05/03/25 20:57 2 MG laboratory and microbiology Laboratory Tests 05/04/25 06:33 05/02/25 03:52 Test 05/02/25 03:52 Range/Units Serum Glucose 107 H 74-106 mg/dL Assessment/Plan Impression Acute hypoxemic respiratory failure Left pleural effusions Renal cancer with metastasis Atelectasis Patient seen and examined Events Low oxygen requirements On 2 liters nasal cannula No acute events Labs and imaging reviewed Chest x-ray shows stable left-sided chest tube and complete opacification of the left hemithorax Management Supplemental oxygen Titrate to maintain sats 90% or above Incentive spirometry Bronchodilators Monitor renal function Monitor electrolytes Supplement as needed Pain control Avoid oversedation Patient may benefit from pleurX DVT prophylaxis Dietary Evaluation Review Comments: 1. Continue liberalizing diet 2. Consider nepro Carb steady if PO intake < 50% 3. Monitor PO intake, wt trend, lab values. Expected Outcomes/Goals: To meet >75% estimated needs Fu 3-5 days Plan discussed with: Patient Date of Service: May 04, 2025 Billing Provider: NICHELLE ROGERS MD Common Visit Codes: NOT BILLABLE NICEHLLE ROGERS MD May 04, 2025 12:41
--- NOTE | 2025-05-04 13:03 | DVHPN2 ---
Reviewed: Care Plan, H&P, Labs, Medications, Previous Orders, Radiology Changes from previous H/P or p: No Changes, Changes Eyes: No Pain, No Vision change, No Conjunctivae inflammation, No Eyelid inflammation, No Other, No Redness ENT: No Ear pain, No Ear discharge, No Nose pain, No Nose discharge, No Nose congestion, No Mouth pain, No Mouth swelling, No Throat pain, No Throat swelling, No Other Cardiovascular: No Chest Pain, No Palpitations, No Orthopnea, No Paroxysmal Noc. Dyspnea, No Edema, No Lt Headedness, No Other Respiratory: No Cough, No Dry; Shortness of breath; No SOB with excertion, No Wheezing, No Hemoptysis, No Pleuritic Pain, No Sputum; Other (Chest tube is in place) Gastrointestinal: No Nausea, No Vomiting, No Abdominal Pain, No Diarrhea; C onstipation; No Melena, No Hematochezia, No Other Genitourinary: No Dysuria, No Frequency, No Incontinence, No Hematuria, No Retention, No Other Musculoskeletal: No other, No neck pain, No shoulder pain, No arm pain, No back pain, No hand pain, No leg pain, No foot pain Skin: No Rash, No Lesions, No Jaundice, No Bruising, No Other Objective Vitals Vital Signs Date Time Temp Pulse Resp B/P (MAP) Pulse Ox O2 Delivery O2 Flow Rate FiO2 05/04/25 09:20 133 120/77 05/04/25 09:00 97.7 19 95 97.7 05/04/25 08:00 Nasal Cannula* 2 28 Intake/Output Intake and Output 05/04/25 07:00 Intake Total 1875 ml Output Total 1615 ml Balance 260 ml Intake Oral 200 ml IV Total 1675 ml Output Urine Total 1600 ml Chest Tube Drainage Total 15 ml # Bowel Movements 1 Medications Current Medications Medications Dose Ordered Sig/Moises Route Start Time Stop Time Status Last Admin Dose Admin Cefepime HCl 50 ml @ 12.5 mls/hr Q12HR IV 05/01/25 22:00 05/04/25 09:20 12.5 MLS/HR Metoprolol Tartrate 50 mg BID PO 05/01/25 22:00 05/04/25 09:20 50 MG Hydralazine HCl 10 mg Q6HP PRN IV 05/01/25 20:30 05/02/25 01:29 10 MG Vancomycin HCl 0 ml @ 0 mls/hr UD IV 05/01/25 20:30 Acetaminophen/ Hydrocodone Bitart 1 tab Q4HP PRN PO 05/01/25 20:30 05/04/25 12:11 1 TAB Ondansetron HCl 4 mg Q4HP PRN IV 05/01/25 20:30 Docusate Sodium 100 mg BIDPRN PRN PO 05/01/25 20:30 05/02/25 22:53 100 MG Acetaminophen 650 mg Q6HP PRN PO 05/01/25 20:30 Nitroglycerin 0.4 mg Q5MINP PRN SL 05/01/25 22:45 Ketorolac Tromethamine 30 mg Q6HPRN PRN IV 05/02/25 13:15 05/07/25 13:14 Hold 05/02/25 18:49 30 MG Morphine Sulfate 2 mg Q30M PRN IV 05/02/25 22:45 Sodium Chloride 1,000 ml @ 125 mls/hr Q8H IV 05/03/25 13:45 05/04/25 06:05 125 MLS/HR Morphine Sulfate 2 mg Q4HPRN PRN IV 05/03/25 20:15 05/03/25 20:57 2 MG Laboratory Results Laboratory Tests 05/02/25 03:52 05/04/25 06:33 Urinalysis Test 05/02/25 11:05 Urine Color Light-orange (Yellow) Urine Clarity Turbid (Clear) H Urine pH 5.5 (5.0-9.0) Urine Specific [place] 1.014 (1.001-1.035) Urine Protein Trace (Negative) H Urine Ketones Negative (Negative) Urine Blood 3+ /uL (Negative) H Urine Nitrite Negative (Negative) Urine Bilirubin Negative (Negative) Urine Urobilinogen Normal mg/dL (Negative) Urine Leukocyte Esterase Negative /uL (Negative) Urine RBC 36 /hpf (0 - 3) Urine Microscopic WBC 4 /HPF (0-3) H Urine Squamous Epithelial Cells None seen /hpf (<5) Urine Bacteria Few /hpf (None Seen) H Urine Mucus Few (None Seen) Urine Osmolality 371 mOsm/kg Urine Creatinine 67.56 mg/dL (30.0-125.0) Urine Protein/Creatinine Ratio 1.17 Urine Sodium 22 mmol/L (40-220) L Urine Glucose Normal mg/dL (Normal) Urine Total Protein 79.1 mg/dL (1-14) H Microbiology Microbiology Date/Time Source Procedure Growth Status 05/01/25 16:21 Blood Blood Culture - Preliminary NO GROWTH AFTER 48 HOURS OF INCUBATION. Resulted Labs and/or images reviewed: Labs reviewed by me, Image(s) reviewed by me Assessment/Plan Assessment/Plan Sepsis Secondary to possible community-acquired pneumonia: Cefepime vancomycin consult for Dr. 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 Lowry appreciated Time spent 45 minutes Advanced care planning time 20 minutes Condition guarded Blood cultures negative Radiology consult placed for PleurX catheter Plan discussed with: Patient My Orders Orders - NISHA HE MD Procedure Category Date Status Time *Consult CONS 05/03/25 Transmitted / 13:32 Sodium Chloride 0.9% PHA 05/03/25 In Process 13:45 Date of Service: May 04, 2025 Billing Provider: NISHA HE MD Common Visit Codes: [id number] INP/OBS CARE(HIGH) NISHA HE MD May 04, 2025 13:03
[2025-05-04] MEDS: VANCOMYCIN 1GM/200ML PM 200 ML IV ONE (13:26)
--- NOTE | 2025-05-04 15:12 | DVH ---
US CHEST ULTRASOUND, HISTORY: FLUIID CHECK FOR POSSIBLE PLEURX CATHETER PLACEMENT COMPARISON(S): None TECHNICAL DATA: Transverse and longitudinal images are obtained of the chest. FINDING: IMPRESSION: There is no pleural effusion: The left chest is occupied by a complex mass measuring 23.7 x 11.7 x 16 .1 cm.
[2025-05-04] MEDS: SODIUM CHLORIDE 0.9% 500 ML IV ONE (21:08)
--- NOTE | 2025-05-04 21:10 | DVH ---
CHEST RADIOGRAPH Indication: sob Technique: Single frontal view of the chest was obtained Comparison: XY CHEST PORTABLE on DOS: 05/01/25, XY CHEST PORTABLE on DOS: 04/16/25, XY CHEST PORTABLE on DOS: 04/14/25 FINDINGS: Lines and Tubes: None Lungs: No focal consolidation. Persists in the opacification of the left laith thorax. Left-sided ches t tube not definitively visualized. Pleura: No effusion. No pneumothorax. Cardiomediastinal contours: Unremarkable Bones: No acute osseous abnormality. IMPRESSION: 1. Stable opacification of the left laith thorax. 2. A left-sided chest tube is not definitively visualized. 3. No left pneumothorax visualized.
[2025-05-04 21:20] LABS: Potassium 3.7 mmol/L (3.5-5.1)
[2025-05-04 21:21] LABS: Anion Gap 12 (5-15)
[2025-05-04 21:25] LABS: Hemoglobin 7.8 g/dL (13.5-17.5); Mean Corpuscular Hemoglobin 22.5 pg (28.0-32.0); Mean Corpuscular Hgb Conc. 29.9 g/dL (32.0-36.0); Mean Corpuscular Volume 75.2 fL (80.0-100.0); Platelet Count (auto) 219 10^3/uL (140-450); Red Blood Cells 3.46 10^6/uL (4.5-5.90); Red Cell Distribution Width 19.7 % (11.8-14.3)
[2025-05-04 21:26] LABS: BUN/Creatinine Ratio 26.6 (10.0-20.0); Blood Urea Nitrogen 21 mg/dL (9-23); Glucose 87 mg/dL (74-106)
[2025-05-04 21:38] LABS: Basophils % (manual) 0 (0.0-2.0); Blast Cells 0; Metamyelocytes % 0; Myelocytes % 0; Promyelocytes % 0; Reactive Lymphocytes 0
[2025-05-04 21:39] LABS: Calcium 10.8 mg/dL (8.7-10.4); Carbon Dioxide 19 mmol/L (20-31); Chloride 114 mmol/L (98-107); Sodium 145 mmol/L (136-145)
[2025-05-04 22:33] LABS: Band Neutrophils % (manual) 13; Eosinophils % (manual) 8 (0-7); Lymphocytes % (manual) 13 (10.0-50.0); Monocytes % (manual) 6 (0-12); Platelet Estimate Adequate
[2025-05-04 22:35] LABS: Hypochromia Moderate
[2025-05-04 22:37] LABS: Anisocytosis Slight
[2025-05-05] VITALS (13 sets, daily range): BP systolic 106–128; BP diastolic 57–80; PULSE 122–160; RESP 15–30; TEMP 97.6–99.5; O2SAT 90–100
--- NOTE | 2025-05-05 04:34 | RESUS ---
CODE ASSIST ASSESSSMENT Initial Information Code Assist Date: May 04, 2025 Code Assist Time: 20:28 [facility] of Arrest: [facility] Room [facility]A Provider Name CELESTE Time Notified: 20:28 Time PMD returned call: 20:28 Crash Cart Opened and Supplies: No Situation Staff concerned/worried, speci: SaO2 <90 Situation comment: Rapid response was called on patient. Patient O2 Sat was in the 40's - 50's even after trouble shooting ( changing the o2 site and changing pulse ox. ) Vitals were taken. Patient placed on 6 l NS and pulse ox prob was moved to ear and patient is Saturating at 99. Resident Dr. Ayala order Stat chest X-ray and BMP and CBC troponin, and 500mls bolus. Dr. Ayala stated to monitor Vitals signs and reevaulate in an hour after labs result. No further patient concerns at this time. Background Background: This is a 39 year old male BIBA presenting to the ED with chief complaint of constipation. EMS reports that the patient was recently discharged from [facility] for pneumonia with a chest tube in place and renal cancer and has been experiencing constipation for the past 3 days. EMS relays that the patient's family is concerned due to patient being bed bound and also that the patient has been loudly talking in his sleep. Patient still had his chest tube in place with serosanguineous fluid. Pt had chest tube removed today. Assessment Temperature (Fahrenheit): 98.4 Blood Pressure Systolic: 115 Blood Pressure Diastolic: 89 Respiratory Rate: 18 O2 Sat by Pulse Oximetry: 100 Assessment comment: Pt awake alert denies c/o, left lung sounds diminished with dressing intact. Recommendations/Interventions Procedures: CXR Portable, EKG Outcome Outcome: Problem Resolved Team Members Team Members CELESTE SPIN TABLE OPERATOR, SANDRO PASTOR HS, AJ RN, MAGDY RN, MARIANA RT, NAVIN RT. SANDRO GABRIEL May 05, 2025 04:34
--- NOTE | 2025-05-05 06:36 | DVH ---
EXAM: XY CHEST XRAY 1 VIEW HISTORY: SOB COMPARISON: XY CHEST PORTABLE on DOS: 05/04/25, XY CHEST PORTABLE on DOS: 05/01/25, XY CHEST PORTABLE o n DOS: 04/16/25, XY CHEST PORTABLE on DOS: 04/14/25, XY CHEST PORTABLE on DOS: 04/11/25, chest CT dated . TECHNIQUE: Portable AP view of the chest was performed. FINDINGS: The left hemithorax is completely opacified., stable versus the previous chest x-ray. There is mild i nterstitial prominence in the right lung. No pneumothorax. The left heart border is completely obscur ed. The heart is mildly shifted to the right, better characterized on prior CT scan. IMPRESSION: 1. Complete opacification of the left hemithorax and rightward shift of the heart, stable. These fin dings are better characterized on CT scan of the chest performed 2 days earlier. 2. Mild interstitial prominence in the right lung which may be due to bronchovascular crowding and/or reactive airways disease. Additionally, there are right lung noncalcified nodules contributing to th is appearance, which are better characterized on prior CT scan.
[2025-05-05 07:07] LABS: Magnesium 1.3 mg/dL (1.6-2.6)
[2025-05-05 07:08] LABS: Phosphorus 1.6 mg/dL (2.4-5.1)
--- NOTE | 2025-05-05 07:24 | ECG ---
[facility] Test Date: 2025-05-04 Test Time: 20:39:01 Pat Name: DAYAMI BARNES Department: Respiratoy Room: 0289T A Gender: M Regulatory Compliance Officer: YOSELIN : 1985 Requested By: AARON SIMMONS Order Number: [id number] Reading MD: Measurements Intervals [place] Rate: 148 P: 47 AK: 123 QRS: 46 QRSD: 45 T: 19 QT: 253 QTc: 398 Interpretive Statements Sinus tachycardia Probable left atrial enlargement Borderline T wave abnormalities Baseline wander in lead(s) V1 Please click the below link to view image of tracing.
--- NOTE | 2025-05-05 10:09 | DVHPN2 ---
Reviewed: Care Plan, H&P, Labs, Medications, Previous Orders, Radiology Changes from previous H/P or p: No Changes Eyes: No Pain, No Vision change, No Conjunctivae inflammation, No Eyelid inflammation, No Other, No Redness ENT: No Ear pain, No Ear discharge, No Nose pain, No Nose discharge, No Nose congestion, No Mouth pain, No Mouth swelling, No Throat pain, No Throat swelling, No Other Cardiovascular: No Chest Pain, No Palpitations, No Orthopnea, No Paroxysmal Noc. Dyspnea, No Edema, No Lt Headedness, No Other Respiratory: No Cough, No Dry; Shortness of breath; No SOB with excertion, No Wheezing, No Hemoptysis, No Pleuritic Pain, No Sputum; Other (Chest tube is in place) Gastrointestinal: No Nausea, No Vomiting, No Abdominal Pain, No Diarrhea; C onstipation; No Melena, No Hematochezia, No Other Genitourinary: No Dysuria, No Frequency, No Incontinence, No Hematuria, No Retention, No Other Musculoskeletal: No other, No neck pain, No shoulder pain, No arm pain, No back pain, No hand pain, No leg pain, No foot pain Skin: No Rash, No Lesions, No Jaundice, No Bruising, No Other Objective Vitals Vital Signs Date Time Temp Pulse Resp B/P (MAP) Pulse Ox O2 Delivery O2 Flow Rate FiO2 05/05/25 09:51 136 118/75 05/05/25 05:00 98.7 20 100 98.7 05/04/25 20:00 Nasal Cannula* 5 40 Intake/Output Intake and Output 05/05/25 07:00 Intake Total 3175 ml Output Total 1400 ml Balance 1775 ml Intake Oral 350 ml IV Total 2825 ml Output Urine Total 1400 ml # Bowel Movements 1 Medications Current Medications Medications Dose Ordered Sig/Moises Route Start Time Stop Time Status Last Admin Dose Admin Cefepime HCl 50 ml @ 12.5 mls/hr Q12HR IV 05/01/25 22:00 05/05/25 09:50 12.5 MLS/HR Metoprolol Tartrate 50 mg BID PO 05/01/25 22:00 05/05/25 09:51 50 MG Hydralazine HCl 10 mg Q6HP PRN IV 05/01/25 20:30 05/02/25 01:29 10 MG Vancomycin HCl 0 ml @ 0 mls/hr UD IV 05/01/25 20:30 Acetaminophen/ Hydrocodone Bitart 1 tab Q4HP PRN PO 05/01/25 20:30 05/04/25 12:11 1 TAB Ondansetron HCl 4 mg Q4HP PRN IV 05/01/25 20:30 Docusate Sodium 100 mg BIDPRN PRN PO 05/01/25 20:30 05/02/25 22:53 100 MG Acetaminophen 650 mg Q6HP PRN PO 05/01/25 20:30 Nitroglycerin 0.4 mg Q5MINP PRN SL 05/01/25 22:45 Ketorolac Tromethamine 30 mg Q6HPRN PRN IV 05/02/25 13:15 05/07/25 13:14 Hold 05/02/25 18:49 30 MG Morphine Sulfate 2 mg Q30M PRN IV 05/02/25 22:45 Sodium Chloride 1,000 ml @ 125 mls/hr Q8H IV 05/03/25 13:45 05/05/25 05:51 125 MLS/HR Morphine Sulfate 2 mg Q4HPRN PRN IV 05/03/25 20:15 05/05/25 01:00 2 MG Laboratory Results Laboratory Tests 05/04/25 20:57 05/05/25 06:15 Chemistry Test 05/04/25 20:57 05/05/25 06:15 Calcium Level 10.8 mg/dL (8.7-10.4) H Magnesium Level 1.3 mg/dL (1.6-2.6) #L Phosphorus Level 1.6 mg/dL (2.4-5.1) L Cardiac Markers Test 05/04/25 20:57 B-Type Natriuretic Peptide 79.32 pg/mL (0-100) Urinalysis Test 05/02/25 11:05 Urine Color Light-orange (Yellow) Urine Clarity Turbid (Clear) H Urine pH 5.5 (5.0-9.0) Urine Specific [place] 1.014 (1.001-1.035) Urine Protein Trace (Negative) H Urine Ketones Negative (Negative) Urine Blood 3+ /uL (Negative) H Urine Nitrite Negative (Negative) Urine Bilirubin Negative (Negative) Urine Urobilinogen Normal mg/dL (Negative) Urine Leukocyte Esterase Negative /uL (Negative) Urine RBC 36 /hpf (0 - 3) Urine Microscopic WBC 4 /HPF (0-3) H Urine Squamous Epithelial Cells None seen /hpf (<5) Urine Bacteria Few /hpf (None Seen) H Urine Mucus Few (None Seen) Urine Osmolality 371 mOsm/kg Urine Creatinine 67.56 mg/dL (30.0-125.0) Urine Protein/Creatinine Ratio 1.17 Urine Sodium 22 mmol/L (40-220) L Urine Glucose Normal mg/dL (Normal) Urine Total Protein 79.1 mg/dL (1-14) H Microbiology Microbiology Date/Time Source Procedure Growth Status 05/03/25 10:00 Nose MRSA Screen - Final Complete 05/01/25 16:21 Blood Blood Culture - Preliminary NO GROWTH AFTER 72 HOURS OF INCUBATION. Resulted Labs and/or images reviewed: Labs reviewed by me, Image(s) reviewed by me Assessment/Plan Assessment/Plan Sepsis Secondary to possible community-acquired pneumonia: Cefepime vancomycin consult for Dr. Crum Mild UTI Acute on chronic hypoxic respiratory failure Left pleural effusion status post chest tube placement, Radiology consult placed for possible PleurX, per Radiology there no fluid to drain, but only mass in the left hemithorax. 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 Lowry appreciated Time spent 45 minutes Advanced care planning time 20 minutes Condition guarded Blood cultures negative requesting transfer to higher level of care; orders placed Plan discussed with: Patient My Orders Orders - NISHA HE MD Procedure Category Date Status Time * Radiologist Consult CONS 05/04/25 Transmitted 13:03 Apply Barrier Cream SNEHAL 05/04/25 In Process 20:03 Date of Service: May 05, 2025 Billing Provider: NISHA HE MD Common Visit Codes: [id number] INP/OBS CARE(HIGH) NISHA HE MD May 05, 2025 10:09
--- NOTE | 2025-05-05 10:17 | DVHDS2 ---
Discharge Summary Date of Admission May 01, 2025 at 22:35 Date of Discharge: May 05, 2025 Admitting Diagnosis Shortness of breath Wounds: Left chest tube Labs/Diagnostic Data: Laboratory Results Test 05/05/25 06:15 05/04/25 20:57 05/03/25 08:34 05/02/25 11:05 Creatinine 0.57 mg/dL (0.700-1.30) Glomerular Filtration Rate Calc 130 mL/min (>90) Phosphorus Level 1.6 mg/dL (2.4-5.1) Magnesium Level 1.3 mg/dL (1.6-2.6) Random Vancomycin Level 9.6 ug/mL (5-10) White Blood Count 23.0 10^3/uL (4.4-10.8) Red Blood Count 3.46 10^6/uL (4.5-5.90) Hemoglobin 7.8 g/dL (13.5-17.5) Hematocrit 26.0 % (41.0-53.0) Mean Corpuscular Volume 75.2 fL (80.0-100.0) Mean Corpuscular Hemoglobin 22.5 pg (28.0-32.0) Mean Corpuscular Hemoglobin Concent 29.9 g/dL (32.0-36.0) Red Cell Distribution Width 19.7 % (11.8-14.3) Platelet Count 219 10^3/uL (140-450) Mean Platelet Volume 8.3 fL (6.9-10.8) Neutrophils (%) (Auto) % (37.0-80.0) Lymphocytes (%) (Auto) % (10.0-50.0) Monocytes (%) (Auto) % (0.0-12.0) Basophils (%) (Auto) % (0.0-2.0) Neutrophils # (Auto) 10 ^3/uL (1.6-8.6) Lymphocytes # (Auto) 10 ^3/uL (0.4-5.4) Monocytes # (Auto) 10 ^3/uL (0-1.3) Differential Total Cells Counted 100.0 (100) Neutrophils % (Manual) 60 (37.0-80.0) Band Neutrophils % (Manual) 13 Lymphocytes % (Manual) 13 (10.0-50.0) Monocytes % (Manual) 6 (0-12) Eosinophils % (Manual) 8 (0-7) Basophils % (Manual) 0 (0.0-2.0) Metamyelocytes % (manual) 0 Myelocytes % (Manual) 0 Promyelocytes % (Manual) 0 Blast Cells % (Manual) 0 Reactive Lymphocytes 0 Platelet Estimate Adequate Hypochromasia (manual) Moderate Anisocytosis (manual) Slight Microcytosis Slight Sodium Level 145 mmol/L (136-145) Potassium Level 3.7 mmol/L (3.5-5.1) Chloride Level 114 mmol/L (98-107) Carbon Dioxide Level 19 mmol/L (20-31) Anion Gap 12 (5-15) Blood Urea Nitrogen 21 mg/dL (9-23) BUN/Creatinine Ratio 26.6 (10.0-20.0) Serum Glucose 87 mg/dL (74-106) Lactic Acid Level 1.8 mmol/L (0.4-2.0) Calcium Level 10.8 mg/dL (8.7-10.4) Troponin I High Sensitivity < 3 ng/L (</=54) B-Type Natriuretic Peptide 79.32 pg/mL (0-100) Hepatitis B Surface Antigen Negative (Negative) Hepatitis C Antibody Negative (Negative) Urine Color Light-orange (Yellow) Urine Clarity Turbid (Clear) Urine pH 5.5 (5.0-9.0) Urine Specific [place] 1.014 (1.001-1.035) Urine Protein Trace (Negative) Urine Ketones Negative (Negative) Urine Blood 3+ /uL (Negative) Urine Nitrite Negative (Negative) Urine Bilirubin Negative (Negative) Urine Urobilinogen Normal mg/dL (Negative) Urine Leukocyte Esterase Negative /uL (Negative) Urine RBC 36 /hpf (0 - 3) Urine Microscopic WBC 4 /HPF (0-3) Urine Squamous Epithelial Cells None seen /hpf (<5) Urine Bacteria Few /hpf (None Seen) Urine Mucus Few (None Seen) Urine Osmolality 371 mOsm/kg Urine Creatinine 67.56 mg/dL (30.0-125.0) Urine Protein/Creatinine Ratio 1.17 Urine Sodium 22 mmol/L (40-220) Urine Glucose Normal mg/dL (Normal) Urine Total Protein 79.1 mg/dL (1-14) Test 05/02/25 09:39 05/02/25 03:53 05/02/25 03:52 05/01/25 16:17 Vitamin D 25-Hydroxy 5.4 ng/mL (30.0-100) Parathyroid Hormone (Intact) 4.0 pg/mL (18.4-80.1) Polychromasia Slight Total Bilirubin 0.3 mg/dL (0.2-1.0) Aspartate Amino Transferase (AST) < 8 U/L (<34) Alanine Aminotransferase (ALT) < 9 U/L (7-40) Alkaline Phosphatase 108 U/L (46-116) Total Protein 6.8 g/dL (5.7-8.2) Albumin 3.2 g/dL (3.2-4.8) Amylase Level 22 U/L (30-118) Eosinophils (%) (Auto) 2.2 % (0.0-7.0) Eosinophils # (Auto) 0.4 10 ^3/uL (0-0.8) Basophils # (Auto) 0.1 10 ^3/uL (0-0.2) Nucleated Red Blood Cells 0.1 % Prothrombin Time 11.4 sec (9.3-11.8) Prothrombin Time INR 1.08 (0.9-1.15) Activated Partial Thromboplast Time 27.1 SEC (24.5-34.5) Lipase 23 U/L (12-53) Other Laboratory Tests 05/05/25 06:15 05/04/25 20:57 Brief Hx & Hospital Course: 39-year-old male recently discharged from this hospital came back and got admitted for shortness of breaths patient has a known diagnosis of right renal cancer with left malignant pleural effusion for which chest tube was placed during the last visit. Brought back by family for shortness of breaths and admitted found to be in sepsis secondary to possible community-acquired pneumonia treated with cefepime and vancomycin consult by Dr. Lowery. CT chest showed no pleural effusion in the left side but 7.8 cm mass. ELIZABETH at [place] by the vp digital marketing. Patient coded last night for acute hypoxia and was resuscitated. General condition very poor prognosis poor. Discussed with the about possibly to placing the patient on hospice but she wants patient to be transferred to higher level of care. Orders placed. General condition very poor prognosis very poor Consults/Reason for consult Nephrology Pulmonology Dr. Crum Operations or Procedures CT chest without contrast Condition at Discharge: Fair Final Diagnosis/Problems List Sepsis Secondary to possible community-acquired pneumonia: Cefepime vancomycin consult for Dr. Crum Mild UTI Acute on chronic hypoxic respiratory failure Left pleural effusion status post chest tube placement, Radiology consult placed for possible PleurX, per Radiology there no fluid to drain, but only mass in the left hemithorax. 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 Lowry appreciated Time spent 45 minutes Advanced care planning time 20 minutes Condition guarded Blood cultures negative Discharge Disposition: Acute Care Facility Discharge Instruct/Medications Diet: Renal Activity: Bed rest Medications: see list 39 (Time Taken for discharge summary 39 minutes) Discharge Statement: "Patient was advised to return to the ER or call 911 if any headaches, dizziness, shortness of breath, chest pain, abdominal pain, bleeding, fevers, or worsening of medical condition. Patient was counseled about treatment plan, medications, possible side effects, patientverbalized understanding. All questions were answered to the best of my ability. This discharge took greater then 30 minutes in planning, reviewing documentation, counseling the patient, and discussing with other team members." ASSESSMENT ASSESSMENT Hospital Course Marginal improvement Assessment Sepsis Secondary to possible community-acquired pneumonia: Cefepime vancomycin consult for Dr. Crum Mild UTI Acute on chronic hypoxic respiratory failure Left pleural effusion status post chest tube placement, Radiology consult placed for possible PleurX, per Radiology there no fluid to drain, but only mass in the left hemithorax. 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 Lowry appreciated Time spent 45 minutes Advanced care planning time 20 minutes Condition guarded Blood cultures negative Date of Service: May 05, 2025 Billing Provider: NISHA HE MD Common Visit Codes: [id number] DISCH DAY >30min NISHA HE MD May 05, 2025 10:16
--- NOTE | 2025-05-05 10:52 | DVHPN2 ---
Progress Note Date Seen: May 05, 2025 Medical Necessity Reason Pt with a Central, PICC or Fol: No Subjective Patient reports: No new complaints Other Systems: Patient seen and examined by myself today in follow-up Objective vital signs Vital Sign Date Time Temp Pulse Resp B/P (MAP) Pulse Ox O2 Delivery O2 Flow Rate FiO2 05/05/25 09:51 136 118/75 05/05/25 09:00 98.2 20 100 98.2 05/04/25 20:00 Nasal Cannula* 5 40 Total Intake and Output 05/04/25 05/04/25 05/05/25 15:00 23:00 07:00 Intake Total 50 ml 1875 ml 1250 ml Output Total 250 ml 1150 ml Balance 50 ml 1625 ml 100 ml medications Current Medications Medications Dose Ordered Sig/Moises Route Start Time Stop Time Status Last Admin Dose Admin Cefepime HCl 50 ml @ 12.5 mls/hr Q12HR IV 05/01/25 22:00 05/05/25 09:50 12.5 MLS/HR Metoprolol Tartrate 50 mg BID PO 05/01/25 22:00 05/05/25 09:51 50 MG Hydralazine HCl 10 mg Q6HP PRN IV 05/01/25 20:30 05/02/25 01:29 10 MG Vancomycin HCl 0 ml @ 0 mls/hr UD IV 05/01/25 20:30 Acetaminophen/ Hydrocodone Bitart 1 tab Q4HP PRN PO 05/01/25 20:30 05/04/25 12:11 1 TAB Ondansetron HCl 4 mg Q4HP PRN IV 05/01/25 20:30 Docusate Sodium 100 mg BIDPRN PRN PO 05/01/25 20:30 05/02/25 22:53 100 MG Acetaminophen 650 mg Q6HP PRN PO 05/01/25 20:30 Nitroglycerin 0.4 mg Q5MINP PRN SL 05/01/25 22:45 Ketorolac Tromethamine 30 mg Q6HPRN PRN IV 05/02/25 13:15 05/07/25 13:14 Hold 05/02/25 18:49 30 MG Morphine Sulfate 2 mg Q30M PRN IV 05/02/25 22:45 Sodium Chloride 1,000 ml @ 125 mls/hr Q8H IV 05/03/25 13:45 05/05/25 05:51 125 MLS/HR Morphine Sulfate 2 mg Q4HPRN PRN IV 05/03/25 20:15 05/05/25 01:00 2 MG Examination: LUNGS:Normal, CVS:Normal, MSK:Normal laboratory and microbiology Laboratory Tests 05/05/25 06:15 05/04/25 20:57 Test 05/04/25 20:57 Range/Units Serum Glucose 87 74-106 mg/dL Microbiology Date/Time Source Procedure Growth Status 05/03/25 10:00 Nose MRSA Screen - Final Complete 05/01/25 16:21 Blood Blood Culture - Preliminary NO GROWTH AFTER 72 HOURS OF INCUBATION. 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 Continue liberalizing diet 2. Consider nepro Carb steady if PO intake < 50% 3. Monitor PO intake, wt trend, lab values. Expected Outcomes/Goals: To meet >75% estimated needs Fu 3-5 days SCOTT HUITRON MD May 05, 2025 10:52
[2025-05-05] MEDS ORDERED: VANCOMYCIN 1GM/200ML PM 200 ML IV ONE (11:00)
--- NOTE | 2025-05-05 11:10 | DVH ---
CT HEAD WITHOUT CONTRAST Indication: Right renal cancer for evidence of Mets to brain EXAM DATE: 05/05/2025 10:31 AM COMPARISON: None TECHNIQUE: CT of the head without intravenous contrast. RADIATION DOSE: CTDIvol: 61.74 mGy, DLP: 1093.02 mGy*cm FINDINGS: There is no intracranial hemorrhage. There is a left frontoparietal subcortical mass measuring 1.2 cm with adjacent vasogenic edema. Right frontal subcortical mass measuring 6 mm with adjacent vasogenic edema. The ventricles are midline and normal in size. Cisterns patent. Mastoids well pneumatized. Left maxillary sinus mucosal retention cyst/ polyp measuring 1.5 cm. Imag ed portion of the orbits are unremarkable. IMPRESSION: 2 lesions/ masses with surrounding vasogenic edema consistent with metastatic disease, measuring 1.2 cm in the left frontoparietal lobe and 6 mm in the right frontal lobe. Recommend MRI brain with and without contrast to better characterized
[2025-05-05] MEDS ORDERED: ALBUTEROL SULF 2.5 MG/0.5ML(0.5%) NEB SOLN NEB SCH (13:00)
[2025-05-05] MEDS ORDERED: IPRATROPIUM BROM 0.5 MG/2.5ML INH SOL NEB SCH (13:00)
[2025-05-05] MEDS: IPRATROPIUM BROM 0.5 MG/2.5ML INH SOL ONE (13:23)
[2025-05-05] MEDS: IPRATROPIUM BROM 0.5 MG/2.5ML INH SOL NEB PRN (13:23)
[2025-05-05] MEDS: ALBUTEROL SULF 2.5 MG/0.5ML(0.5%) NEB SOLN NEB PRN (13:23)
[2025-05-05] MEDS: ALBUTEROL SULF 2.5 MG/0.5ML(0.5%) NEB SOLN ONE (13:24)
[2025-05-05] MEDS: VANCOMYCIN 1.25GM/250ML 250 ML IV ONE (14:02)
--- NOTE | 2025-05-05 18:23 | DVHPN2 ---
Progress Note - Dictate Date Seen: May 05, 2025 Medical Necessity Reason Pt with a Central, PICC or Fol: No vital signs Vital Sign Date Time Temp Pulse Resp B/P (MAP) Pulse Ox O2 Delivery O2 Flow Rate FiO2 05/05/25 17:00 99.5 146 20 106/57 (73) 98 99.5 05/05/25 13:23 Nasal Cannula 2.0 05/05/25 13:23 28 Total Intake and Output 05/04/25 05/04/25 05/05/25 15:00 23:00 07:00 Intake Total 50 ml 1875 ml 1250 ml Output Total 250 ml 1150 ml Balance 50 ml 1625 ml 100 ml medications Current Medications Medications Dose Ordered Sig/Moises Route Start Time Stop Time Status Last Admin Dose Admin Cefepime HCl 50 ml @ 12.5 mls/hr Q12HR IV 05/01/25 22:00 05/05/25 09:50 12.5 MLS/HR Metoprolol Tartrate 50 mg BID PO 05/01/25 22:00 05/05/25 09:51 50 MG Hydralazine HCl 10 mg Q6HP PRN IV 05/01/25 20:30 05/02/25 01:29 10 MG Vancomycin HCl 0 ml @ 0 mls/hr UD IV 05/01/25 20:30 Acetaminophen/ Hydrocodone Bitart 1 tab Q4HP PRN PO 05/01/25 20:30 05/04/25 12:11 1 TAB Ondansetron HCl 4 mg Q4HP PRN IV 05/01/25 20:30 Docusate Sodium 100 mg BIDPRN PRN PO 05/01/25 20:30 05/02/25 22:53 100 MG Acetaminophen 650 mg Q6HP PRN PO 05/01/25 20:30 Nitroglycerin 0.4 mg Q5MINP PRN SL 05/01/25 22:45 Ketorolac Tromethamine 30 mg Q6HPRN PRN IV 05/02/25 13:15 05/07/25 13:14 Hold 05/02/25 18:49 30 MG Sodium Chloride 1,000 ml @ 125 mls/hr Q8H IV 05/03/25 13:45 05/05/25 14:07 125 MLS/HR Morphine Sulfate 2 mg Q30M PRN IV 05/05/25 13:30 Morphine Sulfate 2 mg Q4HPRN PRN IV 05/05/25 13:30 laboratory and microbiology Laboratory Tests 05/05/25 06:15 05/04/25 20:57 Test 05/04/25 20:57 Range/Units Serum Glucose 87 74-106 mg/dL Assessment/Plan Impression Acute hypoxemic respiratory failure Left pleural effusions Renal cancer with metastasis Atelectasis Patient seen and examined Events Low oxygen requirements On 2 liters nasal cannula No acute events Labs and imaging reviewed s/p chest tube replacement Management Supplemental oxygen Titrate to maintain sats 90% or above Incentive spirometry Bronchodilators Monitor renal function Monitor electrolytes Supplement as needed Pain control Avoid oversedation Patient may benefit from pleurX DVT prophylaxis Dietary Evaluation Review Comments: 1. Continue liberalizing diet 2. Consider nepro Carb steady if PO intake < 50% 3. Monitor PO intake, wt trend, lab values. Expected Outcomes/Goals: To meet >75% estimated needs Fu 3-5 days Plan discussed with: Patient NICHELLE ROGERS MD May 05, 2025 18:23
[2025-05-05] MEDS: LEVALBUTEROL HCL 1.25 MG/3 ML NEB ONE (21:09)
[2025-05-05] MEDS: LEVALBUTEROL HCL 1.25 MG/3 ML NEB NEB PRN (21:11)
[2025-05-05] MEDS: MORPHINE SULFATE INJ 2 MG/ml SYRG IV PRN (21:50)
[2025-05-06] VITALS (13 sets, daily range): BP systolic 109–119; BP diastolic 67–79; PULSE 118–148; RESP 18–26; TEMP 96.9–100.6; O2SAT 94–100
[2025-05-06] MEDS ORDERED: LEVALBUTEROL HCL 1.25 MG/3 ML NEB NEB SCH
[2025-05-06] MEDS: MORPHINE SULFATE INJ 2 MG/ml SYRG IV PRN (09:54)
--- NOTE | 2025-05-06 12:09 | DVHPN2 ---
Reviewed: Care Plan, H&P, Labs, Medications, Previous Orders, Radiology Changes from previous H/P or p: No Changes Eyes: No Pain, No Vision change, No Conjunctivae inflammation, No Eyelid inflammation, No Other, No Redness ENT: No Ear pain, No Ear discharge, No Nose pain, No Nose discharge, No Nose congestion, No Mouth pain, No Mouth swelling, No Throat pain, No Throat swelling, No Other Cardiovascular: No Chest Pain, No Palpitations, No Orthopnea, No Paroxysmal Noc. Dyspnea, No Edema, No Lt Headedness, No Other Respiratory: No Cough, No Dry; Shortness of breath; No SOB with excertion, No Wheezing, No Hemoptysis, No Pleuritic Pain, No Sputum; Other (Chest tube is in place) Gastrointestinal: No Nausea, No Vomiting, No Abdominal Pain, No Diarrhea; C onstipation; No Melena, No Hematochezia, No Other Genitourinary: No Dysuria, No Frequency, No Incontinence, No Hematuria, No Retention, No Other Musculoskeletal: No other, No neck pain, No shoulder pain, No arm pain, No back pain, No hand pain, No leg pain, No foot pain Skin: No Rash, No Lesions, No Jaundice, No Bruising, No Other Objective Vitals Vital Signs Date Time Temp Pulse Resp B/P (MAP) Pulse Ox O2 Delivery O2 Flow Rate FiO2 05/06/25 10:45 132 18 100 05/06/25 10:39 Nasal Cannula 3.0 05/06/25 10:39 32 05/06/25 09:54 116/78 05/06/25 09:00 97.4 97.4 Intake/Output Intake and Output 05/06/25 07:00 Intake Total 1800 ml Output Total 1050 ml Balance 750 ml Intake Oral 750 ml IV Total 1050 ml Output Urine Total 1050 ml # Bowel Movements 1 Medications Current Medications Medications Dose Ordered Sig/Moises Route Start Time Stop Time Status Last Admin Dose Admin Cefepime HCl 50 ml @ 12.5 mls/hr Q12HR IV 05/01/25 22:00 05/06/25 09:35 12.5 MLS/HR Metoprolol Tartrate 50 mg BID PO 05/01/25 22:00 05/06/25 09:38 50 MG Hydralazine HCl 10 mg Q6HP PRN IV 05/01/25 20:30 05/02/25 01:29 10 MG Vancomycin HCl 0 ml @ 0 mls/hr UD IV 05/01/25 20:30 Acetaminophen/ Hydrocodone Bitart 1 tab Q4HP PRN PO 05/01/25 20:30 05/06/25 00:29 1 TAB Ondansetron HCl 4 mg Q4HP PRN IV 05/01/25 20:30 Docusate Sodium 100 mg BIDPRN PRN PO 05/01/25 20:30 05/02/25 22:53 100 MG Acetaminophen 650 mg Q6HP PRN PO 05/01/25 20:30 Nitroglycerin 0.4 mg Q5MINP PRN SL 05/01/25 22:45 Ketorolac Tromethamine 30 mg Q6HPRN PRN IV 05/02/25 13:15 05/07/25 13:14 Hold 05/02/25 18:49 30 MG Sodium Chloride 1,000 ml @ 125 mls/hr Q8H IV 05/03/25 13:45 05/06/25 07:12 125 MLS/HR Morphine Sulfate 2 mg Q30M PRN IV 05/05/25 13:30 05/05/25 21:50 2 MG Morphine Sulfate 2 mg Q4HPRN PRN IV 05/05/25 13:30 05/06/25 09:54 2 MG Levalbuterol HCl 0.625 mg Q6HPRN PRN NEB 05/05/25 21:00 05/06/25 10:39 0.625 MG Laboratory Results Laboratory Tests 05/04/25 20:57 05/06/25 08:56 Urinalysis Test 05/02/25 11:05 Urine Color Light-orange (Yellow) Urine Clarity Turbid (Clear) H Urine pH 5.5 (5.0-9.0) Urine Specific [place] 1.014 (1.001-1.035) Urine Protein Trace (Negative) H Urine Ketones Negative (Negative) Urine Blood 3+ /uL (Negative) H Urine Nitrite Negative (Negative) Urine Bilirubin Negative (Negative) Urine Urobilinogen Normal mg/dL (Negative) Urine Leukocyte Esterase Negative /uL (Negative) Urine RBC 36 /hpf (0 - 3) Urine Microscopic WBC 4 /HPF (0-3) H Urine Squamous Epithelial Cells None seen /hpf (<5) Urine Bacteria Few /hpf (None Seen) H Urine Mucus Few (None Seen) Urine Osmolality 371 mOsm/kg Urine Creatinine 67.56 mg/dL (30.0-125.0) Urine Protein/Creatinine Ratio 1.17 Urine Sodium 22 mmol/L (40-220) L Urine Glucose Normal mg/dL (Normal) Urine Total Protein 79.1 mg/dL (1-14) H Microbiology Microbiology Date/Time Source Procedure Growth Status 05/03/25 10:00 Nose MRSA Screen - Final Complete 05/01/25 16:21 Blood Blood Culture - Preliminary NO GROWTH AFTER 72 HOURS OF INCUBATION. Resulted Labs and/or images reviewed: Labs reviewed by me, Image(s) reviewed by me Assessment/Plan Assessment/Plan Sepsis Secondary to possible community-acquired pneumonia: Cefepime vancomycin consult for Dr. Crum Mild UTI Acute on chronic hypoxic respiratory failure Left pleural effusion status post chest tube placement, Radiology consult placed for possible PleurX, per Radiology there no fluid to drain, but only mass in the left hemithorax. 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 Lowry appreciated Time spent 45 minutes Advanced care planning time 20 minutes Condition guarded Blood cultures negative CT head shows metastatic lesion in the left frontal lobe and right frontal lobe Tubing Supervisor Christal being on transfer to higher level of care and reaching out to different hospitals but nobody accepting as on now Discussed with the Anabela CT head findings of metastasis to the brain. She is thinking of signed out AMA taking medical transportation and go to [facility]; DARBY Penaloza present during discussion at bedside with the Generalized Condition very poor and patient is on 4 L of oxygen at this time Plan discussed with: Patient Date of Service: May 06, 2025 Billing Provider: NISHA HE MD Common Visit Codes: [id number] CARE 30-74 MIN NISHA HE MD May 06, 2025 12:09
[2025-05-06] MEDS: ACETAMINOPHEN 325 MG TAB PO PRN (14:29)
[2025-05-06] MEDS ORDERED: VANCOMYCIN 1.25GM/250ML 250 ML IV ONE (15:15)
--- NOTE | 2025-05-06 15:49 | DVHPN2 ---
Progress Note - Dictate Date Seen: May 06, 2025 Medical Necessity Reason Pt with a Central, PICC or Fol: No vital signs Vital Sign Date Time Temp Pulse Resp B/P (MAP) Pulse Ox O2 Delivery O2 Flow Rate FiO2 05/06/25 14:31 146 20 119/67 05/06/25 14:29 100.6 05/06/25 13:00 97 05/06/25 10:39 Nasal Cannula 3.0 05/06/25 10:39 32 Total Intake and Output 05/05/25 05/05/25 05/06/25 15:00 23:00 07:00 Intake Total 50 ml 1300 ml 450 ml Output Total 500 ml 550 ml Balance 50 ml 800 ml -100 ml medications Current Medications Medications Dose Ordered Sig/Moises Route Start Time Stop Time Status Last Admin Dose Admin Cefepime HCl 50 ml @ 12.5 mls/hr Q12HR IV 05/01/25 22:00 05/06/25 09:35 12.5 MLS/HR Metoprolol Tartrate 50 mg BID PO 05/01/25 22:00 05/06/25 09:38 50 MG Hydralazine HCl 10 mg Q6HP PRN IV 05/01/25 20:30 05/02/25 01:29 10 MG Vancomycin HCl 0 ml @ 0 mls/hr UD IV 05/01/25 20:30 Acetaminophen/ Hydrocodone Bitart 1 tab Q4HP PRN PO 05/01/25 20:30 05/06/25 00:29 1 TAB Ondansetron HCl 4 mg Q4HP PRN IV 05/01/25 20:30 Docusate Sodium 100 mg BIDPRN PRN PO 05/01/25 20:30 05/02/25 22:53 100 MG Acetaminophen 650 mg Q6HP PRN PO 05/01/25 20:30 05/06/25 14:29 650 MG Nitroglycerin 0.4 mg Q5MINP PRN SL 05/01/25 22:45 Ketorolac Tromethamine 30 mg Q6HPRN PRN IV 05/02/25 13:15 05/07/25 13:14 Hold 05/02/25 18:49 30 MG Sodium Chloride 1,000 ml @ 125 mls/hr Q8H IV 05/03/25 13:45 05/06/25 13:45 125 MLS/HR Morphine Sulfate 2 mg Q30M PRN IV 05/05/25 13:30 05/05/25 21:50 2 MG Morphine Sulfate 2 mg Q4HPRN PRN IV 05/05/25 13:30 05/06/25 14:31 2 MG Levalbuterol HCl 0.625 mg Q6HPRN PRN NEB 05/05/25 21:00 05/06/25 10:39 0.625 MG laboratory and microbiology Laboratory Tests 05/06/25 08:56 05/04/25 20:57 Test 05/04/25 20:57 Range/Units Serum Glucose 87 74-106 mg/dL Assessment/Plan Impression Acute hypoxemic respiratory failure Left pleural effusions Renal cancer with metastasis Atelectasis Patient seen and examined Events Low oxygen requirements On 2 liters nasal cannula No acute events Labs and imaging reviewed Management Supplemental oxygen Titrate to maintain sats 90% or above Incentive spirometry Bronchodilators Monitor renal function Monitor electrolytes Supplement as needed Pain control Avoid oversedation Okay to discharge from pulmonary standpoint F/u with radiology DVT prophylaxis Dietary Evaluation Review Comments: 1. Continue liberalizing diet 2. Consider nepro Carb steady if PO intake < 50% 3. Monitor PO intake, wt trend, lab values. Expected Outcomes/Goals: To meet >75% estimated needs Fu 3-5 days Plan discussed with: Patient NICHELLE ROGERS MD May 06, 2025 15:49
[2025-05-06] MEDS ORDERED: MORPHINE SULFATE INJ 2 MG/ml SYRG IV ONE (17:30)
== END 2025-05-06 18:13 | disposition left against medical advice (07) | DRG 720 ==
LOC: EDBD 15:47 → ER 15:47 → EDSEX 15:47 → OVERFLOW 22:35 → TELE-WESTW 05-03 03:42
PROVIDERS: ADMIT Family Medicine; ATTEND Family Medicine
DX: A41.50 Gram-negative sepsis, unspecified (principal); J96.21 Acute and chronic respiratory failure with hypoxia; N17.0 Acute kidney failure with tubular necrosis; J15.69 Pneumonia due to other Gram-negative bacteria; C79.51 Secondary malignant neoplasm of bone; E87.20 Acidosis, unspecified; G82.20 Paraplegia, unspecified; J15.9 Unspecified bacterial pneumonia; E87.1 Hypo-osmolality and hyponatremia; J90 Pleural effusion, not elsewhere classified; J93.9 Pneumothorax, unspecified; C64.1 Malignant neoplasm of right kidney, except renal pelvis; D64.9 Anemia, unspecified; I10 Essential (primary) hypertension; D50.9 Iron deficiency anemia, unspecified; J98.11 Atelectasis; N39.0 Urinary tract infection, site not specified; K59.00 Constipation, unspecified; E55.9 Vitamin D deficiency, unspecified; Z53.29 Procedure and treatment not carried out because of patient's decision for other reasons; Z85.528 Personal history of other malignant neoplasm of kidney; Z82.49 Family history of ischemic heart disease and other diseases of the circulatory system; Z74.01 Bed confinement status
CPT/HCPCS: 36415; 70450; 71045; 71250; 74018; 76604; 76775; 80048; 80053; 80202; 81001; 82150; 82306; 82565; 82570; 83605; 83690; 83735; 83880; 83935; 83970; 84100; 84156; 84300; 84484; 85007; 85025; 85027; 85610; 85730; 86803; 87040; 87081; 87340; 93005; 94640; 96365; 99291; G0378; J1885; J2405